=== PATIENT | female | born 1945 | race Caucasian/White ===

== ENCOUNTER 2022-11-08 20:21 | Observation (INO) | payer MEDICARE, OTHER ==
--- NOTE | 2022-11-08 20:43 | ERPHSYRPT ---
- History of Present Illness Time Seen by Provider: 11/08/22 20:43 Source: patient, EMS, old records Exam Limitations: no limitations Physician History: This is a 77-year-old obese white female who was brought into the emergency department by [facility] ambulance. Additional history was obtained from the paramedics as well as prior inpatient admission notes. Patient states that she has had vomiting and diarrhea for few days and is now weak. In the last 2 to 3 days she is been too weak at times to walk. She denies shortness of breath. She denies chest pain. She has some abdominal pain as well. She has not had a cough or fever. Timing/Duration: day(s) (2 to 3 days) Severity: mild (To moderate) Associated Symptoms: nausea, vomiting, abdominal pain, weakness, other (Diarrhea) Allergies/Adverse Reactions: latex Allergy (Intermediate, Verified 11/08/22 20:51) Hives fiberglass Allergy (Intermediate, Uncoded 11/08/22 20:51) Hives Travel Risk - International Travel Have you traveled outside of the country in past 3 weeks: No - Coronavirus Screening Symptoms: Vomiting/Diarrhea Close contact with a COVID-19 positive Pt in past 14-21 Days: No - Review of Systems Constitutional: Weakness Eyes: No Symptoms Ears, Nose, & Throat: No Symptoms Respiratory: No Symptoms Cardiac: No Symptoms Abdominal/Gastrointestinal: Abdominal Pain, Nausea, Vomiting, Diarrhea, No Constipation Genitourinary Symptoms: No Symptoms Musculoskeletal: No Symptoms Skin: No Symptoms Neurological: No Symptoms Psychological: No Symptoms Endocrine: No Symptoms Hematologic/Lymphatic: No Symptoms Immunological/Allergic: No Symptoms All Other Systems: Reviewed and Negative - Past Medical History Pertinent Past Medical History: Yes - Past Surgical History Past Surgical History: Yes - Nursing Vital Signs Nursing Vital Signs: Initial Vital Signs Temperature 98.3 F 11/08/22 20:22 Pulse Rate 60 11/08/22 20:22 Respiratory Rate 18 11/08/22 20:22 Blood Pressure 116/45 11/08/22 20:22 O2 Sat by Pulse Oximetry 98 11/08/22 20:22 Pain Scale Pain Intensity 0 - Physical Exam General Appearance: no apparent distress, alert, anxiety, obese Eye Exam: PERRL/EOMI, eyes nml inspection Ears, Nose, Throat Exam: normal ENT inspection, moist mucous membranes Neck Exam: normal inspection, non-tender, supple, full range of motion Respiratory Exam: normal breath sounds, lungs clear, airway intact, No chest tenderness, No respiratory distress Cardiovascular Exam: regular rate/rhythm, normal heart sounds, normal peripheral pulses Gastrointestinal/Abdomen Exam: soft, normal bowel sounds, tenderness (Mild diffuse), guarding (Mild diffuse with palpation), No rebound Pelvic Exam: not done Rectal Exam: not done Back Exam: normal inspection, normal range of motion, No CVA tenderness, No vertebral tenderness Extremity Exam: normal inspection, normal range of motion, pelvis stable Neurologic Exam: alert, oriented x 3, cooperative, credit officer II-XII nml as tested, normal mood/affect, nml cerebellar function, nml station & gait, sensation nml Skin Exam: normal color, warm, dry Lymphatic Exam: No adenopathy SpO2 Interpretation: normal O2 Delivery: Room Air - Course Nursing assessment & vital signs reviewed: Yes EKG Interpreted by Me: RATE (68), Sinus Rhythm, NORMAL AXIS, NORMAL INTERVALS, NORMAL QRS, NORMAL ST-T, Other (No acute ischemic changes on today's twelve-lead EKG.) Ordered Tests: Active Orders 24 hr Category Date Time Status EKG-ER Only STAT Care 11/08/22 20:43 Active IV Insertion STAT Care 11/08/22 20:43 Active ABDOMEN AND PELVIS W/0 CONTRAS [CT] Stat Exams 11/08/22 21:09 Taken AMYLASE Stat Lab 11/08/22 21:00 Completed BLOOD CULTURE Stat Lab 11/08/22 21:10 Received CBC W DIFF Stat Lab 11/08/22 21:00 Completed CMP Stat Lab 11/08/22 21:00 Completed CULTURE,URINE Stat Lab 11/08/22 21:47 Received LIPASE Stat Lab 11/08/22 21:00 Completed Lactic Acid Stat Lab 11/08/22 21:10 Completed TROPONIN Q4H Lab 11/08/22 21:00 Completed TROPONIN Q4H Lab 11/09/22 00:45 Ordered TROPONIN Q4H Lab 11/09/22 04:45 Ordered UA W/RFX UR CULTURE Stat Lab 11/08/22 21:47 Completed Medication Summary Generic Name Dose Route Start Last Admin Trade Name Freq PRN Reason Stop Dose Admin Sodium Chloride 1,000 mls @ 100 mls/hr 11/08/22 20:45 Sodium Chloride 0.9% 1000 Ml IV 12/08/22 20:44 .Q10H RUBEN Levofloxacin/Dextrose 500 mg in 100 mls @ 100 mls/hr 11/08/22 22:47 11/08/22 22:55 Levofloxacin 500mg/100ml D5w IV 11/08/22 23:46 100 mls/hr STAT STA 100 mls/hr Administration Discontinued Medications Generic Name Dose Route Start Last Admin Trade Name Sherry PRN Reason Stop Dose Admin Levofloxacin/Dextrose Confirm 11/08/22 22:53 Levofloxacin 500mg/100ml D5w Administered 11/08/22 22:54 Dose 500 mg in 100 mls @ ud IV .STK-MED ONE Metronidazole 500 mg 11/08/22 23:22 Metronidazole 500 Mg Tablet PO 11/08/22 23:23 STAT ONE Lab/Rad Data: Laboratory Result Diagrams 11/08/22 21:00 11/08/22 21:00 Laboratory Results 11/08/22 11/08/22 11/08/22 Range/Units 21:47 21:10 21:00 WBC (4.0-10.5) x10^3/uL RBC (4.1-5.4) x10^6/uL Hgb (12.0-16.0) g/dL Hct (35-47) % MCV (78-100) fL MCH (26-32) pg MCHC (32-36) g/dL RDW (11.5-14.0) % Plt Count (150-450) x10^3/uL MPV (7.5-11.0) fL Gran % (36.0-66.0) % Immature Gran % (Auto) (0.00-0.4) % Nucleat RBC Rel Count (0.00-0.1) % Eos # (Auto) (0-0.5) x10^3/uL Immature Gran # (Auto) (0.00-0.03) x10^3u/L Absolute Lymphs (auto) (1.0-4.6) x10^3/uL Absolute Monos (auto) (0.0-1.3) x10^3/uL Absolute Nucleated RBC (0.00-0.01) x10^3u/L Lymphocytes % (24.0-44.0) % Monocytes % (0.0-12.0) % Eosinophils % (0.00-5.0) % Basophils % (0.0-0.4) % Absolute Granulocytes (1.4-6.9) x10^3/uL Basophils # (0-0.4) x10^3/uL Sodium (137-145) mmol/L Potassium (3.5-5.1) mmol/L Chloride (98-107) mmol/L Carbon Dioxide (22-30) mmol/L Anion Gap (5-15) MEQ/L BUN (7-17) mg/dL Creatinine (0.52-1.04) mg/dL Estimated GFR ML/MIN Glucose (74-106) mg/dL Lactic Acid 1.2 (0.4-2.0) Calcium (8.4-10.2) mg/dL Total Bilirubin (0.2-1.3) mg/dL AST (14-36) U/L ALT (0-35) U/L Alkaline Phosphatase (38-126) U/L Troponin I (0.000-0.034) ng/mL Serum Total Protein (6.3-8.2) g/dL Albumin (3.5-5.0) g/dL Amylase (30-110) U/L Lipase (23-300) U/L Urine Color Dark Yellow A (Yellow) Urine Appearance Turbid A (Clear) Urine pH 7.0 (4.6-8.0) Ur Specific [place] 1.020 (1.005-1.030) Urine Protein 100 A (Negative) Urine Glucose (UA) Negative (Negative) mg/dL Urine Ketones Trace A (Negative) Urine Blood Small A (Negative) Urine Nitrite Negative (Negative) Urine Bilirubin Negative (Negative) Urine Urobilinogen 1.0 A (0.2) mg/dL Ur Leukocyte Esterase Large A (Negative) U Hyaline Cast (Auto) 0-2 (0-2) /LPF Urine Microscopic RBC 6-10 A (0-5) /HPF Urine Microscopic WBC >100 A (0-5) /HPF Ur Epithelial Cells Many A (None Seen) /HPF Urine Bacteria Many A (None Seen) /HPF Urine Culture Reflexed YES (NO) Influenza Type A Ag NEGATIVE (NEGATIVE) Influenza Type B Ag NEGATIVE (NEGATIVE) RSV (PCR) NEGATIVE (NEGATIVE) SARS-CoV-2 (PCR) NEGATIVE (NEGATIVE) 0411/08/22 11/08/22 Range/Units 21:00 21:00 21:00 WBC 8.0 (4.0-10.5) x10^3/uL RBC 4.00 L (4.1-5.4) x10^6/uL Hgb 11.5 L (12.0-16.0) g/dL Hct 35.9 (35-47) % MCV 89.8 (78-100) fL MCH 28.8 (26-32) pg MCHC 32.0 (32-36) g/dL RDW 15.4 H (11.5-14.0) % Plt Count 239 (150-450) x10^3/uL MPV 11.6 H (7.5-11.0) fL Gran % 55.0 (36.0-66.0) % Immature Gran % (Auto) 1.0 H (0.00-0.4) % Nucleat RBC Rel Count 0.0 (0.00-0.1) % Eos # (Auto) 0.60 H (0-0.5) x10^3/uL Immature Gran # (Auto) 0.08 H (0.00-0.03) x10^3u/L Absolute Lymphs (auto) 1.94 (1.0-4.6) x10^3/uL Absolute Monos (auto) 0.86 (0.0-1.3) x10^3/uL Absolute Nucleated RBC 0.00 (0.00-0.01) x10^3u/L Lymphocytes % 24.4 (24.0-44.0) % Monocytes % 10.8 (0.0-12.0) % Eosinophils % 7.5 H (0.00-5.0) % Basophils % 1.3 (0.0-0.4) % Absolute Granulocytes 4.37 (1.4-6.9) x10^3/uL Basophils # 0.10 (0-0.4) x10^3/uL Sodium 136 L (137-145) mmol/L Potassium 3.8 (3.5-5.1) mmol/L Chloride 103 (98-107) mmol/L Carbon Dioxide 24 (22-30) mmol/L Anion Gap 12.9 (5-15) MEQ/L BUN 39 H (7-17) mg/dL Creatinine 2.43 H (0.52-1.04) mg/dL Estimated GFR 20.5 ML/MIN Glucose 101 (74-106) mg/dL Lactic Acid (0.4-2.0) Calcium 8.2 L (8.4-10.2) mg/dL Total Bilirubin 0.40 (0.2-1.3) mg/dL AST 48 H (14-36) U/L ALT 34 (0-35) U/L Alkaline Phosphatase 117 (38-126) U/L Troponin I < 0.012 (0.000-0.034) ng/mL Serum Total Protein 6.6 (6.3-8.2) g/dL Albumin 3.5 (3.5-5.0) g/dL Amylase 35 (30-110) U/L Lipase 25 (23-300) U/L Urine Color (Yellow) Urine Appearance (Clear) Urine pH (4.6-8.0) Ur Specific [place] (1.005-1.030) Urine Protein (Negative) Urine Glucose (UA) (Negative) mg/dL Urine Ketones (Negative) Urine Blood (Negative) Urine Nitrite (Negative) Urine Bilirubin (Negative) Urine Urobilinogen (0.2) mg/dL Ur Leukocyte Esterase (Negative) U Hyaline Cast (Auto) (0-2) /LPF Urine Microscopic RBC (0-5) /HPF Urine Microscopic WBC (0-5) /HPF Ur Epithelial Cells (None Seen) /HPF Urine Bacteria (None Seen) /HPF Urine Culture Reflexed (NO) Influenza Type A Ag (NEGATIVE) Influenza Type B Ag (NEGATIVE) RSV (PCR) (NEGATIVE) SARS-CoV-2 (PCR) (NEGATIVE) - Progress Progress: improved Progress Note: 11/08/22 23:13 CAT scan of the abdomen pelvis without contrast shows mild fluid distended jejunal bowel loops with wall thickening favoring enteritis. There is scattered colonic diverticulosis and diarrhea. 11/08/22 23:26 Patient's medical issue is 1 of high complexity. The level of complexity and work-up performed is based on the past medical history, review of the medication list, review of the drug allergies, history of present illness, and physical findings on examination. The work-up performed was placement of intravenous line, infusion of normal saline solution, CT scan of the abdomen pelvis, viral swabs, urinalysis, CBC, CMP, twelve-lead EKG, troponin level, lactic acid level. The patient work-up results were reviewed by me and I discussed these with the patient. The patient does have evidence of dehydration and a urinary tract infection. I spoke with Dr. Herron who is the hospitalist on-call. We will place this patient in observation and provide her with both oral Flagyl and intr avenous Rocephin to treat both a jejunal enteritis and a urinary tract infection. We will also provide her with intravenous fluids at 100 mL an hour of normal saline and repeat labs in the morning. Discussed with .: Chuck Counseled pt/family regarding: lab results, diagnosis, rad results Medical Desision Making - Independent Historian Additional History obtained from: Head Stock Operator/EMT - Discussion of managment Reviewed:: Test results, Need for additional workup Agreed on:: Treatment plan, decision to admit Will see patient: in hospital - Social Determinants of Health Limited access to: transportation - Diagnostic Testing Diagnostic test were ordered, analyzed, and reviewed by me: Yes Radiological Interpretation: Reviewed by me, Teleradiologist Report - Risk of complications The pt has a high risk of morbidity or mortality based on: Decision regarding hospitilization or escalation of hosp level of care - Departure Departure Disposition: Observation Clinical Impression: Weakness, UTI (urinary tract infection), Dehydration, Enteritis Condition: Stable Critical Care Time: No Referrals: HEATHER BLAND [ACTIVE STAFF] - Follow up/PCP as directed
[2022-11-08] MEDS ORDERED: Sodium Chloride 0.9% 1000 ML 1,000 ML IV SCH (20:45)
[2022-11-08 21:27] LABS: Absolute Neutrophil Ct (ANC) 4.37 x10^3/uL (1.4-6.9); BASOPHIL % 1.3 % (0.0-0.4); Eosinophil % 7.5 % (0.00-5.0); Hematocrit 35.9 % (35-47); Hemoglobin 11.5 g/dL (12.0-16.0); IMMATURE GRAN # 0.08 x10^3u/L (0.00-0.03); Lymphocyte (Absolute #) 1.94 x10^3/uL (1.0-4.6); Lymphocytes % 24.4 % (24.0-44.0); Mean Cell Volume 89.8 fL (78-100); Mean Corpuscular Hemoglobin 28.8 pg (26-32); Mean Platelet Volume 11.6 fL (7.5-11.0); Monocyte (Absolute #) 0.86 x10^3/uL (0.0-1.3); Monocytes % 10.8 % (0.0-12.0); Platelet Count 239 x10^3/uL (150-450); Red Cell Distribution Width 15.4 % (11.5-14.0)
[2022-11-08 22:05] LABS: INFLUENZA A NEGATIVE (NEGATIVE); INFLUENZA B NEGATIVE (NEGATIVE); RESPIRATORY SYNCTIAL VIRUS NEGATIVE (NEGATIVE); SARS-CoV-2 Xpert Express NEGATIVE (NEGATIVE)
[2022-11-08 22:18] LABS: ALBUMIN 3.5 g/dL (3.5-5.0); ANION GAP 12.9 MEQ/L (5-15); BILIRUBIN,TOTAL 0.4 mg/dL (0.2-1.3); Calcium 8.2 mg/dL (8.4-10.2); Creatinine 1 2.43 mg/dL (0.52-1.04); EST GLOMERULAR FILTRATION RATE 20.5 ML/MIN; Potassium 3.8 mmol/L (3.5-5.1); Total Protein 6.6 g/dL (6.3-8.2)
[2022-11-08 22:39] LABS: Appearance Turbid (Clear); Bacteria Many /HPF (None Seen); Bilirubin Negative (Negative); Blood Small (Negative); Epithelial Cells Many /HPF (None Seen); Glucose, Urine Negative (Negative); Ketones Trace (Negative); Leukocyte Esterase Large (Negative); Nitrite Negative (Negative); Protein,Urine Dip 100 (Negative); WBC >100 /HPF (0-5)
[2022-11-08 22:43] LABS: Hyaline Casts 0-2 /LPF (0-2)
[2022-11-08 22:44] LABS: ADD URINE CULTURE? YES (NO)
[2022-11-08] MEDS ORDERED: Levofloxacin 500MG/100ML D5W 500 MG/100 ML BAG IV STA (22:47)
[2022-11-08] MEDS ORDERED: Levofloxacin 500MG/100ML D5W 500 MG/100 ML BAG IV ONE (22:53)
[2022-11-08] MEDS ORDERED: Flagyl 500 MG PO ONE (23:22)
[2022-11-09] MEDS ORDERED: Flagyl 500 MG ONE (00:19)
[2022-11-09] MEDS ORDERED: TYLENOL 325 MG PO PRN (01:18)
[2022-11-09] MEDS: Sodium Chloride 0.9% 1000 ML 1,000 ML IV SCH ×2 (02:39→15:13)
[2022-11-09 05:35] LABS: Basophil (Absolute #) 0.08 x10^3/uL (0-0.4); Eosinophil (Absolute #) 0.69 x10^3/uL (0-0.5); Hematocrit 32.2 % (35-47); Hemoglobin 10.4 g/dL (12.0-16.0); IMMATURE GRAN # 0.06 x10^3u/L (0.00-0.03); IMMATURE GRAN % 0.8 % (0.00-0.4); Lymphocyte (Absolute #) 2.25 x10^3/uL (1.0-4.6); Lymphocytes % 29.4 % (24.0-44.0); Mean Cell Volume 88.5 fL (78-100); Mean Corpuscular Hemoglobin 28.6 pg (26-32); Mean Corpuscular Hgb Concent. 32.3 g/dL (32-36); Mean Platelet Volume 10.9 fL (7.5-11.0); Monocyte (Absolute #) 0.98 x10^3/uL (0.0-1.3); Monocytes % 12.8 % (0.0-12.0); Platelet Count 203 x10^3/uL (150-450); Red Blood Count 3.64 x10^6/uL (4.1-5.4); Red Cell Distribution Width 15.6 % (11.5-14.0); White Blood Count 7.7 x10^3/uL (4.0-10.5)
[2022-11-09 06:34] LABS: ALBUMIN 3.1 g/dL (3.5-5.0); ANION GAP 15.1 MEQ/L (5-15); BILIRUBIN,TOTAL 0.3 mg/dL (0.2-1.3); Calcium 7.8 mg/dL (8.4-10.2); Creatinine 1 2.37 mg/dL (0.52-1.04); EST GLOMERULAR FILTRATION RATE 21.1 ML/MIN; Potassium 3.6 mmol/L (3.5-5.1)
--- NOTE | 2022-11-09 09:05 | XRAY ---
Indication: Abdomen pain, nausea, vomiting, and diarrhea. Multiple contiguous axial images obtained through the abdomen and pelvis without contrast. Comparison: None Lung bases demonstrates dependent atelectasis and 7 mm left costophrenic angle noncalcified nodule. Heart not enlarged. Noncontrasted stomach and bowel loops appear nonobstructed. Stomach is mildly fluid distended. Several jejunal bowel loops are also mildly fluid distended with mild circumferential wall thickening favoring enteritis. Diffuse colonic diarrhea with scattered diverticulosis. Cholecystectomy and hysterectomy. No free fluid/air. Remaining liver, pancreas, spleen, adrenal glands, kidneys, ureters, and bladder are unremarkable for noncontrast exam. Mild scattered aortoiliac calcifications without AAA. Osseous structures intact with osteopenia, mild degenerative changes throughout the spine, mild levoscoliosis centered at L3, and T11 Schmorl node. Impression: 1. Mild fluid distended stomach and proximal small bowel loops favoring gastroenteritis. Diffuse colonic diarrhea. 2. Indeterminant 7 mm noncalcified nodule left lung base. 3. Chronic findings including colonic diverticulosis, arteriosclerotic disease, and chronic bony findings.
[2022-11-09] MEDS: Flagyl 500 MG PO SCH ×3 (10:56→22:37)
[2022-11-09] MEDS: ROCEPHIN 1 Gm-D5w 50 ml Bag** 1 G/50 ML IVPB IV SCH (10:56)
[2022-11-09] MEDS ORDERED: Reglan 10 MG PO SCH (11:30)
[2022-11-09] MEDS ORDERED: VITAMIN D2 PO SCH (11:30)
[2022-11-09] MEDS ORDERED: Reglan 10 MG PO PRN (11:45)
[2022-11-09] MEDS ORDERED: MEDICATION INTERVENTION MC SCH ×3 (11:45)
[2022-11-09 11:48] LABS: 027 TOX PROD PRESUMPTIVE NEGATIVE (NEGATIVE); TOXIGENIC C. DIFF ORG NEGATIVE (NEGATIVE)
[2022-11-09] MEDS: Toprol-Xl 25MG Tablets PO SCH ×2 (13:30→22:37)
[2022-11-09] MEDS: Imdur 30 MG PO SCH (13:30)
[2022-11-09] MEDS: SYNTHROID 25 MCG PO SCH (13:30)
[2022-11-09] MEDS: Zestril 5 MG PO SCH (13:31)
[2022-11-09] MEDS: Lexapro PO SCH (13:31)
[2022-11-09] MEDS: Pepcid 20 MG PO SCH ×2 (13:31→22:37)
[2022-11-09] MEDS: ZYLOPRIM 100 MG PO SCH (13:31)
[2022-11-09] MEDS ORDERED: HUMALOG SQ PRN (14:45)
[2022-11-09] MEDS: Lantus Insulin SQ SCH ×2 (15:07→22:37)
[2022-11-09] MEDS: Zofran 4 MG/2 ML VIAL IV PRN (16:10)
[2022-11-09] MEDS: PATIENT OWN MEDICATION PO SCH ×3 (16:51→16:52)
[2022-11-09 17:24] LABS: TSH, 3RD Generation 4.61 mIU/L (0.47-4.68); Uric Acid 7.1 mg/dL (2.6-6.0)
[2022-11-09] MEDS: NORCO 5/325 MG PO PRN (22:37)
--- NOTE | 2022-11-10 00:03 | PCM.HP ---
History of Present Illness - Chief Complaint Chief Complaint: UTI, DEHYDRATION, WEAKNESS, ENTERITIS History of Present Illness: is a 77 year obese white female who was brought to the emergency department by [facility] ambulance. Patient is followed by PCP who is PEDIATRIC ALLERGIST at [facility] and GI Specialist. Per ER additional history was obtained from the paramedics and prior inpatient admission notes. Patient states that she has had nausea,vomiting and diarrhea and generalized abdominal pain for few days. In the last 2 days states she is been too weak at times to walk. Denies shortness of breath ,denies cough or fever or chest pain. ER positive findings- CT abd/pelvis -positive for gastroenteritis,labs consistent with volume depletion and UTI. Patient is admitted to [facility] for IV rehydration and antibiotics for UTI and further evaluation of diarrhea. - Review of Systems Constitutional: Lethargy Eyes: No Symptoms, Vision Changes Ears, Nose, & Throat: No Symptoms Respiratory: No Symptoms Cardiac: No Symptoms Abdominal/Gastrointestinal: Abdominal Pain (periumbilical), Diarrhea, Appetite Changes (loss of appetite) Genitourinary Symptoms: Dysuria Musculoskeletal: Arthralgias, Myalgias Skin: No Symptoms Neurological: No Symptoms Psychological: No Symptoms Endocrine: Other (morbidly obese) Hematologic/Lymphatic: No Symptoms Medications & Allergies Home Medications: Home Medication List Allopurinol 100 mg [Zyloprim 100 mg] 100 mg PO DAILY 11/09/22 [History Confirmed 11/09/22] Colchicine 0.6 mg PO DAILY 11/09/22 [History Confirmed 11/09/22] Dapagliflozin Propanediol [Farxiga] 10 mg PO DAILY 11/09/22 [History Confirmed 11/09/22] Dicyclomine HCl 20 mg [Bentyl 20 mg] 10 mg PO TID 11/09/22 [History Confirmed 11/09/22] Ergocalciferol (Vitamin D2) [Vitamin D2] 1.25 mg PO WEEKLY 11/09/22 [History Confirmed 11/09/22] Escitalopram Oxalate [Lexapro] 10 mg PO DAILY 11/09/22 [History Confirmed 11/09/22] Famotidine 20 mg [Pepcid 20 MG] 20 mg PO BID 11/09/22 [History Confirmed 11/09/22] Ferrous Sulfate 325 mg [Feosol 325 mg] 325 mg PO DAILY 11/09/22 [History Confirmed 11/09/22] Furosemide [Lasix] 20 mg PO DAILY 11/09/22 [History Confirmed 11/09/22] Insulin Glargine [Lantus Insulin] 46 unit SQ DAILY 11/09/22 [History Confir med 11/09/22] Insulin Glargine [Lantus Insulin] 60 unit SQ HS 11/09/22 [History Confirmed 11/09/22] Insulin Lispro [Humalog] 0 unit SQ AC 11/09/22 [History Confirmed 11/09/22] Isosorbide Mononitrate [Isosorbide Mononitrate ER] 30 mg PO DAILY 11/09/22 [History Confirmed 11/09/22] Levothyroxine Sodium 25 Mcg [Synthroid 25 Mcg] 25 mcg PO DAILY 11/09/22 [History Confirmed 11/09/22] Metoclopramide HCl 10 mg [Reglan 10 MG] 10 mg PO TID PRN 11/09/22 [History Confirmed 11/09/22] Metoprolol Succinate 25 mg Xl* [Toprol-Xl 25MG Tablets] 12.5 mg PO BID 11/09/22 [History Confirmed 11/09/22] Tolterodine Tartrate [Tolterodine Tartrate ER] 2 mg PO DAILY 11/09/22 [History Confirmed 11/09/22] lisinopriL [Zestril] 2.5 mg PO DAILY 11/09/22 [History Confirmed 11/09/22] Allergies/Adverse Reactions: Allergies Allergy/AdvReac Type Severity Reaction Status Date / Time latex Allergy Intermediate Hives Verified 11/09/22 02:03 fiberglass Allergy Intermediate Hives Uncoded 11/09/22 02:03 - Past Medical History Past Medical History: Yes Neurological History: No Pertinent History ENT History: Macular Degeneration Cardiac History: High Cholesterol, Hypertension Respiratory History: Asthma, COPD, Pneumonia, Sleep Apnea Endocrine Medical History: Diabetes Type II, Hypothyroidism Musculoskelatal History: Arthritis, Fractures GI Medical History: Diverticulitis, GERD, GI Bleed, Irritable Bowel, Other History: Renal Disease Pyscho-Social History: No Pertinent History Reproductive Disorders: Breast Cancer Comment: breast cancer 1987, GASTROPARESIS - Past Surgical History Past Surgical History: Yes Neuro Surgical History: No Pertinent History Cardiac History: Cardiac Catheterization, Cardiac Stent Respiratory Surgery: No Pertinent History GI Surgical History: Cholecystectomy Genitourinary Surgical Hx: No Pertinent History Musculskeletal Surgical Hx: No Pertinent History Female Surgical History: Hysterectomy, Section, Mastectomy Other Surgical History: Uvula remove, 3 CARDIAC STENTS - Social History Smoking Status: Never smoker Exposure to second hand smoke: No Alcohol: None Drug Use: none - Physical Exam Vital Signs: Vital Signs - 24 hr Temp Pulse Resp BP Pulse Ox 11/09/22 23:54 97.3 F 71 20 141/65 96 11/09/22 20:00 97.5 F 73 20 110/56 98 11/09/22 16:00 97.5 F 69 18 114/56 97 11/09/22 11:46 97.3 F 72 17 110/49 99 11/09/22 07:37 97.1 F 71 18 113/53 99 11/09/22 04:00 97.8 F 86 20 108/51 96 11/09/22 01:19 97.7 F 74 22 120/56 96 General Appearance: mild distress (bowel urgency-nurse called) Neurologic Exam: alert, oriented x 3, cooperative Eye Exam: eyes nml inspection Ears, Nose, Throat Exam: normal ENT inspection Neck Exam: normal inspection Respiratory Exam: normal breath sounds Cardiovascular Exam: regular rate/rhythm Gastrointestinal/Abdomen Exam: soft, tenderness (generalized mild no guarding, BS increased) Pelvic Exam: not done Rectal Exam: not done Extremity Exam: pedal edema Skin Exam: normal color, warm, dry Results - Labs Lab/Micro Results: Lab Results-Last 24 Hours 11/09/22 11/09/22 11/09/22 Range/Units 01:00 04:00 04:50 WBC 7.7 (4.0-10.5) x10^3/uL RBC 3.64 L (4.1-5.4) x10^6/uL Hgb 10.4 L (12.0-16.0) g/dL Hct 32.2 L (35-47) % MCV 88.5 (78-100) fL MCH 28.6 (26-32) pg MCHC 32.3 (32-36) g/dL RDW 15.6 H (11.5-14.0) % Plt Count 203 (150-450) x10^3/uL MPV 10.9 (7.5-11.0) fL Gran % 47.0 (36.0-66.0) % Immature Gran % (Auto) 0.8 H (0.00-0.4) % Nucleat RBC Rel Count 0.0 (0.00-0.1) % Eos # (Auto) 0.69 H (0-0.5) x10^3/uL Immature Gran # (Auto) 0.06 H (0.00-0.03) x10^3u/L Absolute Lymphs (auto) 2.25 (1.0-4.6) x10^3/uL Absolute Monos (auto) 0.98 (0.0-1.3) x10^3/uL Absolute Nucleated RBC 0.00 (0.00-0.01) x10^3u/L Lymphocytes % 29.4 (24.0-44.0) % Monocytes % 12.8 H (0.0-12.0) % Eosinophils % 9.0 H (0.00-5.0) % Basophils % 1.0 (0.0-0.4) % Absolute Granulocytes 3.60 (1.4-6.9) x10^3/uL Basophils # 0.08 (0-0.4) x10^3/uL Sodium (137-145) mmol/L Potassium (3.5-5.1) mmol/L Chloride (98-107) mmol/L Carbon Dioxide (22-30) mmol/L Anion Gap (5-15) MEQ/L BUN (7-17) mg/dL Creatinine (0.52-1.04) mg/dL Estimated GFR ML/MIN Glucose (74-106) mg/dL POC Glucometer (74 to 106) mg/dL Uric Acid 7.1 H (2.6-6.0) mg/dL Calcium (8.4-10.2) mg/dL Total Bilirubin (0.2-1.3) mg/dL AST (14-36) U/L ALT (0-35) U/L Alkaline Phosphatase (38-126) U/L Troponin I < 0.012 (0.000-0.034) ng/mL NT-Pro-B Natriuret Pep (<300) pg/mL Serum Total Protein (6.3-8.2) g/dL Albumin (3.5-5.0) g/dL 25-OH Vitamin D Total (30-100) ng/mL TSH 3rd Generation 4.610 (0.47-4.68) mIU/L C. difficile Screen (NEGATIVE) C.difficile 027-NAP1-B1 (NEGATIVE) 11/09/22 11/09/22 11/09/22 Range/Units 05:19 05:19 05:19 WBC (4.0-10.5) x10^3/uL RBC (4.1-5.4) x10^6/uL Hgb (12.0-16.0) g/dL Hct (35-47) % MCV (78-100) fL MCH (26-32) pg MCHC (32-36) g/dL RDW (11.5-14.0) % Plt Count (150-450) x10^3/uL MPV (7.5-11.0) fL Gran % (36.0-66.0) % Immature Gran % (Auto) (0.00-0.4) % Nucleat RBC Rel Count (0.00-0.1) % Eos # (Auto) (0-0.5) x10^3/uL Immature Gran # (Auto) (0.00-0.03) x10^3u/L Absolute Lymphs (auto) (1.0-4.6) x10^3/uL Absolute Monos (auto) (0.0-1.3) x10^3/uL Absolute Nucleated RBC (0.00-0.01) x10^3u/L Lymphocytes % (24.0-44.0) % Monocytes % (0.0-12.0) % Eosinophils % (0.00-5.0) % Basophils % (0.0-0.4) % Absolute Granulocytes (1.4-6.9) x10^3/uL Basophils # (0-0.4) x10^3/uL Sodium 138 (137-145) mmol/L Potassium 3.6 (3.5-5.1) mmol/L Chloride 106 (98-107) mmol/L Carbon Dioxide 21 L (22-30) mmol/L Anion Gap 15.1 H (5-15) MEQ/L BUN 38 H (7-17) mg/dL Creatinine 2.37 H (0.52-1.04) mg/dL Estimated GFR 21.1 ML/MIN Glucose 97 (74-106) mg/dL POC Glucometer (74 to 106) mg/dL Uric Acid (2.6-6.0) mg/dL Calcium 7.8 L (8.4-10.2) mg/dL Total Bilirubin 0.30 (0.2-1.3) mg/dL AST 47 H (14-36) U/L ALT 32 (0-35) U/L Alkaline Phosphatase 110 (38-126) U/L Troponin I < 0.012 (0.000-0.034) ng/mL NT-Pro-B Natriuret Pep 797 (<300) pg/mL Serum Total Protein 6.0 L (6.3-8.2) g/dL Albumin 3.1 L (3.5-5.0) g/dL 25-OH Vitamin D Total (30-100) ng/mL TSH 3rd Generation (0.47-4.68) mIU/L C. difficile Screen (NEGATIVE) C.difficile 027-NAP1-B1 (NEGATIVE) 11/09/22 11/09/22 11/09/22 Range/Units 07:16 10:40 11:03 WBC (4.0-10.5) x10^3/uL RBC (4.1-5.4) x10^6/uL Hgb (12.0-16.0) g/dL Hct (35-47) % MCV (78-100) fL MCH (26-32) pg MCHC (32-36) g/dL RDW (11.5-14.0) % Plt Count (150-450) x10^3/uL MPV (7.5-11.0) fL Gran % (36.0-66.0) % Immature Gran % (Auto) (0.00-0.4) % Nucleat RBC Rel Count (0.00-0.1) % Eos # (Auto) (0-0.5) x10^3/uL Immature Gran # (Auto) (0.00-0.03) x10^3u/L Absolute Lymphs (auto) (1.0-4.6) x10^3/uL Absolute Monos (auto) (0.0-1.3) x10^3/uL Absolute Nucleated RBC (0.00-0.01) x10^3u/L Lymphocytes % (24.0-44.0) % Monocytes % (0.0-12.0) % Eosinophils % (0.00-5.0) % Basophils % (0.0-0.4) % Absolute Granulocytes (1.4-6.9) x10^3/uL Basophils # (0-0.4) x10^3/uL Sodium (137-145) mmol/L Potassium (3.5-5.1) mmol/L Chloride (98-107) mmol/L Carbon Dioxide (22-30) mmol/L Anion Gap (5-15) MEQ/L BUN (7-17) mg/dL Creatinine (0.52-1.04) mg/dL Estimated GFR ML/MIN Glucose (74-106) mg/dL POC Glucometer 101 (74 to 106) mg/dL Uric Acid (2.6-6.0) mg/dL Calcium (8.4-10.2) mg/dL Total Bilirubin (0.2-1.3) mg/dL AST (14-36) U/L ALT (0-35) U/L Alkaline Phosphatase (38-126) U/L Troponin I (0.000-0.034) ng/mL NT-Pro-B Natriuret Pep (<300) pg/mL Serum Total Protein (6.3-8.2) g/dL Albumin (3.5-5.0) g/dL 25-OH Vitamin D Total 19.9 L (30-100) ng/mL TSH 3rd Generation (0.47-4.68) mIU/L C. difficile Screen NEGATIVE (NEGATIVE) C.difficile 027-NAP1-B1 PRESUMPTIVE NEGATIVE (NEGATIVE) 11/09/22 11/09/22 11/09/22 Range/Units 11:17 15:56 21:10 WBC (4.0-10.5) x10^3/uL RBC (4.1-5.4) x10^6/uL Hgb (12.0-16.0) g/dL Hct (35-47) % MCV (78-100) fL MCH (26-32) pg MCHC (32-36) g/dL RDW (11.5-14.0) % Plt Count (150-450) x10^3/uL MPV (7.5-11.0) fL Gran % (36.0-66.0) % Immature Gran % (Auto) (0.00-0.4) % Nucleat RBC Rel Count (0.00-0.1) % Eos # (Auto) (0-0.5) x10^3/uL Immature Gran # (Auto) (0.00-0.03) x10^3u/L Absolute Lymphs (auto) (1.0-4.6) x10^3/uL Absolute Monos (auto) (0.0-1.3) x10^3/uL Absolute Nucleated RBC (0.00-0.01) x10^3u/L Lymphocytes % (24.0-44.0) % Monocytes % (0.0-12.0) % Eosinophils % (0.00-5.0) % Basophils % (0.0-0.4) % Absolute Granulocytes (1.4-6.9) x10^3/uL Basophils # (0-0.4) x10^3/uL Sodium (137-145) mmol/L Potassium (3.5-5.1) mmol/L Chloride (98-107) mmol/L Carbon Dioxide (22-30) mmol/L Anion Gap (5-15) MEQ/L BUN (7-17) mg/dL Creatinine (0.52-1.04) mg/dL Estimated GFR ML/MIN Glucose (74-106) mg/dL POC Glucometer 131 H 126 H 96 (74 to 106) mg/dL Uric Acid (2.6-6.0) mg/dL Calcium (8.4-10.2) mg/dL Total Bilirubin (0.2-1.3) mg/dL AST (14-36) U/L ALT (0-35) U/L Alkaline Phosphatase (38-126) U/L Troponin I (0.000-0.034) ng/mL NT-Pro-B Natriuret Pep (<300) pg/mL Serum Total Protein (6.3-8.2) g/dL Albumin (3.5-5.0) g/dL 25-OH Vitamin D Total (30-100) ng/mL TSH 3rd Generation (0.47-4.68) mIU/L C. difficile Screen (NEGATIVE) C.difficile 027-NAP1-B1 (NEGATIVE) Accuchecks Date 11/09/22 Date 11/09/22 Date 11/09/22 Time 16:17 Time 11:46 Time 07:31 - Radiology Impressions Radiology Exams & Impressions: Radiology Procedures Category Date Time Status ABDOMEN AND PELVIS W/0 CONTRAS [CT] Stat Exams 11/08/22 21:09 Completed Assessment/Plan (1) Dehydration Current Visit: Yes Status: Acute Assessment & Plan: IV fluids,monitor electrolytes Code(s): E86.0 - DEHYDRATION (2) Enteritis Current Visit: Yes Status: Acute Assessment & Plan: is on Rocephin and Flagyl ,cdiff was negative, GI panel ordered/pending Code(s): K52.9 - NONINFECTIVE GASTROENTERITIS AND COLITIS, UNSPECIFIED (3) UTI (urinary tract infection) Current Visit: Yes Status: Acute Assessment & Plan: culture pending,Gram neg rods. ER started Rocephin. 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
[2022-11-10] MEDS: Sodium Chloride 0.9% 1000 ML 1,000 ML IV SCH ×2 (03:54→18:54)
[2022-11-10] MEDS: Zofran 4 MG/2 ML VIAL IV PRN (08:47)
[2022-11-10] MEDS: NORCO 5/325 MG PO PRN ×2 (08:47→20:30)
[2022-11-10 08:56] LABS: Hematocrit 31.3 % (35-47); Hemoglobin 10.2 g/dL (12.0-16.0); Mean Cell Volume 88.7 fL (78-100); Mean Corpuscular Hemoglobin 28.9 pg (26-32); Mean Corpuscular Hgb Concent. 32.6 g/dL (32-36); Mean Platelet Volume 10.8 fL (7.5-11.0); Platelet Count 214 x10^3/uL (150-450); Red Blood Count 3.53 x10^6/uL (4.1-5.4); Red Cell Distribution Width 15.6 % (11.5-14.0); White Blood Count 6.6 x10^3/uL (4.0-10.5)
[2022-11-10 09:09] LABS: ALBUMIN 3.3 g/dL (3.5-5.0); ANION GAP 14.8 MEQ/L (5-15); BILIRUBIN,TOTAL 0.4 mg/dL (0.2-1.3); Calcium 7.7 mg/dL (8.4-10.2); Creatinine 1 1.77 mg/dL (0.52-1.04); EST GLOMERULAR FILTRATION RATE 29.5 ML/MIN; Potassium 3.6 mmol/L (3.5-5.1); Total Protein 6.3 g/dL (6.3-8.2)
[2022-11-10] MEDS ORDERED: COLCHICINE 0.6 MG PO SCH (10:00)
[2022-11-10] MEDS ORDERED: NON-FORMULARY ITEM (Tolterodine Tartrate [Tolterodine Tartrate Er] 2 MG Cap.Er.24h) PO SCH (10:00)
[2022-11-10] MEDS ORDERED: NON-FORMULARY ITEM (Lisinopril [Zestril] 2.5 MG Tablet) PO SCH (10:00)
[2022-11-10] MEDS ORDERED: NON-FORMULARY ITEM (Dapagliflozin Propanediol [Farxiga] 10 MG Tablet) PO SCH (10:00)
--- NOTE | 2022-11-10 10:13 | XRAY ---
Indication: care home placement. Comparison: None Portable chest inflated and clear. Heart borderline enlarged. Bony thorax intact with osteopenia and mild degenerative changes. Impression: Nonacute chest with chronic features.
[2022-11-10] MEDS ORDERED: MEDICATION INTERVENTION MC SCH (10:30)
[2022-11-10] MEDS: Flagyl 500 MG PO SCH ×3 (10:53→22:30)
[2022-11-10] MEDS: SYNTHROID 25 MCG PO SCH (10:54)
[2022-11-10] MEDS: Imdur 30 MG PO SCH (10:54)
[2022-11-10] MEDS: Lexapro PO SCH (10:54)
[2022-11-10] MEDS: ZYLOPRIM 100 MG PO SCH (10:54)
[2022-11-10] MEDS: Zestril 5 MG PO SCH (10:54)
[2022-11-10] MEDS: Pepcid 20 MG PO SCH ×2 (10:54→22:30)
[2022-11-10] MEDS: PATIENT OWN MEDICATION PO SCH ×3 (10:55→10:56)
[2022-11-10] MEDS: Toprol-Xl 25MG Tablets PO SCH ×2 (10:56→22:30)
[2022-11-10] MEDS: ROCEPHIN 1 Gm-D5w 50 ml Bag** 1 G/50 ML IVPB IV SCH (10:58)
[2022-11-10] MEDS: Lantus Insulin SQ SCH ×2 (13:31→22:31)
[2022-11-11 05:28] LABS: Absolute Neutrophil Ct (ANC) 3.24 x10^3/uL (1.4-6.9); BASOPHIL % 0.9 % (0.0-0.4); Basophil (Absolute #) 0.05 x10^3/uL (0-0.4); Eosinophil % 7.9 % (0.00-5.0); Eosinophil (Absolute #) 0.44 x10^3/uL (0-0.5); Hematocrit 30.2 % (35-47); Hemoglobin 9.7 g/dL (12.0-16.0); IMMATURE GRAN # 0.04 x10^3u/L (0.00-0.03); IMMATURE GRAN % 0.7 % (0.00-0.4); Lymphocyte (Absolute #) 0.92 x10^3/uL (1.0-4.6); Lymphocytes % 16.6 % (24.0-44.0); Mean Cell Volume 88.8 fL (78-100); Mean Corpuscular Hemoglobin 28.5 pg (26-32); Mean Corpuscular Hgb Concent. 32.1 g/dL (32-36); Mean Platelet Volume 11.8 fL (7.5-11.0); Monocyte (Absolute #) 0.85 x10^3/uL (0.0-1.3); Monocytes % 15.3 % (0.0-12.0); Neutrophil % 58.6 % (36.0-66.0); Platelet Count 223 x10^3/uL (150-450); Red Cell Distribution Width 15.7 % (11.5-14.0); White Blood Count 5.5 x10^3/uL (4.0-10.5)
[2022-11-11 05:46] LABS: ANION GAP 13.2 MEQ/L (5-15); BILIRUBIN,TOTAL 0.3 mg/dL (0.2-1.3); Calcium 7.6 mg/dL (8.4-10.2); Creatinine 1 1.59 mg/dL (0.52-1.04); EST GLOMERULAR FILTRATION RATE 33.4 ML/MIN; Potassium 3.2 mmol/L (3.5-5.1); Total Protein 5.7 g/dL (6.3-8.2)
[2022-11-11] MEDS: Sodium Chloride 0.9% 1000 ML 1,000 ML IV SCH (08:45)
[2022-11-11] MEDS: ROCEPHIN 1 Gm-D5w 50 ml Bag** 1 G/50 ML IVPB IV SCH (09:49)
[2022-11-11] MEDS: Imdur 30 MG PO SCH (09:50)
[2022-11-11] MEDS: ZYLOPRIM 100 MG PO SCH (09:50)
[2022-11-11] MEDS: SYNTHROID 25 MCG PO SCH (09:50)
[2022-11-11] MEDS: Pepcid 20 MG PO SCH (09:50)
[2022-11-11] MEDS: Toprol-Xl 25MG Tablets PO SCH (09:50)
[2022-11-11] MEDS: Zestril 5 MG PO SCH (09:51)
[2022-11-11] MEDS: Lexapro PO SCH (09:52)
[2022-11-11] MEDS: PATIENT OWN MEDICATION PO SCH ×3 (09:52→09:54)
[2022-11-11] MEDS: Flagyl 500 MG PO SCH (09:52)
[2022-11-11] MEDS: Lantus Insulin SQ SCH (10:24)
[2022-11-11 11:17] LABS: Adenovirus F40/41 Not Detected (Not Detected); Astrovirus Not Detected (Not Detected); Campylobacter Not Detected (Not Detected); Cryptosporidium Not Detected (Not Detected); Cyclospora cayetanensis Not Detected (Not Detected); Entamoeba histolytica Not Detected (Not Detected); Enteroaggregative E coli Not Detected (Not Detected); Enterpathogenic E coli Not Detected (Not Detected); Entertoxigenic E coli Not Detected (Not Detected); Giardia lamblia Not Detected (Not Detected); Norovirus GI/GII Not Detected (Not Detected); Plesiomonas shigelloides Not Detected (Not Detected); Rotavirus A Not Detected (Not Detected); Salmonella Not Detected (Not Detected); Shig-toxin-producing E coli Not Detected (Not Detected); Shigella/Enterinvasive E coli Not Detected (Not Detected); Vibrio Not Detected (Not Detected); Vibrio cholerae Not Detected (Not Detected); Yersinia enterocolitica Not Detected (Not Detected)
[2022-11-11 11:56] VITALS: BP 144/63; PULSE 65; O2SAT 94
[2022-11-11 12:01] LABS: Sapovirus Not Detected (Not Detected)
[2022-11-11] MEDS: NORCO 5/325 MG PO PRN (12:34)
== END 2022-11-11 14:00 ==
LOC: ED 20:21 → MED SURG 11-09 01:16
PROVIDERS: ADMIT Family Medicine; ATTEND Family Medicine
DX: E86.0 Dehydration (principal); K52.9 Noninfective gastroenteritis and colitis, unspecified; N39.0 Urinary tract infection, site not specified; E11.9 Type 2 diabetes mellitus without complications; I10 Essential (primary) hypertension; E78.5 Hyperlipidemia, unspecified; R19.7 Diarrhea, unspecified; Z85.3 Personal history of malignant neoplasm of breast; Z79.899 Other long term (current) drug therapy; Z20.828 Contact with and (suspected) exposure to other viral communicable diseases
CPT/HCPCS: 0241U; 36000; 36415; 71045; 74176; 80053; 81001; 82150; 82306; 82947; 83036; 83605; 83690; 83880; 84443; 84484; 84550; 85025; 85027; 87040; 87077; 87086; 87186; 87493; 87507; 93005; 96365; 97110; 97161; 97530; 99284; G0378; J0696; J1956; J2405; A9270-GY

== ENCOUNTER 2024-04-09 06:10 | Observation (INO) | payer MEDICARE, OTHER ==
[2024-04-09 06:45] LABS: Absolute Neutrophil Ct (ANC) 10.24 x10^3/uL (1.56-6.13); BASOPHIL % 0.5 % (0.1-1.2); Basophil (Absolute #) 0.07 x10^3/uL (0.01-0.08); Eosinophil % 5.3 % (0.7-5.8); Hematocrit 36.7 % (34.1-44.9); Hemoglobin 11.7 g/dL (11.2-15.7); IMMATURE GRAN # 0.27 x10^3u/L (0.001-0.031); IMMATURE GRAN % 1.8 % (0.001-0.429); Lymphocyte (Absolute #) 2.61 x10^3/uL (1.18-3.74); Lymphocytes % 17.3 % (19.3-51.7); Mean Cell Volume 94.1 fL (79.4-94.8); Mean Corpuscular Hgb Concent. 31.9 g/dL (32.2-35.5); Mean Platelet Volume 9.8 fL (9.4-12.3); Monocyte (Absolute #) 1.11 x10^3/uL (0.24-0.86); Monocytes % 7.4 % (4.7-12.5); Neutrophil % 67.7 % (34.0-71.1); Platelet Count 253 x10^3/uL (182-369); Red Cell Distribution Width 15.4 % (11.7-14.4); White Blood Count 15.1 x10^3/uL (3.98-10.04)
--- NOTE | 2024-04-09 06:46 | ERPHSYRPT ---
- History of Present Illness Historian: patient Exam Limitations: no limitations Patient Subjective Stated Complaint: per ems, pt had been voimiting since yesterday. [facility] staff told them that the patients last emesis was darker than previously and pt c/o diffuse abd pressure Triage Nursing Assessment: pt alert and oriented, answers questions approp. pt very [place]. pt arrive per ambulance and transfers to stretcher with assist of 4. skin warm and dry. abd distended, bowel sounds hypo. pt reports tenderness in abd with palpation. Timing/Duration: day(s) (4) Activities at Onset: none Quality: cramping Abdominal Pain Onset Location: epigastric Pain Radiation: RUQ, LUQ, RLQ, LLQ Severity of Pain-Max: moderate Severity of Pain-Current: mild Modifying Factors: Improves With: nothing Associated Symptoms: chest pain, nausea, vomiting, weakness, No neck pain, No shortness of breath Hx Tetanus, Diphtheria Vaccination/Date Given: Yes Hx Influenza Vaccination/Date Given: No Hx Pneumococcal Vaccination/Date Given: Yes Immunizations Up to Date: Yes <JITENDRA BOYCE - Last Filed: 04/09/24 06:52> <SARAH KENNEDY - Last Filed: 04/09/24 09:10> - History of Present Illness Time Seen by Provider: 04/09/24 06:30 Physician History: 79yo f presents via EMS from [facility] for nausea/vomiting/abdominal pain that has been ongoing for the past 4d. Pt reports vomiting has been NBNB. Pt denies any known fevers. Pt reports hx of gastroparesis, DM2, diverticulosis. Pt reports her abdominal pain is worse in the epigastric region but reports pain diffusely w/ palpation. Pt reports some chest discomfort retrosternally w/o any radiation to the jaw, back or shoulder. Pt reports her last BM was yesterday, reports continued flatus today. Pt has hx of DVTs, takes eliquis and plavix, also has hx of GI bleed. (JITENDRA BOYCE) Allergies/Adverse Reactions: latex Allergy (Intermediate, Verified 04/09/24 06:43) Hives bee venom protein (honey bee) Allergy (Unknown, Verified 04/09/24 06:43) shellfish derived Allergy (Unknown, Verified 04/09/24 06:43) fiberglass Allergy (Intermediate, Uncoded 04/09/24 06:43) Hives Home Medications: Allopurinol 100 mg [Zyloprim 100 mg] 100 mg PO DAILY 11/09/22 [History] Dapagliflozin Propanediol [Farxiga] 10 mg PO DAILY 11/09/22 [History] Dicyclomine HCl 20 mg [Bentyl 20 mg] 10 mg PO TID 11/09/22 [History] Ergocalciferol (Vitamin D2) [Vitamin D2] 1.25 mg PO WEEKLY 11/09/22 [History] Ferrous Sulfate 325 mg [Feosol 325 mg] 325 mg PO DAILY 11/09/22 [History] Furosemide [Lasix] 40 mg PO DAILY 11/09/22 [History] Isosorbide Mononitrate [Isosorbide Mononitrate ER] 60 mg PO DAILY 11/09/22 [History] Levothyroxine Sodium 25 Mcg [Synthroid 25 Mcg] 75 mcg PO DAILY 11/09/22 [History] Metoprolol Succinate 25 mg Xl* [Toprol-Xl 25MG Tablets] 25 mg PO DAILY 11/09/22 [History] Apixaban [Eliquis] 5 mg PO BID 04/09/24 [History] Bisacodyl 10 mg [Dulcolax 10 MG SUPP] 10 mg RC Q6H PRN PRN 04/09/24 [History] Carboxymethylcellulos/Glycerin [Refresh Optive Eye Drops] 5 ml OP QID 04/09/24 [History] Clopidogrel Bisulfate [PLAVIX Tablet] 75 mg PO DAILY 04/09/24 [History] Cyanocobalamin (Vitamin B-12) [B-12] 1,000 mcg PO DAILY 04/09/24 [History] Dextrose [Glucose Gel] 38 gm PO UD 04/09/24 [History] Duloxetine HCl 30 mg [Cymbalta 30 MG Capsule] 30 mg PO DAILY 04/09/24 [History] Gabapentin [Neurontin ] 100 mg PO HS 04/09/24 [History] Glucagon 1 mg [GlucaGen 1 MG] 1 mg IM UD 04/09/24 [History] Hydrocodone/Acetaminophen [Hydrocodone-Acetamin 7.5-325] 1 each PO Q4HPRN PRN 04/09/24 [History] Insulin Aspart [NovoLOG Insulin] 10 unit SQ TIDAC 04/09/24 [History] Insulin Glargine,Hum.rec.anlog [Basaglar Kwikpen U-100] 90 unit SQ HS 04/09/24 [History] Loperamide HCl 2 mg [Imodium 2 mg] 2 mg PO Q8H PRN PRN 04/09/24 [History] Magnesium Hydroxide 30 ml [Milk of Magnesia 30 ml] 30 ml PO DAILY PRN PRN 04/09/24 [History] Nitroglycerin 0.4 mg Tablet [Nitrostat 0.4 MG Tablet] 0.4 mg SL UD 04/09/24 [History] PANTOPRAZOLE 40 mg Tablet [Protonix 40MG Tablet] 40 mg PO BID 04/09/24 [History] Polyethylene Glycol 3350 17 gm [Miralax Powder 17GM PACKET] 17 gm PO HS 04/09/24 [History] Potassium Chloride [Klor-Con M20] 20 meq PO BID 04/09/24 [History] Rosuvastatin Calcium 20 mg PO HS 04/09/24 [History] Semaglutide [Ozempic] 0.5 mg SQ WEEKLY 04/09/24 [History] Zinc Oxide [Diaper Rash Ointment] 56 gm TP DAILY 04/09/24 [History] diphenhydrAMINE HCL [Allergy Relief] 25 mg PO Q8H PRN PRN 04/09/24 [History] Travel Risk - International Travel Have you traveled outside of the country in past 3 weeks: No - Emerging Infectious Disease Are you exhibiting symptoms associated with any current EIDs: No <JITENDRA BOYCE - Last Filed: 04/09/24 06:52> - Review of Systems Constitutional: No Symptoms Respiratory: No Symptoms Cardiac: Chest Pain, No Edema, No Palpitations, No Syncope Abdominal/Gastrointestinal: Abdominal Pain, Nausea, Vomiting, No Hematemesis, No Hematochezia, No Melena Genitourinary Symptoms: Dysuria, No Frequency, No Hematuria <JITENDRA BOYCE - Last Filed: 04/09/24 06:52> - Past Medical History Pertinent Past Medical History: Yes Neurological History: No Pertinent History ENT History: Macular Degeneration Cardiac History: Coronary Artery Disease, Deep Vein Thrombosis, High Cholesterol, Hypertension Respiratory History: Asthma, COPD, Pneumonia, Sleep Apnea Endocrine Medical History: Diabetes Type II, Hypothyroidism Musculoskeletal History: Arthritis, Fractures GI Medical History: Colitis, Diverticulitis, GERD, GI Bleed, Irritable Bowel, Other History: Renal Disease Psycho-Social History: No Pertinent History Female Reproductive Disorders: Breast Cancer Other Medical History: breast cancer 1986, GASTROPARESIS - Past Surgical History Past Surgical History: Yes Neuro Surgical History: No Pertinent History Cardiac: Cardiac Catheterization, Cardiac Stent Respiratory: No Pertinent History Gastrointestinal: Cholecystectomy Genitourinary: No Pertinent History Musculoskeletal: No Pertinent History Female Surgical History: Hysterectomy, Section, Mastectomy Other Surgical History: Uvula remove, 3 CARDIAC STENTS - Social History Smoking Status: Never smoker Exposure to second hand smoke: No Drug Use: none Patient Lives Alone: No - Social Determinants of Health Will the patient participate in the screening: Declined to provide Comment: from [facility] <FABRICEJITENDRA PHAN - Last Filed: 04/09/24 06:52> - Physical Exam General Appearance: no apparent distress, alert Respiratory Exam: normal breath sounds, lungs clear, airway intact, No chest tenderness, No respiratory distress Cardiovascular Exam: regular rate/rhythm, normal heart sounds, normal peripheral pulses Gastrointestinal/Abdomen Exam: soft, normal bowel sounds, tenderness (diffuse m ild TTP ), distention, No mass, No guarding, No rebound Neurologic Exam: alert, oriented x 3, cooperative SpO2 Interpretation: normal SpO2: 95 O2 Delivery: Room Air <JITENDRA BOYCE EMILIE - Last Filed: 04/09/24 06:52> - Nursing Vital Signs Nursing Vital Signs: Initial Vital Signs Temperature 97.7 F 04/09/24 06:12 Pulse Rate 86 04/09/24 06:12 Respiratory Rate 18 04/09/24 06:12 Blood Pressure 117/80 04/09/24 06:12 O2 Sat by Pulse Oximetry 95 04/09/24 06:12 Pain Scale Pain Intensity 5 Ordered Tests: Active Orders 24 hr Category Date Time Status Call Admit Doctor for Orders ON ADMISSION Care 04/09/24 09:07 Active Code Status Order ROUTINE Care 04/09/24 09:07 Active EKG-ER Only STAT Care 04/09/24 06:39 Active POCT Glucose Check DAILY Care 04/09/24 09:[address] in Observation ROUTINE Care 04/09/24 09:07 Active Straigth Cath [Cath for Specimen-Straight] STAT Care 04/09/24 08:42 Active NPO Diet 04/09/24 09:07 Active ABDOMEN AND PELVIS W/0 CONTRAS [CT] Stat Exams 04/09/24 06:40 Completed BLOOD CULTURE Stat Lab 04/09/24 06:55 Received CBC W DIFF Stat Lab 04/09/24 06:30 Completed CMP Stat Lab 04/09/24 06:30 Completed CULTURE,URINE Stat Lab 04/09/24 08:24 Received LIPASE Stat Lab 04/09/24 06:30 Completed Lactic Acid Stat Lab 04/09/24 06:54 Completed TROPONIN Q4H Lab 04/09/24 06:30 Completed TROPONIN Q4H Lab 04/09/24 10:45 Ordered TROPONIN Q4H Lab 04/09/24 14:45 Ordered UA W/RFX UR CULTURE Stat Lab 04/09/24 08:24 Completed Pulse Oximetry CONTINUOUS RT 04/09/24 09:07 Active Transfer Order Routine Transfer 04/09/24 Ordered Medication Summary Discontinued Medications Generic Name Dose Route Start Last Admin Trade Name Freq PRN Reason Stop Dose Admin Sodium Chloride 1,000 mls @ 999 mls/hr 04/09/24 06:39 04/09/24 08:12 Sodium Chloride 0.9% 1000 Ml IV 04/09/24 07:39 Infused .Q1H1M STA Infusion Sodium Chloride Confirm 04/09/24 06:56 Sodium Chloride 0.9% 1000 Ml Administered 04/09/24 06:57 Dose 1,000 mls @ ud .ROUTE .STK-MED ONE Metoclopramide HCl 10 mg 04/09/24 06:39 04/09/24 07:03 Metoclopramide Hcl 10 Mg/2 Ml Vial IV 04/09/24 06:40 10 mg STAT ONE Administration Metoclopramide HCl Confirm 04/09/24 06:57 Metoclopramide Hcl 10 Mg/2 Ml Vial Administered 04/09/24 06:58 Dose 10 mg .ROUTE .STK-MED ONE Morphine Sulfate 2 mg 04/09/24 06:39 04/09/24 07:04 Morphine Sulfate 2 Mg/Ml Inj IV 04/09/24 06:40 2 mg STAT ONE Administration Morphine Sulfate Confirm 04/09/24 06:57 Morphine Sulfate 2 Mg/Ml Inj Administered 04/09/24 06:58 Dose 2 mg .ROUTE .K-MED ONE Lab/Rad Data: Laboratory Result Diagrams 04/09/24 06:30 04/09/24 06:30 Laboratory Results 04/09/24 04/09/24 04/09/24 Range/Units 08:24 07:40 06:54 WBC (3.98-10.04) x10^3/uL RBC (3.93-5.22) x10^6/uL Hgb (11.2-15.7) g/dL Hct (34.1-44.9) % MCV (79.4-94.8) fL MCH (25.6-32.2) pg MCHC (32.2-35.5) g/dL RDW (11.7-14.4) % Plt Count (182-369) x10^3/uL MPV (9.4-12.3) fL Gran % (34.0-71.1) % Immature Gran % (Auto) (0.001-0.429) % Nucleat RBC Rel Count (0.00-0.2) % Eos # (Auto) (0.04-0.36) x10^3/uL Immature Gran # (Auto) (0.001-0.031) x10^3u/L Absolute Lymphs (auto) (1.18-3.74) x10^3/uL Absolute Monos (auto) (0.24-0.86) x10^3/uL Absolute Nucleated RBC (0.00-0.012) x10^3u/L Lymphocytes % (19.3-51.7) % Monocytes % (4.7-12.5) % Eosinophils % (0.7-5.8) % Basophils % (0.1-1.2) % Absolute Granulocytes (1.56-6.13) x10^3/uL Basophils # (0.01-0.08) x10^3/uL Sodium (135-145) mmol/L Potassium (3.5-5.1) mmol/L Chloride (98-107) mmol/L Carbon Dioxide (22-30) mmol/L Anion Gap (5-15) MEQ/L BUN (7-17) mg/dL Creatinine (0.52-1.04) mg/dL Estimated GFR ML/MIN Glucose (74-106) mg/dL Lactic Acid 1.2 (0.4-2.0) Calcium (8.4-10.2) mg/dL Total Bilirubin (0.2-1.3) mg/dL AST (14-36) U/L ALT (0-35) U/L Alkaline Phosphatase (38-126) U/L Troponin I (0.000-0.033) ng/mL Serum Total Protein (6.3-8.2) g/dL Albumin (3.5-5.0) g/dL Lipase (23-300) U/L Urine Color Yellow (Yellow) Urine Appearance Turbid A (Clear) Urine pH 7.0 (4.6-8.0) Ur Specific [place] 1.020 (1.005-1.030) Urine Protein 300 A (Negative) Urine Glucose (UA) 500 A (Negative) mg/dL Urine Ketones Trace A (Negative) Urine Blood Large A (Negative) Urine Nitrite Negative (Negative) Urine Bilirubin Negative (Negative) Urine Urobilinogen 1.0 A (0.2) mg/dL Ur Leukocyte Esterase Large A (Negative) U Hyaline Cast (Auto) 11-20 (0-2) /LPF Urine Microscopic RBC 21-50 A (0-5) /HPF Urine Microscopic WBC >100 A (0-5) /HPF Ur Epithelial Cells Moderate A (None Seen) /HPF Urine Bacteria None Seen (None Seen) /HPF Urine Yeast (Budding) Moderate A (None Seen) /HPF Urine Culture Reflexed YES (NO) Influenza Type A Ag NEGATIVE (NEGATIVE) Influenza Type B Ag NEGATIVE (NEGATIVE) RSV (PCR) NEGATIVE (NEGATIVE) SARS-CoV-2 (PCR) NEGATIVE (NEGATIVE) 04/09/24 04/09/24 04/09/24 Range/Units 06:30 06:30 06:30 WBC 15.1 H (3.98-10.04) x10^3/uL RBC 3.90 L (3.93-5.22) x10^6/uL Hgb 11.7 (11.2-15.7) g/dL Hct 36.7 (34.1-44.9) % MCV 94.1 (79.4-94.8) fL MCH 30.0 (25.6-32.2) pg MCHC 31.9 L (32.2-35.5) g/dL RDW 15.4 H (11.7-14.4) % Plt Count 253 (182-369) x10^3/uL MPV 9.8 (9.4-12.3) fL Gran % 67.7 (34.0-71.1) % Immature Gran % (Auto) 1.8 H (0.001-0.429) % Nucleat RBC Rel Count 0.0 (0.00-0.2) % Eos # (Auto) 0.80 H (0.04-0.36) x10^3/uL Immature Gran # (Auto) 0.27 H (0.001-0.031) x10^3u/L Absolute Lymphs (auto) 2.61 (1.18-3.74) x10^3/uL Absolute Monos (auto) 1.11 H (0.24-0.86) x10^3/uL Absolute Nucleated RBC 0.00 (0.00-0.012) x10^3u/L Lymphocytes % 17.3 L (19.3-51.7) % Monocytes % 7.4 (4.7-12.5) % Eosinophils % 5.3 (0.7-5.8) % Basophils % 0.5 (0.1-1.2) % Absolute Granulocytes 10.24 H (1.56-6.13) x10^3/uL Basophils # 0.07 (0.01-0.08) x10^3/uL Sodium 137 (135-145) mmol/L Potassium 4.8 (3.5-5.1) mmol/L Chloride 100 (98-107) mmol/L Carbon Dioxide 29 (22-30) mmol/L Anion Gap 12.8 (5-15) MEQ/L BUN 42 H (7-17) mg/dL Creatinine 2.23 H (0.52-1.04) mg/dL Estimated GFR 21.8 ML/MIN Glucose 151 H (74-106) mg/dL Lactic Acid (0.4-2.0) Calcium 9.5 (8.4-10.2) mg/dL Total Bilirubin 0.50 (0.2-1.3) mg/dL AST 33 (14-36) U/L ALT 20 (0-35) U/L Alkaline Phosphatase 81 (38-126) U/L Troponin I < 0.012 (0.000-0.033) ng/mL Serum Total Protein 7.6 (6.3-8.2) g/dL Albumin 4.0 (3.5-5.0) g/dL Lipase 176 (23-300) U/L Urine Color (Yellow) Urine Appearance (Clear) Urine pH (4.6-8.0) Ur Specific [place] (1.005-1.030) Urine Protein (Negative) Urine Glucose (UA) (Negative) mg/dL Urine Ketones (Negative) Urine Blood (Negative) Urine Nitrite (Negative) Urine Bilirubin (Negative) Urine Urobilinogen (0.2) mg/dL Ur Leukocyte Esterase (Negative) U Hyaline Cast (Auto) (0-2) /LPF Urine Microscopic RBC (0-5) /HPF Urine Microscopic WBC (0-5) /HPF Ur Epithelial Cells (None Seen) /HPF Urine Bacteria (None Seen) /HPF Urine Yeast (Budding) (None Seen) /HPF Urine Culture Reflexed (NO) Influenza Type A Ag (NEGATIVE) Influenza Type B Ag (NEGATIVE) RSV (PCR) (NEGATIVE) SARS-CoV-2 (PCR) (NEGATIVE) <JITENDRA BOYCE - Last Filed: 04/09/24 06:52> - Progress Counseled pt/family regarding: lab results, diagnosis, need for follow-up, rad results <SARAH KENNEDY - Last Filed: 04/09/24 09:10> - Progress Progress Note: 04/09/24 06:52 I discussed pt case w/ Dr Kennedy who assumes care for patient at 07:00 (JITENDRA BOYCE) I took over care for Dr. Boyce at 7 AM. Patient found to have an HANNAH, CT scan shows abdominal distention with ileus versus gastroenteritis. Most likely the source of her symptoms today. I discussed over the phone with on-call hospitalist, Dr. Ramírez. We discussed the case in detail and he was comfortable admitting patient to hospital here. 04/09/24 09:08 (SARAH KENNEDY) - Departure Departure Disposition: Home Critical Care Time: No <JITENDRA BOYCE - Last Filed: 04/09/24 06:52> <SARAH KENNEDY - Last Filed: 04/09/24 09:10> - Departure Clinical Impression: Vomiting Qualifiers: Vomiting type: unspecified Nausea presence: with nausea Qualified Code(s): R11.2 - Nausea with vomiting, unspecified Condition: Stable Referrals: KAY SANTACRUZ [NON-STAFF PHY W/O PRIVILEGES] - Follow up/PCP as directed
[2024-04-09] MEDS ORDERED: Sodium Chloride 0.9% 1000 ML 1,000 ML ONE (06:56)
[2024-04-09] MEDS ORDERED: MORPHINE SULFATE 2 MG INJ ONE (06:57)
[2024-04-09] MEDS ORDERED: Reglan 10 MG/2 ML ONE (06:57)
[2024-04-09 07:03] LABS: ANION GAP 12.8 MEQ/L (5-15); BILIRUBIN,TOTAL 0.5 mg/dL (0.2-1.3); Calcium 9.5 mg/dL (8.4-10.2); Creatinine 1 2.23 mg/dL (0.52-1.04); EST GLOMERULAR FILTRATION RATE 21.8 ML/MIN; Potassium 4.8 mmol/L (3.5-5.1); Total Protein 7.6 g/dL (6.3-8.2)
[2024-04-09] MEDS: Reglan 10 MG/2 ML IV ONE (07:03)
[2024-04-09] MEDS: Sodium Chloride 0.9% 1000 ML 1,000 ML IV STA (07:03)
[2024-04-09] MEDS: MORPHINE SULFATE 2 MG INJ IV ONE (07:04)
[2024-04-09 08:42] LABS: INFLUENZA A NEGATIVE (NEGATIVE); INFLUENZA B NEGATIVE (NEGATIVE); RESPIRATORY SYNCTIAL VIRUS NEGATIVE (NEGATIVE); SARS-CoV-2 Xpert Express NEGATIVE (NEGATIVE)
--- NOTE | 2024-04-09 08:44 | XRAY ---
Indication: Abdominal pain, vomiting, and distention. Multiple contiguous axial images obtained through the abdomen and pelvis without contrast. Comparison: November 08, 2022. Lung bases again demonstrate dependent atelectasis and stable 7 mm probable benign left costophrenic angle noncalcified nodule. Heart borderline enlarged. Stomach is again markedly distended with food/fluid with fluid leveling. Several small bowel loops are also minimally fluid distended with fluid leveling. Findings may represent ileus versus gastroenteritis are normal appendix. Again scattered transverse and descending colonic diverticulosis. Again cholecystectomy and hysterectomy. No free fluid/air. Remaining liver, pancreas, spleen, adrenal glands, kidneys, ureters, and bladder are unremarkable for noncontrast exam. There remains mild scattered aortoiliac calcifications without AAA. Osseous structures intact again with osteopenia, mild degenerative changes throughout spine, mild levoscoliosis, and small T11 Schmorl node. Impression: 1. Again markedly distended stomach and lesser degree small bowel loops with fluid leveling. Rule out ileus versus gastroenteritis. 2. Chronic findings including probable benign 7 mm left costophrenic angle noncalcified nodule, colonic diverticulosis, arteriosclerotic disease, and chronic bony findings.
[2024-04-09 08:54] LABS: Appearance Turbid (Clear); Bacteria None Seen /HPF (None Seen); Bilirubin Negative (Negative); Blood Large (Negative); Budding Yeast Moderate /HPF (None Seen); Epithelial Cells Moderate /HPF (None Seen); Glucose, Urine 500 mg/dL (Negative); Ketones Trace (Negative); Leukocyte Esterase Large (Negative); Nitrite Negative (Negative); Protein,Urine Dip 300 (Negative); RBC 21-50 /HPF (0-5); WBC >100 /HPF (0-5)
[2024-04-09 08:55] LABS: ADD URINE CULTURE? YES (NO)
[2024-04-09] MEDS ORDERED: Zofran 4 MG/2 ML VIAL IV PRN (11:39)
--- NOTE | 2024-04-09 11:49 | PCM.HP ---
History of Present Illness - Chief Complaint Chief Complaint: gastritis Date: 04/09/24 History of Present Illness: is a 79 year old female wit PMHX of macular degeneration, [place], CAD, DVT (eliquis, and plavix), hyperlipidemia, HTN, asthma, COPD, Spleep apnea, type II DM< Hypothyroidism, arhritis, Colitis, diverticultitis, GERD, IBS, CKD, Breast cancer (1986), morbid obesity, and resident of [facility]. She presented today by EMS from [facility] for nausea/vomiting/abdominal pain that has been ongoing for the past 4 days. Pt denies any known fevers. Pt reports her abdominal pain is worse in the epigastric region but reports pain diffusely w/ palpation. She reports abd. distention. Pt reports some chest discomfort retrosternally w/o any radiation to the jaw, back or shoulder. Pt reports her last BM was yesterday and was hard, reports continued flatus today. CT abd/ pelvis shows markedly distended stomach and lesser degree small bowel loops with fluid leveling. Rule out ileus versus gastroenteritis. Chronic findings including probable benign 7 mm left costophrenic angle noncalcified nodule, colonic diverticulosis, arteriosclerotic disease, and chronic bony findings. UA shows UTI and IV antibiotics and IV fluids started. Labs show HANNAH on CKD. Will keep pt NPO for bowel rest and recheck KUB in AM. - Review of Systems Constitutional: No Fever, No Chills Eyes: No Symptoms Ears, Nose, & Throat: No Symptoms Respiratory: No Cough, No Short Of Breath Cardiac: Other, No Chest Pain, No Edema, No Syncope Abdominal/Gastrointestinal: Abdominal Pain, Nausea, Vomiting, Constipation, No Diarrhea Genitourinary Symptoms: No Dysuria Musculoskeletal: No Back Pain, No Neck Pain Skin: No Rash Neurological: No Dizziness, No Focal Weakness, No Sensory Changes Psychological: No Symptoms Endocrine: No Symptoms Hematologic/Lymphatic: No Symptoms Immunological/Allergic: No Symptoms Medications & Allergies Home Medications: Home Medication List Allopurinol 100 mg [Zyloprim 100 mg] 100 mg PO DAILY 11/09/22 [History Confirmed 04/09/24] Dapagliflozin Propanediol [Farxiga] 10 mg PO DAILY 11/09/22 [History Confirmed 04/09/24] Dicyclomine HCl 20 mg [Bentyl 20 mg] 10 mg PO TID 11/09/22 [History Confirmed 04/09/24] Ergocalciferol (Vitamin D2) [Vitamin D2] 1.25 mg PO WEEKLY 11/09/22 [History Confirmed 04/09/24] Ferrous Sulfate 325 mg [Feosol 325 mg] 325 mg PO DAILY 11/09/22 [History Confirmed 04/09/24] Furosemide [Lasix] 40 mg PO DAILY 11/09/22 [History Confirmed 04/09/24] Isosorbide Mononitrate [Isosorbide Mononitrate ER] 60 mg PO DAILY 11/09/22 [History Confirmed 04/09/24] Levothyroxine Sodium 25 Mcg [Synthroid 25 Mcg] 75 mcg PO DAILY 11/09/22 [History Confirmed 04/09/24] Metoprolol Succinate 25 mg Xl* [Toprol-Xl 25MG Tablets] 25 mg PO DAILY 11/09/22 [History Confirmed 04/09/24] Apixaban [Eliquis] 5 mg PO BID 04/09/24 [History Confirmed 04/09/24] Bisacodyl 10 mg [Dulcolax 10 MG SUPP] 10 mg RC Q6H PRN PRN 04/09/24 [History Confirmed 04/09/24] Carboxymethylcellulos/Glycerin [Refresh Optive Eye Drops] 5 ml OP QID 04/09/24 [History Confirmed 04/09/24] Clopidogrel Bisulfate [PLAVIX Tablet] 75 mg PO DAILY 04/09/24 [History Confirmed 04/09/24] Cyanocobalamin (Vitamin B-12) [B-12] 1,000 mcg PO DAILY 04/09/24 [History Confirmed 04/09/24] Dextrose [Glucose Gel] 38 gm PO UD 04/09/24 [History Confirmed 04/09/24] Duloxetine HCl 30 mg [Cymbalta 30 MG Capsule] 30 mg PO DAILY 04/09/24 [History Confirmed 04/09/24] Gabapentin [Neurontin ] 100 mg PO HS 04/09/24 [History Confirmed 04/09/24] Glucagon 1 mg [GlucaGen 1 MG] 1 mg IM UD 04/09/24 [History Confirmed 04/09/24] Hydrocodone/Acetaminophen [Hydrocodone-Acetamin 7.5-325] 1 each PO Q4HPRN PRN 04/09/24 [History Confirmed 04/09/24] Insulin Aspart [NovoLOG Insulin] 10 unit SQ TIDAC 04/09/24 [History Confirmed 04/09/24] Insulin Glargine,Hum.rec.anlog [Basaglar Kwikpen U-100] 90 unit SQ HS 04/09/24 [History Confirmed 04/09/24] Loperamide HCl 2 mg [Imodium 2 mg] 2 mg PO Q8H PRN PRN 04/09/24 [History Confirmed 04/09/24] Magnesium Hydroxide 30 ml [Milk of Magnesia 30 ml] 30 ml PO DAILY PRN PRN 04/09/24 [History Confirmed 04/09/24] Nitroglycerin 0.4 mg Tablet [Nitrostat 0.4 MG Tablet] 0.4 mg SL UD 04/09/24 [History Confirmed 04/09/24] PANTOPRAZOLE 40 mg Tablet [Protonix 40MG Tablet] 40 mg PO BID 04/09/24 [History Confirmed 04/09/24] Polyethylene Glycol 3350 17 gm [Miralax Powder 17GM PACKET] 17 gm PO HS 04/09/24 [History Confirmed 04/09/24] Potassium Chloride [Klor-Con M20] 20 meq PO BID 04/09/24 [History Confirmed 04/09/24] Rosuvastatin Calcium 20 mg PO HS 04/09/24 [History Confirmed 04/09/24] Semaglutide [Ozempic] 0.5 mg SQ WEEKLY 04/09/24 [History Confirmed 04/09/24] Zinc Oxide [Diaper Rash Ointment] 56 gm TP DAILY 04/09/24 [History Confirmed 04/09/24] diphenhydrAMINE HCL [Allergy Relief] 25 mg PO Q8H PRN PRN 04/09/24 [History Confirmed 04/09/24] Allergies/Adverse Reactions: Allergies Allergy/AdvReac Type Severity Reaction Status Date / Time latex Allergy Intermediate Hives Verified 04/09/24 06:43 bee venom protein (honey bee) Allergy Unknown Verified 04/09/24 06:43 shellfish derived Allergy Unknown Verified 04/09/24 06:43 fiberglass Allergy Intermediate Hives Uncoded 04/09/24 06:43 - Past Medical History Past Medical History: Yes Neurological History: No Pertinent History, Peripheral Neuropathy ENT History: Macular Degeneration Cardiac History: Coronary Artery Disease, Deep Vein Thrombosis, High Ch olesterol, Hypertension Respiratory History: Asthma, COPD, Pneumonia, Sleep Apnea Endocrine Medical History: Diabetes Type II, Hypothyroidism Musculoskelatal History: Arthritis, Fractures, Osteoarthritis GI Medical History: Colitis, Diverticulitis, GERD, GI Bleed, Irritable Bowel, Other History: Renal Disease Pyscho-Social History: No Pertinent History Reproductive Disorders: Breast Cancer Comment: breast cancer 1986, GASTROPARESIS, fibromyalgia - Past Surgical History Past Surgical History: Yes Neuro Surgical History: No Pertinent History Cardiac History: Cardiac Catheterization, Cardiac Stent Respiratory Surgery: No Pertinent History GI Surgical History: Cholecystectomy Genitourinary Surgical Hx: No Pertinent History Musculskeletal Surgical Hx: No Pertinent History Female Surgical History: Hysterectomy, Section, Mastectomy Other Surgical History: Uvula remove, 3 CARDIAC STENTS - Social History Smoking Status: Never smoker Exposure to second hand smoke: No Alcohol: None Drug Use: none - Social Determinants of Health Will the patient participate in the screening: Yes Do you worry about a steady place to live?: No Do you have any problems with any of the following?: No known problems In the past 12 months,have you had to go without utilities?: No Have you or anyone in your house had to go without enough: No Transportation Issues: No Has anyone in your support network made you feel unsafe?: No Does the patient want assistance with any of the above?: No Comment: from [facility] - Physical Exam Vital Signs: Vital Signs - 24 hr Temp Pulse Resp BP BP Pulse Ox 04/09/24 10:09 97.7 F 93 H 20 128/88 95 04/09/24 09:31 135/87 04/09/24 09:00 100 H 14 146/74 93 L 04/09/24 08:31 101 H 16 140/77 96 04/09/24 08:00 99 H 11 L 97 04/09/24 07:30 88 11 L 122/77 98 09/09/24 07:29 118/61 95 04/09/24 07:12 122/68 04/09/24 07:01 89 22 122/68 98 04/09/24 06:53 95 04/09/24 06:30 118/93 04/09/24 06:12 97.7 F 86 18 117/80 95 General Appearance: no apparent distress, alert, obese Neurologic Exam: alert, oriented x 3, cooperative, normal mood/affect, nml cerebellar function, nml station & gait, sensation nml, No motor deficits Eye Exam: PERRL/EOMI, eyes nml inspection Ears, Nose, Throat Exam: normal ENT inspection, TMs normal, pharynx normal, moist mucous membranes Neck Exam: normal inspection, non-tender, supple, full range of motion Respiratory Exam: normal breath sounds, lungs clear, No respiratory distress Cardiovascular Exam: regular rate/rhythm, normal heart sounds, normal peripheral pulses Gastrointestinal/Abdomen Exam: soft, normal bowel sounds, tenderness, distention, No mass Back Exam: normal inspection, normal range of motion, No CVA tenderness, No vertebral tenderness Extremity Exam: normal inspection, normal range of motion, pelvis stable Skin Exam: normal color, warm, dry, No rash Lymphatic Exam: No adenopathy Results - Labs Lab/Micro Results: Lab Results-Last 24 Hours 04/09/24 04/09/24 04/09/24 Range/Units 06:30 06:30 06:30 WBC 15.1 H (3.98-10.04) x10^3/uL RBC 3.90 L (3.93-5.22) x10^6/uL Hgb 11.7 (11.2-15.7) g/dL Hct 36.7 (34.1-44.9) % MCV 94.1 (79.4-94.8) fL MCH 30.0 (25.6-32.2) pg MCHC 31.9 L (32.2-35.5) g/dL RDW 15.4 H (11.7-14.4) % Plt Count 253 (182-369) x10^3/uL MPV 9.8 (9.4-12.3) fL Gran % 67.7 (34.0-71.1) % Immature Gran % (Auto) 1.8 H (0.001-0.429) % Nucleat RBC Rel Count 0.0 (0.00-0.2) % Eos # (Auto) 0.80 H (0.04-0.36) x10^3/uL Immature Gran # (Auto) 0.27 H (0.001-0.031) x10^3u/L Absolute Lymphs (auto) 2.61 (1.18-3.74) x10^3/uL Absolute Monos (auto) 1.11 H (0.24-0.86) x10^3/uL Absolute Nucleated RBC 0.00 (0.00-0.012) x10^3u/L Lymphocytes % 17.3 L (19.3-51.7) % Monocytes % 7.4 (4.7-12.5) % Eosinophils % 5.3 (0.7-5.8) % Basophils % 0.5 (0.1-1.2) % Absolute Granulocytes 10.24 H (1.56-6.13) x10^3/uL Basophils # 0.07 (0.01-0.08) x10^3/uL Sodium 137 (135-145) mmol/L Potassium 4.8 (3.5-5.1) mmol/L Chloride 100 (98-107) mmol/L Carbon Dioxide 29 (22-30) mmol/L Anion Gap 12.8 (5-15) MEQ/L BUN 42 H (7-17) mg/dL Creatinine 2.23 H (0.52-1.04) mg/dL Estimated GFR 21.8 ML/MIN Glucose 151 H (74-106) mg/dL Lactic Acid (0.4-2.0) Calcium 9.5 (8.4-10.2) mg/dL Total Bilirubin 0.50 (0.2-1.3) mg/dL AST 33 (14-36) U/L ALT 20 (0-35) U/L Alkaline Phosphatase 81 (38-126) U/L Troponin I < 0.012 (0.000-0.033) ng/mL Serum Total Protein 7.6 (6.3-8.2) g/dL Albumin 4.0 (3.5-5.0) g/dL Lipase 176 (23-300) U/L Urine Color (Yellow) Urine Appearance (Clear) Urine pH (4.6-8.0) Ur Specific [place] (1.005-1.030) Urine Protein (Negative) Urine Glucose (UA) (Negative) mg/dL Urine Ketones (Negative) Urine Blood (Negative) Urine Nitrite (Negative) Urine Bilirubin (Negative) Urine Urobilinogen (0.2) mg/dL Ur Leukocyte Esterase (Negative) U Hyaline Cast (Auto) (0-2) /LPF Urine Microscopic RBC (0-5) /HPF Urine Microscopic WBC (0-5) /HPF Ur Epithelial Cells (None Seen) /HPF Urine Bacteria (None Seen) /HPF Urine Yeast (Budding) (None Seen) /HPF Urine Culture Reflexed (NO) Influenza Type A Ag (NEGATIVE) Influenza Type B Ag (NEGATIVE) RSV (PCR) (NEGATIVE) SARS-CoV-2 (PCR) (NEGATIVE) 04/09/24 04/09/24 04/09/24 Range/Units 06:54 07:40 08:24 WBC (3.98-10.04) x10^3/uL RBC (3.93-5.22) x10^6/uL Hgb (11.2-15.7) g/dL Hct (34.1-44.9) % MCV (79.4-94.8) fL MCH (25.6-32.2) pg MCHC (32.2-35.5) g/dL RDW (11.7-14.4) % Plt Count (182-369) x10^3/uL MPV (9.4-12.3) fL Gran % (34.0-71.1) % Immature Gran % (Auto) (0.001-0.429) % Nucleat RBC Rel Count (0.00-0.2) % Eos # (Auto) (0.04-0.36) x10^3/uL Immature Gran # (Auto) (0.001-0.031) x10^3u/L Absolute Lymphs (auto) (1.18-3.74) x10^3/uL Absolute Monos (auto) (0.24-0.86) x10^3/uL Absolute Nucleated RBC (0.00-0.012) x10^3u/L Lymphocytes % (19.3-51.7) % Monocytes % (4.7-12.5) % Eosinophils % (0.7-5.8) % Basophils % (0.1-1.2) % Absolute Granulocytes (1.56-6.13) x10^3/uL Basophils # (0.01-0.08) x10^3/uL Sodium (135-145) mmol/L Potassium (3.5-5.1) mmol/L Chloride (98-107) mmol/L Carbon Dioxide (22-30) mmol/L Anion Gap (5-15) MEQ/L BUN (7-17) mg/dL Creatinine (0.52-1.04) mg/dL Estimated GFR ML/MIN Glucose (74-106) mg/dL Lactic Acid 1.2 (0.4-2.0) Calcium (8.4-10.2) mg/dL Total Bilirubin (0.2-1.3) mg/dL AST (14-36) U/L ALT (0-35) U/L Alkaline Phosphatase (38-126) U/L Troponin I (0.000-0.033) ng/mL Serum Total Protein (6.3-8.2) g/dL Albumin (3.5-5.0) g/dL Lipase (23-300) U/L Urine Color Yellow (Yellow) Urine Appearance Turbid A (Clear) Urine pH 7.0 (4.6-8.0) Ur Specific [place] 1.020 (1.005-1.030) Urine Protein 300 A (Negative) Urine Glucose (UA) 500 A (Negative) mg/dL Urine Ketones Trace A (Negative) Urine Blood Large A (Negative) Urine Nitrite Negative (Negative) Urine Bilirubin Negative (Negative) Urine Urobilinogen 1.0 A (0.2) mg/dL Ur Leukocyte Esterase Large A (Negative) U Hyaline Cast (Auto) 11-20 (0-2) /LPF Urine Microscopic RBC 21-50 A (0-5) /HPF Urine Microscopic WBC >100 A (0-5) /HPF Ur Epithelial Cells Moderate A (None Seen) /HPF Urine Bacteria None Seen (None Seen) /HPF Urine Yeast (Budding) Moderate A (None Seen) /HPF Urine Culture Reflexed YES (NO) Influenza Type A Ag NEGATIVE (NEGATIVE) Influenza Type B Ag NEGATIVE (NEGATIVE) RSV (PCR) NEGATIVE (NEGATIVE) SARS-CoV-2 (PCR) NEGATIVE (NEGATIVE) - Radiology Impressions Radiology Exams & Impressions: Radiology Procedures Category Date Time Status ABDOMEN AND PELVIS W/0 CONTRAS [CT] Stat Exams 04/09/24 06:40 Completed Assessment/Plan (1) Enteritis Current Visit: No Status: Acute Assessment & Plan: - CT abd/pelvis: Impression: 1. Again markedly distended stomach and lesser degree small bowel loops with fluid leveling. Rule out ileus versus gastroenteritis. 2. Chronic findings including probable benign 7 mm left costophrenic angle noncalcified nodule, colonic diverticulosis, arteriosclerotic disease, and chronic bony findings. - IVF - NPO - recheck KUB in AM Code(s): K52.9 - NONINFECTIVE GASTROENTERITIS AND COLITIS, UNSPECIFIED (2) Ileus Current Visit: Yes Status: Acute Assessment & Plan: - IVF - NPO - recheck KUB in AM - Consider surgery consult Code(s): K56.7 - ILEUS, UNSPECIFIED (3) UTI (urinary tract infection) Current Visit: No Status: Acute Assessment & Plan: - Rocephin IV - IVF - UC pending Code(s): N39.0 - URINARY TRACT INFECTION, SITE NOT SPECIFIED (4) Acute on chronic renal failure Current Visit: Yes Status: Acute Assessment & Plan: - Creat 2.23, Baseline 1.59 - NS @ 75ml/hr Code(s): N17.9 - ACUTE KIDNEY FAILURE, UNSPECIFIED; N18.9 - CHRONIC KIDNEY DISEASE, UNSPECIFIED (5) Morbidly obese Current Visit: Yes Status: Acute Assessment & Plan: - advised diet and exercise control Code(s): E66.01 - MORBID (SEVERE) OBESITY DUE TO EXCESS CALORIES (6) Arthritis Current Visit: Yes Status: Chronic Assessment & Plan: - Will restarted gabapentin tomorrow. Code(s): M19.90 - UNSPECIFIED OSTEOARTHRITIS, UNSPECIFIED SITE (7) History of DVT of lower extremity Current Visit: Yes Status: Chronic Assessment & Plan: - Continue Eliquis - restart home meds in AM Code(s): Z86.718 - PERSONAL HISTORY OF OTHER VENOUS THROMBOSIS AND EMBOLISM (8) Hypothyroidism Current Visit: Yes Status: Chronic Assessment & Plan: - continue synthroid in AM Code(s): E03.9 - HYPOTHYROIDISM, UNSPECIFIED (9) Vomiting Current Visit: Yes Status: Acute Qualifiers: Vomiting type: unspecified Nausea presence: with nausea Qualified Code(s): R11.2 - Nausea with vomiting, unspecified Assessment & Plan: - Zofran Q6 hrs PRN Code(s): R11.10 - VOMITING, UNSPECIFIED (10) DM2 (diabetes mellitus, type 2) Current Visit: No Status: Chronic Qualifiers: Diabetes mellitus mcfp insulin use: with terminal superintendent use Assessment & Plan: - Home meds include 10 units of novalog with meals, Glargine 90 units at HS - accuchecks Q4 hours - Humalog s/s VTE: SCD's PPI: Protonix Next of KIN: [facility] [phone] D/C plan: 1-2 days Code status: Full
[2024-04-09] MEDS: Sodium Chloride 0.9% 1000 ML 1,000 ML IV SCH (12:24)
[2024-04-09] MEDS: PROTONIX 40 MG IV IV SCH (12:24)
[2024-04-09] MEDS: HUMALOG SQ PRN (12:24)
[2024-04-09] MEDS: ROCEPHIN 1 GM / 100 ML NaCl 1 GM/100 ML IVPB IV ONE (16:17)
[2024-04-10] MEDS ORDERED: Dulcolax 10 MG SUPP RC PRN (07:59)
[2024-04-10] MEDS ORDERED: MILK OF MAGNESIA 30 ML PO PRN (07:59)
[2024-04-10] MEDS ORDERED: [UNRECOGNIZED DRUG - REMARK] PO PRN (07:59)
[2024-04-10] MEDS ORDERED: BENADRYL 25 MG CAPSULE PO PRN (08:14)
[2024-04-10] MEDS ORDERED: MEDICATION INTERVENTION MC SCH (09:15)
[2024-04-10] MEDS: Protonix 40MG Tablet PO SCH (09:30)
[2024-04-10] MEDS: Lasix 40 MG PO SCH (09:30)
[2024-04-10] MEDS: PLAVIX Tablet PO SCH (09:30)
[2024-04-10] MEDS: Vitamin B-12 500 MCG PO SCH (09:30)
[2024-04-10] MEDS: FEOSOL 325 MG PO SCH (09:30)
[2024-04-10] MEDS: Imdur 60MG PO SCH (09:30)
[2024-04-10] MEDS: Klor Con PO SCH (09:31)
[2024-04-10] MEDS: ZYLOPRIM 100 MG PO SCH (09:31)
[2024-04-10] MEDS: ELIQUIS 2.5 MG TABLET PO SCH (09:31)
[2024-04-10] MEDS: SYNTHROID 75 MCG PO SCH (09:31)
[2024-04-10] MEDS: Cymbalta 30 MG Capsule PO SCH (09:31)
[2024-04-10] MEDS: Toprol-Xl 25MG Tablets PO SCH (09:31)
[2024-04-10] MEDS: BENTYL 20 MG PO SCH (09:32)
[2024-04-10] MEDS: Artificial Tears 15 ML OP SCH (09:32)
[2024-04-10] MEDS: ROCEPHIN 1 GM / 100 ML NaCl 1 GM/100 ML IVPB IV SCH (09:33)
[2024-04-10 09:34] LABS: ALBUMIN 3.6 g/dL (3.5-5.0); ANION GAP 12.5 MEQ/L (5-15); BILIRUBIN,TOTAL 0.3 mg/dL (0.2-1.3); Calcium 8.9 mg/dL (8.4-10.2); Creatinine 1 1.98 mg/dL (0.52-1.04); EST GLOMERULAR FILTRATION RATE 25.1 ML/MIN; Potassium 4.3 mmol/L (3.5-5.1); Total Protein 6.9 g/dL (6.3-8.2)
[2024-04-10 09:35] LABS: Hematocrit 35.6 % (34.1-44.9); Hemoglobin 10.9 g/dL (11.2-15.7); Mean Cell Volume 98.6 fL (79.4-94.8); Mean Corpuscular Hemoglobin 30.2 pg (25.6-32.2); Mean Corpuscular Hgb Concent. 30.6 g/dL (32.2-35.5); Mean Platelet Volume 10.3 fL (9.4-12.3); Platelet Count 219 x10^3/uL (182-369); Red Blood Count 3.61 x10^6/uL (3.93-5.22); Red Cell Distribution Width 15.7 % (11.7-14.4); White Blood Count 14.9 x10^3/uL (3.98-10.04)
[2024-04-10] MEDS ORDERED: Imdur 30 MG PO SCH (10:00)
[2024-04-10] MEDS ORDERED: [UNRECOGNIZED DRUG - OTHER] OP SCH (10:00)
[2024-04-10] MEDS ORDERED: ZINC OXIDE TP SCH (10:00)
[2024-04-10] MEDS ORDERED: NON-FORMULARY ITEM (Dapagliflozin Propanediol [Farxiga] 10 MG Tablet) PO SCH (10:00)
[2024-04-10] MEDS ORDERED: SYNTHROID 25 MCG PO SCH (10:00)
[2024-04-10] MEDS ORDERED: GLYCERIN OP SCH (10:00)
[2024-04-10] MEDS ORDERED: NON-FORMULARY ITEM (Apixaban [Eliquis] 5 MG Tablet) PO SCH (10:00)
[2024-04-10] MEDS ORDERED: CYANOCOBALAMIN 1000 MCG PO SCH (10:00)
[2024-04-10] MEDS ORDERED: CARBOXYMETHYLCELLULOS OP SCH (10:00)
[2024-04-10] MEDS ORDERED: NON-FORMULARY ITEM (Potassium Chloride [Klor-Con M20] 20 MEQ Tab.Er.Prt) PO SCH (10:00)
[2024-04-10] MEDS ORDERED: LASIX 20 MG PO SCH (10:00)
--- NOTE | 2024-04-10 10:33 | XRAY ---
Indication: Ileus. Comparison: None KUB demonstrates nonspecific nonobstructed bowel gas pattern with mild air distended stomach including ingested medication/pills. Scattered vascular calcifications. Solid organs unremarkable. Osseous structures intact with osteopenia and mild degenerative changes.
--- NOTE | 2024-04-10 12:15 | PCM.DS ---
Discharge Summary Date of Admission: 04/09/24 09:56 Date of Discharge: 04/10/24 Admitting Physician: KELLI LENZ MD Primary Care Provider: UMER JACKSON DO Allergies Allergies latex Allergy (Intermediate, Verified 04/09/24 06:43) [facility] bee venom protein (honey bee) Allergy (Unknown, Verified 04/09/24 06:43) shellfish derived Allergy (Unknown, Verified 04/09/24 06:43) fiberglass Allergy (Intermediate, Uncoded 04/09/24 06:43) [facility] Summary - Hospital Course Hospital Course: 04/09/24 is a 79 year old female wit PMHX of macular degeneration, ELY SHOSHONE, CAD, DVT (eliquis, and plavix), hyperlipidemia, HTN, asthma, COPD, Spleep apnea, type II DM< Hypothyroidism, arhritis, Colitis, diverticultitis, GERD, IBS, CKD, Breast cancer (1986), morbid obesity, and resident of [facility]. She presented today by EMS from [facility] for nausea/vomiting/abdominal pain that has been ongoing for the past 4 days. Pt denies any known fevers. Pt reports her abdominal pain is worse in the epigastric region but reports pain diffusely w/ palpation. She reports abd. distention. Pt reports some chest discomfort retrosternally w/o any radiation to the jaw, back or shoulder. Pt reports her last BM was yesterday and was hard, reports continued flatus today. CT abd/ pelvis shows markedly distended stomach and lesser degree small bowel loops with fluid leveling. Rule out ileus versus gastroenteritis. Chronic findings including probable benign 7 mm left costophrenic angle noncalcified nodule, colonic diverticulosis, arteriosclerotic disease, and chronic bony findings. UA shows UTI and IV antibiotics and IV fluids started. Labs show HANNAH on CKD. Will keep pt NPO for bowel rest and recheck KUB in AM. 04/10/24 Pt resting in bed. KUB shows gas. She had 2 BM's last night. She continues to have abd. distention and Gas-x ordered. She was able to eat a clear liquid diet this am w/o concerns. If she is able to eat lunch today w/o concerns will d/c back to [facility]. She reports no N/V since admission. She has soft stools but no diarrhea. HANNAH improving and almost to baseline. UC negative and antibiotics stopped. She denies any further concerns at this time. - Vitals & Intake/Output Vital Signs: Vital Signs Temperature 97.8 F 04/10/24 07:03 Pulse Rate 79 04/10/24 07:03 Respiratory Rate 15 04/10/24 07:03 Blood Pressure 148/63 04/10/24 07:03 O2 Sat by Pulse Oximetry 93 L 04/10/24 07:03 Intake & Output: Intake & Output 04/08/24 04/09/24 04/10/24 04/11/24 11:59 11:59 11:59 11:59 Intake Total 0 Output Total 200 Balance -200 Weight 110.2 kg - Lab Result Diagrams: 04/10/24 09:10 04/10/24 09:10 Lab Results-Last 24 Hrs: Lab Results-Last 24 Hours 04/09/24 04/09/24 04/09/24 Range/Units 05:20 14:20 16:26 WBC (3.98-10.04) x10^3/uL RBC (3.93-5.22) x10^6/uL Hgb (11.2-15.7) g/dL Hct (34.1-44.9) % MCV (79.4-94.8) fL MCH (25.6-32.2) pg MCHC (32.2-35.5) g/dL RDW (11.7-14.4) % Plt Count (182-369) x10^3/uL MPV (9.4-12.3) fL Sodium (135-145) mmol/L Potassium (3.5-5.1) mmol/L Chloride (98-107) mmol/L Carbon Dioxide (22-30) mmol/L Anion Gap (5-15) MEQ/L BUN (7-17) mg/dL Creatinine (0.52-1.04) mg/dL Estimated GFR ML/MIN Glucose (74-106) mg/dL POC Glucometer 123 H (74 to 106) mg/dL Calcium (8.4-10.2) mg/dL Total Bilirubin (0.2-1.3) mg/dL AST (14-36) U/L ALT (0-35) U/L Alkaline Phosphatase (38-126) U/L Troponin I < 0.012 (0.000-0.033) ng/mL Serum Total Protein (6.3-8.2) g/dL Albumin (3.5-5.0) g/dL Prealbumin 23.96 (17.6-36.0) mg/dL 04/09/24 04/10/24 04/10/24 Range/Units 20:12 00:02 04:07 WBC (3.98-10.04) x10^3/uL RBC (3.93-5.22) x10^6/uL Hgb (11.2-15.7) g/dL Hct (34.1-44.9) % MCV (79.4-94.8) fL MCH (25.6-32.2) pg MCHC (32.2-35.5) g/dL RDW (11.7-14.4) % Plt Count (182-369) x10^3/uL MPV (9.4-12.3) fL Sodium (135-145) mmol/L Potassium (3.5-5.1) mmol/L Chloride (98-107) mmol/L Carbon Dioxide (22-30) mmol/L Anion Gap (5-15) MEQ/L BUN (7-17) mg/dL Creatinine (0.52-1.04) mg/dL Estimated GFR ML/MIN Glucose (74-106) mg/dL POC Glucometer 84 125 H 119 H (74 to 106) mg/dL Calcium (8.4-10.2) mg/dL Total Bilirubin (0.2-1.3) mg/dL AST (14-36) U/L ALT (0-35) U/L Alkaline Phosphatase (38-126) U/L Troponin I (0.000-0.033) ng/mL Serum Total Protein (6.3-8.2) g/dL Albumin (3.5-5.0) g/dL Prealbumin (17.6-36.0) mg/dL 04/10/24 04/10/24 04/10/24 Range/Units 07:44 09:10 09:10 WBC 14.9 H (3.98-10.04) x10^3/uL RBC 3.61 L (3.93-5.22) x10^6/uL Hgb 10.9 L (11.2-15.7) g/dL Hct 35.6 (34.1-44.9) % MCV 98.6 H (79.4-94.8) fL MCH 30.2 (25.6-32.2) pg MCHC 30.6 L (32.2-35.5) g/dL RDW 15.7 H (11.7-14.4) % Plt Count 219 (182-369) x10^3/uL MPV 10.3 (9.4-12.3) fL Sodium 141 (135-145) mmol/L Potassium 4.3 (3.5-5.1) mmol/L Chloride 107 (98-107) mmol/L Carbon Dioxide 26 (22-30) mmol/L Anion Gap 12.5 (5-15) MEQ/L BUN 42 H (7-17) mg/dL Creatinine 1.98 H (0.52-1.04) mg/dL Estimated GFR 25.1 ML/MIN Glucose 141 H (74-106) mg/dL POC Glucometer 102 (74 to 106) mg/dL Calcium 8.9 (8.4-10.2) mg/dL Total Bilirubin 0.30 (0.2-1.3) mg/dL AST 26 (14-36) U/L ALT 19 (0-35) U/L Alkaline Phosphatase 79 (38-126) U/L Troponin I (0.000-0.033) ng/mL Serum Total Protein 6.9 (6.3-8.2) g/dL Albumin 3.6 (3.5-5.0) g/dL Prealbumin (17.6-36.0) mg/dL 04/10/24 Range/Units 12:00 WBC (3.98-10.04) x10^3/uL RBC (3.93-5.22) x10^6/uL Hgb (11.2-15.7) g/dL Hct (34.1-44.9) % MCV (79.4-94.8) fL MCH (25.6-32.2) pg MCHC (32.2-35.5) g/dL RDW (11.7-14.4) % Plt Count (182-369) x10^3/uL MPV (9.4-12.3) fL Sodium (135-145) mmol/L Potassium (3.5-5.1) mmol/L Chloride (98-107) mmol/L Carbon Dioxide (22-30) mmol/L Anion Gap (5-15) MEQ/L BUN (7-17) mg/dL Creatinine (0.52-1.04) mg/dL Estimated GFR ML/MIN Glucose (74-106) mg/dL POC Glucometer 157 H (74 to 106) mg/dL Calcium (8.4-10.2) mg/dL Total Bilirubin (0.2-1.3) mg/dL AST (14-36) U/L ALT (0-35) U/L Alkaline Phosphatase (38-126) U/L Troponin I (0.000-0.033) ng/mL Serum Total Protein (6.3-8.2) g/dL Albumin (3.5-5.0) g/dL Prealbumin (17.6-36.0) mg/dL Micro Results-Entire Visit: Microbiology 04/09/24 08:24 Urine Culture - Preliminary Urine, Void NO GROWTH TO DATE Accuchecks Date 04/10/24 Date 04/09/24 Date 04/09/24 Date 04/09/24 Time 07:57 Time 16:43 Time 12:15 - Radiology Exams Ordered Rad Exams-Entire Visit: Radiology Procedures Category Date Time Status ABDOMEN AND PELVIS W/0 CONTRAS [CT] Stat Exams 04/09/24 06:40 Completed KUB Routine Exams 04/10/24 07:57 Completed - Procedures and Test Procedures and Tests throughout Hospitalization: Therapy Orders & Screens 04/09/24 10:39 PT Screen per Nursing Assess ONCE Comment: Protocol Order Physician Instructions: Greater than 3 points order PT Admission Screenin Reason For Exam: Triggered on Admission Diagnosis: gastritis Open Wound/Cellutlitis/Pressure Ulcers: No Acute Fx/ORIF/Change in wt bearing status: No Severe MUSCULOSKELETAL pain: No ADL Dysfunction: Yes Acute CVA w/Hemiparesis/Hemiplegia: No Decreased Functional Mobility/Strength: Yes Sprain/Strain: No Acute Post-op Mobility Dysfunction: No Total Points: 4 ST Screen per Nursing Assess ONCE Comment: Protocol Order Physician Instructions: Greater than [address] Admission Screening Reason For Exam: Triggered on Admission Diagnosis: gastritis CVA/Dyshpagia/Aphasia: No Cognitive Deficits: No Dehydration/Nutrition Deficit: No Reflux: No Oral-Motor Difficulties: No Pneumonia: No Correction Resident: Yes Total Points: 5 Discharge Exam General Appearance: no apparent distress, alert Neurologic Exam: alert, oriented x 3, cooperative, normal mood/affect, nml cerebellar function, sensation nml, No motor deficits Eye Exam: PERRL, EOMI, eyes nml inspection Ears, Nose, Throat Exam: normal ENT inspection, pharynx normal, moist mucous membranes Neck Exam: normal inspection, non-tender, supple, full range of motion Respiratory Exam: normal breath sounds, lungs clear, No respiratory distress Cardiovascular Exam: regular rate/rhythm, normal heart sounds Gastrointestinal/Abdomen Exam: soft, distention, No tenderness, No mass Pelvic Exam: deferred Rectal Exam: deferred Back Exam: normal inspection, normal range of motion, No CVA tenderness, No vertebral tenderness Extremity Exam: normal inspection, normal range of motion Skin Exam: normal color, warm, dry Final Diagnosis/Problem List - Final Discharge Diagnosis/Problem (1) Enteritis Current Visit: No Status: Acute Code(s): K52.9 - NONINFECTIVE GASTROENTERITIS AND COLITIS, UNSPECIFIED (2) Ileus Current Visit: Yes Status: Acute Code(s): K56.7 - ILEUS, UNSPECIFIED (3) UTI (urinary tract infection) Current Visit: No Status: Acute Code(s): N39.0 - URINARY TRACT INFECTION, SITE NOT SPECIFIED (4) Acute on chronic renal failure Current Visit: Yes Status: Acute Code(s): N17.9 - ACUTE KIDNEY FAILURE, UNSPECIFIED; N18.9 - CHRONIC KIDNEY DISEASE, UNSPECIFIED (5) Morbidly obese Current Visit: Yes Status: Acute Code(s): E66.01 - MORBID (SEVERE) OBESITY DUE TO EXCESS CALORIES (6) Arthritis Current Visit: Yes Status: Chronic Code(s): M19.90 - UNSPECIFIED OSTEOARTHRITIS, UNSPECIFIED SITE (7) History of DVT of lower extremity Current Visit: Yes Status: Chronic Code(s): Z86.718 - PERSONAL HISTORY OF OTHER VENOUS THROMBOSIS AND EMBOLISM (8) Hypothyroidism Current Visit: Yes Status: Chronic Code(s): E03.9 - HYPOTHYROIDISM, UNSPECIFIED (9) Vomiting Current Visit: Yes Status: Acute Code(s): R11.10 - VOMITING, UNSPECIFIED (10) DM2 (diabetes mellitus, type 2) Current Visit: No Status: Chronic Assessment & Plan: (1) Enteritis Current Visit: No Status: Acute Assessment & Plan: - CT abd/pelvis: Impression: 1. Again markedly distended stomach and lesser degree small bowel loops with fluid leveling. Rule out ileus versus gastroenteritis. 2. Chronic findings including probable benign 7 mm left costophrenic angle noncalcified nodule, colonic diverticulosis, arteriosclerotic disease, and chronic bony findings. - IVF - NPO - recheck KUB in AM 04/10 - KUB: KUB demonstrates nonspecific nonobstructed bowel gas pattern with mild air distended stomach including ingested medication/pills. Scattered vascular calcifications. Solid organs unremarkable. Osseous structures intact with osteopenia and mild degenerative changes. - Clear liquid diet started and pt did well with this- diet advanced - no N/V/ D since admission - Gas-x started - BC x2 pending- will follow OP Code(s): K52.9 - NONINFECTIVE GASTROENTERITIS AND COLITIS, UNSPECIFIED (2) Ileus Current Visit: Yes Status: Acute Assessment & Plan: - IVF - NPO - recheck KUB in AM - Consider surgery consult 04/10 - BM x2 last night - KUB negative for ileus- shows gas - advance diet as tolerated - meds restarted Code(s): K56.7 - ILEUS, UNSPECIFIED (3) UTI (urinary tract infection) Current Visit: No Status: Acute Assessment & Plan: - Rocephin IV - IVF - UC pending 04/10 - UC negative - IVF and antibiotics stopped Code(s): N39.0 - URINARY TRACT INFECTION, SITE NOT SPECIFIED (4) Acute on chronic renal failure Current Visit: Yes Status: Acute Assessment & Plan: - Creat 2.23, Baseline 1.59 - NS @ 75ml/hr 04/10 - creat 1.98- improved - IVF stopped Code(s): N17.9 - ACUTE KIDNEY FAILURE, UNSPECIFIED; N18.9 - CHRONIC KIDNEY DISEASE, UNSPECIFIED (5) Morbidly obese Current Visit: Yes Status: Acute Assessment & Plan: - advised diet and exercise control Code(s): E66.01 - MORBID (SEVERE) OBESITY DUE TO EXCESS CALORIES (6) Arthritis Current Visit: Yes Status: Chronic Assessment & Plan: - Gabapentin restarted Code(s): M19.90 - UNSPECIFIED OSTEOARTHRITIS, UNSPECIFIED SITE (7) History of DVT of lower extremity Current Visit: Yes Status: Chronic Assessment & Plan: - Continue Eliquis - restart home meds in AM Code(s): Z86.718 - PERSONAL HISTORY OF OTHER VENOUS THROMBOSIS AND EMBOLISM (8) Hypothyroidism Current Visit: Yes Status: Chronic Assessment & Plan: - continue synthroid in AM Code(s): E03.9 - HYPOTHYROIDISM, UNSPECIFIED (9) Vomiting Current Visit: Yes Status: Acute Qualifiers: Vomiting type: unspecified Nausea presence: with nausea Qualified Code(s): R11.2 - Nausea with vomiting, unspecified Assessment & Plan: - Zofran Q6 hrs PRN 04/10 - sxs resolved Code(s): R11.10 - VOMITING, UNSPECIFIED (10) DM2 (diabetes mellitus, type 2) Current Visit: No Status: Chronic Qualifiers: 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25 mg PO WEEKLY Allopurinol 100 mg [Zyloprim 100 mg] 100 mg PO DAILY Dicyclomine HCl 20 mg [Bentyl 20 mg] 10 mg PO TID Isosorbide Mononitrate [Isosorbide Mononitrate ER] 60 mg PO DAILY Dapagliflozin Propanediol [Farxiga] 10 mg PO DAILY Ferrous Sulfate 325 mg [Feosol 325 mg] 325 mg PO DAILY Carboxymethylcellulos/Glycerin [Refresh Optive Eye Drops] 5 ml OP QID Potassium Chloride [Klor-Con M20] 20 meq PO BID PANTOPRAZOLE 40 mg Tablet [Protonix 40MG Tablet] 40 mg PO BID Insulin Aspart [NovoLOG Insulin] 10 unit SQ TIDAC Nitroglycerin 0.4 mg Tablet [Nitrostat 0.4 MG Tablet] 0.4 mg SL UD Polyethylene Glycol 3350 17 gm [Miralax Powder 17GM PACKET] 17 gm PO HS Hydrocodone/Acetaminophen [Hydrocodone-Acetamin 7.5-325] 1 each PO Q4HPRN PRN PRN Reason: Pain Dextrose [Glucose Gel] 38 gm PO UD Glucagon 1 mg [GlucaGen 1 MG] 1 mg IM UD Gabapentin [Neurontin ] 100 mg PO HS Apixaban [Eliquis] 5 mg PO BID Duloxetine HCl 30 mg [Cymbalta 30 MG Capsule] 30 mg PO DAILY Bisacodyl 10 mg [Dulcolax 10 MG SUPP] 10 mg RC Q6H PRN PRN PRN Reason: Constipation Clopidogrel Bisulfate [PLAVIX Tablet] 75 mg PO DAILY diphenhydrAMINE HCL [Allergy Relief] 25 mg PO Q8H PRN PRN PRN Reason: Allergies Insulin Glargine,Hum.rec.anlog [Basaglar Kwikpen U-100] 90 unit SQ HS Loperamide HCl 2 mg [Imodium 2 mg] 2 mg PO Q8H PRN PRN PRN Reason: Diarrhea Rosuvastatin Calcium 20 mg PO HS Magnesium Hydroxide 30 ml [Milk of Magnesia 30 ml] 30 ml PO DAILY PRN PRN PRN Reason: Constipation Cyanocobalamin (Vitamin B-12) [B-12] 1,000 mcg PO DAILY Semaglutide [Ozempic] 0.5 mg SQ WEEKLY Zinc Oxide [Diaper Rash] 56 gm TP DAILY Follow up with: UMER JACKSON DO [Primary Care Provider] - LINH MCGILL MD [Family Provider] -
[2024-04-10] MEDS: Mylicon 80MG PO PRN (12:20)
[2024-04-10] MEDS: [UNRECOGNIZED DRUG - OTHER] TP SCH (16:11)
[2024-04-10 16:53] VITALS: BP 110/58; PULSE 78; RESP 17; TEMP 97.6; O2SAT 95
[2024-04-10] MEDS ORDERED: ZOCOR 20MG PO SCH (22:00)
[2024-04-10] MEDS ORDERED: Miralax Powder 17GM PACKET PO SCH (22:00)
[2024-04-10] MEDS ORDERED: NON-FORMULARY ITEM (Rosuvastatin Calcium [Rosuvastatin Calcium] 20 MG Tablet) PO SCH (22:00)
[2024-04-10] MEDS ORDERED: Neurontin PO SCH (22:00)
[2024-05-07] MEDS ORDERED: VITAMIN D2 PO SCH (08:00)
== END 2024-04-10 17:30 ==
LOC: ED 06:10 → MED SURG 09:56
PROVIDERS: ADMIT Internal Medicine; ATTEND Internal Medicine
DX: K52.9 Noninfective gastroenteritis and colitis, unspecified (principal); K56.7 Ileus, unspecified; N39.0 Urinary tract infection, site not specified; N17.9 Acute kidney failure, unspecified; E11.22 Type 2 diabetes mellitus with diabetic chronic kidney disease; I12.9 Hypertensive chronic kidney disease with stage 1 through stage 4 chronic kidney disease, or unspecified chronic kidney disease; N18.9 Chronic kidney disease, unspecified; R06.02 Shortness of breath; E66.01 Morbid (severe) obesity due to excess calories; M19.90 Unspecified osteoarthritis, unspecified site; Z86.718 Personal history of other venous thrombosis and embolism; E03.9 Hypothyroidism, unspecified; R11.10 Vomiting, unspecified; I25.10 Atherosclerotic heart disease of native coronary artery without angina pectoris; E78.5 Hyperlipidemia, unspecified; Z79.01 Long term (current) use of anticoagulants; Z79.899 Other long term (current) drug therapy; Z85.3 Personal history of malignant neoplasm of breast
CPT/HCPCS: 0241U; 36000; 36415; 74018; 74176; 80053; 81001; 82947; 83605; 83690; 84134; 84484; 85025; 85027; 87040; 87086; 93005; 96374; 96375; 99285; G0378; P9612; Q3014; J0696; J1817; J2270; A9270-GY

== ENCOUNTER 2024-04-17 05:33 | Observation (INO) | payer MEDICARE, OTHER ==
--- NOTE | 2024-04-17 05:41 | ERPHSYRPT ---
- History of Present Illness Historian: patient Exam Limitations: no limitations Timing/Duration: day(s) (2), worse Quality: cramping, pressure Abdominal Pain Onset Location: epigastric, generalized abdomen Pain Radiation: chest Severity of Pain-Max: moderate Severity of Pain-Current: moderate Associated Symptoms: chest pain, loss of appetite, nausea, vomiting, weakness Previous symptoms: same symptoms as today, recently seen, recently treated Hx Tetanus, Diphtheria Vaccination/Date Given: Yes Hx Influenza Vaccination/Date Given: No Hx Pneumococcal Vaccination/Date Given: Yes <HAYDEN ACE - Last Filed: 04/17/24 06:40> <DOMINIK LEGER - Last Filed: 04/17/24 10:20> - History of Present Illness Time Seen by Provider: 04/17/24 05:40 Physician History: This is a morbidly obese 79-year-old white female patient who is a resident of [facility] is brought into the emergency department by the paramedics secondary to abdominal pain and 4 episodes of vomiting that was dark in nature and color. I reviewed recent admission and discharge dated 04/10/2024 from [facility] in an inpatient setting. Patient had similar symp toms at that time. Patient states the pain is primarily in the epigastric region but does have some chest discomfort as well. Patient have a history of coronary disease and has 3 cardiac stents. Patient is on Plavix and Eliquis secondary to the stents and the history of DVTs. After her discharge from the hospital on 04/10/2024 she was feeling pretty good until 2 days ago and she started feeling distended nauseated and this morning after midnight, she had 4 episodes of the vomitus. I reviewed the most recent hospital admission notes and discharge summary as well as results of the patient's laboratory and radiographic studies. Patient has a known large ventral hernia. She states that she has had this 30 to 40 years and it has increased in size. Patient has multiple medical problems including diabetes, hyperlipidemia, gastroesophageal reflux disease, hypertension, hypothyroidism, chronic anemia, gastroparesis, history of GI bleed, irritable bowel syndrome and diverticulitis. Patient received intravenous Zofran and intravenous fentanyl by the paramedics prior to arrival. (HAYDEN ACE) Allergies/Adverse Reactions: latex Allergy (Intermediate, Verified 04/17/24 06:04) Hives bee venom protein (honey bee) Allergy (Unknown, Verified 04/17/24 06:04) shellfish derived Allergy (Unknown, Verified 04/17/24 05:59) algae in the ocean fiberglass Allergy (Intermediate, Uncoded 04/17/24 06:04) Hives Home Medications: Allopurinol 100 mg [Zyloprim 100 mg] 100 mg PO DAILY 11/09/22 [History] Dapagliflozin Propanediol [Farxiga] 10 mg PO DAILY 11/09/22 [History] Dicyclomine HCl 20 mg [Bentyl 20 mg] 10 mg PO TID 11/09/22 [History] Ergocalciferol (Vitamin D2) [Vitamin D2] 1.25 mg PO WEEKLY 11/09/22 [History] Ferrous Sulfate 325 mg [Feosol 325 mg] 325 mg PO DAILY 11/09/22 [History] Furosemide [Lasix] 40 mg PO DAILY 11/09/22 [History] Isosorbide Mononitrate [Isosorbide Mononitrate ER] 60 mg PO DAILY 11/09/22 [History] Levothyroxine Sodium 25 Mcg [Synthroid 25 Mcg] 75 mcg PO DAILY 11/09/22 [History] Metoprolol Succinate 25 mg Xl* [Toprol-Xl 25MG Tablets] 25 mg PO DAILY 10/30 08/23 [History] Apixaban [Eliquis] 5 mg PO BID 04/09/24 [History] Bisacodyl 10 mg [Dulcolax 10 MG SUPP] 10 mg RC Q6H PRN PRN 04/09/24 [History] Carboxymethylcellulos/Glycerin [Refresh Optive Eye Drops] 5 ml OP QIDPRN PRN 04/09/24 [History] Clopidogrel Bisulfate [PLAVIX Tablet] 75 mg PO DAILY 04/09/24 [History] Cyanocobalamin (Vitamin B-12) [B-12] 1,000 mcg PO DAILY 04/09/24 [History] Dextrose [Glucose Gel] 38 gm PO UD 04/09/24 [History] Duloxetine HCl 30 mg [Cymbalta 30 MG Capsule] 30 mg PO DAILY 04/09/24 [History] Gabapentin [Neurontin ] 100 mg PO TID 04/09/24 [History] Glucagon 1 mg [GlucaGen 1 MG] 1 mg IM UD 04/09/24 [History] Hydrocodone/Acetaminophen [Hydrocodone-Acetamin 7.5-325] 1 each PO Q4HPRN PRN 04/09/24 [History] Insulin Aspart [NovoLOG Insulin] 10 unit SQ TIDAC 04/09/24 [History] Insulin Glargine,Hum.rec.anlog [Basaglar Kwikpen U-100] 90 unit SQ HS 04/09/24 [History] Loperamide HCl 2 mg [Imodium 2 mg] 2 mg PO Q8H PRN PRN 04/09/24 [History] Magnesium Hydroxide 30 ml [Milk of Magnesia 30 ml] 30 ml PO DAILY PRN PRN 04/09/24 [History] Nitroglycerin 0.4 mg Tablet [Nitrostat 0.4 MG Tablet] 0.4 mg SL UD 04/09/24 [History] PANTOPRAZOLE 40 mg Tablet [Protonix 40MG Tablet] 40 mg PO BID 04/09/24 [History] Polyethylene Glycol 3350 17 gm [Miralax Powder 17GM PACKET] 17 gm PO HS 04/09/24 [History] Potassium Chloride [Klor-Con M20] 20 meq PO BID 04/09/24 [History] Rosuvastatin Calcium 20 mg PO 04/09/24 [History] Zinc Oxide [Diaper Rash] 56 gm TP BID 04/09/24 [History] diphenhydrAMINE HCL [Allergy Relief] 25 mg PO Q8H PRN PRN 04/09/24 [History] Acetaminophen 325 mg [Tylenol 325 mg] 650 mg PO Q4H PRN PRN 04/17/24 [History] Acetaminophen 325 mg [Tylenol 325 mg] 650 mg PO Q4HPRN PRN 04/17/24 [History] Acetaminophen [Tylenol Extra Strength] 1,000 mg PO BID 04/17/24 [History] Cefpodoxime Proxetil 200 mg [Vantin 200 mg] 1 tab PO BID 04/17/24 [History] Diclofenac Sodium [Voltaren Arthritis Pain] 1 appful Q8HPRN PRN 04/17/24 [History] Metoclopramide HCl [Reglan] 5 mg PO TID PRN PRN 04/17/24 [History] Ondansetron ODT 4 MG [Zofran Odt 4 mg] 1 tab PO Q8HPRN PRN 04/17/24 [History] Travel Risk - International Travel Have you traveled outside of the country in past 3 weeks: No - Emerging Infectious Disease Are you exhibiting symptoms associated with any current EIDs: No Symptoms: Abdominal Pain, Vomitting <HAYDEN ACE - Last Filed: 04/17/24 06:40> - Review of Systems Constitutional: Weakness Eyes: No Symptoms Ears, Nose, & Throat: No Symptoms Respiratory: No Symptoms Cardiac: Chest Pain Abdominal/Gastrointestinal: Abdominal Pain, Nausea, Vomiting, Appetite Changes Genitourinary Symptoms: No Symptoms Musculoskeletal: No Symptoms Skin: No Symptoms Neurological: No Symptoms Psychological: No Symptoms Endocrine: No Symptoms Hematologic/Lymphatic: No Symptoms Immunological/Allergic: No Symptoms All Other Systems: Reviewed and Negative <HAYDEN ACE - Last Filed: 04/17/24 06:40> - Past Medical History Pertinent Past Medical History: Yes Neurological History: No Pertinent History, Peripheral Neuropathy ENT History: Macular Degeneration Cardiac History: Coronary Artery Disease, Deep Vein Thrombosis, High Cholesterol, Hypertension Respiratory History: Asthma, COPD, Pneumonia, Sleep Apnea Endocrine Medical History: Diabetes Type II, Hypothyroidism Musculoskeletal History: Arthritis, Fractures, Osteoarthritis GI Medical History: Colitis, Diverticulitis, GERD, GI Bleed, Irritable Bowel, Other History: Renal Disease Psycho-Social History: No Pertinent History Female Reproductive Disorders: Breast Cancer Other Medical History: breast cancer 1987, GASTROPARESIS, fibromyalgia - Past Surgical History Past Surgical History: Yes Neuro Surgical History: No Pertinent History Cardiac: Cardiac Catheterization, Cardiac Stent Respiratory: No Pertinent History Gastrointestinal: Cholecystectomy Genitourinary: No Pertinent History Musculoskeletal: No Pertinent History Female Surgical History: Hysterectomy, Section, Mastectomy Other Surgical History: Uvula remove, 3 CARDIAC STENTS - Social History Smoking Status: Never smoker Exposure to second hand smoke: No Drug Use: none Patient Lives Alone: No - Social Determinants of Health Will the patient participate in the screening: Yes Do you worry about a steady place to live?: No In the past 12 months,have you had to go without utilities?: No Transportation Issues: No Has anyone in your support network made you feel unsafe?: No Have you or anyone in your house had to go without enough: No Comment: from [facility] <HAYDEN ACE - Last Filed: 04/17/24 06:40> - Physical Exam General Appearance: mild distress, alert, anxiety, obese Eye Exam: PERRL/EOMI, eyes nml inspection Ears, Nose, Throat Exam: normal ENT inspection, moist mucous membranes Neck Exam: normal inspection, non-tender, supple, full range of motion Respiratory Exam: normal breath sounds, lungs clear, airway intact, No chest tenderness, No respiratory distress Cardiovascular Exam: regular rate/rhythm, normal heart sounds, normal peripheral pulses Gastrointestinal/Abdomen Exam: soft, normal bowel sounds, tenderness, guarding, other (Large ventral hernia.) Pelvic Exam: not done Rectal Exam: not done Back Exam: normal inspection, normal range of motion, No CVA tenderness, No vertebral tenderness Extremity Exam: normal inspection, normal range of motion, pelvis stable Neurologic Exam: alert, oriented x 3, cooperative, 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, normal mood/affect, nml cerebellar function, nml station & gait, sensation nml Skin Exam: normal color, warm, dry Lymphatic Exam: No adenopathy SpO2 Interpretation: normal SpO2: 99 O2 Delivery: Room Air <HAYDEN ACE - Last Filed: 04/17/24 06:40> - Nursing Vital Signs Nursing Vital Signs: Initial Vital Signs Temperature 96.2 F 04/17/24 05:38 Pulse Rate 94 H 04/17/24 05:38 Respiratory Rate 22 04/17/24 05:38 Blood Pressure 121/76 04/17/24 05:38 O2 Sat by Pulse Oximetry 99 04/17/24 05:38 Pain Scale Pain Intensity 0 - Course Nursing assessment & vital signs reviewed: Yes <HAYDEN ACE - Last Filed: 04/17/24 06:40> Ordered Tests: Active Orders 24 hr Category Date Time Status EKG-ER Only STAT Care 04/17/24 06:35 Active IV Insertion STAT Care 04/17/24 06:35 Active ABDOMEN AND PELVIS W/0 CONTRAS [CT] Stat Exams 04/17/24 07:24 Completed AMYLASE Stat Lab 04/17/24 07:01 Completed CBC W DIFF Stat Lab 04/17/24 07:01 Completed CMP Stat Lab 04/17/24 07:01 Completed CULTURE,URINE Stat Lab 04/17/24 08:48 Received LIPASE Stat Lab 04/17/24 07:01 Completed Lactic Acid Stat Lab 04/17/24 06:35 Completed TROPONIN Q4H Lab 04/17/24 07:01 Completed TROPONIN Q4H Lab 04/17/24 10:45 Ordered TROPONIN Q4H Lab 04/17/24 14:45 Ordered UA W/RFX UR CULTURE Stat Lab 04/17/24 08:48 Completed Transfer Order Routine Transfer 04/17/24 Ordered Medication Summary Generic Name Dose Route Start Last Admin Trade Name Freq PRN Reason Stop Dose Admin Sodium Chloride 1,000 mls @ 100 mls/hr 04/17/24 06:45 04/17/24 06:51 Sodium Chloride 0.9% 1000 Ml IV 05/17/24 06:44 100 mls/hr .Q10H RUBEN Administration Ceftriaxone Sodium 1 gm in 100 mls @ 200 mls/hr 04/17/24 10:03 04/17/24 10:13 Rocephin 1 Gm / 100 Ml Nacl IV 04/17/24 10:32 100 mls/hr STAT ONE 100 mls/hr Administration Discontinued Medications Generic Name Dose Route Start Last Admin Trade Name Freq PRN Reason Stop Dose Admin Ceftriaxone Sodium Confirm 04/17/24 10:12 Rocephin 1 Gm / 100 Ml Nacl Administered 04/17/24 10:13 Dose 1 gm in 100 mls @ ud IV .STK-MED ONE Pantoprazole Sodium 40 mg 04/17/24 06:35 04/17/24 06:52 Pantoprazole 40 Mg Vial IV 04/17/24 06:36 40 mg STAT ONE Administration Pantoprazole Sodium Confirm 04/17/24 06:44 Pantoprazole 40 Mg Vial Administered 04/17/24 06:45 Dose 40 mg IV .STK-MED ONE Lab/Rad Data: Laboratory Result Diagrams 04/17/24 07:01 04/17/24 07:01 Laboratory Results 0904/17/24 04/17/24 Range/Units 08:48 07:01 07:01 WBC (3.98-10.04) x10^3/uL RBC (3.93-5.22) x10^6/uL Hgb (11.2-15.7) g/dL Hct (34.1-44.9) % MCV (79.4-94.8) fL MCH (25.6-32.2) pg MCHC (32.2-35.5) g/dL RDW (11.7-14.4) % Plt Count (182-369) x10^3/uL MPV (9.4-12.3) fL Gran % (34.0-71.1) % Immature Gran % (Auto) (0.001-0.429) % Nucleat RBC Rel Count (0.00-0.2) % Eos # (Auto) (0.04-0.36) x10^3/uL Immature Gran # (Auto) (0.001-0.031) x10^3u/L Absolute Lymphs (auto) (1.18-3.74) x10^3/uL Absolute Monos (auto) (0.24-0.86) x10^3/uL Absolute Nucleated RBC (0.00-0.012) x10^3u/L Lymphocytes % (19.3-51.7) % Monocytes % (4.7-12.5) % Eosinophils % (0.7-5.8) % Basophils % (0.1-1.2) % Absolute Granulocytes (1.56-6.13) x10^3/uL Basophils # (0.01-0.08) x10^3/uL Sodium 138 (135-145) mmol/L Potassium 5.1 (3.5-5.1) mmol/L Chloride 105 (98-107) mmol/L Carbon Dioxide 21 L (22-30) mmol/L Anion Gap 17.0 H (5-15) MEQ/L BUN 35 H (7-17) mg/dL Creatinine 2.43 H (0.52-1.04) mg/dL Estimated GFR 19.6 ML/MIN Glucose 193 H (74-106) mg/dL Lactic Acid (0.4-2.0) Calcium 9.1 (8.4-10.2) mg/dL Total Bilirubin 0.50 (0.2-1.3) mg/dL AST 21 (14-36) U/L ALT 14 (0-35) U/L Alkaline Phosphatase 83 (38-126) U/L Troponin I < 0.012 (0.000-0.033) ng/mL Serum Total Protein 7.2 (6.3-8.2) g/dL Albumin 3.9 (3.5-5.0) g/dL Amylase 93 (30-110) U/L Lipase 167 (23-300) U/L Urine Color Yellow (Yellow) Urine Appearance Turbid A (Clear) Urine pH 5.0 (4.6-8.0) Ur Specific [place] 1.020 (1.005-1.030) Urine Protein 300 A (Negative) Urine Glucose (UA) >=1000 A (Negative) mg/dL Urine Ketones Trace A (Negative) Urine Blood Large A (Negative) Urine Nitrite Negative (Negative) Urine Bilirubin Negative (Negative) Urine Urobilinogen 0.2 (0.2) mg/dL Ur Leukocyte Esterase Large A (Negative) U Hyaline Cast (Auto) 20-50 (0-2) /LPF Urine Microscopic RBC >100 A (0-5) /HPF Urine Microscopic WBC >100 A (0-5) /HPF Ur Epithelial Cells Few (None Seen) /HPF Urine Bacteria None Seen (None Seen) /HPF Urine Yeast (Budding) Moderate A (None Seen) /HPF Urine Culture Reflexed YES (NO) 04/17/24 04/17/24 Range/Units 07:01 06:35 WBC 15.9 H (3.98-10.04) x10^3/uL RBC 3.72 L (3.93-5.22) x10^6/uL Hgb 11.1 L (11.2-15.7) g/dL Hct 36.0 (34.1-44.9) % MCV 96.8 H (79.4-94.8) fL MCH 29.8 (25.6-32.2) pg MCHC 30.8 L (32.2-35.5) g/dL RDW 15.5 H (11.7-14.4) % Plt Count 251 (182-369) x10^3/uL MPV 9.5 (9.4-12.3) fL Gran % 77.5 H (34.0-71.1) % Immature Gran % (Auto) 1.5 H (0.001-0.429) % Nucleat RBC Rel Count 0.0 (0.00-0.2) % Eos # (Auto) 0.65 H (0.04-0.36) x10^3/uL Immature Gran # (Auto) 0.23 H (0.001-0.031) x10^3u/L Absolute Lymphs (auto) 1.91 (1.18-3.74) x10^3/uL Absolute Monos (auto) 0.71 (0.24-0.86) x10^3/uL Absolute Nucleated RBC 0.00 (0.00-0.012) x10^3u/L Lymphocytes % 12.0 L (19.3-51.7) % Monocytes % 4.5 L (4.7-12.5) % Eosinophils % 4.1 (0.7-5.8) % Basophils % 0.4 (0.1-1.2) % Absolute Granulocytes 12.29 H (1.56-6.13) x10^3/uL Basophils # 0.07 (0.01-0.08) x10^3/uL Sodium (135-145) mmol/L Potassium (3.5-5.1) mmol/L Chloride (98-107) mmol/L Carbon Dioxide (22-30) mmol/L Anion Gap (5-15) MEQ/L BUN (7-17) mg/dL Creatinine (0.52-1.04) mg/dL Estimated GFR ML/MIN Glucose (74-106) mg/dL Lactic Acid 1.0 (0.4-2.0) Calcium (8.4-10.2) mg/dL Total Bilirubin (0.2-1.3) mg/dL AST (14-36) U/L ALT (0-35) U/L Alkaline Phosphatase (38-126) U/L Troponin I (0.000-0.033) ng/mL Serum Total Protein (6.3-8.2) g/dL Albumin (3.5-5.0) g/dL Amylase (30-110) U/L Lipase (23-300) U/L Urine Color (Yellow) Urine Appearance (Clear) Urine pH (4.6-8.0) Ur Specific [place] (1.005-1.030) Urine Protein (Negative) Urine Glucose (UA) (Negative) mg/dL Urine Ketones (Negative) Urine Blood (Negative) Urine Nitrite (Negative) Urine Bilirubin (Negative) Urine Urobilinogen (0.2) mg/dL Ur Leukocyte Esterase (Negative) U Hyaline Cast (Auto) (0-2) /LPF Urine Microscopic RBC (0-5) /HPF Urine Microscopic WBC (0-5) /HPF Ur Epithelial Cells (None Seen) /HPF Urine Bacteria (None Seen) /HPF Urine Yeast (Budding) (None Seen) /HPF Urine Culture Reflexed (NO) <HAYDEN ACE - Last Filed: 04/17/24 06:40> - Progress Progress: improved Counseled pt/family regarding: lab results, diagnosis, rad results <DOMINIK LEGER - Last Filed: 04/17/24 10:20> - Progress Progress Note: 04/17/24 06:48 My medical decision making and the assignment of moderate to high complexity is based on review of the patient's past medical history, review the patient's most recent admission and discharge from the hospital, review of the patient's medication list, review the patient drug allergy list, history present illness and physical findings on examination. The workup in this patient includes placement of intravenous line, infusion normal saline solution, CBC, CMP, amylase, lipase, lactic acid level, troponin level, twelve-lead EKG, urinalysis, CT scan of the abdomen pelvis with contrast. Patient states she is not allergic to shellfish but the allergy that was attached to it. Radiology will be discussing the issue with this patient and will be determined after the discussion whether or not the patient requires pretreatment with intravenous Solu-Medrol intravenous Benadryl. Differential diagnosis includes but is not limited to worsening gastroparesis, bowel obstruction, incarcerated ventral hernia, colitis, diverticulitis, myocardial infarction, gastroenteritis, electrolyte abnormalities, dehydration 04/17/24 06:51 I am transferring care to Dr. Dominik Leger at shift change. I reviewed the patient history, presenting complaint and pending workup results. He will follow-up on those results and make final disposition. (HAYDEN ACE) 79-year-old female presents to our ED with nausea vomiting abdominal pain. Patient initially seen by Dr. Barakat. Patient endorsed to Dr. Leger at approximately 7 AM. CAT scan abdomen pelvis pending. CT resulted reveals ileus versus gastroenteritis. There is a borderline enlarged heart with a hiatal hernia and indices of GERD. Patient has a leukocytosis of 15,000. UTI observed. Antibiotics initiated. Patient is still nauseous and unable to tolerate p.o. Case discussed with hospitalist Dr. Mckeon who accepts admission at 10:15 AM. Plan of care discussed with patient. Patient agreed to admission to [facility] for further evaluation and treatment. Portions of this note were created with voice recognition technology. There may be grammatical, spelling, punctuation or sound alike errors 04/17/24 10:18 (DOMINIK LEGER) - Departure Departure Disposition: Observation Critical Care Time: No <HAYDEN ACE - Last Filed: 04/17/24 06:40> <DOMINIK LEGER - Last Filed: 04/17/24 10:20> - Departure Clinical Impression: Abdominal pain, Vomiting, UTI (urinary tract infection), Nausea, Enteritis, Ileus, Leukocytosis, Anemia, Acute renal injury, Dehydration Condition: Stable Referrals: LINH MCGILL MD [Primary Care Provider] - Follow up/PCP as directed Additional Instructions: Discharge/Care Plan GAIL NGO was seen on 04/17/24 in the Emergency Room. The patient was counseled regarding Diagnosis,Lab results, Imaging studies, need for follow up and when to return to the Emergency Room. Prescriptions given: Discharge Note I have spoken with the patient and/or caregivers. I have explained the patient's condition, diagnosis and treatment plan based on the information available to me at this time. I have answered the patient's and/or caregiver's questions and addressed any concerns. The patient and/or caregivers have as good understanding of the patient's diagnosis, condition and treatment plan as can be expected at this point. The vital signs have been stable. The patient's condition is stable and appropriate for discharge from the emergency department. The patient will pursue further outpatient evaluation with the primary care physician or other designated or consulting physician as outlined in the discharge instructions. The patient and/or caregivers are agreeable to this plan of care and follow-up instructions have been explained in detail. The patient and/or caregivers have received these instruction. The patient/and or caregivers are aware that any significant change in condition or worsening of symptoms should prompt an immediate return to this or the closest emergency department or call 911.
[2024-04-17] MEDS ORDERED: PROTONIX 40 MG IV IV ONE (06:44)
[2024-04-17] MEDS: Sodium Chloride 0.9% 1000 ML 1,000 ML IV SCH ×2 (06:51→17:22)
[2024-04-17] MEDS: PROTONIX 40 MG IV IV ONE (06:52)
[2024-04-17 07:02] LABS: Absolute Neutrophil Ct (ANC) 12.29 x10^3/uL (1.56-6.13); BASOPHIL % 0.4 % (0.1-1.2); Basophil (Absolute #) 0.07 x10^3/uL (0.01-0.08); Eosinophil % 4.1 % (0.7-5.8); Eosinophil (Absolute #) 0.65 x10^3/uL (0.04-0.36); Hemoglobin 11.1 g/dL (11.2-15.7); IMMATURE GRAN # 0.23 x10^3u/L (0.001-0.031); IMMATURE GRAN % 1.5 % (0.001-0.429); Lymphocyte (Absolute #) 1.91 x10^3/uL (1.18-3.74); Mean Cell Volume 96.8 fL (79.4-94.8); Mean Corpuscular Hemoglobin 29.8 pg (25.6-32.2); Mean Corpuscular Hgb Concent. 30.8 g/dL (32.2-35.5); Mean Platelet Volume 9.5 fL (9.4-12.3); Monocyte (Absolute #) 0.71 x10^3/uL (0.24-0.86); Monocytes % 4.5 % (4.7-12.5); Neutrophil % 77.5 % (34.0-71.1); Platelet Count 251 x10^3/uL (182-369); Red Blood Count 3.72 x10^6/uL (3.93-5.22); Red Cell Distribution Width 15.5 % (11.7-14.4); White Blood Count 15.9 x10^3/uL (3.98-10.04)
[2024-04-17 07:15] LABS: ALBUMIN 3.9 g/dL (3.5-5.0); BILIRUBIN,TOTAL 0.5 mg/dL (0.2-1.3); Calcium 9.1 mg/dL (8.4-10.2); Creatinine 1 2.43 mg/dL (0.52-1.04); EST GLOMERULAR FILTRATION RATE 19.6 ML/MIN; Potassium 5.1 mmol/L (3.5-5.1); Total Protein 7.2 g/dL (6.3-8.2)
--- NOTE | 2024-04-17 09:33 | XRAY ---
Indication: Abdomen pain and vomiting. Multiple contiguous axial images obtained through the abdomen and pelvis without contrast. Comparison: April 09, 2024 Lung bases again demonstrate dependent atelectasis and stable 7 mm probably benign left costophrenic angle noncalcified nodule. No infiltrate or effusion. Heart remains borderline enlarged. New finding small hiatal hernia now fluid distended presumed from gastroesophageal reflux. Stomach again markedly distended with food/fluid with fluid leveling unchanged. Left mid abdomen small bowel loops again mildly fluid distended up to 3 cm with fluid leveling. Normal appearing distal bowel gas. Above findings either ileus versus gastroenteritis. Normal appendix. There remains scattered transverse and descending colonic diverticulosis without diverticulitis. Again cholecystectomy and hysterectomy. No free fluid/air. Remaining liver, pancreas, spleen, adrenal glands, kidneys, ureters, and bladder are unremarkable for noncontrast exam. Remains mild scattered aortoiliac calcifications without AAA. Osseous structures intact again with osteopenia, mild degenerative changes throughout the spine, and small T11 Schmorl node. No ventral or inguinal hernias. Impression: 1. Again markedly distended stomach and small bowel loops with fluid leveling. Rule out ileus versus gastroenteritis. 2. New fluid-filled small hiatal hernia favoring gastroesophageal reflux. 3. Chronic findings including benign left costophrenic angle noncalcified lung micronodule, colonic diverticulosis, arteriosclerotic disease, and chronic bony findings.
[2024-04-17 09:36] LABS: Appearance Turbid (Clear); Bilirubin Negative (Negative); Blood Large (Negative); Glucose, Urine >=1000 mg/dL (Negative); Ketones Trace (Negative); Leukocyte Esterase Large (Negative); Nitrite Negative (Negative); Protein,Urine Dip 300 (Negative); Urobilinogen 0.2 mg/dL (0.2)
[2024-04-17 09:49] LABS: Bacteria None Seen /HPF (None Seen); Epithelial Cells Few /HPF (None Seen); RBC >100 /HPF (0-5); WBC >100 /HPF (0-5)
[2024-04-17 09:57] LABS: Budding Yeast Moderate /HPF (None Seen); Hyaline Casts 20-50 /LPF (0-2)
[2024-04-17] MEDS ORDERED: ROCEPHIN 1 GM / 100 ML NaCl 1 GM/100 ML IVPB IV ONE (10:12)
[2024-04-17] MEDS: ROCEPHIN 1 GM / 100 ML NaCl 1 GM/100 ML IVPB IV ONE (10:13)
--- NOTE | 2024-04-17 12:08 | PCM.HP ---
<AIYANA PFEIFFER - Last Filed: 04/17/24 13:24> History of Present Illness - Chief Complaint Chief Complaint: Nausea vomiting, ileus versus gastroenteritis, abdominal pain Date: 04/17/24 History of Present Illness: is a 79 year old female with a pmhx of peripheral neuropathy, CAD with (8 stents), fibromyalgia, DMII, COPD (RA at baseline), hypothyroid, anemia, chronic kidney disease (follows with Dr. Ortega nephrology), DVT (on eliquis), Right breast cancer (37 years ago), HTN, and HLD who presented to ED 04/17/24 with complaints of abdominal pain, pressure, nausea, and vomiting. Of note patient with recent admission 04/09-04/10/24 with similar symptoms. Patient states she was feeling better after her release until about two days ago when the nausea began again progressing to abdominal distention and vomiting at midnight. Patient does state she is passing gas and did have a large bowel movement after admission to the floor per RN report. Abdominal distention is noted on exam. NG placed by STRAIGHT EDGER. CXR pending placement. Upon arrival to ED vitals stable. CT abdomen and pelvis demonstrating a markedly distended stomach and small bowel bowel loops with fluid leveling. Concerning for ileus vs gastroenteritis. Labs remarkable for leukocytosis with WBC at 15.9, macrocytic anemia with hgb at 11.1. Acute on chronic HANNAH with creat at 2.43 (baseline around 1.9-2.2), and UA suspicious for UTI. Patient received IVF, protonix, and rocephin in ED. Plan to continue bowel rest, NG placement, IVF, and Rocephin for UTI empirically. Will consult surgery for evaluation. - Review of Systems Constitutional: Weakness Eyes: No Symptoms Ears, Nose, & Throat: No Symptoms Respiratory: No Symptoms Cardiac: No Symptoms Abdominal/Gastrointestinal: Abdominal Pain, Nausea, Vomiting Genitourinary Symptoms: No Symptoms Musculoskeletal: No Symptoms Skin: No Symptoms Neurological: No Symptoms Psychological: No Symptoms Endocrine: No Symptoms Hematologic/Lymphatic: Anemia Immunological/Allergic: No Symptoms Medications & Allergies Home Medications: Home Medication List Allopurinol 100 mg [Zyloprim 100 mg] 100 mg PO DAILY 11/09/22 [History Confirmed 04/17/24] Dapagliflozin Propanediol [Farxiga] 10 mg PO DAILY 11/09/22 [History Confirmed 04/17/24] Dicyclomine HCl 20 mg [Bentyl 20 mg] 10 mg PO TID 11/09/22 [History Confirmed 04/17/24] Ergocalciferol (Vitamin D2) [Vitamin D2] 1.25 mg PO WEEKLY 11/09/22 [History Confirmed 04/17/24] Ferrous Sulfate 325 mg [Feosol 325 mg] 325 mg PO DAILY 11/09/22 [History Confirmed 04/17/24] Furosemide [Lasix] 40 mg PO DAILY 11/09/22 [History Confirmed 04/17/24] Isosorbide Mononitrate [Isosorbide Mononitrate ER] 60 mg PO DAILY 11/09/22 [History Confirmed 04/17/24] Levothyroxine Sodium 25 Mcg [Synthroid 25 Mcg] 75 mcg PO DAILY 11/09/22 [History Confirmed 04/17/24] Metoprolol Succinate 25 mg Xl* [Toprol-Xl 25MG Tablets] 25 mg PO DAILY 11/09/22 [History Confirmed 04/17/24] Apixaban [Eliquis] 5 mg PO BID 04/09/24 [History Confirmed 04/17/24] Bisacodyl 10 mg [Dulcolax 10 MG SUPP] 10 mg RC Q6H PRN PRN 04/09/24 [History Confirmed 04/17/24] Carboxymethylcellulos/Glycerin [Refresh Optive Eye Drops] 5 ml OP QIDPRN PRN 04/09/24 [History Confirmed 04/17/24] Clopidogrel Bisulfate [PLAVIX Tablet] 75 mg PO DAILY 04/09/24 [History Confirmed 04/17/24] Cyanocobalamin (Vitamin B-12) [B-12] 1,000 mcg PO DAILY 04/09/24 [History Confirmed 04/17/24] Dextrose [Glucose Gel] 38 gm PO UD 04/09/24 [History Confirmed 04/17/24] Duloxetine HCl 30 mg [Cymbalta 30 MG Capsule] 30 mg PO DAILY 04/09/24 [History Confirmed 04/17/24] Gabapentin [Neurontin ] 100 mg PO TID 04/09/24 [History Confirmed 04/17/24] Glucagon 1 mg [GlucaGen 1 MG] 1 mg IM UD 04/09/24 [History Confirmed 04/17/24] Hydrocodone/Acetaminophen [Hydrocodone-Acetamin 7.5-325] 1 each PO Q4HPRN PRN 04/09/24 [History Confirmed 04/17/24] Insulin Aspart [NovoLOG Insulin] 10 unit SQ TIDAC 04/09/24 [History Confirmed 04/17/24] Insulin Glargine,Hum.rec.anlog [Basaglar Kwikpen U-100] 90 unit SQ HS 04/09/24 [History Confirmed 04/17/24] Loperamide HCl 2 mg [Imodium 2 mg] 2 mg PO Q8H PRN PRN 04/09/24 [History Confirmed 04/17/24] Magnesium Hydroxide 30 ml [Milk of Magnesia 30 ml] 30 ml PO DAILY PRN PRN 04/09/24 [History Confirmed 04/17/24] Nitroglycerin 0.4 mg Tablet [Nitrostat 0.4 MG Tablet] 0.4 mg SL UD 04/09/24 [History Confirmed 04/17/24] PANTOPRAZOLE 40 mg Tablet [Protonix 40MG Tablet] 40 mg PO BID 04/09/24 [History Confirmed 04/17/24] Polyethylene Glycol 3350 17 gm [Miralax Powder 17GM PACKET] 17 gm PO HS 04/09/24 [History Confirmed 04/17/24] Potassium Chloride [Klor-Con M20] 20 meq PO BID 04/09/24 [History Confirmed 04/17/24] Rosuvastatin Calcium 20 mg PO HS 04/09/24 [History Confirmed 04/17/24] Zinc Oxide [Diaper Rash] 56 gm TP BID 04/09/24 [History Confirmed 04/17/24] diphenhydrAMINE HCL [Allergy Relief] 25 mg PO Q8H PRN PRN 04/09/24 [History Confirmed 04/17/24] Simethicone 80 mg [Mylicon 80MG] 80 mg PO QID PRN PRN 30 Days #120 tablet 04/10/24 [Rx Confirmed 04/17/24] Acetaminophen 325 mg [Tylenol 325 mg] 650 mg PO Q4H PRN PRN 04/17/24 [History Confirmed 04/17/24] Acetaminophen 325 mg [Tylenol 325 mg] 650 mg PO Q4HPRN PRN 04/17/24 [History Confirmed 04/17/24] Acetaminophen [Tylenol Extra Strength] 1,000 mg PO BID 04/17/24 [History Confirmed 04/17/24] Cefpodoxime Proxetil 200 mg [Vantin 200 mg] 1 tab PO BID 04/17/24 [History Confirmed 04/17/24] Diclofenac Sodium [Voltaren Arthritis Pain] 1 appful Q8HPRN PRN 04/17/24 [History Confirmed 04/17/24] Metoclopramide HCl [Reglan] 5 mg PO TID PRN PRN 04/17/24 [History Confirmed 04/17/24] Ondansetron ODT 4 MG [Zofran Odt 4 mg] 1 tab PO Q8HPRN PRN 04/17/24 [History Confirmed 04/17/24] Allergies/Adverse Reactions: Allergies Allergy/AdvReac Type Severity Reaction Status Date / Time latex Allergy Intermediate Hives Verified 04/17/24 06:04 bee venom protein (honey bee) Allergy Unknown Verified 04/17/24 06:04 shellfish derived Allergy Unknown Verified 04/17/24 05:59 fiberglass Allergy Intermediate Hives Uncoded 04/17/24 06:04 - Past Medical History Past Medical History: Yes Neurological History: No Pertinent History, Peripheral Neuropathy ENT History: Macular Degeneration Cardiac History: Coronary Artery Disease, Deep Vein Thrombosis, High Cholesterol, Hypertension Respiratory History: Asthma, COPD, Pneumonia, Sleep Apnea Endocrine Medical History: Diabetes Type II, Hypothyroidism Musculoskelatal History: Arthritis, Fractures, Osteoarthritis GI Medical History: Colitis, Diverticulitis, GERD, GI Bleed, Irritable Bowel, Other History: Renal Disease Pyscho-Social History: No Pertinent History Reproductive Disorders: Breast Cancer Comment: breast cancer 1987, GASTROPARESIS, fibromyalgia - Past Surgical History Past Surgical History: Yes Neuro Surgical History: No Pertinent History Cardiac History: Cardiac Catheterization, Cardiac Stent Respiratory Surgery: No Pertinent History GI Surgical History: Cholecystectomy Genitourinary Surgical Hx: No Pertinent History Musculskeletal Surgical Hx: No Pertinent History Female Surgical History: Hysterectomy, Section, Mastectomy Other Surgical History: Uvula remove, 3 CARDIAC STENTS - Social History Smoking Status: Never smoker Exposure to second hand smoke: No Alcohol: None Drug Use: none - Social Determinants of Health Will the patient participate in the screening: Yes Do you worry about a steady place to live?: No Do you have any problems with any of the following?: No known problems In the past 12 months,have you had to go without utilities?: No Have you or anyone in your house had to go without enough: No Transportation Issues: No Has anyone in your support network made you feel unsafe?: No Does the patient want assistance with any of the above?: No Comment: from [facility] - Physical Exam Vital Signs: Vital Signs - 24 hr Temp Pulse Resp BP BP Pulse Ox 04/17/24 11:00 96 H 15 127/65 99 04/17/24 10:45 97 H 17 105/80 100 04/17/24 10:30 96 H 14 143/61 100 04/17/24 10:15 97 H 16 139/57 100 04/17/24 10:00 91 H 23 129/67 100 04/17/24 09:45 94 H 17 134/91 100 04/17/24 09:02 96 H 15 124/67 100 04/17/24 08:47 102 H 10 L 122/53 100 04/17/24 08:31 94 H 13 135/69 100 04/17/24 08:23 98 H 23 149/74 100 04/17/24 07:30 98 H 137/83 99 04/17/24 07:00 91 H 18 129/78 97 04/17/24 06:52 99 04/17/24 05:38 96.2 F 94 H 22 121/76 99 General Appearance: no apparent distress Neurologic Exam: alert, oriented x 3, cooperative Eye Exam: PERRL/EOMI Ears, Nose, Throat Exam: normal ENT inspection Neck Exam: normal inspection Respiratory Exam: normal breath sounds, lungs clear Cardiovascular Exam: regular rate/rhythm, normal heart sounds Gastrointestinal/Abdomen Exam: soft, normal bowel sounds, tenderness, distention Pelvic Exam: not done Rectal Exam: deferred Back Exam: normal inspection Extremity Exam: normal inspection Skin Exam: normal color Results - Labs Lab/Micro Results: Lab Results-Last 24 Hours 04/17/24 04/17/24 04/17/24 Range/Units 06:35 07:01 07:01 WBC 15.9 H (3.98-10.04) x10^3/uL RBC 3.72 L (3.93-5.22) x10^6/uL Hgb 11.1 L (11.2-15.7) g/dL Hct 36.0 (34.1-44.9) % MCV 96.8 H (79.4-94.8) fL MCH 29.8 (25.6-32.2) pg MCHC 30.8 L (32.2-35.5) g/dL RDW 15.5 H (11.7-14.4) % Plt Count 251 (182-369) x10^3/uL MPV 9.5 (9.4-12.3) fL Gran % 77.5 H (34.0-71.1) % Immature Gran % (Auto) 1.5 H (0.001-0.429) % Nucleat RBC Rel Count 0.0 (0.00-0.2) % Eos # (Auto) 0.65 H (0.04-0.36) x10^3/uL Immature Gran # (Auto) 0.23 H (0.001-0.031) x10^3u/L Absolute Lymphs (auto) 1.91 (1.18-3.74) x10^3/uL Absolute Monos (auto) 0.71 (0.24-0.86) x10^3/uL Absolute Nucleated RBC 0.00 (0.00-0.012) x10^3u/L Lymphocytes % 12.0 L (19.3-51.7) % Monocytes % 4.5 L (4.7-12.5) % Eosinophils % 4.1 (0.7-5.8) % Basophils % 0.4 (0.1-1.2) % Absolute Granulocytes 12.29 H (1.56-6.13) x10^3/uL Basophils # 0.07 (0.01-0.08) x10^3/uL Sodium 138 (135-145) mmol/L Potassium 5.1 (3.5-5.1) mmol/L Chloride 105 (98-107) mmol/L Carbon Dioxide 21 L (22-30) mmol/L Anion Gap 17.0 H (5-15) MEQ/L BUN 35 H (7-17) mg/dL Creatinine 2.43 H (0.52-1.04) mg/dL Estimated GFR 19.6 ML/MIN Glucose 193 H (74-106) mg/dL Lactic Acid 1.0 (0.4-2.0) Calcium 9.1 (8.4-10.2) mg/dL Total Bilirubin 0.50 (0.2-1.3) mg/dL AST 21 (14-36) U/L ALT 14 (0-35) U/L Alkaline Phosphatase 83 (38-126) U/L Troponin I (0.000-0.033) ng/mL Serum Total Protein 7.2 (6.3-8.2) g/dL Albumin 3.9 (3.5-5.0) g/dL Amylase 93 (30-110) U/L Lipase 167 (23-300) U/L Urine Color (Yellow) Urine Appearance (Clear) Urine pH (4.6-8.0) Ur Specific Glennie (1.005-1.030) Urine Protein (Negative) Urine Glucose (UA) (Negative) mg/dL Urine Ketones (Negative) Urine Blood (Negative) Urine Nitrite (Negative) Urine Bilirubin (Negative) Urine Urobilinogen (0.2) mg/dL Ur Leukocyte Esterase (Negative) U Hyaline Cast (Auto) (0-2) /LPF Urine Microscopic RBC (0-5) /HPF Urine Microscopic WBC (0-5) /HPF Ur Epithelial Cells (None Seen) /HPF Urine Bacteria (None Seen) /HPF Urine Yeast (Budding) (None Seen) /HPF Urine Culture Reflexed (NO) 04/17/24 04/17/24 Range/Units 07:01 08:48 WBC (3.98-10.04) x10^3/uL RBC (3.93-5.22) x10^6/uL Hgb (11.2-15.7) g/dL Hct (34.1-44.9) % MCV (79.4-94.8) fL MCH (25.6-32.2) pg MCHC (32.2-35.5) g/dL RDW (11.7-14.4) % Plt Count (182-369) x10^3/uL MPV (9.4-12.3) fL Gran % (34.0-71.1) % Immature Gran % (Auto) (0.001-0.429) % Nucleat RBC Rel Count (0.00-0.2) % Eos # (Auto) (0.04-0.36) x10^3/uL Immature Gran # (Auto) (0.001-0.031) x10^3u/L Absolute Lymphs (auto) (1.18-3.74) x10^3/uL Absolute Monos (auto) (0.24-0.86) x10^3/uL Absolute Nucleated RBC (0.00-0.012) x10^3u/L Lymphocytes % (19.3-51.7) % Monocytes % (4.7-12.5) % Eosinophils % (0.7-5.8) % Basophils % (0.1-1.2) % Absolute Granulocytes (1.56-6.13) x10^3/uL Basophils # (0.01-0.08) x10^3/uL Sodium (135-145) mmol/L Potassium (3.5-5.1) mmol/L Chloride (98-107) mmol/L Carbon Dioxide (22-30) mmol/L Anion Gap (5-15) MEQ/L BUN (7-17) mg/dL Creatinine (0.52-1.04) mg/dL Estimated GFR ML/MIN Glucose (74-106) mg/dL Lactic Acid (0.4-2.0) Calcium (8.4-10.2) mg/dL Total Bilirubin (0.2-1.3) mg/dL AST (14-36) U/L ALT (0-35) U/L Alkaline Phosphatase (38-126) U/L Troponin I < 0.012 (0.000-0.033) ng/mL Serum Total Protein (6.3-8.2) g/dL Albumin (3.5-5.0) g/dL Amylase (30-110) U/L Lipase (23-300) U/L Urine Color Yellow (Yellow) Urine Appearance Turbid A (Clear) Urine pH 5.0 (4.6-8.0) Ur Specific Glennie 1.020 (1.005-1.030) Urine Protein 300 A (Negative) Urine Glucose (UA) >=1000 A (Negative) mg/dL Urine Ketones Trace A (Negative) Urine Blood Large A (Negative) Urine Nitrite Negative (Negative) Urine Bilirubin Negative (Negative) Urine Urobilinogen 0.2 (0.2) mg/dL Ur Leukocyte Esterase Large A (Negative) U Hyaline Cast (Auto) 20-50 (0-2) /LPF Urine Microscopic RBC >100 A (0-5) /HPF Urine Microscopic WBC >100 A (0-5) /HPF Ur Epithelial Cells Few (None Seen) /HPF Urine Bacteria None Seen (None Seen) /HPF Urine Yeast (Budding) Moderate A (None Seen) /HPF Urine Culture Reflexed YES (NO) - Radiology Impressions Radiology Exams & Impressions: Radiology Procedures Category Date Time Status ABDOMEN AND PELVIS W/0 CONTRAS [CT] Stat Exams 04/17/24 07:24 Completed Assessment/Plan (1) Abdominal pain Current Visit: Yes Status: Acute Assessment & Plan: -CT showing markedly distended stomach and small bowel loops with fluid leveling. Rule out ileus versus gastroenteritis.New fluid-filled small hiatal hernia favoring gastroesophageal reflux. -NPO -IVF -NG for decompressioin due to recurrent vomiting -Monitor renal/lytes -Surgery consult Code(s): R10.9 - UNSPECIFIED ABDOMINAL PAIN (2) Leukocytosis Current Visit: Yes Status: Acute Assessment & Plan: -Most likely secondary to infectious/reactive processes -UTI - current treatment with rocephin, will continue Code(s): D72.829 - ELEVATED WHITE BLOOD CELL COUNT, UNSPECIFIED (3) UTI (urinary tract infection) Current Visit: Yes Status: Acute Assessment & Plan: -UA suspicious for UTI, rocephin started empirically, will continue - follow culture -recent culture reviewed from 04/09 shwoing no growth Code(s): N39.0 - URINARY TRACT INFECTION, SITE NOT SPECIFIED (4) Acute on chronic kidney failure Current Visit: Yes Status: Acute Assessment & Plan: -Most likely secondary to GI losses -Baseline around 1.7-1.9 - follows with Dr. Ortega as OP -IVF -Avoid ZULY/ARB/NSAIDS/diuretics -monitor renal/lytes daily Code(s): N17.9 - ACUTE KIDNEY FAILURE, UNSPECIFIED; N18.9 - CHRONIC KIDNEY DISEASE, UNSPECIFIED (5) CAD (coronary artery disease) Current Visit: Yes Status: Acute Assessment & Plan: -Continue home meds Code(s): I25.10 - ATHSCL HEART DISEASE OF [place] CORONARY ARTERY W/O ANG PCTRS (6) History of DVT (deep vein thrombosis) Current Visit: Yes Status: Acute Code(s): Z86.718 - PERSONAL HISTORY OF OTHER VENOUS THROMBOSIS AND EMBOLISM (7) HLD (hyperlipidemia) Current Visit: Yes Status: Acute Assessment & Plan: -continue statin Code(s): E78.5 - HYPERLIPIDEMIA, UNSPECIFIED (8) HTN (hypertension) Current Visit: Yes Status: Acute Assessment & Plan: -stable continue home meds Code(s): I10 - ESSENTIAL (PRIMARY) HYPERTENSION (9) COPD (chronic obstructive pulmonary disease) Current Visit: Yes Status: Acute Assessment & Plan: -Supplemental oxygen as needed for spo2 goal >92% - RA at baseline -RT eval -Does not appear to be in exacerbation -CXR with no acute findings -Continue home meds (10) Diabetes mellitus Current Visit: Yes Status: Acute Assessment & Plan: -Currently NPO -Hold SSI until able to tolerate diet - then ADA diet and resume home meds -continue glargine Code(s): E11.9 - TYPE 2 DIABETES MELLITUS WITHOUT COMPLICATIONS (11) Hypothyroid Current Visit: Yes Status: Acute Code(s): E03.9 - HYPOTHYROIDISM, UNSPECIFIED (12) History of breast cancer Current Visit: Yes Status: Acute Assessment & Plan: -noted, right breast, no treatment currently - 37 years ago Code(s): Z85.3 - PERSONAL HISTORY OF MALIGNANT NEOPLASM OF BREAST <CHEN SHER - Last Filed: 04/17/24 22:19> History of Present Illness - Chief Complaint History of Present Illness: is a 79 year old female. - Physical Exam Vital Signs: Vital Signs - 24 hr Temp Pulse Resp BP BP Pulse Ox 04/17/24 16:00 97.5 F 92 H 15 154/67 98 04/17/24 12:00 97.5 F 106 H 16 153/88 96 04/17/24 11:49 97.5 F 96 H 15 153/88 96 04/17/24 11:00 96 H 15 127/65 99 04/17/24 10:45 97 H 17 105/80 100 04/17/24 10:30 96 H 14 143/61 100 04/17/24 10:15 97 H 16 139/57 100 04/17/24 10:00 91 H 23 129/67 100 04/17/24 09:45 94 H 17 134/91 100 04/17/24 09:02 96 H 15 124/67 100 04/17/24 08:47 102 H 10 L 122/53 100 04/17/24 08:31 94 H 13 135/69 100 04/17/24 08:23 98 H 23 149/74 100 04/17/24 07:30 98 H 137/83 99 04/17/24 07:00 91 H 18 129/78 97 04/17/24 06:52 99 04/17/24 05:38 96.2 F 94 H 22 121/76 99 Results - Labs Lab/Micro Results: Lab Results-Last 24 Hours 04/17/24 04/17/24 04/17/24 Range/Units 06:35 07:01 07:01 WBC 15.9 H (3.98-10.04) x10^3/uL RBC 3.72 L (3.93-5.22) x10^6/uL Hgb 11.1 L (11.2-15.7) g/dL Hct 36.0 (34.1-44.9) % MCV 96.8 H (79.4-94.8) fL MCH 29.8 (25.6-32.2) pg MCHC 30.8 L (32.2-35.5) g/dL RDW 15.5 H (11.7-14.4) % Plt Count 251 (182-369) x10^3/uL MPV 9.5 (9.4-12.3) fL Gran % 77.5 H (34.0-71.1) % Immature Gran % (Auto) 1.5 H (0.001-0.429) % Nucleat RBC Rel Count 0.0 (0.00-0.2) % Eos # (Auto) 0.65 H (0.04-0.36) x10^3/uL Immature Gran # (Auto) 0.23 H (0.001-0.031) x10^3u/L Absolute Lymphs (auto) 1.91 (1.18-3.74) x10^3/uL Absolute Monos (auto) 0.71 (0.24-0.86) x10^3/uL Absolute Nucleated RBC 0.00 (0.00-0.012) x10^3u/L Lymphocytes % 12.0 L (19.3-51.7) % Monocytes % 4.5 L (4.7-12.5) % Eosinophils % 4.1 (0.7-5.8) % Basophils % 0.4 (0.1-1.2) % Absolute Granulocytes 12.29 H (1.56-6.13) x10^3/uL Basophils # 0.07 (0.01-0.08) x10^3/uL Sodium 138 (135-145) mmol/L Potassium 5.1 (3.5-5.1) mmol/L Chloride 105 (98-107) mmol/L Carbon Dioxide 21 L (22-30) mmol/L Anion Gap 17.0 H (5-15) MEQ/L BUN 35 H (7-17) mg/dL Creatinine 2.43 H (0.52-1.04) mg/dL Estimated GFR 19.6 ML/MIN Glucose 193 H (74-106) mg/dL POC Glucometer (74 to 106) mg/dL Hemoglobin A1c (4.5-6.0) % Lactic Acid 1.0 (0.4-2.0) Calcium 9.1 (8.4-10.2) mg/dL Total Bilirubin 0.50 (0.2-1.3) mg/dL AST 21 (14-36) U/L ALT 14 (0-35) U/L Alkaline Phosphatase 83 (38-126) U/L Troponin I (0.000-0.033) ng/mL Serum Total Protein 7.2 (6.3-8.2) g/dL Albumin 3.9 (3.5-5.0) g/dL Amylase 93 (30-110) U/L Lipase 167 (23-300) U/L Urine Color (Yellow) Urine Appearance (Clear) Urine pH (4.6-8.0) Ur Specific Glennie (1.005-1.030) Urine Protein (Negative) Urine Glucose (UA) (Negative) mg/dL Urine Ketones (Negative) Urine Blood (Negative) Urine Nitrite (Negative) Urine Bilirubin (Negative) Urine Urobilinogen (0.2) mg/dL Ur Leukocyte Esterase (Negative) U Hyaline Cast (Auto) (0-2) /LPF Urine Microscopic RBC (0-5) /HPF Urine Microscopic WBC (0-5) /HPF Ur Epithelial Cells (None Seen) /HPF Urine Bacteria (None Seen) /HPF Urine Yeast (Budding) (None Seen) /HPF Urine Culture Reflexed (NO) 04/17/24 04/17/24 04/17/24 Range/Units 07:01 07:01 08:48 WBC (3.98-10.04) x10^3/uL RBC (3.93-5.22) x10^6/uL Hgb (11.2-15.7) g/dL Hct (34.1-44.9) % MCV (79.4-94.8) fL MCH (25.6-32.2) pg MCHC (32.2-35.5) g/dL RDW (11.7-14.4) % Plt Count (182-369) x10^3/uL MPV (9.4-12.3) fL Gran % (34.0-71.1) % Immature Gran % (Auto) (0.001-0.429) % Nucleat RBC Rel Count (0.00-0.2) % Eos # (Auto) (0.04-0.36) x10^3/uL Immature Gran # (Auto) (0.001-0.031) x10^3u/L Absolute Lymphs (auto) (1.18-3.74) x10^3/uL Absolute Monos (auto) (0.24-0.86) x10^3/uL Absolute Nucleated RBC (0.00-0.012) x10^3u/L Lymphocytes % (19.3-51.7) % Monocytes % (4.7-12.5) % Eosinophils % (0.7-5.8) % Basophils % (0.1-1.2) % Absolute Granulocytes (1.56-6.13) x10^3/uL Basophils # (0.01-0.08) x10^3/uL Sodium (135-145) mmol/L Potassium (3.5-5.1) mmol/L Chloride (98-107) mmol/L Carbon Dioxide (22-30) mmol/L Anion Gap (5-15) MEQ/L BUN (7-17) mg/dL Creatinine (0.52-1.04) mg/dL Estimated GFR ML/MIN Glucose (74-106) mg/dL POC Glucometer (74 to 106) mg/dL Hemoglobin A1c 7.36 H (4.5-6.0) % Lactic Acid (0.4-2.0) Calcium (8.4-10.2) mg/dL Total Bilirubin (0.2-1.3) mg/dL AST (14-36) U/L ALT (0-35) U/L Alkaline Phosphatase (38-126) U/L Troponin I < 0.012 (0.000-0.033) ng/mL Serum Total Protein (6.3-8.2) g/dL Albumin (3.5-5.0) g/dL Amylase (30-110) U/L Lipase (23-300) U/L Urine Color Yellow (Yellow) Urine Appearance Turbid A (Clear) Urine pH 5.0 (4.6-8.0) Ur Specific [place]ie 1.020 (1.005-1.030) Urine Protein 300 A (Negative) Urine Glucose (UA) >=1000 A (Negative) mg/dL Urine Ketones Trace A (Negative) Urine Blood Large A (Negative) Urine Nitrite Negative (Negative) Urine Bilirubin Negative (Negative) Urine Urobilinogen 0.2 (0.2) mg/dL Ur Leukocyte Esterase Large A (Negative) U Hyaline Cast (Auto) 20-50 (0-2) /LPF Urine Microscopic RBC >100 A (0-5) /HPF Urine Microscopic WBC >100 A (0-5) /HPF Ur Epithelial Cells Few (None Seen) /HPF Urine Bacteria None Seen (None Seen) /HPF Urine Yeast (Budding) Moderate A (None Seen) /HPF Urine Culture Reflexed YES (NO) 04/17/24 04/17/24 04/17/24 Range/Units 11:18 14:15 15:00 WBC (3.98-10.04) x10^3/uL RBC (3.93-5.22) x10^6/uL Hgb (11.2-15.7) g/dL Hct (34.1-44.9) % MCV (79.4-94.8) fL MCH (25.6-32.2) pg MCHC (32.2-35.5) g/dL RDW (11.7-14.4) % Plt Count (182-369) x10^3/uL MPV (9.4-12.3) fL Gran % (34.0-71.1) % Immature Gran % (Auto) (0.001-0.429) % Nucleat RBC Rel Count (0.00-0.2) % Eos # (Auto) (0.04-0.36) x10^3/uL Immature Gran # (Auto) (0.001-0.031) x10^3u/L Absolute Lymphs (auto) (1.18-3.74) x10^3/uL Absolute Monos (auto) (0.24-0.86) x10^3/uL Absolute Nucleated RBC (0.00-0.012) x10^3u/L Lymphocytes % (19.3-51.7) % Monocytes % (4.7-12.5) % Eosinophils % (0.7-5.8) % Basophils % (0.1-1.2) % Absolute Granulocytes (1.56-6.13) x10^3/uL Basophils # (0.01-0.08) x10^3/uL Sodium (135-145) mmol/L Potassium (3.5-5.1) mmol/L Chloride (98-107) mmol/L Carbon Dioxide (22-30) mmol/L Anion Gap (5-15) MEQ/L BUN (7-17) mg/dL Creatinine (0.52-1.04) mg/dL Estimated GFR ML/MIN Glucose (74-106) mg/dL POC Glucometer 183 H (74 to 106) mg/dL Hemoglobin A1c (4.5-6.0) % Lactic Acid (0.4-2.0) Calcium (8.4-10.2) mg/dL Total Bilirubin (0.2-1.3) mg/dL AST (14-36) U/L ALT (0-35) U/L Alkaline Phosphatase (38-126) U/L Troponin I < 0.012 < 0.012 (0.000-0.033) ng/mL Serum Total Protein (6.3-8.2) g/dL Albumin (3.5-5.0) g/dL Amylase (30-110) U/L Lipase (23-300) U/L Urine Color (Yellow) Urine Appearance (Clear) Urine pH (4.6-8.0) Ur Specific Glennie (1.005-1.030) Urine Protein (Negative) Urine Glucose (UA) (Negative) mg/dL Urine Ketones (Negative) Urine Blood (Negative) Urine Nitrite (Negative) Urine Bilirubin (Negative) Urine Urobilinogen (0.2) mg/dL Ur Leukocyte Esterase (Negative) U Hyaline Cast (Auto) (0-2) /LPF Urine Microscopic RBC (0-5) /HPF Urine Microscopic WBC (0-5) /HPF Ur Epithelial Cells (None Seen) /HPF Urine Bacteria (None Seen) /HPF Urine Yeast (Budding) (None Seen) /HPF Urine Culture Reflexed (NO) 04/17/24 Range/Units 16:47 WBC (3.98-10.04) x10^3/uL RBC (3.93-5.22) x10^6/uL Hgb (11.2-15.7) g/dL Hct (34.1-44.9) % MCV (79.4-94.8) fL MCH (25.6-32.2) pg MCHC (32.2-35.5) g/dL RDW (11.7-14.4) % Plt Count (182-369) x10^3/uL MPV (9.4-12.3) fL Gran % (34.0-71.1) % Immature Gran % (Auto) (0.001-0.429) % Nucleat RBC Rel Count (0.00-0.2) % Eos # (Auto) (0.04-0.36) x10^3/uL Immature Gran # (Auto) (0.001-0.031) x10^3u/L Absolute Lymphs (auto) (1.18-3.74) x10^3/uL Absolute Monos (auto) (0.24-0.86) x10^3/uL Absolute Nucleated RBC (0.00-0.012) x10^3u/L Lymphocytes % (19.3-51.7) % Monocytes % (4.7-12.5) % Eosinophils % (0.7-5.8) % Basophils % (0.1-1.2) % Absolute Granulocytes (1.56-6.13) x10^3/uL Basophils # (0.01-0.08) x10^3/uL Sodium (135-145) mmol/L Potassium (3.5-5.1) mmol/L Chloride (98-107) mmol/L Carbon Dioxide (22-30) mmol/L Anion Gap (5-15) MEQ/L BUN (7-17) mg/dL Creatinine (0.52-1.04) mg/dL Estimated GFR ML/MIN Glucose (74-106) mg/dL POC Glucometer 184 H (74 to 106) mg/dL Hemoglobin A1c (4.5-6.0) % Lactic Acid (0.4-2.0) Calcium (8.4-10.2) mg/dL Total Bilirubin (0.2-1.3) mg/dL AST (14-36) U/L ALT (0-35) U/L Alkaline Phosphatase (38-126) U/L Troponin I (0.000-0.033) ng/mL Serum Total Protein (6.3-8.2) g/dL Albumin (3.5-5.0) g/dL Amylase (30-110) U/L Lipase (23-300) U/L Urine Color (Yellow) Urine Appearance (Clear) Urine pH (4.6-8.0) Ur Specific [place] (1.005-1.030) Urine Protein (Negative) Urine Glucose (UA) (Negative) mg/dL Urine Ketones (Negative) Urine Blood (Negative) Urine Nitrite (Negative) Urine Bilirubin (Negative) Urine Urobilinogen (0.2) mg/dL Ur Leukocyte Esterase (Negative) U Hyaline Cast (Auto) (0-2) /LPF Urine Microscopic RBC (0-5) /HPF Urine Microscopic WBC (0-5) /HPF Ur Epithelial Cells (None Seen) /HPF Urine Bacteria (None Seen) /HPF Urine Yeast (Budding) (None Seen) /HPF Urine Culture Reflexed (NO) Accuchecks Date 04/17/24 Date 04/17/24 Time 17:05 Time 14:18 - Radiology Impressions Radiology Exams & Impressions: Radiology Procedures Category Date Time Status ABDOMEN AND PELVIS W/0 CONTRAS [CT] Stat Exams 04/17/24 07:24 Completed CHEST 1 VIEW (PORTABLE) Stat Exams 04/17/24 12:29 Completed CHEST 1 VIEW (PORTABLE) Stat Exams 04/17/24 13:31 Completed THALIA Encounter - THALIA Encounter Attestation THALIA Encounter Attestation: "IhavepersonallyseenandexaminedMATTOX,GAIL Hargrove andgayatrivediscussed pertinent aspects of their care with Aiyana Orozco agree with the history, physical exam (any modifications based on my personal exam will be noted below), assessment, and plan as outlined in original note. Please see immediately below for my summary of findings and additional assessment and plan along with any meaningful corrections/explanations to the Subjective/Objective portions of the THALIA note will be noted." My portion of the encounter took place via telemedicine. -Patient is bed bound at baseline due to arthritis, also reports longstanding history of gastroparesis. Reports being started on Ozempic 3-4 weeks ago for weight loss, which has clearly made her gastroparesis/ileus worse. Patient feeling improved after NG tube placement. Will continue NG tube until no further output, introduce oral intake gradually.
--- NOTE | 2024-04-17 13:24 | XRAY ---
Indication: NG tube placement. Comparison: November 10, 2022 Portable chest demonstrates new NG tube traversing chest with tip coiled at GE junction. Recommend further advancement into stomach. Lungs less inflated and remains clear. Heart remains borderline enlarged. Bony thorax intact again with osteopenia and degenerative changes. No acute findings.
[2024-04-17] MEDS ORDERED: TYLENOL 325 MG PO PRN (13:27)
[2024-04-17] MEDS ORDERED: Nitrostat 0.4 MG Tablet SL PRN (13:30)
[2024-04-17] MEDS ORDERED: Artificial Tears 15 ML OP PRN (13:52)
--- NOTE | 2024-04-17 14:04 | XRAY ---
Indication: NG tube advancement. Comparison: Taken earlier in the day. Portable chest demonstrates NG tube advancement with distal tube and tube tip now looped in stomach. Remaining heart and lungs unremarkable.
[2024-04-17] MEDS: Toprol-Xl 25MG Tablets PO SCH (15:18)
[2024-04-17] MEDS: Cymbalta 30 MG Capsule PO SCH (15:18)
[2024-04-17] MEDS: Imdur 60MG PO SCH (15:18)
[2024-04-17] MEDS: SYNTHROID 75 MCG PO SCH (15:18)
[2024-04-17] MEDS: Neurontin PO SCH (15:18)
[2024-04-17] MEDS: Vitamin B-12 500 MCG PO SCH (15:18)
[2024-04-17] MEDS: ZYLOPRIM 100 MG PO SCH (15:19)
[2024-04-17] MEDS: PLAVIX Tablet PO SCH (15:19)
[2024-04-17] MEDS ORDERED: [UNRECOGNIZED DRUG - OTHER] TP SCH (22:00)
[2024-04-17] MEDS: Protonix 40MG Tablet PO SCH (23:18)
[2024-04-17] MEDS: ELIQUIS 2.5 MG TABLET PO SCH (23:18)
[2024-04-17] MEDS: Klor Con PO SCH (23:18)
[2024-04-17] MEDS: ZOCOR 20MG PO SCH (23:18)
[2024-04-17] MEDS: ZINC OXIDE OINTMENT 30 GM TP SCH (23:20)
[2024-04-17] MEDS ORDERED: MELATONIN PO ONE (23:54)
[2024-04-18] MEDS ORDERED: MELATONIN PO PRN (00:07)
[2024-04-18] MEDS: MELATONIN PO PRN (00:12)
[2024-04-18 05:13] LABS: Absolute Neutrophil Ct (ANC) 8.26 x10^3/uL (1.56-6.13); BASOPHIL % 0.4 % (0.1-1.2); Basophil (Absolute #) 0.05 x10^3/uL (0.01-0.08); Eosinophil % 6.3 % (0.7-5.8); Eosinophil (Absolute #) 0.79 x10^3/uL (0.04-0.36); Hematocrit 28.8 % (34.1-44.9); Hemoglobin 8.7 g/dL (11.2-15.7); IMMATURE GRAN # 0.11 x10^3u/L (0.001-0.031); IMMATURE GRAN % 0.9 % (0.001-0.429); Lymphocyte (Absolute #) 2.31 x10^3/uL (1.18-3.74); Lymphocytes % 18.6 % (19.3-51.7); Mean Corpuscular Hemoglobin 29.6 pg (25.6-32.2); Mean Corpuscular Hgb Concent. 30.2 g/dL (32.2-35.5); Mean Platelet Volume 9.8 fL (9.4-12.3); Monocyte (Absolute #) 0.93 x10^3/uL (0.24-0.86); Monocytes % 7.5 % (4.7-12.5); Neutrophil % 66.3 % (34.0-71.1); Platelet Count 239 x10^3/uL (182-369); Red Blood Count 2.94 x10^6/uL (3.93-5.22); Red Cell Distribution Width 15.7 % (11.7-14.4); White Blood Count 12.5 x10^3/uL (3.98-10.04)
--- NOTE | 2024-04-18 05:22 | PCM.NOTE ---
Date and Time: 04/18/24 0520 Subjective Assessment: is a 79 year old female with a pmhx of peripheral neuropathy, CAD with (8 stents), fibromyalgia, DMII, COPD (RA at baseline), hypothyroid, anemia, chronic kidney disease (follows with Dr. Ortega nephrology), DVT (on eliquis), Right breast cancer (37 years ago), HTN, and HLD who presented to ED 04/17/24 with complaints of abdominal pain, pressure, nausea, and vomiting. Of note patient with recent admission 04/09-04/10/24 with similar symptoms. Patient states she was feeling better after her release until about two days ago when the nausea began again progressing to abdominal distention and vomiting at midnight. Patient does state she is passing gas and did have a large bowel movement after admission to the floor per RN report. Abdominal distention is noted on exam. NG placed by MANUFACTURING WORKER. CXR confirmed placement. Upon arrival to ED vitals stable. CT abdomen and pelvis demonstrating a markedly distended stomach and small bowel bowel loops with fluid leveling. Concerning for ileus vs gastroenteritis. Labs remarkable for leukocytosis with WBC at 15.9, macrocytic anemia with hgb at 11.1. Acute on chronic HAN[place]H with creat at 2.43 (baseline around 1.9-2.2), and UA suspicious for UTI. Patient received IVF, protonix, and rocephin in ED. Plan to continue bowel rest, NG placement, IVF, and Rocephin for UTI empirically. Patient did have large BM and is passing gas. Her son reports that patient has been suffering gastroparesis since starting ozempic. Surgery consulted with recs to treat conservatively - add reglan. 04/18/24: Met with patient bedside. Endorses improvement of abdominal pain/pressure. BM x 2 yesterday. +flatulence. NG placed appropriately with little output, will discontinue. Will advance diet to CLD today. Exam with noted improvement to abdominal distention. Abdomen soft wtih BS x 4 quads. - Review of Systems Constitutional: No Symptoms Eyes: No Symptoms Ears, Nose, & Throat: No Symptoms Respiratory: No Symptoms Cardiac: No Symptoms Abdominal/Gastrointestinal: No Symptoms Genitourinary Symptoms: No Symptoms Musculoskeletal: No Symptoms Skin: No Symptoms Neurological: No Symptoms Psychological: No Symptoms Endocrine: No Symptoms Hematologic/Lymphatic: No Symptoms Immunological/Allergic: No Symptoms Objective Exam General Appearance: no apparent distress Neurologic Exam: alert, oriented x 3, cooperative Skin Exam: normal color Eye Exam: PERRL Ears, Nose, Throat Exam: normal ENT inspection Neck Exam: normal inspection Respiratory Exam: normal breath sounds, lungs clear Cardiovascular Exam: regular rate/rhythm, normal heart sounds Gastrointestinal/Abdomen Exam: soft, normal bowel sounds Extremity Exam: normal inspection Back Exam: normal inspection Pelvic Exam: deferred Rectal Exam: deferred Objective Data Vital Signs: Vital Signs - 24 hr Temp Pulse Resp BP BP Pulse Ox 04/18/24 00:00 97.8 F 85 18 129/58 99 04/17/24 20:00 98.1 F 83 18 145/64 100 04/17/24 16:00 97.5 F 92 H 15 154/67 98 04/17/24 12:00 97.5 F 106 H 16 153/88 96 04/17/24 11:49 97.5 F 96 H 15 153/88 96 04/17/24 11:00 96 H 15 127/65 99 04/17/24 10:45 97 H 17 105/80 100 04/17/24 10:30 96 H 14 143/61 100 04/17/24 10:15 97 H 16 139/57 100 04/17/24 10:00 91 H 23 129/67 100 04/17/24 09:45 94 H 17 134/91 100 04/17/24 09:02 96 H 15 124/67 100 04/17/24 08:47 102 H 10 L 122/53 100 04/17/24 08:31 94 H 13 135/69 100 04/17/24 08:23 98 H 23 149/74 100 04/17/24 07:30 98 H 137/83 99 04/17/24 07:00 91 H 18 129/78 97 04/17/24 06:52 99 04/17/24 05:38 96.2 F 94 H 22 121/76 99 Pain Assessment - Last Documented Pain Intensity 5 Intake and Output: Intake & Output 04/15/24 04/16/24 04/17/24 04/18/24 11:59 11:59 11:59 11:59 Output Total 100 Balance -100 Weight 108 kg Lab Results: Lab Results-Last 24 Hours 04/17/24 04/17/24 04/17/24 Range/Units 06:35 07:01 07:01 WBC 15.9 H (3.98-10.04) x10^3/uL RBC 3.72 L (3.93-5.22) x10^6/uL Hgb 11.1 L (11.2-15.7) g/dL Hct 36.0 (34.1-44.9) % MCV 96.8 H (79.4-94.8) fL MCH 29.8 (25.6-32.2) pg MCHC 30.8 L (32.2-35.5) g/dL RDW 15.5 H (11.7-14.4) % Plt Count 251 (182-369) x10^3/uL MPV 9.5 (9.4-12.3) fL Gran % 77.5 H (34.0-71.1) % Immature Gran % (Auto) 1.5 H (0.001-0.429) % Nucleat RBC Rel Count 0.0 (0.00-0.2) % Eos # (Auto) 0.65 H (0.04-0.36) x10^3/uL Immature Gran # (Auto) 0.23 H (0.001-0.031) x10^3u/L Absolute Lymphs (auto) 1.91 (1.18-3.74) x10^3/uL Absolute Monos (auto) 0.71 (0.24-0.86) x10^3/uL Absolute Nucleated RBC 0.00 (0.00-0.012) x10^3u/L Lymphocytes % 12.0 L (19.3-51.7) % Monocytes % 4.5 L (4.7-12.5) % Eosinophils % 4.1 (0.7-5.8) % Basophils % 0.4 (0.1-1.2) % Absolute Granulocytes 12.29 H (1.56-6.13) x10^3/uL Basophils # 0.07 (0.01-0.08) x10^3/uL Sodium 138 (135-145) mmol/L Potassium 5.1 (3.5-5.1) mmol/L Chloride 105 (98-107) mmol/L Carbon Dioxide 21 L (22-30) mmol/L Anion Gap 17.0 H (5-15) MEQ/L BUN 35 H (7-17) mg/dL Creatinine 2.43 H (0.52-1.04) mg/dL Estimated GFR 19.6 ML/MIN Glucose 193 H (74-106) mg/dL POC Glucometer (74 to 106) mg/dL Hemoglobin A1c (4.5-6.0) % Lactic Acid 1.0 (0.4-2.0) Calcium 9.1 (8.4-10.2) mg/dL Total Bilirubin 0.50 (0.2-1.3) mg/dL AST 21 (14-36) U/L ALT 14 (0-35) U/L Alkaline Phosphatase 83 (38-126) U/L Troponin I (0.000-0.033) ng/mL Serum Total Protein 7.2 (6.3-8.2) g/dL Albumin 3.9 (3.5-5.0) g/dL Amylase 93 (30-110) U/L Lipase 167 (23-300) U/L Urine Color (Yellow) Urine Appearance (Clear) Urine pH (4.6-8.0) Ur Specific [place] (1.005-1.030) Urine Protein (Negative) Urine Glucose (UA) (Negative) mg/dL Urine Ketones (Negative) Urine Blood (Negative) Urine Nitrite (Negative) Urine Bilirubin (Negative) Urine Urobilinogen (0.2) mg/dL Ur Leukocyte Esterase (Negative) U Hyaline Cast (Auto) (0-2) /LPF Urine Microscopic RBC (0-5) /HPF Urine Microscopic WBC (0-5) /HPF Ur Epithelial Cells (None Seen) /HPF Urine Bacteria (None Seen) /HPF Urine Yeast (Budding) (None Seen) /HPF Urine Culture Reflexed (NO) 04/17/24 04/17/24 04/17/24 Range/Units 07:01 07:01 08:48 WBC (3.98-10.04) x10^3/uL RBC (3.93-5.22) x10^6/uL Hgb (11.2-15.7) g/dL Hct (34.1-44.9) % MCV (79.4-94.8) fL MCH (25.6-32.2) pg MCHC (32.2-35.5) g/dL RDW (11.7-14.4) % Plt Count (182-369) x10^3/uL MPV (9.4-12.3) fL Gran % (34.0-71.1) % Immature Gran % (Auto) (0.001-0.429) % Nucleat RBC Rel Count (0.00-0.2) % Eos # (Auto) (0.04-0.36) x10^3/uL Immature Gran # (Auto) (0.001-0.031) x10^3u/L Absolute Lymphs (auto) (1.18-3.74) x10^3/uL Absolute Monos (auto) (0.24-0.86) x10^3/uL Absolute Nucleated RBC (0.00-0.012) x10^3u/L Lymphocytes % (19.3-51.7) % Monocytes % (4.7-12.5) % Eosinophils % (0.7-5.8) % Basophils % (0.1-1.2) % Absolute Granulocytes (1.56-6.13) x10^3/uL Basophils # (0.01-0.08) x10^3/uL Sodium (135-145) mmol/L Potassium (3.5-5.1) mmol/L Chloride (98-107) mmol/L Carbon Dioxide (22-30) mmol/L Anion Gap (5-15) MEQ/L BUN (7-17) mg/dL Creatinine (0.52-1.04) mg/dL Estimated GFR ML/MIN Glucose (74-106) mg/dL POC Glucometer (74 to 106) mg/dL Hemoglobin A1c 7.36 H (4.5-6.0) % Lactic Acid (0.4-2.0) Calcium (8.4-10.2) mg/dL Total Bilirubin (0.2-1.3) mg/dL AST (14-36) U/L ALT (0-35) U/L Alkaline Phosphatase (38-126) U/L Troponin I < 0.012 (0.000-0.033) ng/mL Serum Total Protein (6.3-8.2) g/dL Albumin (3.5-5.0) g/dL Amylase (30-110) U/L Lipase (23-300) U/L Urine Color Yellow (Yellow) Urine Appearance Turbid A (Clear) Urine pH 5.0 (4.6-8.0) Ur Specific [place] 1.020 (1.005-1.030) Urine Protein 300 A (Negative) Urine Glucose (UA) >=1000 A (Negative) mg/dL Urine Ketones Trace A (Negative) Urine Blood Large A (Negative) Urine Nitrite Negative (Negative) Urine Bilirubin Negative (Negative) Urine Urobilinogen 0.2 (0.2) mg/dL Ur Leukocyte Esterase Large A (Negative) U Hyaline Cast (Auto) 20-50 (0-2) /LPF Urine Microscopic RBC >100 A (0-5) /HPF Urine Microscopic WBC >100 A (0-5) /HPF Ur Epithelial Cells Few (None Seen) /HPF Urine Bacteria None Seen (None Seen) /HPF Urine Yeast (Budding) Moderate A (None Seen) /HPF Urine Culture Reflexed YES (NO) 04/17/24 04/17/24 04/17/24 Range/Units 11:18 14:15 15:00 WBC (3.98-10.04) x10^3/uL RBC (3.93-5.22) x10^6/uL Hgb (11.2-15.7) g/dL Hct (34.1-44.9) % MCV (79.4-94.8) fL MCH (25.6-32.2) pg MCHC (32.2-35.5) g/dL RDW (11.7-14.4) % Plt Count (182-369) x10^3/uL MPV (9.4-12.3) fL Gran % (34.0-71.1) % Immature Gran % (Auto) (0.001-0.429) % Nucleat RBC Rel Count (0.00-0.2) % Eos # (Auto) (0.04-0.36) x10^3/uL Immature Gran # (Auto) (0.001-0.031) x10^3u/L Absolute Lymphs (auto) (1.18-3.74) x10^3/uL Absolute Monos (auto) (0.24-0.86) x10^3/uL Absolute Nucleated RBC (0.00-0.012) x10^3u/L Lymphocytes % (19.3-51.7) % Monocytes % (4.7-12.5) % Eosinophils % (0.7-5.8) % Basophils % (0.1-1.2) % Absolute Granulocytes (1.56-6.13) x10^3/uL Basophils # (0.01-0.08) x10^3/uL Sodium (135-145) mmol/L Potassium (3.5-5.1) mmol/L Chloride (98-107) mmol/L Carbon Dioxide (22-30) mmol/L Anion Gap (5-15) MEQ/L BUN (7-17) mg/dL Creatinine (0.52-1.04) mg/dL Estimated GFR ML/MIN Glucose (74-106) mg/dL POC Glucometer 183 H (74 to 106) mg/dL Hemoglobin A1c (4.5-6.0) % Lactic Acid (0.4-2.0) Calcium (8.4-10.2) mg/dL Total Bilirubin (0.2-1.3) mg/dL AST (14-36) U/L ALT (0-35) U/L Alkaline Phosphatase (38-126) U/L Troponin I < 0.012 < 0.012 (0.000-0.033) ng/mL Serum Total Protein (6.3-8.2) g/dL Albumin (3.5-5.0) g/dL Amylase (30-110) U/L Lipase (23-300) U/L Urine Color (Yellow) Urine Appearance (Clear) Urine pH (4.6-8.0) Ur Specific [place] (1.005-1.030) Urine Protein (Negative) Urine Glucose (UA) (Negative) mg/dL Urine Ketones (Negative) Urine Blood (Negative) Urine Nitrite (Negative) Urine Bilirubin (Negative) Urine Urobilinogen (0.2) mg/dL Ur Leukocyte Esterase (Negative) U Hyaline Cast (Auto) (0-2) /LPF Urine Microscopic RBC (0-5) /HPF Urine Microscopic WBC (0-5) /HPF Ur Epithelial Cells (None Seen) /HPF Urine Bacteria (None Seen) /HPF Urine Yeast (Budding) (None Seen) /HPF Urine Culture Reflexed (NO) 04/17/24 04/17/24 04/18/24 Range/Units 16:47 22:19 00:52 WBC (3.98-10.04) x10^3/uL RBC (3.93-5.22) x10^6/uL Hgb (11.2-15.7) g/dL Hct (34.1-44.9) % MCV (79.4-94.8) fL MCH (25.6-32.2) pg MCHC (32.2-35.5) g/dL RDW (11.7-14.4) % Plt Count (182-369) x10^3/uL MPV (9.4-12.3) fL Gran % (34.0-71.1) % Immature Gran % (Auto) (0.001-0.429) % Nucleat RBC Rel Count (0.00-0.2) % Eos # (Auto) (0.04-0.36) x10^3/uL Immature Gran # (Auto) (0.001-0.031) x10^3u/L Absolute Lymphs (auto) (1.18-3.74) x10^3/uL Absolute Monos (auto) (0.24-0.86) x10^3/uL Absolute Nucleated RBC (0.00-0.012) x10^3u/L Lymphocytes % (19.3-51.7) % Monocytes % (4.7-12.5) % Eosinophils % (0.7-5.8) % Basophils % (0.1-1.2) % Absolute Granulocytes (1.56-6.13) x10^3/uL Basophils # (0.01-0.08) x10^3/uL Sodium (135-145) mmol/L Potassium (3.5-5.1) mmol/L Chloride (98-107) mmol/L Carbon Dioxide (22-30) mmol/L Anion Gap (5-15) MEQ/L BUN (7-17) mg/dL Creatinine (0.52-1.04) mg/dL Estimated GFR ML/MIN Glucose (74-106) mg/dL POC Glucometer 184 H 152 H 147 H (74 to 106) mg/dL Hemoglobin A1c (4.5-6.0) % Lactic Acid (0.4-2.0) Calcium (8.4-10.2) mg/dL Total Bilirubin (0.2-1.3) mg/dL AST (14-36) U/L ALT (0-35) U/L Alkaline Phosphatase (38-126) U/L Troponin I (0.000-0.033) ng/mL Serum Total Protein (6.3-8.2) g/dL Albumin (3.5-5.0) g/dL Amylase (30-110) U/L Lipase (23-300) U/L Urine Color (Yellow) Urine Appearance (Clear) Urine pH (4.6-8.0) Ur Specific [place] (1.005-1.030) Urine Protein (Negative) Urine Glucose (UA) (Negative) mg/dL Urine Ketones (Negative) Urine Blood (Negative) Urine Nitrite (Negative) Urine Bilirubin (Negative) Urine Urobilinogen (0.2) mg/dL Ur Leukocyte Esterase (Negative) U Hyaline Cast (Auto) (0-2) /LPF Urine Microscopic RBC (0-5) /HPF Urine Microscopic WBC (0-5) /HPF Ur Epithelial Cells (None Seen) /HPF Urine Bacteria (None Seen) /HPF Urine Yeast (Budding) (None Seen) /HPF Urine Culture Reflexed (NO) 04/18/24 Range/Units 05:03 WBC (3.98-10.04) x10^3/uL RBC (3.93-5.22) x10^6/uL Hgb (11.2-15.7) g/dL Hct (34.1-44.9) % MCV (79.4-94.8) fL MCH (25.6-32.2) pg MCHC (32.2-35.5) g/dL RDW (11.7-14.4) % Plt Count (182-369) x10^3/uL MPV (9.4-12.3) fL Gran % (34.0-71.1) % Immature Gran % (Auto) (0.001-0.429) % Nucleat RBC Rel Count (0.00-0.2) % Eos # (Auto) (0.04-0.36) x10^3/uL Immature Gran # (Auto) (0.001-0.031) x10^3u/L Absolute Lymphs (auto) (1.18-3.74) x10^3/uL Absolute Monos (auto) (0.24-0.86) x10^3/uL Absolute Nucleated RBC (0.00-0.012) x10^3u/L Lymphocytes % (19.3-51.7) % Monocytes % (4.7-12.5) % Eosinophils % (0.7-5.8) % Basophils % (0.1-1.2) % Absolute Granulocytes (1.56-6.13) x10^3/uL Basophils # (0.01-0.08) x10^3/uL Sodium (135-145) mmol/L Potassium (3.5-5.1) mmol/L Chloride (98-107) mmol/L Carbon Dioxide (22-30) mmol/L Anion Gap (5-15) MEQ/L BUN (7-17) mg/dL Creatinine (0.52-1.04) mg/dL Estimated GFR ML/MIN Glucose (74-106) mg/dL POC Glucometer 156 H (74 to 106) mg/dL Hemoglobin A1c (4.5-6.0) % Lactic Acid (0.4-2.0) Calcium (8.4-10.2) mg/dL Total Bilirubin (0.2-1.3) mg/dL AST (14-36) U/L ALT (0-35) U/L Alkaline Phosphatase (38-126) U/L Troponin I (0.000-0.033) ng/mL Serum Total Protein (6.3-8.2) g/dL Albumin (3.5-5.0) g/dL Amylase (30-110) U/L Lipase (23-300) U/L Urine Color (Yellow) Urine Appearance (Clear) Urine pH (4.6-8.0) Ur Specific [place] (1.005-1.030) Urine Protein (Negative) Urine Glucose (UA) (Negative) mg/dL Urine Ketones (Negative) Urine Blood (Negative) Urine Nitrite (Negative) Urine Bilirubin (Negative) Urine Urobilinogen (0.2) mg/dL Ur Leukocyte Esterase (Negative) U Hyaline Cast (Auto) (0-2) /LPF Urine Microscopic RBC (0-5) /HPF Urine Microscopic WBC (0-5) /HPF Ur Epithelial Cells (None Seen) /HPF Urine Bacteria (None Seen) /HPF Urine Yeast (Budding) (None Seen) /HPF Urine Culture Reflexed (NO) Radiology Exams: Radiology Procedures Category Date Time Status ABDOMEN AND PELVIS W/0 CONTRAS [CT] Stat Exams 04/17/24 07:24 Completed CHEST 1 VIEW (PORTABLE) Stat Exams 04/17/24 12:29 Completed CHEST 1 VIEW (PORTABLE) Stat Exams 04/17/24 13:31 Completed Assessment/Plan (1) Abdominal pain Current Visit: Yes Status: Acute Assessment & Plan: -CT showing markedly distended stomach and small bowel loops with fluid leveling. Rule out ileus versus gastroenteritis.New fluid-filled small hiatal hernia favoring gastroesophageal reflux. -NPO -IVF -NG for decompressioin due to recurrent vomiting -Monitor renal/lytes -Surgery consult 04/18: -Son reported pt taking ozempic with past complications of gastroparesis - suspect this is what is going on now -Agree with surgery - treat conservatively for gastroparesis -NG with very little output -DC -Start CLD today- do not advance past CLD today- will re-eval tomorrow - continue reglan Code(s): R10.9 - UNSPECIFIED ABDOMINAL PAIN (2) Leukocytosis Current Visit: Yes Status: Acute Assessment & Plan: -Most likely secondary to infectious/reactive processes -UTI - current treatment with rocephin, will continue - currently with NGTD - will follow Code(s): D72.829 - ELEVATED WHITE BLOOD CELL COUNT, UNSPECIFIED (3) UTI (urinary tract infection) Current Visit: Yes Status: Acute Assessment & Plan: -UA suspicious for UTI, rocephin started empirically, will continue - follow culture -recent culture reviewed from 04/09 showing no growth Code(s): N39.0 - URINARY TRACT INFECTION, SITE NOT SPECIFIED (4) Acute on chronic kidney failure Current Visit: Yes Status: Acute Assessment & Plan: -Most likely secondary to GI losses -Baseline around 1.7-1.9 - follows with Dr. Ortega as OP -IVF -Avoid ZULY/ARB/NSAIDS/diuretics -monitor renal/lytes daily Code(s): N17.9 - ACUTE KIDNEY FAILURE, UNSPECIFIED; N18.9 - CHRONIC KIDNEY DISEASE, UNSPECIFIED (5) CAD (coronary artery disease) Current Visit: Yes Status: Acute Assessment & Plan: -Continue home meds Code(s): I25.10 - ATHSCL HEART DISEASE OF [place] CORONARY ARTERY W/O ANG PCTRS (6) History of DVT (deep vein thrombosis) Current Visit: Yes Status: Acute Code(s): Z86.718 - PERSONAL HISTORY OF OTHER VENOUS THROMBOSIS AND EMBOLISM (7) HLD (hyperlipidemia) Current Visit: Yes Status: Acute Assessment & Plan: -continue statin Code(s): E78.5 - HYPERLIPIDEMIA, UNSPECIFIED (8) HTN (hypertension) Current Visit: Yes Status: Acute Assessment & Plan: -stable continue home meds Code(s): I10 - ESSENTIAL (PRIMARY) HYPERTENSION (9) COPD (chronic obstructive pulmonary disease) Current Visit: Yes Status: Acute Assessment & Plan: -Supplemental oxygen as needed for spo2 goal >92% - RA at baseline -RT eval -Does not appear to be in exacerbation -CXR with no acute findings -Continue home meds (10) Diabetes mellitus Current Visit: Yes Status: Acute Assessment & Plan: -Currently NPO -Hold SSI until able to tolerate diet - then ADA diet and resume home meds -continue glargine Code(s): E11.9 - TYPE 2 DIABETES MELLITUS WITHOUT COMPLICATIONS (11) Hypothyroid Current Visit: Yes Status: Acute Code(s): E03.9 - HYPOTHYROIDISM, UNSPECIFIED -continue home meds (12) History of breast cancer Current Visit: Yes Status: Acute Assessment & Plan: -noted, right breast, no treatment currently - 37 years ago Code(s): Z85.3 - PERSONAL HISTORY OF MALIGNANT NEOPLASM OF BREAST Code(s): R10.9 - UNSPECIFIED ABDOMINAL PAIN (2) Leukocytosis Current Visit: Yes Status: Acute Code(s): D72.829 - ELEVATED WHITE BLOOD CELL COUNT, UNSPECIFIED (3) UTI (urinary tract infection) Current Visit: Yes Status: Acute Code(s): N39.0 - URINARY TRACT INFECTION, SITE NOT SPECIFIED (4) Acute on chronic kidney failure Current Visit: Yes Status: Acute Code(s): N17.9 - ACUTE KIDNEY FAILURE, UNSPECIFIED; N18.9 - CHRONIC KIDNEY DISEASE, UNSPECIFIED (5) CAD (coronary artery disease) Current Visit: Yes Status: Acute Code(s): I25.10 - ATHSCL HEART DISEASE OF [place] CORONARY ARTERY W/O ANG PCTRS (6) History of DVT (deep vein thrombosis) Current Visit: Yes Status: Acute Code(s): Z86.718 - PERSONAL HISTORY OF OTHER VENOUS THROMBOSIS AND EMBOLISM (7) HLD (hyperlipidemia) Current Visit: Yes Status: Acute Code(s): E78.5 - HYPERLIPIDEMIA, UNSPECIFIED (8) HTN (hypertension) Current Visit: Yes Status: Acute Code(s): I10 - ESSENTIAL (PRIMARY) HYPERTENSION (9) COPD (chronic obstructive pulmonary disease) Current Visit: Yes Status: Acute (10) Diabetes mellitus Current Visit: Yes Status: Acute Code(s): E11.9 - TYPE 2 DIABETES MELLITUS WITHOUT COMPLICATIONS (11) Hypothyroid Current Visit: Yes Status: Acute Code(s): E03.9 - HYPOTHYROIDISM, UNSPECIFIED (12) History of breast cancer Current Visit: Yes Status: Acute Code(s): Z85.3 - PERSONAL HISTORY OF MALIGNANT NEOPLASM OF BREAST
[2024-04-18 05:53] LABS: ALBUMIN 3.1 g/dL (3.5-5.0); ANION GAP 15.1 MEQ/L (5-15); BILIRUBIN,TOTAL 0.3 mg/dL (0.2-1.3); Calcium 8.3 mg/dL (8.4-10.2); Creatinine 1 2.12 mg/dL (0.52-1.04); EST GLOMERULAR FILTRATION RATE 23.1 ML/MIN; Potassium 4.6 mmol/L (3.5-5.1); Total Protein 6.1 g/dL (6.3-8.2)
--- NOTE | 2024-04-18 06:46 | PCM.HP ---
History of Present Illness - Chief Complaint Chief Complaint: Nausea vomiting, ileus versus gastroenteritis, abdominal pain History of Present Illness: is a 79 year old female with nausea/vomiting and diarrhea for multiple days. She had been diagnosed with gastroparesis before and it seems she is having similar issues currently vs gastroenteritis now that she is having some diarrhea. She had two bowel movements yesterday. She has had C/S and open cholecystectomy. She is passing gas. NG was placed and has less than 200cc output. Surgery consulted to rule out a bowel obstruction Patient does not have obstruction, suspect gastroenteritis +/- gastroparesis given her history of DM on insulin. Would treat her supportively for gastroparesis for now. Trial reglan IV. Give IV fluids if bladder scan < 250cc she is likely dehydrated. Check KUB for NG position and stomach distension, if NG is in good spot and stomach doesn't appear distended it can be removed since it has low output. No surgery planned, page us as needed. - Review of Systems All Other Systems: Reviewed and Negative Medications & Allergies Home Medications: Home Medication List Allopurinol 100 mg [Zyloprim 100 mg] 100 mg PO DAILY 11/09/22 [History Confirmed 04/17/24] Dapagliflozin Propanediol [Farxiga] 10 mg PO DAILY 11/09/22 [History Confirmed 04/17/24] Dicyclomine HCl 20 mg [Bentyl 20 mg] 10 mg PO TID 11/09/22 [History Confirmed 04/17/24] Ergocalciferol (Vitamin D2) [Vitamin D2] 1.25 mg PO WEEKLY 11/09/22 [History Confirmed 04/17/24] Ferrous Sulfate 325 mg [Feosol 325 mg] 325 mg PO DAILY 11/09/22 [History Confirmed 04/17/24] Furosemide [Lasix] 40 mg PO DAILY 11/09/22 [History Confirmed 04/17/24] Isosorbide Mononitrate [Isosorbide Mononitrate ER] 60 mg PO DAILY 11/09/22 [History Confirmed 04/17/24] Levothyroxine Sodium 25 Mcg [Synthroid 25 Mcg] 75 mcg PO DAILY 11/09/22 [History Confirmed 04/17/24] Metoprolol Succinate 25 mg Xl* [Toprol-Xl 25MG Tablets] 25 mg PO DAILY [History Confirmed 04/17/24] Apixaban [Eliquis] 5 mg PO BID 04/09/24 [History Confirmed 04/17/24] Bisacodyl 10 mg [Dulcolax 10 MG SUPP] 10 mg RC Q6H PRN PRN 04/09/24 [History Confirmed 04/17/24] Carboxymethylcellulos/Glycerin [Refresh Optive Eye Drops] 5 ml OP QIDPRN PRN 04/09/24 [History Confirmed 04/17/24] Clopidogrel Bisulfate [PLAVIX Tablet] 75 mg PO DAILY 04/09/24 [History Confirmed 04/17/24] Cyanocobalamin (Vitamin B-12) [B-12] 1,000 mcg PO DAILY 04/09/24 [History Confirmed 04/17/24] Dextrose [Glucose Gel] 38 gm PO UD 04/09/24 [History Confirmed 04/17/24] Duloxetine HCl 30 mg [Cymbalta 30 MG Capsule] 30 mg PO DAILY 04/09/24 [History Confirmed 04/17/24] Gabapentin [Neurontin ] 100 mg PO TID 04/09/24 [History Confirmed 04/17/24] Glucagon 1 mg [GlucaGen 1 MG] 1 mg IM UD 04/09/24 [History Confirmed 04/17/24] Hydrocodone/Acetaminophen [Hydrocodone-Acetamin 7.5-325] 1 each PO Q4HPRN PRN 04/09/24 [History Confirmed 04/17/24] Insulin Aspart [NovoLOG Insulin] 10 unit SQ TIDAC 04/09/24 [History Confirmed 04/17/24] Insulin Glargine,Hum.rec.anlog [Basaglar Kwikpen U-100] 90 unit SQ HS 04/09/24 [History Confirmed 04/17/24] Loperamide HCl 2 mg [Imodium 2 mg] 2 mg PO Q8H PRN PRN 04/09/24 [History Confirmed 04/17/24] Magnesium Hydroxide 30 ml [Milk of Magnesia 30 ml] 30 ml PO DAILY PRN PRN 04/09/24 [History Confirmed 04/17/24] Nitroglycerin 0.4 mg Tablet [Nitrostat 0.4 MG Tablet] 0.4 mg SL UD 04/09/24 [History Confirmed 04/17/24] PANTOPRAZOLE 40 mg Tablet [Protonix 40MG Tablet] 40 mg PO BID 04/09/24 [History Confirmed 04/17/24] Polyethylene Glycol 3350 17 gm [Miralax Powder 17GM PACKET] 17 gm PO HS 04/09/24 [History Confirmed 04/17/24] Potassium Chloride [Klor-Con M20] 20 meq PO BID 04/09/24 [History Confirmed 04/17/24] Rosuvastatin Calcium 20 mg PO HS 04/09/24 [History Confirmed 04/17/24] Zinc Oxide [Diaper Rash] 56 gm TP BID 04/09/24 [History Confirmed 04/17/24] diphenhydrAMINE HCL [Allergy Relief] 25 mg PO Q8H PRN PRN 04/09/24 [History Confirmed 04/17/24] Simethicone 80 mg [Mylicon 80MG] 80 mg PO QID PRN PRN 30 Days #120 tablet 04/10/24 [Rx Confirmed 04/17/24] Acetaminophen 325 mg [Tylenol 325 mg] 650 mg PO Q4H PRN PRN 04/17/24 [History Confirmed 04/17/24] Acetaminophen 325 mg [Tylenol 325 mg] 650 mg PO Q4HPRN PRN 04/17/24 [History Confirmed 04/17/24] Acetaminophen [Tylenol Extra Strength] 1,000 mg PO BID 04/17/24 [History Confirmed 04/17/24] Cefpodoxime Proxetil 200 mg [Vantin 200 mg] 1 tab PO BID 04/17/24 [History Confirmed 04/17/24] Diclofenac Sodium [Voltaren Arthritis Pain] 1 appful Q8HPRN PRN 04/17/24 [History Confirmed 04/17/24] Metoclopramide HCl [Reglan] 5 mg PO TID PRN PRN 04/17/24 [History Confirmed 04/17/24] Ondansetron ODT 4 MG [Zofran Odt 4 mg] 1 tab PO Q8HPRN PRN 04/17/24 [History Confirmed 04/17/24] Allergies/Adverse Reactions: Allergies Allergy/AdvReac Type Severity Reaction Status Date / Time latex Allergy Intermediate Hives Verified 04/17/24 06:04 bee venom protein (honey bee) Allergy Unknown Verified 04/17/24 06:04 shellfish derived Allergy Unknown Verified 04/17/24 05:59 fiberglass Allergy Intermediate Hives Uncoded 04/17/24 06:04 - Past Medical History Past Medical History: Yes Neurological History: No Pertinent History, Peripheral Neuropathy ENT History: Macular Degeneration Cardiac History: Coronary Artery Disease, Deep Vein Thrombosis, High Cholesterol, Hypertension Respiratory History: Asthma, COPD, Pneumonia, Sleep Apnea Endocrine Medical History: Diabetes Type II, Hypothyroidism Musculoskelatal History: Arthritis, Fractures, Osteoarthritis GI Medical History: Colitis, Diverticulitis, GERD, GI Bleed, Irritable Bowel, Other History: Renal Disease Pyscho-Social History: No Pertinent History Reproductive Disorders: Breast Cancer Comment: breast cancer 1986, GASTROPARESIS, fibromyalgia - Past Surgical History Past Surgical History: Yes Neuro Surgical History: No Pertinent History Cardiac History: Cardiac Catheterization, Cardiac Stent Respiratory Surgery: No Pertinent History GI Surgical History: Cholecystectomy Genitourinary Surgical Hx: No Pertinent History Musculskeletal Surgical Hx: No Pertinent History Female Surgical History: Hysterectomy, Section, Mastectomy Other Surgical History: Uvula remove, 3 CARDIAC STENTS - Social History Smoking Status: Never smoker Exposure to second hand smoke: No Alcohol: None Drug Use: none - Social Determinants of Health Will the patient participate in the screening: Yes Do you worry about a steady place to live?: No Do you have any problems with any of the following?: No known problems In the past 12 months,have you had to go without utilities?: No Have you or anyone in your house had to go without enough: No Transportation Issues: No Has anyone in your support network made you feel unsafe?: No Does the patient want assistance with any of the above?: No Comment: from [facility] - Physical Exam Vital Signs: Vital Signs - 24 hr Temp Pulse Resp BP BP Pulse Ox 04/18/24 04:00 97.4 F 86 17 135/61 98 04/18/24 00:00 97.8 F 85 18 129/58 99 04/17/24 20:00 98.1 F 83 18 145/64 100 04/17/24 16:00 97.5 F 92 H 15 154/67 98 04/17/24 12:00 97.5 F 106 H 16 153/88 96 04/17/24 11:49 97.5 F 96 H 15 153/88 96 04/17/24 11:00 96 H 15 127/65 99 04/17/24 10:45 97 H 17 105/80 100 04/17/24 10:30 96 H 14 143/61 100 04/17/24 10:15 97 H 16 139/57 100 04/17/24 10:00 91 H 23 129/67 100 04/17/24 09:45 94 H 17 134/91 100 04/17/24 09:02 96 H 15 124/67 100 04/17/24 08:47 102 H 10 L 122/53 100 04/17/24 08:31 94 H 13 135/69 100 04/17/24 08:23 98 H 23 149/74 100 04/17/24 07:30 98 H 137/83 99 04/17/24 07:00 91 H 18 129/78 97 04/17/24 06:52 99 General Appearance: no apparent distress Respiratory Exam: normal breath sounds Cardiovascular Exam: regular rate/rhythm Gastrointestinal/Abdomen Exam: soft, tenderness (nontender), distention (nondistended) Results - Labs Lab/Micro Results: Lab Results-Last 24 Hours 04/17/24 04/17/24 04/17/24 Range/Units 06:35 07:01 07:01 WBC 15.9 H (3.98-10.04) x10^3/uL RBC 3.72 L (3.93-5.22) x10^6/uL Hgb 11.1 L (11.2-15.7) g/dL Hct 36.0 (34.1-44.9) % MCV 96.8 H (79.4-94.8) fL MCH 29.8 (25.6-32.2) pg MCHC 30.8 L (32.2-35.5) g/dL RDW 15.5 H (11.7-14.4) % Plt Count 251 (182-369) x10^3/uL MPV 9.5 (9.4-12.3) fL Gran % 77.5 H (34.0-71.1) % Immature Gran % (Auto) 1.5 H (0.001-0.429) % Nucleat RBC Rel Count 0.0 (0.00-0.2) % Eos # (Auto) 0.65 H (0.04-0.36) x10^3/uL Immature Gran # (Auto) 0.23 H (0.001-0.031) x10^3u/L Absolute Lymphs (auto) 1.91 (1.18-3.74) x10^3/uL Absolute Monos (auto) 0.71 (0.24-0.86) x10^3/uL Absolute Nucleated RBC 0.00 (0.00-0.012) x10^3u/L Lymphocytes % 12.0 L (19.3-51.7) % Monocytes % 4.5 L (4.7-12.5) % Eosinophils % 4.1 (0.7-5.8) % Basophils % 0.4 (0.1-1.2) % Absolute Granulocytes 12.29 H (1.56-6.13) x10^3/uL Basophils # 0.07 (0.01-0.08) x10^3/uL Sodium 138 (135-145) mmol/L Potassium 5.1 (3.5-5.1) mmol/L Chloride 105 (98-107) mmol/L Carbon Dioxide 21 L (22-30) mmol/L Anion Gap 17.0 H (5-15) MEQ/L BUN 35 H (7-17) mg/dL Creatinine 2.43 H (0.52-1.04) mg/dL Estimated GFR 19.6 ML/MIN Glucose 193 H (74-106) mg/dL POC Glucometer (74 to 106) mg/dL Hemoglobin A1c (4.5-6.0) % Lactic Acid 1.0 (0.4-2.0) Calcium 9.1 (8.4-10.2) mg/dL Total Bilirubin 0.50 (0.2-1.3) mg/dL AST 21 (14-36) U/L ALT 14 (0-35) U/L Alkaline Phosphatase 83 (38-126) U/L Troponin I (0.000-0.033) ng/mL Serum Total Protein 7.2 (6.3-8.2) g/dL Albumin 3.9 (3.5-5.0) g/dL Amylase 93 (30-110) U/L Lipase 167 (23-300) U/L Urine Color (Yellow) Urine Appearance (Clear) Urine pH (4.6-8.0) Ur Specific [place] (1.005-1.030) Urine Protein (Negative) Urine Glucose (UA) (Negative) mg/dL Urine Ketones (Negative) Urine Blood (Negative) Urine Nitrite (Negative) Urine Bilirubin (Negative) Urine Urobilinogen (0.2) mg/dL Ur Leukocyte Esterase (Negative) U Hyaline Cast (Auto) (0-2) /LPF Urine Microscopic RBC (0-5) /HPF Urine Microscopic WBC (0-5) /HPF Ur Epithelial Cells (None Seen) /HPF Urine Bacteria (None Seen) /HPF Urine Yeast (Budding) (None Seen) /HPF Urine Culture Reflexed (NO) 04/17/24 04/17/24 04/17/24 Range/Units 07:01 07:01 08:48 WBC (3.98-10.04) x10^3/uL RBC (3.93-5.22) x10^6/uL Hgb (11.2-15.7) g/dL Hct (34.1-44.9) % MCV (79.4-94.8) fL MCH (25.6-32.2) pg MCHC (32.2-35.5) g/dL RDW (11.7-14.4) % Plt Count (182-369) x10^3/uL MPV (9.4-12.3) fL Gran % (34.0-71.1) % Immature Gran % (Auto) (0.001-0.429) % Nucleat RBC Rel Count (0.00-0.2) % Eos # (Auto) (0.04-0.36) x10^3/uL Immature Gran # (Auto) (0.001-0.031) x10^3u/L Absolute Lymphs (auto) (1.18-3.74) x10^3/uL Absolute Monos (auto) (0.24-0.86) x10^3/uL Absolute Nucleated RBC (0.00-0.012) x10^3u/L Lymphocytes % (19.3-51.7) % Monocytes % (4.7-12.5) % Eosinophils % (0.7-5.8) % Basophils % (0.1-1.2) % Absolute Granulocytes (1.56-6.13) x10^3/uL Basophils # (0.01-0.08) x10^3/uL Sodium (135-145) mmol/L Potassium (3.5-5.1) mmol/L Chloride (98-107) mmol/L Carbon Dioxide (22-30) mmol/L Anion Gap (5-15) MEQ/L BUN (7-17) mg/dL Creatinine (0.52-1.04) mg/dL Estimated GFR ML/MIN Glucose (74-106) mg/dL POC Glucometer (74 to 106) mg/dL Hemoglobin A1c 7.36 H (4.5-6.0) % Lactic Acid (0.4-2.0) Calcium (8.4-10.2) mg/dL Total Bilirubin (0.2-1.3) mg/dL AST (14-36) U/L ALT (0-35) U/L Alkaline Phosphatase (38-126) U/L Troponin I < 0.012 (0.000-0.033) ng/mL Serum Total Protein (6.3-8.2) g/dL Albumin (3.5-5.0) g/dL Amylase (30-110) U/L Lipase (23-300) U/L Urine Color Yellow (Yellow) Urine Appearance Turbid A (Clear) Urine pH 5.0 (4.6-8.0) Ur Specific [place] 1.020 (1.005-1.030) Urine Protein 300 A (Negative) Urine Glucose (UA) >=1000 A (Negative) mg/dL Urine Ketones Trace A (Negative) Urine Blood Large A (Negative) Urine Nitrite Negative (Negative) Urine Bilirubin Negative (Negative) Urine Urobilinogen 0.2 (0.2) mg/dL Ur Leukocyte Esterase Large A (Negative) U Hyaline Cast (Auto) 20-50 (0-2) /LPF Urine Microscopic RBC >100 A (0-5) /HPF Urine Microscopic WBC >100 A (0-5) /HPF Ur Epithelial Cells Few (None Seen) /HPF Urine Bacteria None Seen (None Seen) /HPF Urine Yeast (Budding) Moderate A (None Seen) /HPF Urine Culture Reflexed YES (NO) 04/17/24 04/17/24 04/17/24 Range/Units 11:18 14:15 15:00 WBC (3.98-10.04) x10^3/uL RBC (3.93-5.22) x10^6/uL Hgb (11.2-15.7) g/dL Hct (34.1-44.9) % MCV (79.4-94.8) fL MCH (25.6-32.2) pg MCHC (32.2-35.5) g/dL RDW (11.7-14.4) % Plt Count (182-369) x10^3/uL MPV (9.4-12.3) fL Gran % (34.0-71.1) % Immature Gran % (Auto) (0.001-0.429) % Nucleat RBC Rel Count (0.00-0.2) % Eos # (Auto) (0.04-0.36) x10^3/uL Immature Gran # (Auto) (0.001-0.031) x10^3u/L Absolute Lymphs (auto) (1.18-3.74) x10^3/uL Absolute Monos (auto) (0.24-0.86) x10^3/uL Absolute Nucleated RBC (0.00-0.012) x10^3u/L Lymphocytes % (19.3-51.7) % Monocytes % (4.7-12.5) % Eosinophils % (0.7-5.8) % Basophils % (0.1-1.2) % Absolute Granulocytes (1.56-6.13) x10^3/uL Basophils # (0.01-0.08) x10^3/uL Sodium (135-145) mmol/L Potassium (3.5-5.1) mmol/L Chloride (98-107) mmol/L Carbon Dioxide (22-30) mmol/L Anion Gap (5-15) MEQ/L BUN (7-17) mg/dL Creatinine (0.52-1.04) mg/dL Estimated GFR ML/MIN Glucose (74-106) mg/dL POC Glucometer 183 H (74 to 106) mg/dL Hemoglobin A1c (4.5-6.0) % Lactic Acid (0.4-2.0) Calcium (8.4-10.2) mg/dL Total Bilirubin (0.2-1.3) mg/dL AST (14-36) U/L ALT (0-35) U/L Alkaline Phosphatase (38-126) U/L Troponin I < 0.012 < 0.012 (0.000-0.033) ng/mL Serum Total Protein (6.3-8.2) g/dL Albumin (3.5-5.0) g/dL Amylase (30-110) U/L Lipase (23-300) U/L Urine Color (Yellow) Urine Appearance (Clear) Urine pH (4.6-8.0) Ur Specific [place] (1.005-1.030) Urine Protein (Negative) Urine Glucose (UA) (Negative) mg/dL Urine Ketones (Negative) Urine Blood (Negative) Urine Nitrite (Negative) Urine Bilirubin (Negative) Urine Urobilinogen (0.2) mg/dL Ur Leukocyte Esterase (Negative) U Hyaline Cast (Auto) (0-2) /LPF Urine Microscopic RBC (0-5) /HPF Urine Microscopic WBC (0-5) /HPF Ur Epithelial Cells (None Seen) /HPF Urine Bacteria (None Seen) /HPF Urine Yeast (Budding) (None Seen) /HPF Urine Culture Reflexed (NO) 04/17/24 04/17/24 04/18/24 Range/Units 16:47 22:19 00:52 WBC (3.98-10.04) x10^3/uL RBC (3.93-5.22) x10^6/uL Hgb (11.2-15.7) g/dL Hct (34.1-44.9) % MCV (79.4-94.8) fL MCH (25.6-32.2) pg MCHC (32.2-35.5) g/dL RDW (11.7-14.4) % Plt Count (182-369) x10^3/uL MPV (9.4-12.3) fL Gran % (34.0-71.1) % Immature Gran % (Auto) (0.001-0.429) % Nucleat RBC Rel Count (0.00-0.2) % Eos # (Auto) (0.04-0.36) x10^3/uL Immature Gran # (Auto) (0.001-0.031) x10^3u/L Absolute Lymphs (auto) (1.18-3.74) x10^3/uL Absolute Monos (auto) (0.24-0.86) x10^3/uL Absolute Nucleated RBC (0.00-0.012) x10^3u/L Lymphocytes % (19.3-51.7) % Monocytes % (4.7-12.5) % Eosinophils % (0.7-5.8) % Basophils % (0.1-1.2) % Absolute Granulocytes (1.56-6.13) x10^3/uL Basophils # (0.01-0.08) x10^3/uL Sodium (135-145) mmol/L Potassium (3.5-5.1) mmol/L Chloride (98-107) mmol/L Carbon Dioxide (22-30) mmol/L Anion Gap (5-15) MEQ/L BUN (7-17) mg/dL Creatinine (0.52-1.04) mg/dL Estimated GFR ML/MIN Glucose (74-106) mg/dL POC Glucometer 184 H 152 H 147 H (74 to 106) mg/dL Hemoglobin A1c (4.5-6.0) % Lactic Acid (0.4-2.0) Calcium (8.4-10.2) mg/dL Total Bilirubin (0.2-1.3) mg/dL AST (14-36) U/L ALT (0-35) U/L Alkaline Phosphatase (38-126) U/L Troponin I (0.000-0.033) ng/mL Serum Total Protein (6.3-8.2) g/dL Albumin (3.5-5.0) g/dL Amylase (30-110) U/L Lipase (23-300) U/L Urine Color (Yellow) Urine Appearance (Clear) Urine pH (4.6-8.0) Ur Specific [place] (1.005-1.030) Urine Protein (Negative) Urine Glucose (UA) (Negative) mg/dL Urine Ketones (Negative) Urine Blood (Negative) Urine Nitrite (Negative) Urine Bilirubin (Negative) Urine Urobilinogen (0.2) mg/dL Ur Leukocyte Esterase (Negative) U Hyaline Cast (Auto) (0-2) /LPF Urine Microscopic RBC (0-5) /HPF Urine Microscopic WBC (0-5) /HPF Ur Epithelial Cells (None Seen) /HPF Urine Bacteria (None Seen) /HPF Urine Yeast (Budding) (None Seen) /HPF Urine Culture Reflexed (NO) 04/18/24 04/18/24 04/18/24 Range/Units 05:00 05:00 05:03 WBC 12.5 H (3.98-10.04) x10^3/uL RBC 2.94 L (3.93-5.22) x10^6/uL Hgb 8.7 L D (11.2-15.7) g/dL Hct 28.8 L (34.1-44.9) % MCV 98.0 H (79.4-94.8) fL MCH 29.6 (25.6-32.2) pg MCHC 30.2 L (32.2-35.5) g/dL RDW 15.7 H (11.7-14.4) % Plt Count 239 (182-369) x10^3/uL MPV 9.8 (9.4-12.3) fL Gran % 66.3 (34.0-71.1) % Immature Gran % (Auto) 0.9 H (0.001-0.429) % Nucleat RBC Rel Count 0.0 (0.00-0.2) % Eos # (Auto) 0.79 H (0.04-0.36) x10^3/uL Immature Gran # (Auto) 0.11 H (0.001-0.031) x10^3u/L Absolute Lymphs (auto) 2.31 (1.18-3.74) x10^3/uL Absolute Monos (auto) 0.93 H (0.24-0.86) x10^3/uL Absolute Nucleated RBC 0.00 (0.00-0.012) x10^3u/L Lymphocytes % 18.6 L (19.3-51.7) % Monocytes % 7.5 (4.7-12.5) % Eosinophils % 6.3 H (0.7-5.8) % Basophils % 0.4 (0.1-1.2) % Absolute Granulocytes 8.26 H (1.56-6.13) x10^3/uL Basophils # 0.05 (0.01-0.08) x10^3/uL Sodium 138 (135-145) mmol/L Potassium 4.6 (3.5-5.1) mmol/L Chloride 107 (98-107) mmol/L Carbon Dioxide 21 L (22-30) mmol/L Anion Gap 15.1 H (5-15) MEQ/L BUN 37 H (7-17) mg/dL Creatinine 2.12 H (0.52-1.04) mg/dL Estimated GFR 23.1 ML/MIN Glucose 166 H (74-106) mg/dL POC Glucometer 156 H (74 to 106) mg/dL Hemoglobin A1c (4.5-6.0) % Lactic Acid (0.4-2.0) Calcium 8.3 L (8.4-10.2) mg/dL Total Bilirubin 0.30 (0.2-1.3) mg/dL AST 21 (14-36) U/L ALT 12 (0-35) U/L Alkaline Phosphatase 77 (38-126) U/L Troponin I (0.000-0.033) ng/mL Serum Total Protein 6.1 L (6.3-8.2) g/dL Albumin 3.1 L (3.5-5.0) g/dL Amylase (30-110) U/L Lipase (23-300) U/L Urine Color (Yellow) Urine Appearance (Clear) Urine pH (4.6-8.0) Ur Specific [place] (1.005-1.030) Urine Protein (Negative) Urine Glucose (UA) (Negative) mg/dL Urine Ketones (Negative) Urine Blood (Negative) Urine Nitrite (Negative) Urine Bilirubin (Negative) Urine Urobilinogen (0.2) mg/dL Ur Leukocyte Esterase (Negative) U Hyaline Cast (Auto) (0-2) /LPF Urine Microscopic RBC (0-5) /HPF Urine Microscopic WBC (0-5) /HPF Ur Epithelial Cells (None Seen) /HPF Urine Bacteria (None Seen) /HPF Urine Yeast (Budding) (None Seen) /HPF Urine Culture Reflexed (NO) Accuchecks Date 04/18/24 Date 04/18/24 Date 04/17/24 Date 04/17/24 Date 04/17/24 Time 05:03 Time 00:52 Time 22:19 Time 17:05 Time 14:18 - Radiology Impressions Radiology Exams & Impressions: Radiology Procedures Category Date Time Status ABDOMEN AND PELVIS W/0 CONTRAS [CT] Stat Exams 04/17/24 07:24 Completed CHEST 1 VIEW (PORTABLE) Stat Exams 04/17/24 12:29 Completed CHEST 1 VIEW (PORTABLE) Stat Exams 04/17/24 13:31 Completed Assessment/Plan (1) Gastroenteritis Current Visit: Yes Status: Acute Code(s): K52.9 - NONINFECTIVE GASTROENTERITIS AND COLITIS, UNSPECIFIED
--- NOTE | 2024-04-18 08:55 | XRAY ---
CLINICAL HISTORY: NG placment COMPARISON: None. TECHNIQUE: X-ray of abdomen, AP supine views. FINDINGS: The NGT is seen curled below the left hemidiaphragm with its tip seen in the gastric fundus. Gas shadow of dilated bowel loop seen in the left hypochondrial region likely dilated stomach. No radiopaque calculus was seen within the renal areas. The rest of the small bowel and colon gas patterns are all normal and there is no free air around the falciform ligament. IMPRESSION: 1. The NGT is seen curled below the left hemidiaphragm with its tip seen in the gastric fundus. 2. Gas shadow of dilated bowel loop seen in the left hypochondrial region likely dilated stomach. Electronically Signed by: Eduardo Juarez MD. (04/18/2024 08:50:44 EDT)
[2024-04-18] MEDS: Reglan 10 MG/2 ML IV SCH (10:25)
[2024-04-18] MEDS: ROCEPHIN 1 GM / 100 ML NaCl 1 GM/100 ML IVPB IV SCH (10:30)
[2024-04-18] MEDS: Imdur 60MG PO SCH (11:16)
[2024-04-18] MEDS ORDERED: HUMALOG SQ PRN (13:45)
--- NOTE | 2024-04-18 21:01 | XRAY ---
CLINICAL HISTORY: check NG tube placement COMPARISON: None. TECHNIQUE: X-rays of the chest was performed in AP portable projection. FINDINGS: Pulmonary Parenchyma: Lungs are clear bilaterally. No evidence of consolidation, collapse, or focal opacities. No pulmonary nodules identified. No evidence of pleural effusion or pleural thickening. Heart and Mediastinum: Cardiomegaly. No mediastinal widening or masses. No hilar or mediastinal lymphadenopathy. Aortic arch calcification. Bony Thorax: Bony thorax appears intact without fractures or deformities. Mild signs of dorsal spondylosis. Soft Tissues: Soft tissues overlying the chest wall are unremarkable. The NGT is seen curled below the left hemidiaphragm with its tip seen in the gastric fundus. IMPRESSION: 1. The NGT is seen curled below the left hemidiaphragm with its tip seen in the gastric fundus. 2.Mild signs of dorsal spondylosis. 3. Cardiomegaly. 4. Aortic arch calcification. Electronically Signed by: Eduardo Juarez MD. (04/18/2024 20:56:30 EDT)
[2024-04-19 04:43] LABS: Absolute Neutrophil Ct (ANC) 7.42 x10^3/uL (1.56-6.13); BASOPHIL % 0.4 % (0.1-1.2); Basophil (Absolute #) 0.04 x10^3/uL (0.01-0.08); Eosinophil % 8.3 % (0.7-5.8); Eosinophil (Absolute #) 0.91 x10^3/uL (0.04-0.36); Hematocrit 26.1 % (34.1-44.9); IMMATURE GRAN # 0.09 x10^3u/L (0.001-0.031); IMMATURE GRAN % 0.8 % (0.001-0.429); Lymphocyte (Absolute #) 1.76 x10^3/uL (1.18-3.74); Lymphocytes % 16.1 % (19.3-51.7); Mean Cell Volume 97.8 fL (79.4-94.8); Mean Corpuscular Hgb Concent. 30.7 g/dL (32.2-35.5); Mean Platelet Volume 9.6 fL (9.4-12.3); Monocyte (Absolute #) 0.69 x10^3/uL (0.24-0.86); Monocytes % 6.3 % (4.7-12.5); Neutrophil % 68.1 % (34.0-71.1); Platelet Count 210 x10^3/uL (182-369); Red Blood Count 2.67 x10^6/uL (3.93-5.22); Red Cell Distribution Width 15.6 % (11.7-14.4); White Blood Count 10.9 x10^3/uL (3.98-10.04)
--- NOTE | 2024-04-19 05:06 | PCM.NOTE ---
Date and Time: 04/19/24 3573 Subjective Assessment: is a 79 year old female with a pmhx of peripheral neuropathy, CAD with (8 stents), fibromyalgia, DMII, COPD (RA at baseline), hypothyroid, anemia, chronic kidney disease (follows with Dr. Ortega nephrology), DVT (on eliquis), Right breast cancer (37 years ago), HTN, and HLD who presented to ED 04/17/24 with complaints of abdominal pain, pressure, nausea, and vomiting. Of note patient with recent admission 04/09-04/10/24 with similar symptoms. Patient states she was feeling better after her release until about two days ago when the nausea began again progressing to abdominal distention and vomiting at midnight. Patient does state she is passing gas and did have a large bowel movement after admission to the floor per RN report. Abdominal distention is noted on exam. NG placed by EMAIL DES[employer]ER. CXR confirmed placement. Upon arrival to ED vitals stable. CT abdomen and pelvis demonstrating a markedly distended stomach and small bowel bowel loops with fluid leveling. Concerning for ileus vs gastroenteritis. Labs remarkable for leukocytosis with WBC at 15.9, macrocytic anemia with hgb at 11.1. Acute on chronic HANNAH with creat at 2.43 (baseline around 1.9-2.2), and UA suspicious for UTI. Patient received IVF, protonix, and rocephin in ED. Plan to continue bowel rest, NG placement, IVF, and Rocephin for UTI empirically. Patient did have large BM and is passing gas. Her son reports that patient has been suffering gastroparesis since starting ozempic. Surgery consulted with recs to treat conservatively - add reglan. 04/18/24: Met with patient bedside. Endorses improvement of abdominal pain/pressure. BM x 2 yesterday. +flatulence. NG placed appropriately with little output, will discontinue. Will advance diet to CLD today. Exam with noted improvement to abdominal distention. Abdomen soft wtih BS x 4 quads. Objective Data Vital Signs: Vital Signs - 24 hr Temp Pulse Resp BP Pulse Ox 04/18/24 23:50 97.3 F 75 18 111/51 96 04/18/24 20:00 97.3 F 79 17 107/53 98 04/18/24 16:00 97.4 F 84 16 127/57 96 09/18/24 12:00 97.1 F 77 18 112/59 100 04/18/24 07:57 96.7 F 87 18 128/59 99 Pain Assessment - Last Documented Pain Intensity 0 Intake and Output: Intake & Output 04/16/24 04/17/24 04/18/24 04/19/24 11:59 11:59 11:59 11:59 Intake Total 1742 240 Output Total 100 100 Balance 1642 140 Weight 108 kg 108.4 kg Lab Results: Lab Results-Last 24 Hours 04/18/24 04/18/24 04/18/24 Range/Units 05:00 05:00 07:47 WBC 12.5 H (3.98-10.04) x10^3/uL RBC 2.94 L (3.93-5.22) x10^6/uL Hgb 8.7 L D (11.2-15.7) g/dL Hct 28.8 L (34.1-44.9) % MCV 98.0 H (79.4-94.8) fL MCH 29.6 (25.6-32.2) pg MCHC 30.2 L (32.2-35.5) g/dL RDW 15.7 H (11.7-14.4) % Plt Count 239 (182-369) x10^3/uL MPV 9.8 (9.4-12.3) fL Gran % 66.3 (34.0-71.1) % Immature Gran % (Auto) 0.9 H (0.001-0.429) % Nucleat RBC Rel Count 0.0 (0.00-0.2) % Eos # (Auto) 0.79 H (0.04-0.36) x10^3/uL Immature Gran # (Auto) 0.11 H (0.001-0.031) x10^3u/L Absolute Lymphs (auto) 2.31 (1.18-3.74) x10^3/uL Absolute Monos (auto) 0.93 H (0.24-0.86) x10^3/uL Absolute Nucleated RBC 0.00 (0.00-0.012) x10^3u/L Lymphocytes % 18.6 L (19.3-51.7) % Monocytes % 7.5 (4.7-12.5) % Eosinophils % 6.3 H (0.7-5.8) % Basophils % 0.4 (0.1-1.2) % Absolute Granulocytes 8.26 H (1.56-6.13) x10^3/uL Basophils # 0.05 (0.01-0.08) x10^3/uL Sodium 138 (135-145) mmol/L Potassium 4.6 (3.5-5.1) mmol/L Chloride 107 (98-107) mmol/L Carbon Dioxide 21 L (22-30) mmol/L Anion Gap 15.1 H (5-15) MEQ/L BUN 37 H (7-17) mg/dL Creatinine 2.12 H (0.52-1.04) mg/dL Estimated GFR 23.1 ML/MIN Glucose 166 H (74-106) mg/dL POC Glucometer 161 H (74 to 106) mg/dL Calcium 8.3 L (8.4-10.2) mg/dL Total Bilirubin 0.30 (0.2-1.3) mg/dL AST 21 (14-36) U/L ALT 12 (0-35) U/L Alkaline Phosphatase 77 (38-126) U/L Serum Total Protein 6.1 L (6.3-8.2) g/dL Albumin 3.1 L (3.5-5.0) g/dL 04/18/24 04/18/24 04/18/24 Range/Units 14:14 16:31 22:09 WBC (3.98-10.04) x10^3/uL RBC (3.93-5.22) x10^6/uL Hgb (11.2-15.7) g/dL Hct (34.1-44.9) % MCV (79.4-94.8) fL MCH (25.6-32.2) pg MCHC (32.2-35.5) g/dL RDW (11.7-14.4) % Plt Count (182-369) x10^3/uL MPV (9.4-12.3) fL Gran % (34.0-71.1) % Immature Gran % (Auto) (0.001-0.429) % Nucleat RBC Rel Count (0.00-0.2) % Eos # (Auto) (0.04-0.36) x10^3/uL Immature Gran # (Auto) (0.001-0.031) x10^3u/L Absolute Lymphs (auto) (1.18-3.74) x10^3/uL Absolute Monos (auto) (0.24-0.86) x10^3/uL Absolute Nucleated RBC (0.00-0.012) x10^3u/L Lymphocytes % (19.3-51.7) % Monocytes % (4.7-12.5) % Eosinophils % (0.7-5.8) % Basophils % (0.1-1.2) % Absolute Granulocytes (1.56-6.13) x10^3/uL Basophils # (0.01-0.08) x10^3/uL Sodium (135-145) mmol/L Potassium (3.5-5.1) mmol/L Chloride (98-107) mmol/L Carbon Dioxide (22-30) mmol/L Anion Gap (5-15) MEQ/L BUN (7-17) mg/dL Creatinine (0.52-1.04) mg/dL Estimated GFR ML/MIN Glucose (74-106) mg/dL POC Glucometer 177 H 161 H 131 H (74 to 106) mg/dL Calcium (8.4-10.2) mg/dL Total Bilirubin (0.2-1.3) mg/dL AST (14-36) U/L ALT (0-35) U/L Alkaline Phosphatase (38-126) U/L Serum Total Protein (6.3-8.2) g/dL Albumin (3.5-5.0) g/dL 04/19/24 Range/Units 04:35 WBC 10.9 H (3.98-10.04) x10^3/uL RBC 2.67 L (3.93-5.22) x10^6/uL Hgb 8.0 L (11.2-15.7) g/dL Hct 26.1 L (34.1-44.9) % MCV 97.8 H (79.4-94.8) fL MCH 30.0 (25.6-32.2) pg MCHC 30.7 L (32.2-35.5) g/dL RDW 15.6 H (11.7-14.4) % Plt Count 210 (182-369) x10^3/uL MPV 9.6 (9.4-12.3) fL Gran % 68.1 (34.0-71.1) % Immature Gran % (Auto) 0.8 H (0.001-0.429) % Nucleat RBC Rel Count 0.0 (0.00-0.2) % Eos # (Auto) 0.91 H (0.04-0.36) x10^3/uL Immature Gran # (Auto) 0.09 H (0.001-0.031) x10^3u/L Absolute Lymphs (auto) 1.76 (1.18-3.74) x10^3/uL Absolute Monos (auto) 0.69 (0.24-0.86) x10^3/uL Absolute Nucleated RBC 0.00 (0.00-0.012) x10^3u/L Lymphocytes % 16.1 L (19.3-51.7) % Monocytes % 6.3 (4.7-12.5) % Eosinophils % 8.3 H (0.7-5.8) % Basophils % 0.4 (0.1-1.2) % Absolute Granulocytes 7.42 H (1.56-6.13) x10^3/uL Basophils # 0.04 (0.01-0.08) x10^3/uL Sodium (135-145) mmol/L Potassium (3.5-5.1) mmol/L Chloride (98-107) mmol/L Carbon Dioxide (22-30) mmol/L Anion Gap (5-15) MEQ/L BUN (7-17) mg/dL Creatinine (0.52-1.04) mg/dL Estimated GFR ML/MIN Glucose (74-106) mg/dL POC Glucometer (74 to 106) mg/dL Calcium (8.4-10.2) mg/dL Total Bilirubin (0.2-1.3) mg/dL AST (14-36) U/L ALT (0-35) U/L Alkaline Phosphatase (38-126) U/L Serum Total Protein (6.3-8.2) g/dL Albumin (3.5-5.0) g/dL Radiology Exams: Radiology Procedures Category Date Time Status ABDOMEN AND PELVIS W/0 CONTRAS [CT] Stat Exams 04/17/24 07:24 Completed CHEST 1 VIEW (PORTABLE) Stat Exams 04/17/24 12:29 Completed CHEST 1 VIEW (PORTABLE) Stat Exams 04/17/24 13:31 Completed CHEST 1 VIEW (PORTABLE) Urgent Exams 04/18/24 06:42 Completed KUB Stat Exams 04/18/24 08:01 Completed Multi-Disciplinary Progress Notes: Multi-Disciplinary Progress Notes 04/18/24 07:13 Pharmacy Note by Rajan Burger Please be aware of possible drug interaction with Cymbalta and Reglan. May increase side effects of Reglan. Initialized on 04/18/24 07:13 - END OF NOTE Assessment/Plan (1) Abdominal pain Current Visit: Yes Status: Acute Assessment & Plan: -CT showing markedly distended stomach and small bowel loops with fluid leveling. Rule out ileus versus gastroenteritis.New fluid-filled small hiatal hernia favoring gastroesophageal reflux. -NPO -IVF -NG for decompressioin due to recurrent vomiting -Monitor renal/lytes -Surgery consult 04/18: -Son reported pt taking ozempic with past complications of gastroparesis - suspect this is what is going on now -Agree with surgery - treat conservatively for gastroparesis -NG with very little output -DC -Start CLD today- do not advance past CLD today- will re-eval tomorrow - continue reglan Code(s): R10.9 - UNSPECIFIED ABDOMINAL PAIN (2) Leukocytosis Current Visit: Yes Status: Acute Assessment & Plan: -Most likely secondary to infectious/reactive processes -UTI - current treatment with rocephin, will continue - currently with NGTD - will follow Code(s): D72.829 - ELEVATED WHITE BLOOD CELL COUNT, UNSPECIFIED (3) UTI (urinary tract infection) Current Visit: Yes Status: Acute Assessment & Plan: -UA suspicious for UTI, rocephin started empirically, will continue - follow culture -recent culture reviewed from 04/09 showing no growth Code(s): N39.0 - URINARY TRACT INFECTION, SITE NOT SPECIFIED (4) Acute on chronic kidney failure Current Visit: Yes Status: Acute Assessment & Plan: -Most likely secondary to GI losses -Baseline around 1.7-1.9 - follows with Dr. Ortega as OP -IVF -Avoid ZULY/ARB/NSAIDS/diuretics -monitor renal/lytes daily Code(s): N17.9 - ACUTE KIDNEY FAILURE, UNSPECIFIED; N18.9 - CHRONIC KIDNEY DISEASE, UNSPECIFIED (5) CAD (coronary artery disease) Current Visit: Yes Status: Acute Assessment & Plan: -Continue home meds Code(s): I25.10 - ATHSCL HEART DISEASE OF [place] CORONARY ARTERY W/O ANG PCTRS (6) History of DVT (deep vein thrombosis) Current Visit: Yes Status: Acute Code(s): Z86.718 - PERSONAL HISTORY OF OTHER VENOUS THROMBOSIS AND EMBOLISM (7) HLD (hyperlipidemia) Current Visit: Yes Status: Acute Assessment & Plan: -continue statin Code(s): E78.5 - HYPERLIPIDEMIA, UNSPECIFIED (8) HTN (hypertension) Current Visit: Yes Status: Acute Assessment & Plan: -stable continue home meds Code(s): I10 - ESSENTIAL (PRIMARY) HYPERTENSION (9) COPD (chronic obstructive pulmonary disease) Current Visit: Yes Status: Acute Assessment & Plan: -Supplemental oxygen as needed for spo2 goal >92% - RA at baseline -RT eval -Does not appear to be in exacerbation -CXR with no acute findings -Continue home meds (10) Diabetes mellitus Current Visit: Yes Status: Acute Assessment & Plan: -Currently NPO -Hold SSI until able to tolerate diet - then ADA diet and resume home meds -continue glargine Code(s): E11.9 - TYPE 2 DIABETES MELLITUS WITHOUT COMPLICATIONS (11) Hypothyroid Current Visit: Yes Status: Acute Code(s): E03.9 - HYPOTHYROIDISM, UNSPECIFIED -continue home meds (12) History of breast cancer Current Visit: Yes Status: Acute Assessment & Plan: -noted, right breast, no treatment currently - 37 years ago Code(s): Z85.3 - PERSONAL HISTORY OF MALIGNANT NEOPLASM OF BREAST Code(s): R10.9 - UNSPECIFIED ABDOMINAL PAIN (2) Leukocytosis Current Visit: Yes Status: Acute Code(s): D72.829 - ELEVATED WHITE BLOOD [place] L COUNT, UNSPECIFIED (3) UTI (urinary tract infection) Current Visit: Yes Status: Acute Code(s): N39.0 - URINARY TRACT INFECTION, SITE NOT SPECIFIED (4) Acute on chronic kidney failure Current Visit: Yes Status: Acute Code(s): N17.9 - ACUTE KIDNEY FAILURE, UNSPECIFIED; N18.9 - CHRONIC KIDNEY DISEASE, UNSPECIFIED (5) CAD (coronary artery disease) Current Visit: Yes Status: Acute Code(s): I25.10 - ATHSCL HEART DISEASE OF [place] CORONARY ARTERY W/O ANG PCTRS (6) History of DVT (deep vein thrombosis) Current Visit: Yes Status: Acute Code(s): Z86.718 - PERSONAL HISTORY OF OTHER VENOUS THROMBOSIS AND EMBOLISM (7) HLD (hyperlipidemia) Current Visit: Yes Status: Acute Code(s): E78.5 - HYPERLIPIDEMIA, UNSPECIFIED (8) HTN (hypertension) Current Visit: Yes Status: Acute Code(s): I10 - ESSENTIAL (PRIMARY) HYPERTENSION (9) COPD (chronic obstructive pulmonary disease) Current Visit: Yes Status: Acute (10) Diabetes mellitus Current Visit: Yes Status: Acute Code(s): E11.9 - TYPE 2 DIABETES MELLITUS WITHOUT COMPLICATIONS (11) Hypothyroid Current Visit: Yes Status: Acute Code(s): E03.9 - HYPOTHYROIDISM, UNSPECIFIED (12) History of breast cancer Current Visit: Yes Status: Acute Code(s): Z85.3 - PERSONAL HISTORY OF MALIGNANT NEOPLASM OF BREAST
[2024-04-19 05:11] LABS: ANION GAP 13.5 MEQ/L (5-15); BILIRUBIN,TOTAL 0.3 mg/dL (0.2-1.3); Calcium 8.7 mg/dL (8.4-10.2); Creatinine 1 1.79 mg/dL (0.52-1.04); EST GLOMERULAR FILTRATION RATE 28.3 ML/MIN; Potassium 5.4 mmol/L (3.5-5.1); Total Protein 5.8 g/dL (6.3-8.2)
[2024-04-19 06:44] VITALS: TEMP 97.1
--- NOTE | 2024-04-19 11:14 | PCM.DS ---
Discharge Summary Date of Admission: 04/17/24 11:54 Date of Discharge: 04/19/24 Admitting Physician: CHEN SHER MD Consults: Consults on Case 04/17/24 12:08 Consult Surgery ROUTINE Primary Care Provider: LINH MCGILL <AIYANA PFEIFFER - Last Filed: 04/19/24 11:02> Date of Admission: 04/17/24 11:54 Admitting Physician: CHEN SHER MD Consults: Consults on Case 04/17/24 12:08 Consult Surgery ROUTINE Primary Care Provider: LINH MCGILL <CHEN SHER - Last Filed: 04/19/24 20:21> Allergies <AIYANA PFEIFFER - Last Filed: 04/19/24 11:02> <CHEN SHER - Last Filed: 04/19/24 20:21> Allergies latex Allergy (Intermediate, Verified 04/17/24 06:04) Hives bee venom protein (honey bee) Allergy (Unknown, Verified 04/17/24 06:04) shellfish derived Allergy (Unknown, Verified 04/17/24 05:59) algae in the ocean fiberglass Allergy (Intermediate, Uncoded 04/17/24 06:04) [facility] Summary - Hospital Course Hospital Course: is a 79 year old female with a pmhx of peripheral neuropathy, CAD with (8 stents), fibromyalgia, DMII, COPD (RA at baseline), hypothyroid, anemia, chronic kidney disease (follows with Dr. Ortega nephrology), DVT (on eliquis), Right breast cancer (37 years ago), HTN, and HLD who presented to ED 04/17/24 with complaints of abdominal pain, pressure, nausea, and vomiting. Of note patient with recent admission 04/09-04/10/24 with similar symptoms. Patient states she was feeling better after her release until about two days ago when the nause a began again progressing to abdominal distention and vomiting at midnight. Patient stated that she was passing gas and did have a large bowel movement after admission to the floor per RN report. Abdominal distention noted on exam. NG placed by SHAFTING WORKER. Upon arrival to ED vitals stable. CT abdomen and pelvis demonstrating a markedly distended stomach and small bowel bowel loops with fluid leveling. Concerning for ileus vs gastroenteritis. Labs remarkable for leukocytosis with WBC at 15.9, macrocytic anemia with hgb at 11.1. Acute on chronic HANNAH with creat at 2.43 (baseline around 1.9-2.2), and UA suspicious for UTI. Patient received IVF, protonix, and rocephin in ED. IP treatement with bow el rest, NG placement, IVF, and Rocephin for UTI empirically. Ucult negative no need for abx. Surgery consulted with recs to treat conservatively - add reglan. Patient has had multiple bowel movements and is tolerating diet. Abdomen soft with bs x 4 quads. Will dismiss her to SNF today on reglan 5mg TID w/meals. Labs now at baseline. Discharge Note New Diagnosis: Gastroparesis New Medications: Reglan Follow Up: PCP Latest Assessment & Plan (1) Abdominal pain Current Visit: Yes Status: Acute Assessment & Plan: -CT showing markedly distended stomach and small bowel loops with fluid leveling. Rule out ileus versus gastroenteritis.New fluid-filled small hiatal hernia favoring gastroesophageal reflux. -NPO -IVF -NG for decompressioin due to recurrent vomiting -Monitor renal/lytes -Surgery consult 04/18: -Son reported pt taking ozempic with past complications of gastroparesis - suspect this is what is going on now -Agree with surgery - treat conservatively for gastroparesis -NG with very little output -DC -Start CLD today- do not advance past CLD today- will re-eval tomorrow - continue reglan 04/19: -tolerating diet - multiple bowel movements can d/c home on reglan -advise to dc ozempic Code(s): R10.9 - UNSPECIFIED ABDOMINAL PAIN (2) Leukocytosis Current Visit: Yes Status: Acute Assessment & Plan: -Most likely secondary to infectious/reactive processes -UTI - current treatment with rocephin, will continue - currently with NGTD - will follow 04/19: -negative Ucult dc abx Code(s): D72.829 - ELEVATED WHITE BLOOD CELL COUNT, UNSPECIFIED (3) UTI (urinary tract infection) Current Visit: Yes Status: Acute Assessment & Plan: -UA suspicious for UTI, rocephin started empirically, will continue - follow culture -recent culture reviewed from 04/09 showing no growth 04/19: -negative Ucult dc abx Code(s): N39.0 - URINARY TRACT INFECTION, SITE NOT SPECIFIED (4) Acute on chronic kidney failure Current Visit: Yes Status: Acute Assessment & Plan: -Most likely secondary to GI losses -Baseline around 1.7-1.9 - follows with Dr. Ortega as OP -IVF -Avoid ZULY/ARB/NSAIDS/diuretics -monitor renal/lytes daily 04/19: -at baseline continue follow up with Dr. Ortega as scheduled Code(s): N17.9 - ACUTE KIDNEY FAILURE, UNSPECIFIED; N18.9 - CHRONIC KIDNEY DISEASE, UNSPECIFIED (5) CAD (coronary artery disease) Current Visit: Yes Status: Acute Assessment & Plan: -Continue home meds Code(s): I25.10 - ATHSCL HEART DISEASE OF [place] CORONARY ARTERY W/O ANG PCTRS (6) History of DVT (deep vein thrombosis) Current Visit: Yes Status: Acute Code(s): Z86.718 - PERSONAL HISTORY OF OTHER VENOUS THROMBOSIS AND EMBOLISM (7) HLD (hyperlipidemia) Current Visit: Yes Status: Acute Assessment & Plan: -continue statin Code(s): E78.5 - HYPERLIPIDEMIA, UNSPECIFIED (8) HTN (hypertension) Current Visit: Yes Status: Acute Assessment & Plan: -stable continue home meds Code(s): I10 - ESSENTIAL (PRIMARY) HYPERTENSION (9) COPD (chronic obstructive pulmonary disease) Current Visit: Yes Status: Acute Assessment & Plan: -Supplemental oxygen as needed for spo2 goal >92% - RA at baseline -RT eval -Does not appear to be in exacerbation -CXR with no acute findings -Continue home meds (10) Diabetes mellitus Current Visit: Yes Status: Acute Assessment & Plan: -Currently NPO -Hold SSI until able to tolerate diet - then ADA diet and resume home meds -continue glargine Code(s): E11.9 - TYPE 2 DIABETES MELLITUS WITHOUT COMPLICATIONS (11) Hypothyroid Current Visit: Yes Status: Acute Code(s): E03.9 - HYPOTHYROIDISM, UNSPECIFIED -continue home meds (12) History of breast cancer Current Visit: Yes Status: Acute Assessment & Plan: -noted, right breast, no treatment currently - 37 years ago Code(s): Z85.3 - PERSONAL HISTORY OF MALIGNANT NEOPLASM OF BREAST I spent 35 minutes [id number] with the patient on the day of discharge performing discharge exam, discussing hospital stay and discharge instructions with patient and caregivers, preparation of discharge records, prescriptions & referral forms and addressing any questions/concerns the patient had as document ed above. - Vitals & Intake/Output Vital Signs: Vital Signs Temperature 97.1 F 04/19/24 06:43 Pulse Rate 73 04/19/24 06:43 Respiratory Rate 16 04/19/24 06:43 Blood Pressure 137/64 04/19/24 06:43 O2 Sat by Pulse Oximetry 95 04/19/24 06:43 Intake & Output: Intake & Output 04/16/24 04/17/24 04/18/24 04/19/24 11:59 11:59 11:59 11:59 Intake Total 1742 360 Output Total 100 100 Balance 1642 260 Weight 108 kg 108.4 kg 108.1 kg - Lab Result Diagrams: 04/19/24 04:35 04/19/24 04:35 Lab Results-Last 24 Hrs: Lab Results-Last 24 Hours 04/18/24 04/18/24 04/18/24 Range/Units 14:14 16:31 22:09 WBC (3.98-10.04) x10^3/uL RBC (3.93-5.22) x10^6/uL Hgb (11.2-15.7) g/dL Hct (34.1-44.9) % MCV (79.4-94.8) fL MCH (25.6-32.2) pg MCHC (32.2-35.5) g/dL RDW (11.7-14.4) % Plt Count (182-369) x10^3/uL MPV (9.4-12.3) fL Gran % (34.0-71.1) % Immature Gran % (Auto) (0.001-0.429) % Nucleat RBC Rel Count (0.00-0.2) % Eos # (Auto) (0.04-0.36) x10^3/uL Immature Gran # (Auto) (0.001-0.031) x10^3u/L Absolute Lymphs (auto) (1.18-3.74) x10^3/uL Absolute Monos (auto) (0.24-0.86) x10^3/uL Absolute Nucleated RBC (0.00-0.012) x10^3u/L Lymphocytes % (19.3-51.7) % Monocytes % (4.7-12.5) % Eosinophils % (0.7-5.8) % Basophils % (0.1-1.2) % Absolute Granulocytes (1.56-6.13) x10^3/uL Basophils # (0.01-0.08) x10^3/uL Sodium (135-145) mmol/L Potassium (3.5-5.1) mmol/L Chloride (98-107) mmol/L Carbon Dioxide (22-30) mmol/L Anion Gap (5-15) MEQ/L BUN (7-17) mg/dL Creatinine (0.52-1.04) mg/dL Estimated GFR ML/MIN Glucose (74-106) mg/dL POC Glucometer 177 H 161 H 131 H (74 to 106) mg/dL Calcium (8.4-10.2) mg/dL Total Bilirubin (0.2-1.3) mg/dL AST (14-36) U/L ALT (0-35) U/L Alkaline Phosphatase (38-126) U/L Serum Total Protein (6.3-8.2) g/dL Albumin (3.5-5.0) g/dL 04/19/24 04/19/24 04/19/24 Range/Units 04:35 04:35 07:22 WBC 10.9 H (3.98-10.04) x10^3/uL RBC 2.67 L (3.93-5.22) x10^6/uL Hgb 8.0 L (11.2-15.7) g/dL Hct 26.1 L (34.1-44.9) % MCV 97.8 H (79.4-94.8) fL MCH 30.0 (25.6-32.2) pg MCHC 30.7 L (32.2-35.5) g/dL RDW 15.6 H (11.7-14.4) % Plt Count 210 (182-369) x10^3/uL MPV 9.6 (9.4-12.3) fL Gran % 68.1 (34.0-71.1) % Immature Gran % (Auto) 0.8 H (0.001-0.429) % Nucleat RBC Rel Count 0.0 (0.00-0.2) % Eos # (Auto) 0.91 H (0.04-0.36) x10^3/uL Immature Gran # (Auto) 0.09 H (0.001-0.031) x10^3u/L Absolute Lymphs (auto) 1.76 (1.18-3.74) x10^3/uL Absolute Monos (auto) 0.69 (0.24-0.86) x10^3/uL Absolute Nucleated RBC 0.00 (0.00-0.012) x10^3u/L Lymphocytes % 16.1 L (19.3-51.7) % Monocytes % 6.3 (4.7-12.5) % Eosinophils % 8.3 H (0.7-5.8) % Basophils % 0.4 (0.1-1.2) % Absolute Granulocytes 7.42 H (1.56-6.13) x10^3/uL Basophils # 0.04 (0.01-0.08) x10^3/uL Sodium 136 (135-145) mmol/L Potassium 5.4 H (3.5-5.1) mmol/L Chloride 108 H (98-107) mmol/L Carbon Dioxide 20 L (22-30) mmol/L Anion Gap 13.5 (5-15) MEQ/L BUN 35 H (7-17) mg/dL Creatinine 1.79 H (0.52-1.04) mg/dL Estimated GFR 28.3 ML/MIN Glucose 143 H (74-106) mg/dL POC Glucometer 135 H (74 to 106) mg/dL Calcium 8.7 (8.4-10.2) mg/dL Total Bilirubin 0.30 (0.2-1.3) mg/dL AST 17 (14-36) U/L ALT 11 (0-35) U/L Alkaline Phosphatase 59 (38-126) U/L Serum Total Protein 5.8 L (6.3-8.2) g/dL Albumin 3.0 L (3.5-5.0) g/dL Micro Results-Entire Visit: Microbiology 04/17/24 08:48 Urine Culture - Final Catherized <10K NORMAL SKIN MARIELLA PROBABLE SKIN CONTAMINANT Accuchecks Date 04/19/24 Date 04/18/24 Date 04/18/24 Date 04/18/24 Time 22:11 - Radiology Exams Ordered Rad Exams-Entire Visit: Radiology Procedures Category Date Time Status CHEST 1 VIEW (PORTABLE) Stat Exams 04/17/24 12:29 Completed CHEST 1 VIEW (PORTABLE) Stat Exams 04/17/24 13:31 Completed CHEST 1 VIEW (PORTABLE) Urgent Exams 04/18/24 06:42 Completed KUB Stat Exams 04/18/24 08:01 Completed <AIYANA PFEIFFER - Last Filed: 04/19/24 11:02> - Vitals & Intake/Output Vital Signs: Vital Signs Temperature 97.1 F 04/19/24 11:50 Pulse Rate 70 04/19/24 11:50 Respiratory Rate 19 04/19/24 11:50 Blood Pressure 126/54 04/19/24 11:50 O2 Sat by Pulse Oximetry 96 04/19/24 11:50 Intake & Output: Intake & Output 04/17/24 04/18/24 04/19/24 04/20/24 11:59 11:59 11:59 11:59 Intake Total 1742 360 120 Output Total 100 100 Balance 1642 260 120 Weight 108 kg 108.4 kg 108.1 kg - Lab Result Diagrams: 04/19/24 04:35 04/19/24 14:05 Lab Results-Last 24 Hrs: Lab Results-Last 24 Hours 04/18/24 04/19/24 04/19/24 Range/Units 22:09 04:35 04:35 WBC 10.9 H (3.98-10.04) x10^3/uL RBC 2.67 L (3.93-5.22) x10^6/uL Hgb 8.0 L (11.2-15.7) g/dL Hct 26.1 L (34.1-44.9) % MCV 97.8 H (79.4-94.8) fL MCH 30.0 (25.6-32.2) pg MCHC 30.7 L (32.2-35.5) g/dL RDW 15.6 H (11.7-14.4) % Plt Count 210 (182-369) x10^3/uL MPV 9.6 (9.4-12.3) fL Gran % 68.1 (34.0-71.1) % Immature Gran % (Auto) 0.8 H (0.001-0.429) % Nucleat RBC Rel Count 0.0 (0.00-0.2) % Eos # (Auto) 0.91 H (0.04-0.36) x10^3/uL Immature Gran # (Auto) 0.09 H (0.001-0.031) x10^3u/L Absolute Lymphs (auto) 1.76 (1.18-3.74) x10^3/uL Absolute Monos (auto) 0.69 (0.24-0.86) x10^3/uL Absolute Nucleated RBC 0.00 (0.00-0.012) x10^3u/L Lymphocytes % 16.1 L (19.3-51.7) % Monocytes % 6.3 (4.7-12.5) % Eosinophils % 8.3 H (0.7-5.8) % Basophils % 0.4 (0.1-1.2) % Absolute Granulocytes 7.42 H (1.56-6.13) x10^3/uL Basophils # 0.04 (0.01-0.08) x10^3/uL Sodium 136 (135-145) mmol/L Potassium 5.4 H (3.5-5.1) mmol/L Chloride 108 H (98-107) mmol/L Carbon Dioxide 20 L (22-30) mmol/L Anion Gap 13.5 (5-15) MEQ/L BUN 35 H (7-17) mg/dL Creatinine 1.79 H (0.52-1.04) mg/dL Estimated GFR 28.3 ML/MIN Glucose 143 H (74-106) mg/dL POC Glucometer 131 H (74 to 106) mg/dL Calcium 8.7 (8.4-10.2) mg/dL Total Bilirubin 0.30 (0.2-1.3) mg/dL AST 17 (14-36) U/L ALT 11 (0-35) U/L Alkaline Phosphatase 59 (38-126) U/L Serum Total Protein 5.8 L (6.3-8.2) g/dL Albumin 3.0 L (3.5-5.0) g/dL 04/19/24 04/19/24 04/19/24 Range/Units 07:22 11:46 14:05 WBC (3.98-10.04) x10^3/uL RBC (3.93-5.22) x10^6/uL Hgb (11.2-15.7) g/dL Hct (34.1-44.9) % MCV (79.4-94.8) fL MCH (25.6-32.2) pg MCHC (32.2-35.5) g/dL RDW (11.7-14.4) % Plt Count (182-369) x10^3/uL MPV (9.4-12.3) fL Gran % (34.0-71.1) % Immature Gran % (Auto) (0.001-0.429) % Nucleat RBC Rel Count (0.00-0.2) % Eos # (Auto) (0.04-0.36) x10^3/uL Immature Gran # (Auto) (0.001-0.031) x10^3u/L Absolute Lymphs (auto) (1.18-3.74) x10^3/uL Absolute Monos (auto) (0.24-0.86) x10^3/uL Absolute Nucleated RBC (0.00-0.012) x10^3u/L Lymphocytes % (19.3-51.7) % Monocytes % (4.7-12.5) % Eosinophils % (0.7-5.8) % Basophils % (0.1-1.2) % Absolute Granulocytes (1.56-6.13) x10^3/uL Basophils # (0.01-0.08) x10^3/uL Sodium (135-145) mmol/L Potassium 5.1 (3.5-5.1) mmol/L Chloride (98-107) mmol/L Carbon Dioxide (22-30) mmol/L Anion Gap (5-15) MEQ/L BUN (7-17) mg/dL Creatinine (0.52-1.04) mg/dL Estimated GFR ML/MIN Glucose (74-106) mg/dL POC Glucometer 135 H 166 H (74 to 106) mg/dL Calcium (8.4-10.2) mg/dL Total Bilirubin (0.2-1.3) mg/dL AST (14-36) U/L ALT (0-35) U/L Alkaline Phosphatase (38-126) U/L Serum Total Protein (6.3-8.2) g/dL Albumin (3.5-5.0) g/dL Micro Results-Entire Visit: Microbiology 04/17/24 08:48 Urine Culture - Final Catherized <10K NORMAL SKIN MARIELLA PROBABLE SKIN CONTAMINANT Accuchecks Date 04/19/24 Date 04/19/24 Date 04/18/24 Time 22:11 - Radiology Exams Ordered Rad Exams-Entire Visit: Radiology Procedures Category Date Time Status CHEST 1 VIEW (PORTABLE) Urgent Exams 04/18/24 06:42 Completed KUB Stat Exams 04/18/24 08:01 Completed <CHEN SHER - Last Filed: 04/19/24 20:21> Discharge Exam General Appearance: no apparent distress Neurologic Exam: alert, oriented x 3, cooperative Eye Exam: PERRL Ears, Nose, Throat Exam: normal ENT inspection Neck Exam: normal inspection Respiratory Exam: normal breath sounds, lungs clear Cardiovascular Exam: regular rate/rhythm, normal heart sounds Gastrointestinal/Abdomen Exam: soft, normal bowel sounds Pelvic Exam: deferred Rectal Exam: deferred Back Exam: normal inspection Extremity Exam: normal inspection Skin Exam: normal color <AIYANA PFEIFFER - Last Filed: 04/19/24 11:02> Final Diagnosis/Problem List - Final Discharge Diagnosis/Problem (1) Gastroparesis due to DM Status: Acute Code(s): E11.43 - TYPE 2 DIABETES W DIABETIC AUTONOMIC (POLY)NEUROPATHY; K31.84 - GASTROPARESIS (2) Abdominal pain Status: Acute Code(s): R10.9 - UNSPECIFIED ABDOMINAL PAIN (3) Leukocytosis Status: Acute Code(s): D72.829 - ELEVATED WHITE BLOOD CELL COUNT, UNSPECIFIED (4) UTI (urinary tract infection) Status: Acute Code(s): N39.0 - URINARY TRACT INFECTION, SITE NOT SPECIFIED (5) Acute on chronic kidney failure Status: Acute Code(s): N17.9 - ACUTE KIDNEY FAILURE, UNSPECIFIED; N18.9 - CHRONIC KIDNEY DISEASE, UNSPECIFIED (6) CAD (coronary artery disease) Status: Acute Code(s): I25.10 - ATHSCL HEART DISEASE OF [place] CORONARY ARTERY W/O ANG PCTRS (7) History of DVT (deep vein thrombosis) Status: Acute Code(s): Z86.718 - PERSONAL HISTORY OF OTHER VENOUS THROMBOSIS AND EMBOLISM (8) HLD (hyperlipidemia) Status: Acute Code(s): E78.5 - HYPERLIPIDEMIA, UNSPECIFIED (9) HTN (hypertension) Status: Acute Code(s): I10 - ESSENTIAL (PRIMARY) HYPERTENSION (10) COPD (chronic obstructive pulmonary disease) Status: Acute (11) Diabetes mellitus Status: Acute Code(s): E11.9 - TYPE 2 DIABETES MELLITUS WITHOUT COMPLICATIONS (12) Hypothyroid Status: Acute Code(s): E03.9 - HYPOTHYROIDISM, UNSPECIFIED (13) History of breast cancer Status: Acute Code(s): Z85.3 - PERSONAL HISTORY OF MALIGNANT NEOPLASM OF BREAST <AIYANA PFEIFFER - Last Filed: 04/19/24 11:02> <AIYANA PFEIFFER - Last Filed: 04/19/24 11:02> <CHEN SHER - Last Filed: 04/19/24 20:21> - [facility] Prescriptions: Continue Furosemide [Lasix] 40 mg PO DAILY Metoprolol Succinate 25 mg Xl* [Toprol-Xl 25MG Tablets] 25 mg PO DAILY Levothyroxine Sodium 25 Mcg [Synthroid 25 Mcg] 75 mcg PO DAILY Ergocalciferol (Vitamin D2) [Vitamin D2] 1.25 mg PO WEEKLY Allopurinol 100 mg [Zyloprim 100 mg] 100 mg PO DAILY Dicyclomine HCl 20 mg [Bentyl 20 mg] 10 mg PO TID Isosorbide Mononitrate [Isosorbide Mononitrate ER] 60 mg PO DAILY Dapagliflozin Propanediol [Farxiga] 10 mg PO DAILY Ferrous Sulfate 325 mg [Feosol 325 mg] 325 mg PO DAILY Carboxymethylcellulos/Glycerin [Refresh Optive Eye Drops] 5 ml OP QIDPRN PRN PRN Reason: dry eyes Potassium Chloride [Klor-Con M20] 20 meq PO BID PANTOPRAZOLE 40 mg Tablet [Protonix 40MG Tablet] 40 mg PO BID Insulin Aspart [NovoLOG Insulin] 10 unit SQ TIDAC Nitroglycerin 0.4 mg Tablet [Nitrostat 0.4 MG Tablet] 0.4 mg SL UD Polyethylene Glycol 3350 17 gm [Miralax Powder 17GM PACKET] 17 gm PO HS Hydrocodone/Acetaminophen [Hydrocodone-Acetamin 7.5-325] 1 each PO Q4HPRN PRN PRN Reason: Pain Dextrose [Glucose Gel] 38 gm PO UD Glucagon 1 mg [GlucaGen 1 MG] 1 mg IM UD Gabapentin [Neurontin ] 100 mg PO TID Apixaban [Eliquis] 5 mg PO BID Duloxetine HCl 30 mg [Cymbalta 30 MG Capsule] 30 mg PO DAILY Bisacodyl 10 mg [Dulcolax 10 MG SUPP] 10 mg RC Q6H PRN PRN PRN Reason: Constipation Clopidogrel Bisulfate [PLAVIX Tablet] 75 mg PO DAILY diphenhydrAMINE HCL [Allergy Relief] 25 mg PO Q8H PRN PRN PRN Reason: Allergies Insulin Glargine,Hum.rec.anlog [Basaglar Kwikpen U-100] 90 unit SQ HS Loperamide HCl 2 mg [Imodium 2 mg] 2 mg PO Q8H PRN PRN PRN Reason: Diarrhea Rosuvastatin Calcium 20 mg PO HS Magnesium Hydroxide 30 ml [Milk of Magnesia 30 ml] 30 ml PO DAILY PRN PRN PRN Reason: Constipation Cyanocobalamin (Vitamin B-12) [B-12] 1,000 mcg PO DAILY Zinc Oxide [Diaper Rash] 56 gm TP BID Simethicone 80 mg [Mylicon 80MG] 80 mg PO QID PRN PRN 30 Days #120 tablet PRN Reason: Gas Ondansetron ODT 4 MG [Zofran Odt 4 mg] 1 tab PO Q8HPRN PRN PRN Reason: Nausea/Vomiting Diclofenac Sodium [Voltaren Arthritis Pain] 1 appful Q8HPRN PRN PRN Reason: hand pain Acetaminophen [Tylenol Extra Strength] 1,000 mg PO BID Acetaminophen 325 mg [Tylenol 325 mg] 650 mg PO Q4HPRN PRN PRN Reason: Pain Acetaminophen 325 mg [Tylenol 325 mg] 650 mg PO Q4H PRN PRN PRN Reason: temp Changed Metoclopramide HCl [Reglan] 5 mg PO TIDWM 30 Days #90 tab Discontinued Cefpodoxime Proxetil 200 mg [Vantin 200 mg] 1 tab PO BID Additional Instructions: RESUME PREVIOUS NH ORDERS SEE ATTACHED MED LIST HOLD POTASSIUM CHLORIDE SUPPLEMENT ON TUESDAY, 04/20 AND SAT 04/21 - RECHECK K+ LEVEL 04/22/24 AT HALFWAY Follow up with: LINH MCGILL MD [Primary Care Provider] - THALIA Encounter - THALIA Encounter Attestation THALIA Encounter Attestation: "IhavepersonallyseenandexaminedMATTOX,GAIL Hargrove andhavediscussed pertinent aspects of their care with Aiyana Orozco agree with the history, physical exam (any modifications based on my personal exam will be noted below), assessment, and plan as outlined in original note. Please see immediately below for my summary of findings and additional assessment and plan along with any meaningful corrections/explanations to the Subjective/Objective portions of the THALIA note will be noted." My portion of the encounter took place via telemedicine. -Patient with longstanding history of gastroparesis, bedbound status due to arthritis, with recent initiation of Ozempic. All these factors combined likely contributed to her ileus. Symptoms improved after NG tube decompression, NPO status. Tolerating full liquids, having BMs. Okay to DC home today. Do not recommend she resume ozempic. Reglan added with meals <CHEN SHER - Last Filed: 04/19/24 20:21>
[2024-04-19 11:50] VITALS: BP 126/54; PULSE 70; RESP 19; O2SAT 96
[2024-05-07] MEDS ORDERED: VITAMIN D2 PO SCH (10:00)
== END 2024-04-19 14:22 ==
LOC: ED 05:33 → UNDOADMOB 11:23 → MED SURG 11:23
PROVIDERS: ADMIT Internal Medicine; ATTEND Internal Medicine
DX: E11.43 Type 2 diabetes mellitus with diabetic autonomic (poly)neuropathy (principal); K31.84 Gastroparesis; R10.9 Unspecified abdominal pain; D72.829 Elevated white blood cell count, unspecified; N39.0 Urinary tract infection, site not specified; N17.9 Acute kidney failure, unspecified; E11.22 Type 2 diabetes mellitus with diabetic chronic kidney disease; I12.9 Hypertensive chronic kidney disease with stage 1 through stage 4 chronic kidney disease, or unspecified chronic kidney disease; N18.9 Chronic kidney disease, unspecified; I25.10 Atherosclerotic heart disease of native coronary artery without angina pectoris; E78.5 Hyperlipidemia, unspecified; J44.9 Chronic obstructive pulmonary disease, unspecified; E03.9 Hypothyroidism, unspecified; Z85.3 Personal history of malignant neoplasm of breast; Z86.718 Personal history of other venous thrombosis and embolism; Z79.899 Other long term (current) drug therapy; Z79.01 Long term (current) use of anticoagulants
CPT/HCPCS: 36000; 36415; 71045; 74018; 74176; 80053; 81001; 82150; 82947; 83036; 83605; 83690; 84132; 84484; 85025; 87086; 93005; 93041; 93268; 96365; 96374; 99285; G0378; Q3014; J0696; A9270-GY

== ENCOUNTER 2024-04-20 21:51 | Emergency (ER) | payer MEDICARE, OTHER ==
--- NOTE | 2024-04-20 21:57 | ERPHSYRPT ---
- History of Present Illness Time Seen by Provider: 04/20/24 21:57 Historian: patient, EMS, old records Exam Limitations: no limitations Physician History: This is a morbidly obese 79-year-old white female patient who presents to the emergency department from [facility] with a complaint of chest pain. Patient was just discharged from our facility on 04/19/2024 because of abdominal pain and chest pain issues. Patient does not have significant abdominal pain at this time. She has tolerated liquids and crackers yesterday and today. She denies any vomiting symptoms. Patient was having some chest pain today that went into her shoulders bilaterally worse on the right and into the right side of her neck. Patient does have a history of angina as well as coronary artery disease with [address] Patient is also on both Plavix and Eliquis. She has had history of DVTs in the past. She has a history of peripheral neuropathy. She was taking Ozempic for period of time and stopped that relatively recently. Patient also started on Reglan for gastroparesis that she has had chronically. Patient has a history of hyperlipidemia, gastro esophageal reflux disease, hypertension, hypothyroidism and chronic anemia. She also has a known large ventral abdominal wall hernia. She has had a history of irritable bowel syndrome and diverticulitis. She has no cough. She has had no diarrhea. I reviewed the inpatient stays and the discharge summaries from [facility] on dates 04/09/2024 to 04/10/2024 and again from 04/17/2024 to 04/19/2024. I also reviewed the twelve-lead EKG that was performed on 04/17/2024 with a normal sinus rhythm heart rate of 95 bpm and a QTc of 490 without any evidence of any acute ischemic changes. Patient has had multiple troponin levels since 04/09/2000 24 through 04 19 3024 and they have all been wi thin normal limits. Patient has chronic renal disease and her baseline kidney function/creatinine runs 1.9-2.2. Her hemoglobin and hematocrit on 04/19/2024 was 8/26. She has had 3 chest x-rays since 04/17/2024. There have been no acute findings except for on a single chest x-ray there was evidence of cardiomegaly. Timing/Duration: today Activities at Onset: none Quality: sharpness Chest Pain Radiation: neck (Right side neck), arm (Shoulder) Severity of Pain-Max: mild Severity of Pain-Current: mild Modifying Factors: Improves With: nothing Associated Symptoms: denies symptoms Prior Chest Pain/Cardiac Workup: cardiac cath, recently seen/treated, recent hospitalization Nitro Today/Relief: no nitro taken today Aspirin Treatment Today: no aspirin today (Patient on both Plavix and Eliquis) Allergies/Adverse Reactions: latex Allergy (Intermediate, Verified 04/20/24 22:02) Hives bee venom protein (honey bee) Allergy (Unknown, Verified 04/20/24 22:02) shellfish derived Allergy (Unknown, Verified 04/20/24 22:02) algae in the ocean fiberglass Allergy (Intermediate, Uncoded 04/20/24 22:02) Hives Home Medications: Allopurinol 100 mg [Zyloprim 100 mg] 100 mg PO DAILY 11/09/22 [History] Dapagliflozin Propanediol [Farxiga] 10 mg PO DAILY 11/09/22 [History] Dicyclomine HCl 20 mg [Bentyl 20 mg] 10 mg PO TID 11/09/22 [History] Ergocalciferol (Vitamin D2) [Vitamin D2] 1.25 mg PO WEEKLY 11/09/22 [History] Ferrous Sulfate 325 mg [Feosol 325 mg] 325 mg PO DAILY 11/09/22 [History] Furosemide [Lasix] 40 mg PO DAILY 11/09/22 [History] Isosorbide Mononitrate [Isosorbide Mononitrate ER] 60 mg PO DAILY 11/09/22 [History] Levothyroxine Sodium 25 Mcg [Synthroid 25 Mcg] 75 mcg PO DAILY 11/09/22 [History] Metoprolol Succinate 25 mg Xl* [Toprol-Xl 25MG Tablets] 25 mg PO DAILY 11/09/22 [History] Apixaban [Eliquis] 5 mg PO BID 04/09/24 [History] Bisacodyl 10 mg [Dulcolax 10 MG SUPP] 10 mg RC Q6H PRN PRN 04/09/24 [History] Carboxymethylcellulos/Glycerin [Refresh Optive Eye Drops] 5 ml OP QIDPRN PRN 04/09/24 [History] Clopidogrel Bisulfate [PLAVIX Tablet] 75 mg PO DAILY 04/09/24 [History] Cyanocobalamin (Vitamin B-12) [B-12] 1,000 mcg PO DAILY 04/09/24 [History] Dextrose [Glucose Gel] 38 gm PO UD 04/09/24 [History] Duloxetine HCl 30 mg [Cymbalta 30 MG Capsule] 30 mg PO DAILY 04/09/24 [History] Gabapentin [Neurontin ] 100 mg PO TID 04/09/24 [History] Glucagon 1 mg [GlucaGen 1 MG] 1 mg IM UD 04/09/24 [History] Hydrocodone/Acetaminophen [Hydrocodone-Acetamin 7.5-325] 1 each PO Q4HPRN PRN 04/09/24 [History] Insulin Aspart [NovoLOG Insulin] 10 unit SQ TIDAC 04/09/24 [History] Insulin Glargine,Hum.rec.anlog [Basaglar Kwikpen U-100] 90 unit SQ HS 04/09/24 [History] Loperamide HCl 2 mg [Imodium 2 mg] 2 mg PO Q8H PRN PRN 04/09/24 [History] Magnesium Hydroxide 30 ml [Milk of Magnesia 30 ml] 30 ml PO DAILY PRN PRN 04/09/24 [History] Nitroglycerin 0.4 mg Tablet [Nitrostat 0.4 MG Tablet] 0.4 mg SL UD 04/09/24 [History] PANTOPRAZOLE 40 mg Tablet [Protonix 40MG Tablet] 40 mg PO BID 04/09/24 [History] Polyethylene Glycol 3350 17 gm [Miralax Powder 17GM PACKET] 17 gm PO HS 04/09/24 [History] Potassium Chloride [Klor-Con M20] 20 meq PO BID 04/09/24 [History] Rosuvastatin Calcium 20 mg PO HS 04/09/24 [History] Zinc Oxide [Diaper Rash] 56 gm TP BID 04/09/24 [History] diphenhydrAMINE HCL [Allergy Relief] 25 mg PO Q8H PRN PRN 04/09/24 [History] Acetaminophen 325 mg [Tylenol 325 mg] 650 mg PO Q4H PRN PRN 04/17/24 [History] Acetaminophen 325 mg [Tylenol 325 mg] 650 mg PO Q4HPRN PRN 04/17/24 [History] Acetaminophen [Tylenol Extra Strength] 1,000 mg PO BID 04/17/24 [History] Diclofenac Sodium [Voltaren Arthritis Pain] 1 appful Q8HPRN PRN 04/17/24 [History] Ondansetron ODT 4 MG [Zofran Odt 4 mg] 1 tab PO Q8HPRN PRN 04/17/24 [History] Hx Tetanus, Diphtheria Vaccination/Date Given: Yes Hx Influenza Vaccination/Date Given: No Hx Pneumococcal Vaccination/Date Given: Yes Travel Risk - International Travel Have you traveled outside of the country in past 3 weeks: No - Emerging Infectious Disease Are you exhibiting symptoms associated with any current EIDs: No Symptoms: Abdominal Pain, Vomitting - Review of Systems Constitutional: No Symptoms Eyes: No Symptoms Ears, Nose, & Throat: No Symptoms Respiratory: No Symptoms Cardiac: Chest Pain Abdominal/Gastrointestinal: No Symptoms Genitourinary Symptoms: No Symptoms Musculoskeletal: No Symptoms Skin: No Symptoms Neurological: No Symptoms Psychological: No Symptoms Endocrine: No Symptoms Hematologic/Lymphatic: No Symptoms Immunological/Allergic: No Symptoms All Other Systems: Reviewed and Negative - Past Medical History Pertinent Past Medical History: Yes Neurological History: No Pertinent History, Peripheral Neuropathy ENT History: Macular Degeneration Cardiac History: Coronary Artery Disease, Deep Vein Thrombosis, High Cholesterol, Hypertension Respiratory History: Asthma, COPD, Pneumonia, Sleep Apnea Endocrine Medical History: Diabetes Type II, Hypothyroidism Musculoskeletal History: Arthritis, Fractures, Osteoarthritis GI Medical History: Colitis, Diverticulitis, GERD, GI Bleed, Irritable Bowel, Other History: Renal Disease Psycho-Social History: No Pertinent History Female Reproductive Disorders: Breast Cancer Other Medical History: breast cancer 1987, GASTROPARESIS, fibromyalgia - Past Surgical History Past Surgical History: Yes Neuro Surgical History: No Pertinent History Cardiac: Cardiac Catheterization, Cardiac Stent Respiratory: No Pertinent History Gastrointestinal: Cholecystectomy Genitourinary: No Pertinent History Musculoskeletal: No Pertinent History Female Surgical History: Hysterectomy, Section, Mastectomy Other Surgical History: Uvula remove, 3 CARDIAC STENTS - Social History Smoking Status: Never smoker Exposure to second hand smoke: No Drug Use: none Patient Lives Alone: No - Social Determinants of Health Will the patient participate in the screening: Yes Do you worry about a steady place to live?: No In the past 12 months,have you had to go without utilities?: No Transportation Issues: No Has anyone in your support network made you feel unsafe?: No Have you or anyone in your house had to go without enough: No Comment: from [facility] - Nursing Vital Signs Nursing Vital Signs: Initial Vital Signs Pulse Rate 95 H 04/20/24 21:51 Respiratory Rate 18 04/20/24 21:51 Blood Pressure 142/65 04/20/24 21:51 O2 Sat by Pulse Oximetry 96 04/20/24 21:51 Pain Scale Pain Intensity 5 - Physical Exam General Appearance: no apparent distress, alert, anxiety Eye Exam: PERRL/EOMI, eyes nml inspection Ears, Nose, Throat Exam: normal ENT inspection, moist mucous membranes Neck Exam: normal inspection, non-tender, supple, full range of motion Respiratory Exam: normal breath sounds, lungs clear, airway intact, No chest tenderness (No chest pain present in the anterior chest but sharp pain upper chest into the right shoulder and right neck), No respiratory distress Cardiovascular Exam: regular rate/rhythm, normal heart sounds, normal peripheral pulses Gastrointestinal/Abdomen Exam: soft, normal bowel sounds, No tenderness Pelvic Exam: not done Rectal Exam: not done Back Exam: normal inspection, normal range of motion, No CVA tenderness, No vertebral tenderness Extremity Exam: normal inspection, normal range of motion, pelvis stable Neurologic Exam: alert, oriented x 3, cooperative, paper folder II-XII nml as tested, sensation nml Skin Exam: normal color, warm, dry Lymphatic Exam: No adenopathy SpO2 Interpretation: normal O2 Delivery: Room Air - Course Nursing assessment & vital signs reviewed: Yes EKG Interpreted by Me: RATE (94), Sinus Rhythm, NORMAL AXIS, NORMAL INTERVALS, NORMAL QRS, NORMAL ST-T, Other (No acute ischemic changes on today's twelve-lead EKG. QTc is 440. Evidence of old infarcts present) Ordered Tests: Active Orders 24 hr Category Date Time Status Birthing Nurse STAT Care 04/20/24 22:05 Active EKG-ER Only STAT Care 04/20/24 22:05 Active Pulse Oximetry (ED) STAT Care 04/20/24 22:05 Active CHEST WITHOUT CONTRAST [CT] Stat Exams 04/20/24 22:09 Completed CBC W DIFF Stat Lab 04/20/24 22:20 Completed CMP Stat Lab 04/20/24 22:20 Completed MAG [MAGNESIUM] Stat Lab 04/20/24 22:20 Completed NT PRO BNPII Stat Lab 04/20/24 22:20 Completed TROPONIN Q4H Lab 04/20/24 22:20 Completed TROPONIN Q4H Lab 04/21/24 02:15 Ordered TROPONIN Q4H Lab 04/21/24 06:15 Ordered Medication Summary Generic Name Dose Route Start Last Admin Trade Name Freq PRN Reason Stop Dose Admin Ceftriaxone Sodium 1 gm in 100 mls @ 200 mls/hr 04/21/24 00:49 Rocephin 1 Gm / 100 Ml Nacl IV 04/21/24 01:18 STAT ONE Discontinued Medications Generic Name Dose Route Start Last Admin Trade Name Freq PRN Reason Stop Dose Admin Furosemide 40 mg 04/20/24 23:53 Furosemide 40 Mg Tablet PO 04/20/24 23:54 STAT ONE Magnesium Oxide 400 mg 04/20/24 23:52 Magnesium Oxide 400 Mg Tablet PO 04/20/24 23:53 STAT ONE Lab/Rad Data: Laboratory Result Diagrams 04/20/24 22:20 04/20/24 22:20 Laboratory Results 04/20/24 04/20/24 04/20/24 Range/Units 22:20 22:20 22:20 WBC 17.5 H (3.98-10.04) x10^3/uL RBC 3.25 L (3.93-5.22) x10^6/uL Hgb 9.7 L D (11.2-15.7) g/dL Hct 30.6 L (34.1-44.9) % MCV 94.2 (79.4-94.8) fL MCH 29.8 (25.6-32.2) pg MCHC 31.7 L (32.2-35.5) g/dL RDW 15.0 H (11.7-14.4) % Plt Count 243 (182-369) x10^3/uL MPV 9.6 (9.4-12.3) fL Gran % 76.6 H (34.0-71.1) % Immature Gran % (Auto) 0.9 H (0.001-0.429) % Nucleat RBC Rel Count 0.0 (0.00-0.2) % Eos # (Auto) 0.69 H (0.04-0.36) x10^3/uL Immature Gran # (Auto) 0.16 H (0.001-0.031) x10^3u/L Absolute Lymphs (auto) 2.08 (1.18-3.74) x10^3/uL Absolute Monos (auto) 1.11 H (0.24-0.86) x10^3/uL Absolute Nucleated RBC 0.00 (0.00-0.012) x10^3u/L Lymphocytes % 11.9 L (19.3-51.7) % Monocytes % 6.4 (4.7-12.5) % Eosinophils % 3.9 (0.7-5.8) % Basophils % 0.3 (0.1-1.2) % Absolute Granulocytes 13.38 H (1.56-6.13) x10^3/uL Basophils # 0.05 (0.01-0.08) x10^3/uL Sodium 132 L (135-145) mmol/L Potassium 5.2 H (3.5-5.1) mmol/L Chloride 101 (98-107) mmol/L Carbon Dioxide 22 (22-30) mmol/L Anion Gap 14.0 (5-15) MEQ/L BUN 26 H (7-17) mg/dL Creatinine 1.65 H (0.52-1.04) mg/dL Estimated GFR 31.2 ML/MIN Glucose 139 H (74-106) mg/dL Calcium 9.2 (8.4-10.2) mg/dL Magnesium 1.4 L (1.6-2.3) mg/dL Total Bilirubin 0.50 (0.2-1.3) mg/dL AST 21 (14-36) U/L ALT 14 (0-35) U/L Alkaline Phosphatase 73 (38-126) U/L Troponin I < 0.012 (0.000-0.033) ng/mL NT-Pro-B Natriuret Pep 5930 (<300) pg/mL Serum Total Protein 6.8 (6.3-8.2) g/dL Albumin 3.5 (3.5-5.0) g/dL - Progress Progress: improved, re-examined Air Movement: good Progress Note: 04/20/24 22:55 My medical decision making and the assignment of moderate complexity to this patient's medical issue today is based on review of the patient's past medical h istory, review of the patient's medication list, reviewed patient drug allergy list, history present illness and physical findings on examination. The workup in this patient includes CBC, CMP, magnesium level, troponin level, twelve-lead EKG, CT scan of the chest without contrast. This patient has had an extensive workup twice since 04/09/2024. She is here for the third time since 04/09/2024 in our emergency department. Today, we will recheck electrolyte levels, troponin levels and twelve-lead EKG as well as performing CT scan of the chest without contrast. I do not feel it is necessary to draw a D-dimer since the patient is fully anticoagulation on 2 different medications (Plavix and Eliquis). Patient also was not complaining of significant abdominal pain. She has had no nausea vomiting symptoms. She also has been tolerating liquids and crackers per her report. I will stop the gail ent's Reglan she just started since she is having some tardive dyskinesia signs with lipsmacking. Differential diagnosis includes but is not limited to electrolyte abnormalities, intrathoracic acute abnormality, myocardial infarction, arrhythmia. 04/21/24 00:57 I interpreted the patient's laboratory data results. The patient does have a leukocytosis. The remainder of her labs Interpreted are stable when compared to her prior labs. I did review the patient's medication list and I did not see antibiotics listed. I am giving her 1 g Rocephin intravenously to cover her urinary tract infection. I will also send a prescription for cefdinir to the pharmacy. Her urinalysis performed on 04/17/2024 and she had a significant urinary tract infection at that time. 04/21/24 00:[address] scan of the chest without contrast was interpreted by the radiologist and I reviewed the impression. The impression states no consolidation. Mild wedge compression deformities of T7 and T11. Cardiomegaly with trace of pericardial effusion mild bilateral pleural effusion. Blood Culture(s) Obtained: No Antibiotics given: Yes Counseled pt/family regarding: lab results, diagnosis, need for follow-up, rad results Medical Desision Making - Independent Historian Additional History obtained from: Family - Diagnostic Testing Diagnostic test were ordered, analyzed, and reviewed by me: Yes Radiological Interpretation: Reviewed by me, Teleradiologist Report - Risk of complications The pt has a mod risk of morbidity or mortality based on: Need for prescription drug management - Departure Departure Disposition: Home Clinical Impression: CHF (congestive heart failure), Leukocytosis Condition: Stable Critical Care Time: No Referrals: LINH MCGILL MD [Primary Care Provider] - Follow up/PCP as directed Instructions: Heart Failure Additional Instructions: Take the antibiotics as prescribed to treat urinary tract infection. Increase Lasix at home to 40 mg orally twice a day for 3 days only then back to 40 mg daily. Call the patient primary care provider on 04/23/2024 to make arranges for follow-up appointment for further evaluation management. Prescriptions: Cefdinir 300 mg PO BID #14 cap
[2024-04-20 22:23] LABS: Absolute Neutrophil Ct (ANC) 13.38 x10^3/uL (1.56-6.13); BASOPHIL % 0.3 % (0.1-1.2); Basophil (Absolute #) 0.05 x10^3/uL (0.01-0.08); Eosinophil % 3.9 % (0.7-5.8); Eosinophil (Absolute #) 0.69 x10^3/uL (0.04-0.36); Hematocrit 30.6 % (34.1-44.9); Hemoglobin 9.7 g/dL (11.2-15.7); IMMATURE GRAN # 0.16 x10^3u/L (0.001-0.031); IMMATURE GRAN % 0.9 % (0.001-0.429); Lymphocyte (Absolute #) 2.08 x10^3/uL (1.18-3.74); Lymphocytes % 11.9 % (19.3-51.7); Mean Cell Volume 94.2 fL (79.4-94.8); Mean Corpuscular Hemoglobin 29.8 pg (25.6-32.2); Mean Corpuscular Hgb Concent. 31.7 g/dL (32.2-35.5); Mean Platelet Volume 9.6 fL (9.4-12.3); Monocyte (Absolute #) 1.11 x10^3/uL (0.24-0.86); Monocytes % 6.4 % (4.7-12.5); Neutrophil % 76.6 % (34.0-71.1); Platelet Count 243 x10^3/uL (182-369); Red Blood Count 3.25 x10^6/uL (3.93-5.22); White Blood Count 17.5 x10^3/uL (3.98-10.04)
[2024-04-20 22:35] VITALS: TEMP 98.9
[2024-04-20 22:42] LABS: ALBUMIN 3.5 g/dL (3.5-5.0); BILIRUBIN,TOTAL 0.5 mg/dL (0.2-1.3); Calcium 9.2 mg/dL (8.4-10.2); Creatinine 1 1.65 mg/dL (0.52-1.04); EST GLOMERULAR FILTRATION RATE 31.2 ML/MIN; MAGNESIUM 1.4 mg/dL (1.6-2.3); Potassium 5.2 mmol/L (3.5-5.1); Total Protein 6.8 g/dL (6.3-8.2)
--- NOTE | 2024-04-21 00:08 | XRAY ---
CLINICAL HISTORY: Chest pain COMPARISON: Chest x-ray done on 04/18/2024 was reviewed. TECHNIQUE: Contiguous axial CT images of the chest were acquired without administration of intravenous contrast. Coronal and sagittal reconstructions were also obtained. One of the following dose reduction techniques were utilized for this exam: Automated exposure control, adjustment of the mA and/or kV according to patient size, use of iterative reconstruction. FINDINGS: Lungs: No evidence of consolidation. A 0.5 mm subpleural nodule in the left posterior lung base (S3 Img 43) No evidence of interstitial lung disease or emphysema. Small bilateral pleural effusion, with passive atelectasis in the left. Mediastinum: The mediastinum is normal in size and contour. No mediastinal mass or abnormal lymphadenopathy. Small right lower paratracheal lymph node. Cardiomegaly. Trace of pericardial effusion. Atherosclerotic aorta and coronary arteries. Hilar Structures: The hilar structures appear normal without enlargement or abnormality. Trachea and Main Bronchi: The trachea and main bronchi are patent without evidence of obstruction or abnormality. Chest Wall: The chest wall is unremarkable with no evidence of soft tissue or bony abnormalities. Upper Abdomen: Distended stomach. Visualized portions of the liver, spleen, adrenal glands, and kidneys are unremarkable. Bones: Degenerative osseous changes of the spine. Mild wedge compression deformities of T7 and T11 vertebral bodies. IMPRESSION: 1. No evidence of consolidation. A 0.5 mm subpleural nodule in the left posterior lung base (S3 Img 43). No routine follow up required for low risk patient as per Fleischner guidelines. 2. Cardiomegaly with trace of pericardial effusion. 3. Mild bilateral pleural effusion. Electronically Signed by: Eduardo Juarez MD. (04/21/2024 00:03:55 EDT)
[2024-04-21] MEDS: MAG-OX 400 PO ONE (01:30)
[2024-04-21] MEDS ORDERED: ROCEPHIN 1 GM / 100 ML NaCl 1 GM/100 ML IVPB IV ONE (01:30)
[2024-04-21] MEDS ORDERED: MAG-OX 400 ONE (01:30)
[2024-04-21] MEDS: ROCEPHIN 1 GM / 100 ML NaCl 1 GM/100 ML IVPB IV ONE (01:31)
[2024-04-21] MEDS ORDERED: Lasix 40 MG ONE (02:04)
[2024-04-21] MEDS ORDERED: NORCO 5/325 MG ONE (02:13)
[2024-04-21] MEDS: Lasix 40 MG PO ONE (02:13)
[2024-04-21] MEDS: NORCO 5/325 MG PO ONE (02:13)
[2024-04-21 06:31] VITALS: BP 142/54; PULSE 96; RESP 16; O2SAT 99
== END 2024-04-21 09:51 ==
LOC: ED 21:51
DX: R07.9 Chest pain, unspecified (principal); I25.10 Atherosclerotic heart disease of native coronary artery without angina pectoris; I11.0 Hypertensive heart disease with heart failure; I50.9 Heart failure, unspecified; D72.829 Elevated white blood cell count, unspecified; E11.9 Type 2 diabetes mellitus without complications; Z79.01 Long term (current) use of anticoagulants; Z79.899 Other long term (current) drug therapy; Z86.718 Personal history of other venous thrombosis and embolism
CPT/HCPCS: 36000; 36415; 71250; 80053; 83735; 83880; 84484; 85025; 93005; 93041; 94760; 96365; 99284; J0696; A9270-GY

== ENCOUNTER 2024-07-16 09:49 | Observation (INO) | payer MEDICARE, OTHER ==
[2024-07-16] MEDS ORDERED: solu-MEDROL ONE (10:16)
[2024-07-16] MEDS ORDERED: Sterile H2O 10 ml IJ ONE (10:16)
[2024-07-16] MEDS: solu-MEDROL 125 MG, Sterile H2O 10 ml 2 ML IV ONE (10:17)
[2024-07-16] MEDS ORDERED: DUONEB 0.5-3 MG/3 ml Neb IH ONE (10:17)
[2024-07-16] MEDS: DUONEB 0.5-3 MG/3 ml Neb IH ONE (10:19)
[2024-07-16 10:35] LABS: BASOPHIL % 0.4 % (0.1-1.2); Basophil (Absolute #) 0.03 x10^3/uL (0.01-0.08); Eosinophil % 2.6 % (0.7-5.8); Eosinophil (Absolute #) 0.21 x10^3/uL (0.04-0.36); Hematocrit 30.3 % (34.1-44.9); Hemoglobin 9.3 g/dL (11.2-15.7); IMMATURE GRAN # 0.12 x10^3u/L (0.001-0.031); IMMATURE GRAN % 1.5 % (0.001-0.429); Lymphocyte (Absolute #) 3.38 x10^3/uL (1.18-3.74); Lymphocytes % 41.7 % (19.3-51.7); Mean Cell Volume 98.4 fL (79.4-94.8); Mean Corpuscular Hemoglobin 30.2 pg (25.6-32.2); Mean Corpuscular Hgb Concent. 30.7 g/dL (32.2-35.5); Mean Platelet Volume 10.1 fL (9.4-12.3); Monocyte (Absolute #) 0.96 x10^3/uL (0.24-0.86); Monocytes % 11.9 % (4.7-12.5); Neutrophil % 41.9 % (34.0-71.1); Platelet Count 194 x10^3/uL (182-369); Red Blood Count 3.08 x10^6/uL (3.93-5.22); Red Cell Distribution Width 15.9 % (11.7-14.4); White Blood Count 8.1 x10^3/uL (3.98-10.04)
--- NOTE | 2024-07-16 10:59 | XRAY ---
Indication: Pneumonia. Fever. Flulike symptoms. Comparison: April 18, 2024 Portable apical lordotic chest remains inflated and clear. Heart remains enlarged. Bony thorax intact again with osteopenia and degenerative changes. No new/acute findings.
[2024-07-16 11:15] LABS: INFLUENZA A NEGATIVE (NEGATIVE); INFLUENZA B NEGATIVE (NEGATIVE); RESPIRATORY SYNCTIAL VIRUS NEGATIVE (NEGATIVE)
[2024-07-16 11:18] LABS: SARS-CoV-2 Xpert Express POSITIVE (NEGATIVE)
[2024-07-16 11:20] LABS: ALBUMIN 3.2 g/dL (3.5-5.0); BILIRUBIN,TOTAL 0.2 mg/dL (0.2-1.3); Calcium 8.3 mg/dL (8.4-10.2); Creatinine 1 2.19 mg/dL (0.52-1.04); EST GLOMERULAR FILTRATION RATE 22.2 ML/MIN; Potassium 4.7 mmol/L (3.5-5.1); Total Protein 6.2 g/dL (6.3-8.2)
--- NOTE | 2024-07-16 11:53 | ERPHSYRPT ---
- History of Present Illness Time Seen by Provider: 07/16/24 09:54 Source: patient, EMS, longterm records Exam Limitations: no limitations Patient Subjective Stated Complaint: C/O SOB this am with new 02 utilization Triage Nursing Assessment: Patient arrived by ambulance. 02 sats 87% on room air then increased to 94% with 02 @ 2L per N/C. She is alert to self and place at this time. Confused to time and situation. Skin is hot to touch. Face is flushed. Some labored breathing present. Moist, non-productive cough. Lips dry. Physician History: Patient is here with new oxygen requirement, fever up to 102 at a longterm. Patient is a resident of an extended care facility. They state that she is not usually on oxygen. However was on 87% on room air this morning. Placed on 2 L did come up to 94% she is alert to self and place and time. However she is confused of the situation and what hospital she is at. Temperature is 100.3 here. She has had increased cough, cold, congestion. Patient recently finished cefdinir as an antibiotic for UTI. Will repeat a UA here to check on this. As I walk in the room she has a nonproductive cough. Lips do appear cracked. Allergies/Adverse Reactions: latex Allergy (Intermediate, Verified 07/16/24 10:04) Hives bee venom protein (honey bee) Allergy (Unknown, Verified 07/16/24 10:04) shellfish derived Allergy (Unknown, Verified 07/16/24 10:04) algae in the ocean fiberglass Allergy (Intermediate, Uncoded 07/16/24 10:04) Hives Home Medications: Allopurinol 100 mg [Zyloprim 100 mg] 100 mg PO DAILY 11/09/22 [History] Dapagliflozin Propanediol [Farxiga] 10 mg PO DAILY 11/09/22 [History] Dicyclomine HCl 20 mg [Bentyl 20 mg] 10 mg PO TID 11/09/22 [History] Ergocalciferol (Vitamin D2) [Vitamin D2] 1.25 mg PO WEEKLY 11/09/22 [History] Ferrous Sulfate 325 mg [Feosol 325 mg] 325 mg PO DAILY 11/09/22 [History] Furosemide [Lasix] 40 mg PO DAILY 11/09/22 [History] Isosorbide Mononitrate [Isosorbide Mononitrate ER] 60 mg PO DAILY 11/09/22 [History] Levothyroxine Sodium 25 Mcg [Synthroid 25 Mcg] 75 mcg PO DAILY 11/09/22 [History] Metoprolol Succinate 25 mg Xl* [Toprol-Xl 25MG Tablets] 25 mg PO DAILY 11/09/22 [History] Apixaban [Eliquis] 5 mg PO BID 04/09/24 [History] Bisacodyl 10 mg [Dulcolax 10 MG SUPP] 10 mg RC Q6H PRN PRN 04/09/24 [History] Carboxymethylcellulos/Glycerin [Refresh Optive Eye Drops] 5 ml OP QIDPRN PRN 04/09/24 [History] Clopidogrel Bisulfate [PLAVIX Tablet] 75 mg PO DAILY 04/09/24 [History] Cyanocobalamin (Vitamin B-12) [B-12] 1,000 mcg PO DAILY 04/09/24 [History] Dextrose [Glucose Gel] 38 gm PO UD 04/09/24 [History] Duloxetine HCl 30 mg [Cymbalta 30 MG Capsule] 30 mg PO DAILY 04/09/24 [History] Gabapentin [Neurontin ] 100 mg PO TID 04/09/24 [History] Glucagon 1 mg [GlucaGen 1 MG] 1 mg IM UD 04/09/24 [History] Hydrocodone/Acetaminophen [Hydrocodone-Acetamin 7.5-325] 1 each PO Q4HPRN PRN 04/09/24 [History] Insulin Aspart [NovoLOG Insulin] 10 unit SQ TIDAC 04/09/24 [History] Insulin Glargine,Hum.rec.anlog [Basaglar Kwikpen U-100] 90 unit SQ HS 04/09/24 [History] Loperamide HCl 2 mg [Imodium 2 mg] 2 mg PO Q8H PRN PRN 04/09/24 [History] Magnesium Hydroxide 30 ml [Milk of Magnesia 30 ml] 30 ml PO DAILY PRN PRN 04/09/24 [History] Nitroglycerin 0.4 mg Tablet [Nitrostat 0.4 MG Tablet] 0.4 mg SL UD 04/09/24 [History] PANTOPRAZOLE 40 mg Tablet [Protonix 40MG Tablet] 40 mg PO BID 04/09/24 [History] Polyethylene Glycol 3350 17 gm [Miralax Powder 17GM PACKET] 17 gm PO HS 04/09/24 [History] Potassium Chloride [Klor-Con M20] 20 meq PO BID 04/09/24 [History] Rosuvastatin Calcium 20 mg PO HS 04/09/24 [History] Zinc Oxide [Diaper Rash] 56 gm TP BID 04/09/24 [History] diphenhydrAMINE HCL [Allergy Relief] 25 mg PO Q8H PRN PRN 04/09/24 [History] Acetaminophen 325 mg [Tylenol 325 mg] 650 mg PO Q4H PRN PRN 04/17/24 [History] Acetaminophen 325 mg [Tylenol 325 mg] 650 mg PO Q4HPRN PRN 04/17/24 [History] Acetaminophen [Tylenol Extra Strength] 1,000 mg PO BID 04/17/24 [History] Diclofenac Sodium [Voltaren Arthritis Pain] 1 appful Q8HPRN PRN 04/17/24 [History] Ondansetron ODT 4 MG [Zofran Odt 4 mg] 1 tab PO Q8HPRN PRN 04/17/24 [History] Hx Tetanus, Diphtheria Vaccination/Date Given: Yes Hx Influenza Vaccination/Date Given: No Hx Pneumococcal Vaccination/Date Given: Yes Immunizations Up to Date: Yes Travel Risk - International Travel Have you traveled outside of the country in past 3 weeks: No - Emerging Infectious Disease Are you exhibiting symptoms associated with any current EIDs: Yes Symptoms: Abdominal Pain, Cough: New Onset, Fever, Shortness of Breath - Past Medical History Pertinent Past Medical History: Yes Neurological History: No Pertinent History, Peripheral Neuropathy ENT History: Macular Degeneration Cardiac History: Coronary Artery Disease, Deep Vein Thrombosis, High Cholesterol, Hypertension Respiratory History: Asthma, COPD, Pneumonia, Sleep Apnea Endocrine Medical History: Diabetes Type II, Hypothyroidism Musculoskeletal History: Arthritis, Fractures, Osteoarthritis GI Medical History: Colitis, Diverticulitis, GERD, GI Bleed, Irritable Bowel, Other History: Renal Disease Psycho-Social History: No Pertinent History Female Reproductive Disorders: Breast Cancer Other Medical History: breast cancer 1987, GASTROPARESIS, fibromyalgia - Past Surgical History Past Surgical History: Yes Neuro Surgical History: No Pertinent History Cardiac: Cardiac Catheterization, Cardiac Stent Respiratory: No Pertinent History Gastrointestinal: Cholecystectomy Genitourinary: No Pertinent History Musculoskeletal: No Pertinent History Female Surgical History: Hysterectomy, Section, Mastectomy Other Surgical History: Uvula remove, 3 CARDIAC STENTS - Social History Smoking Status: Never smoker Exposure to second hand smoke: No Drug Use: none Patient Lives Alone: No - Social Determinants of Health Will the patient participate in the screening: Yes Do you worry about a steady place to live?: No Do you have any problems with any of the following?: No known problems In the past 12 months,have you had to go without utilities?: No Transportation Issues: No Has anyone in your support network made you feel unsafe?: No Have you or anyone in your house had to go without enough: No Comment: from [facility] [place] - Nursing Vital Signs Nursing Vital Signs: Initial Vital Signs Temperature 100.3 F 07/16/24 09:51 Pulse Rate 76 07/16/24 09:51 Respiratory Rate 22 07/16/24 09:51 Blood Pressure 134/42 07/16/24 09:51 O2 Sat by Pulse Oximetry 87 L 07/16/24 09:51 Pain Scale Pain Intensity 6 - Physical Exam SpO2 Interpretation: normal SpO2: 94 Comments: 07/16/24 12:07 Review of Systems Constitutional: Negative for fever. HENT: Cold, congestion Respiratory: Shortness of breath, cough, cold, congestion Cardiovascular: Negative for chest pain. Gastrointestinal: Negative for abdominal pain. Genitourinary: Negative for dysuria. Musculoskeletal: Negative for back pain. Skin: Negative for rash. Neurological: Negative for headaches. Psychiatric/Behavioral: Negative for behavioral problems. All other systems reviewed and are negative. Physical Exam Vitals signs and nursing note reviewed. Constitutional: Appearance: Patient is well-developed. HENT: Head: Normocephalic and atraumatic. Eyes: Conjunctiva/sclera: Conjunctivae normal. Neck: Musculoskeletal: Normal range of motion. Trachea: No tracheal deviation. Cardiovascular: Rate and Rhythm: Normal rate. Pulmonary: Effort: New hypoxia, on 2 L of oxygen, wheezing throughout, crackles at bases Abdominal: Palpations: Abdomen is soft. Musculoskeletal: General: No deformity. Skin: General: Skin is warm and dry. Neurological/ Psychiatric: Mental Status: Mental status, behavior, interaction with environment is appropriate for patient's age and condition - Course Nursing assessment & vital signs reviewed: Yes EKG Interpreted by Me: NORMAL AXIS (Sinus rhythm, rate of 79, NV interval 182, QRS 89, QTc is 447, no STEMI or other ST changes) Ordered Tests: Active Orders 24 hr Category Date Time Status Call Admit Doctor for Orders ON ADMISSION Care 07/16/24 11:53 Active Manager [employer] Communications STAT Care 07/16/24 10:05 Active Code Status Order ROUTINE Care 07/16/24 11:53 Active EKG-ER Only STAT Care 07/16/24 10:04 Active IV Insertion STAT Care 07/16/24 10:[address] in Observation ROUTINE Care 07/16/24 11:53 Active Telemetry q6h Care 07/16/24 11:54 Active CHEST 1 VIEW (PORTABLE) Stat Exams 07/16/24 10:05 Completed CBC W DIFF Stat Lab 07/16/24 10:30 Completed CMP Stat Lab 07/16/24 10:30 Completed CULTURE,URINE Stat Lab 07/16/24 10:05 Ordered NT PRO BNPII Stat Lab 07/16/24 10:30 Completed TROPONIN Q4H Lab 07/16/24 10:30 Completed TROPONIN Q4H Lab 07/16/24 14:15 Ordered TROPONIN Q4H Lab 07/16/24 18:15 Ordered UA W/RFX UR CULTURE Stat Lab 07/16/24 10:05 Ordered Pulse Oximetry CONTINUOUS RT 07/16/24 11:54 Active Respiratory Therapy Consult ONCE RT 07/16/24 11:53 Active Transfer Order Routine Transfer 07/16/24 Ordered Medication Summary Discontinued Medications Generic Name Dose Route Start Last Admin Trade Name Freq PRN Reason Stop Dose Admin Albuterol/Ipratropium 3 ml 07/16/24 10:04 07/16/24 10:19 Ipratropium/Albuterol Sulfate 3 Ml Ampul.Neb IH 07/16/24 10:05 3 ml STAT ONE Administration Albuterol/Ipratropium Confirm 07/16/24 10:17 Ipratropium/Albuterol Sulfate 3 Ml Ampul.Neb Administered 07/16/24 10:18 Dose 3 ml IH .STK-MED ONE Methylprednisolone Sodium 0 mg 07/16/24 10:04 07/16/24 10:17 Succinate 125 mg/ Sterile IV 07/16/24 10:05 125 mg Water 2 ml STAT ONE Administration Methylprednisolone Sodium Succinate Confirm 07/16/24 10:16 Methylprednis Sod Succ 125 Mg/2 Ml Vial Administered 07/16/24 10:17 Dose 125 mg .ROUTE .STK-MED ONE Sterile Water Confirm 07/16/24 10:16 Water For Injection,Sterile 10 Ml Vial Administered 07/16/24 10:17 Dose 10 ml IJ .STK-MED ONE Lab/Rad Data: Laboratory Result Diagrams 07/16/24 10:30 07/16/24 10:30 Laboratory Results 07/16/24 07/16/24 07/16/24 Range/Units 10:30 10:30 10:30 WBC (3.98-10.04) x10^3/uL RBC (3.93-5.22) x10^6/uL Hgb (11.2-15.7) g/dL Hct (34.1-44.9) % MCV (79.4-94.8) fL MCH (25.6-32.2) pg MCHC (32.2-35.5) g/dL RDW (11.7-14.4) % Plt Count (182-369) x10^3/uL MPV (9.4-12.3) fL Gran % (34.0-71.1) % Immature Gran % (Auto) (0.001-0.429) % Nucleat RBC Rel Count (0.00-0.2) % Eos # (Auto) (0.04-0.36) x10^3/uL Immature Gran # (Auto) (0.001-0.031) x10^3u/L Absolute Lymphs (auto) (1.18-3.74) x10^3/uL Absolute Monos (auto) (0.24-0.86) x10^3/uL Absolute Nucleated RBC (0.00-0.012) x10^3u/L Lymphocytes % (19.3-51.7) % Monocytes % (4.7-12.5) % Eosinophils % (0.7-5.8) % Basophils % (0.1-1.2) % Absolute Granulocytes (1.56-6.13) x10^3/uL Basophils # (0.01-0.08) x10^3/uL Sodium 138 (135-145) mmol/L Potassium 4.7 (3.5-5.1) mmol/L Chloride 106 (98-107) mmol/L Carbon Dioxide 22 (22-30) mmol/L Anion Gap 14.0 (5-15) MEQ/L BUN 39 H (7-17) mg/dL Creatinine 2.19 H (0.52-1.04) mg/dL Estimated GFR 22.2 ML/MIN Glucose 181 H (74-106) mg/dL Calcium 8.3 L (8.4-10.2) mg/dL Total Bilirubin 0.20 (0.2-1.3) mg/dL AST 25 (14-36) U/L ALT 16 (0-35) U/L Alkaline Phosphatase 67 (38-126) U/L Troponin I 0.033 (0.000-0.033) ng/mL NT-Pro-B Natriuret Pep 2470 (<300) pg/mL Serum Total Protein 6.2 L (6.3-8.2) g/dL Albumin 3.2 L (3.5-5.0) g/dL Influenza Type A Ag NEGATIVE (NEGATIVE) Influenza Type B Ag NEGATIVE (NEGATIVE) RSV (PCR) NEGATIVE (NEGATIVE) SARS-CoV-2 (PCR) POSITIVE A (NEGATIVE) 07/16/24 Range/Units 10:30 WBC 8.1 (3.98-10.04) x10^3/uL RBC 3.08 L (3.93-5.22) x10^6/uL Hgb 9.3 L (11.2-15.7) g/dL Hct 30.3 L (34.1-44.9) % MCV 98.4 H (79.4-94.8) fL MCH 30.2 (25.6-32.2) pg MCHC 30.7 L (32.2-35.5) g/dL RDW 15.9 H (11.7-14.4) % Plt Count 194 (182-369) x10^3/uL MPV 10.1 (9.4-12.3) fL Gran % 41.9 (34.0-71.1) % Immature Gran % (Auto) 1.5 H (0.001-0.429) % Nucleat RBC Rel Count 0.0 (0.00-0.2) % Eos # (Auto) 0.21 (0.04-0.36) x10^3/uL Immature Gran # (Auto) 0.12 H (0.001-0.031) x10^3u/L Absolute Lymphs (auto) 3.38 (1.18-3.74) x10^3/uL Absolute Monos (auto) 0.96 H (0.24-0.86) x10^3/uL Absolute Nucleated RBC 0.00 (0.00-0.012) x10^3u/L Lymphocytes % 41.7 (19.3-51.7) % Monocytes % 11.9 (4.7-12.5) % Eosinophils % 2.6 (0.7-5.8) % Basophils % 0.4 (0.1-1.2) % Absolute Granulocytes 3.40 (1.56-6.13) x10^3/uL Basophils # 0.03 (0.01-0.08) x10^3/uL Sodium (135-145) mmol/L Potassium (3.5-5.1) mmol/L Chloride (98-107) mmol/L Carbon Dioxide (22-30) mmol/L Anion Gap (5-15) MEQ/L BUN (7-17) mg/dL Creatinine (0.52-1.04) mg/dL Estimated GFR ML/MIN Glucose (74-106) mg/dL Calcium (8.4-10.2) mg/dL Total Bilirubin (0.2-1.3) mg/dL AST (14-36) U/L ALT (0-35) U/L Alkaline Phosphatase (38-126) U/L Troponin I (0.000-0.033) ng/mL NT-Pro-B Natriuret Pep (<300) pg/mL Serum Total Protein (6.3-8.2) g/dL Albumin (3.5-5.0) g/dL Influenza Type A Ag (NEGATIVE) Influenza Type B Ag (NEGATIVE) RSV (PCR) (NEGATIVE) SARS-CoV-2 (PCR) (NEGATIVE) - Progress Progress: improved Progress Note: 07/16/24 12:09 Differential diagnosis includes pneumonia, other infection, UTI, STEMI, NSTEMI, other heart issue. Plan for basic labs, EKG, troponin, influenza, COVID, RSV swab. Breathing treatment, steroids, continued close monitoring, symptomatic relief with O2. Reevaluation: Patient found to be positive for COVID. Most likely the source of her hypoxia and overall symptoms. Patient has some other nonspecific electrolyte abnormalities. Patient does have a slight bump in her creatinine, has been this elevated in the past. Most likely due to decreased oral intake secondary to this infection. Patient also has a slight bump in her BNP. However chest x-ray shows no pneumonia, obvious volume overload. I did speak over the phone with on-call physician, Dr. Ramírez. We did discuss the case in detail. He did accept patient to his service. Plan for admission. Discussed with : Lilibeth Will see patient in: hospital (observation) Counseled pt/family regarding: lab results, diagnosis, need for follow-up, rad results - Departure Departure Disposition: Observation Clinical Impression: COVID-19, Hypoxia, Wheezing Condition: Stable Critical Care Time: No Referrals: LINH MCGILL MD [Primary Care Provider] - Follow up/PCP as directed
[2024-07-16] MEDS ORDERED: HUMALOG SQ PRN (12:50)
--- NOTE | 2024-07-16 13:09 | PCM.HP ---
History of Present Illness - Chief Complaint Chief Complaint: Covid 19 Date: 07/16/24 History of Present Illness: is a 79 year old female with PMHX of macular degeneration, iron def. anemia, CAD, DVT, hyperlipidemia, HTN, asthma, COPD, Sleep apnea, type II DM, hypothyroidism, OA, diverticulitis, GERD, IBS, renal disease, bresat cancer, gastroparesis, fibromyalgia, cardiac stents and chronic obesity. Patient is here with new oxygen requirement, fever up to 102 at a detention. Patient is a resident of an extended care facility. They state that she is not usually on oxygen. However was on 87% on room air this morning. Placed on 2 L did come up to 94% she is alert to self and place and time. However she is confused of the situation and what hospital she is at. Temperature is 100.3 here. She has had increased cough, cold, congestion. Patient recently finished cefdinir as an antibiotic for UTI. Will repeat a UA here to check on this. + nonproductive cough. Lips do appear cracked. In ER she was given duoneb and IV steriod. CXR negative. She is + for COVID. She has acute on chronic renal failure. Will start IVF, remdesivir, and steriods. - Review of Systems Constitutional: Fever, Fatigue, Lethargy, No Chills Eyes: No Symptoms Ears, Nose, & Throat: No Symptoms Respiratory: Cough, Short Of Breath Cardiac: No Chest Pain, No Edema, No Syncope Abdominal/Gastrointestinal: No Abdominal Pain, No Nausea, No Vomiting, No Diarrhea Genitourinary Symptoms: No Dysuria Musculoskeletal: No Back Pain, No Neck Pain Skin: No Rash Neurological: No Dizziness, No Focal Weakness, No Sensory Changes Psychological: No Symptoms Endocrine: No Symptoms Hematologic/Lymphatic: No Symptoms Immunological/Allergic: No Symptoms Medications & Allergies Home Medications: Home Medication List Allopurinol 100 mg [Zyloprim 100 mg] 100 mg PO DAILY 11/09/22 [History Confirmed 04/17/24] Dapagliflozin Propanediol [Farxiga] 10 mg PO DAILY 11/09/22 [History Confirmed 04/17/24] Dicyclomine HCl 20 mg [Bentyl 20 mg] 10 mg PO TID 11/09/22 [History Confirmed 04/17/24] Ergocalciferol (Vitamin D2) [Vitamin D2] 1.25 mg PO WEEKLY 11/09/22 [History Confirmed 04/17/24] Ferrous Sulfate 325 mg [Feosol 325 mg] 325 mg PO DAILY 11/09/22 [History C onfirmed 04/17/24] Furosemide [Lasix] 40 mg PO DAILY 11/09/22 [History Confirmed 04/17/24] Isosorbide Mononitrate [Isosorbide Mononitrate ER] 60 mg PO DAILY 11/09/22 [History Confirmed 04/17/24] Levothyroxine Sodium 25 Mcg [Synthroid 25 Mcg] 75 mcg PO DAILY 11/09/22 [History Confirmed 04/17/24] Metoprolol Succinate 25 mg Xl* [Toprol-Xl 25MG Tablets] 25 mg PO DAILY 11/09/22 [History Confirmed 04/17/24] Apixaban [Eliquis] 5 mg PO BID 04/09/24 [History Confirmed 04/17/24] Bisacodyl 10 mg [Dulcolax 10 MG SUPP] 10 mg RC Q6H PRN PRN 04/09/24 [History Confirmed 04/17/24] Carboxymethylcellulos/Glycerin [Refresh Optive Eye Drops] 5 ml OP QIDPRN PRN 04/09/24 [History Confirmed 04/17/24] Clopidogrel Bisulfate [PLAVIX Tablet] 75 mg PO DAILY 04/09/24 [History Confirmed 04/17/24] Cyanocobalamin (Vitamin B-12) [B-12] 1,000 mcg PO DAILY 04/09/24 [History Confirmed 04/17/24] Dextrose [Glucose Gel] 38 gm PO UD 04/09/24 [History Confirmed 04/17/24] Duloxetine HCl 30 mg [Cymbalta 30 MG Capsule] 30 mg PO DAILY 04/09/24 [History Confirmed 04/17/24] Gabapentin [Neurontin ] 100 mg PO TID 04/09/24 [History Confirmed 04/17/24] Glucagon 1 mg [GlucaGen 1 MG] 1 mg IM UD 04/09/24 [History Confirmed 04/17/24] Hydrocodone/Acetaminophen [Hydrocodone-Acetamin 7.5-325] 1 each PO Q4HPRN PRN 04/09/24 [History Confirmed 04/17/24] Insulin Aspart [NovoLOG Insulin] 10 unit SQ TIDAC 04/09/24 [History Confirmed 04/17/24] Insulin Glargine,Hum.rec.anlog [Basaglar Kwikpen U-100] 90 unit SQ HS 04/09/24 [History Confirmed 04/17/24] Loperamide HCl 2 mg [Imodium 2 mg] 2 mg PO Q8H PRN PRN 04/09/24 [History Confirmed 04/17/24] Magnesium Hydroxide 30 ml [Milk of Magnesia 30 ml] 30 ml PO DAILY PRN PRN 04/09/24 [History Confirmed 04/17/24] Nitroglycerin 0.4 mg Tablet [Nitrostat 0.4 MG Tablet] 0.4 mg SL UD 04/09/24 [History Confirmed 04/17/24] PANTOPRAZOLE 40 mg Tablet [Protonix 40MG Tablet] 40 mg PO BID 04/09/24 [History Confirmed 04/17/24] Polyethylene Glycol 3350 17 gm [Miralax Powder 17GM PACKET] 17 gm PO HS 04/09/24 [History Confirmed 04/17/24] Potassium Chloride [Klor-Con M20] 20 meq PO BID 04/09/24 [History Confirmed 04/17/24] Rosuvastatin Calcium 20 mg PO HS 04/09/24 [History Confirmed 04/17/24] Zinc Oxide [Diaper Rash] 56 gm TP BID 04/09/24 [History Confirmed 04/17/24] diphenhydrAMINE HCL [Allergy Relief] 25 mg PO Q8H PRN PRN 04/09/24 [History Confirmed 04/17/24] Simethicone 80 mg [Mylicon 80MG] 80 mg PO QID PRN PRN 30 Days #120 tablet 04/10/24 [Rx Confirmed 04/17/24] Acetaminophen 325 mg [Tylenol 325 mg] 650 mg PO Q4H PRN PRN 04/17/24 [History Confirmed 04/17/24] Acetaminophen 325 mg [Tylenol 325 mg] 650 mg PO Q4HPRN PRN 04/17/24 [History Confirmed 04/17/24] Acetaminophen [Tylenol Extra Strength] 1,000 mg PO BID 04/17/24 [History Confirmed 04/17/24] Diclofenac Sodium [Voltaren Arthritis Pain] 1 appful Q8HPRN PRN 04/17/24 [History Confirmed 04/17/24] Ondansetron ODT 4 MG [Zofran Odt 4 mg] 1 tab PO Q8HPRN PRN 04/17/24 [History Confirmed 04/17/24] Metoclopramide HCl [Reglan] 5 mg PO TIDWM 30 Days #90 tab 04/19/24 [Rx Confirmed 04/17/24] Cefdinir 300 mg PO BID #14 cap 04/21/24 [Rx] Allergies/Adverse Reactions: Allergies Allergy/AdvReac Type Severity Reaction Status Date / Time latex Allergy Intermediate Hives Verified 07/16/24 10:04 bee venom protein (honey bee) Allergy Unknown Verified 07/16/24 10:04 shellfish derived Allergy Unknown Verified 07/16/24 10:04 fiberglass Allergy Intermediate Hives Uncoded 07/16/24 10:04 - Past Medical History Past Medical History: Yes Neurological History: No Pertinent History, Peripheral Neuropathy ENT History: Macular Degeneration Cardiac History: Coronary Artery Disease, Deep Vein Thrombosis, High Cholesterol, Hypertension Respiratory History: Asthma, COPD, Pneumonia, Sleep Apnea Endocrine Medical History: Diabetes Type II, Hypothyroidism Musculoskelatal History: Arthritis, Fractures, Osteoarthritis GI Medical History: Colitis, Diverticulitis, GERD, GI Bleed, Irritable Bowel, Other History: Renal Disease Pyscho-Social History: No Pertinent History Reproductive Disorders: Breast Cancer Comment: breast cancer 1987, GASTROPARESIS, fibromyalgia - Past Surgical History Past Surgical History: Yes Neuro Surgical History: No Pertinent History Cardiac History: Cardiac Catheterization, Cardiac Stent Respiratory Surgery: No Pertinent History GI Surgical History: Cholecystectomy Genitourinary Surgical Hx: No Pertinent History Musculskeletal Surgical Hx: No Pertinent History Female Surgical History: Hysterectomy, Section, Mastectomy Other Surgical History: Uvula remove, 3 CARDIAC STENTS - Social History Smoking Status: Never smoker Exposure to second hand smoke: No Alcohol: None Drug Use: none - Social Determinants of Health Will the patient participate in the screening: Yes Do you worry about a steady place to live?: No Do you have any problems with any of the following?: No known problems In the past 12 months,have you had to go without utilities?: No Have you or anyone in your house had to go without enough: No Transportation Issues: No Has anyone in your support network made you feel unsafe?: No Does the patient want assistance with any of the above?: No Comment: from [facility] - Physical Exam Vital Signs: Vital Signs - 24 hr Temp Pulse Resp BP BP Pulse Ox 07/16/24 12:11 94 L 07/16/24 12:00 154/62 07/16/24 11:30 81 137/69 94 L 07/16/24 11:00 67 142/55 07/16/24 10:30 77 17 130/55 94 L 07/16/24 10:24 78 18 95 07/16/24 10:00 76 17 121/53 99 07/16/24 09:57 74 18 134/42 97 07/16/24 09:56 95 07/16/24 09:54 87 L 07/16/24 09:51 100.3 F 76 18 134/42 95 General Appearance: no apparent distress, alert, obese Neurologic Exam: alert, oriented x 3, cooperative, normal mood/affect, nml cerebellar function, nml station & gait, sensation nml, confusion, No motor deficits Eye Exam: PERRL/EOMI, eyes nml inspection Ears, Nose, Throat Exam: normal ENT inspection, TMs normal, pharynx normal, moist mucous membranes Neck Exam: normal inspection, non-tender, supple, full range of motion Respiratory Exam: normal breath sounds, lungs clear, No respiratory distress Cardiovascular Exam: regular rate/rhythm, normal heart sounds, normal peripheral pulses Gastrointestinal/Abdomen Exam: soft, normal bowel sounds, No tenderness, No mass Back Exam: normal inspection, normal range of motion, No CVA tenderness, No vertebral tenderness Extremity Exam: normal inspection, normal range of motion, pelvis stable Skin Exam: normal color, warm, dry, No rash Lymphatic Exam: No adenopathy Results - Labs Lab/Micro Results: Lab Results-Last 24 Hours 12/16/24 12/16/24 12/16/24 Range/Units 10:30 10:30 10:30 WBC 8.1 (3.98-10.04) x10^3/uL RBC 3.08 L (3.93-5.22) x10^6/uL Hgb 9.3 L (11.2-15.7) g/dL Hct 30.3 L (34.1-44.9) % MCV 98.4 H (79.4-94.8) fL MCH 30.2 (25.6-32.2) pg MCHC 30.7 L (32.2-35.5) g/dL RDW 15.9 H (11.7-14.4) % Plt Count 194 (182-369) x10^3/uL MPV 10.1 (9.4-12.3) fL Gran % 41.9 (34.0-71.1) % Immature Gran % (Auto) 1.5 H (0.001-0.429) % Nucleat RBC Rel Count 0.0 (0.00-0.2) % Eos # (Auto) 0.21 (0.04-0.36) x10^3/uL Immature Gran # (Auto) 0.12 H (0.001-0.031) x10^3u/L Absolute Lymphs (auto) 3.38 (1.18-3.74) x10^3/uL Absolute Monos (auto) 0.96 H (0.24-0.86) x10^3/uL Absolute Nucleated RBC 0.00 (0.00-0.012) x10^3u/L Lymphocytes % 41.7 (19.3-51.7) % Monocytes % 11.9 (4.7-12.5) % Eosinophils % 2.6 (0.7-5.8) % Basophils % 0.4 (0.1-1.2) % Absolute Granulocytes 3.40 (1.56-6.13) x10^3/uL Basophils # 0.03 (0.01-0.08) x10^3/uL Sodium 138 (135-145) mmol/L Potassium 4.7 (3.5-5.1) mmol/L Chloride 106 (98-107) mmol/L Carbon Dioxide 22 (22-30) mmol/L Anion Gap 14.0 (5-15) MEQ/L BUN 39 H (7-17) mg/dL Creatinine 2.19 H (0.52-1.04) mg/dL Estimated GFR 22.2 ML/MIN Glucose 181 H (74-106) mg/dL Calcium 8.3 L (8.4-10.2) mg/dL Total Bilirubin 0.20 (0.2-1.3) mg/dL AST 25 (14-36) U/L ALT 16 (0-35) U/L Alkaline Phosphatase 67 (38-126) U/L Troponin I 0.033 (0.000-0.033) ng/mL NT-Pro-B Natriuret Pep 2470 (<300) pg/mL Serum Total Protein 6.2 L (6.3-8.2) g/dL Albumin 3.2 L (3.5-5.0) g/dL Influenza Type A Ag (NEGATIVE) Influenza Type B Ag (NEGATIVE) RSV (PCR) (NEGATIVE) SARS-CoV-2 (PCR) (NEGATIVE) 07/16/24 Range/Units 10:30 WBC (3.98-10.04) x10^3/uL RBC (3.93-5.22) x10^6/uL Hgb (11.2-15.7) g/dL Hct (34.1-44.9) % MCV (79.4-94.8) fL MCH (25.6-32.2) pg MCHC (32.2-35.5) g/dL RDW (11.7-14.4) % Plt Count (182-369) x10^3/uL MPV (9.4-12.3) fL Gran % (34.0-71.1) % Immature Gran % (Auto) (0.001-0.429) % Nucleat RBC Rel Count (0.00-0.2) % Eos # (Auto) (0.04-0.36) x10^3/uL Immature Gran # (Auto) (0.001-0.031) x10^3u/L Absolute Lymphs (auto) (1.18-3.74) x10^3/uL Absolute Monos (auto) (0.24-0.86) x10^3/uL Absolute Nucleated RBC (0.00-0.012) x10^3u/L Lymphocytes % (19.3-51.7) % Monocytes % (4.7-12.5) % Eosinophils % (0.7-5.8) % Basophils % (0.1-1.2) % Absolute Granulocytes (1.56-6.13) x10^3/uL Basophils # (0.01-0.08) x10^3/uL Sodium (135-145) mmol/L Potassium (3.5-5.1) mmol/L Chloride (98-107) mmol/L Carbon Dioxide (22-30) mmol/L Anion Gap (5-15) MEQ/L BUN (7-17) mg/dL Creatinine (0.52-1.04) mg/dL Estimated GFR ML/MIN Glucose (74-106) mg/dL Calcium (8.4-10.2) mg/dL Total Bilirubin (0.2-1.3) mg/dL AST (14-36) U/L ALT (0-35) U/L Alkaline Phosphatase (38-126) U/L Troponin I (0.000-0.033) ng/mL NT-Pro-B Natriuret Pep (<300) pg/mL Serum Total Protein (6.3-8.2) g/dL Albumin (3.5-5.0) g/dL Influenza Type A Ag NEGATIVE (NEGATIVE) Influenza Type B Ag NEGATIVE (NEGATIVE) RSV (PCR) NEGATIVE (NEGATIVE) SARS-CoV-2 (PCR) POSITIVE A (NEGATIVE) - Radiology Impressions Radiology Exams & Impressions: Radiology Procedures Category Date Time Status CHEST 1 VIEW (PORTABLE) Stat Exams 07/16/24 10:05 Completed - Other Procedures and Tests Respiratory Therapy 07/16/24 11:53 Respiratory Therapy Consult ONCE Assessment/Plan (1) COVID-19 Current Visit: Yes Status: Acute Assessment & Plan: - supplemental O2 keep o2 > 92% - Steriods, remdesivir, duonebs - + Covid test in ER - RT eval and treat - CBC reviewed Code(s): U07.1 - COVID-19 (2) Hypoxia Current Visit: Yes Status: Acute Assessment & Plan: - Stat ABG- primary resp acidosis- chronic with secondary metabolic acidosis - On 2LNC 94%, baseline room air. - Tele Code(s): R09.02 - HYPOXEMIA (3) Acute on chronic kidney failure Current Visit: No Status: Acute Assessment & Plan: - Creat 2.19- baseline 1.65 - NS @ 50 ml/ hr - Hold meds that affect renal function - CMP reviewed Code(s): N17.9 - ACUTE KIDNEY FAILURE, UNSPECIFIED; N18.9 - CHRONIC KIDNEY DISEASE, UNSPECIFIED (4) Diabetes mellitus Current Visit: No Status: Chronic Assessment & Plan: - A1C 7..6-04/17/24- controlled - accuchecks ac/hs - mod dose s/s - Continue lantus at HS Code(s): E11.9 - TYPE 2 DIABETES MELLITUS WITHOUT COMPLICATIONS (5) HLD (hyperlipidemia) Current Visit: No Status: Chronic Assessment & Plan: - Continue statin Code(s): E78.5 - HYPERLIPIDEMIA, UNSPECIFIED (6) HTN (hypertension) Current Visit: No Status: Chronic Assessment & Plan: - BP stable- continue home meds Code(s): I10 - ESSENTIAL (PRIMARY) HYPERTENSION (7) History of DVT (deep vein thrombosis) Current Visit: No Status: Chronic Assessment & Plan: - continue eliquis Code(s): Z86.718 - PERSONAL HISTORY OF OTHER VENOUS THROMBOSIS AND EMBOLISM (8) Hypothyroid Current Visit: No Status: Chronic Assessment & Plan: - Continue synthroid Code(s): E03.9 - HYPOTHYROIDISM, UNSPECIFIED (9) Sleep apnea Current Visit: Yes Status: Acute Assessment & Plan: - Cpap ordered Code(s): G47.30 - SLEEP APNEA, UNSPECIFIED (10) Iron deficiency anemia Current Visit: Yes Status: Chronic Assessment & Plan: - continue ferrous sulfate - Hgb 9.3 Code(s): D50.9 - IRON DEFICIENCY ANEMIA, UNSPECIFIED (11) Morbidly obese Current Visit: No Status: Chronic Assessment & Plan: - Advised ADA diet and exercise control VTE: Eliquis PPI: Protonix Next of KIN:Brian Chapman [phone] D/C plan: 1-2 days Code status: SCO/DNR Code(s): E66.01 - MORBID (SEVERE) OBESITY DUE TO EXCESS CALORIES
[2024-07-16 13:24] LABS: A-aADO2 50; ABG HEMOGLOBIN 10.3; ABG POTASSIUM 5.4 (3.5-5.1); ABG SITE RIGHT RADIAL; ALLEN TEST OK? YES; ARTERIAL BLD GAS O2 SATURATION 96.4 % (95-100); ARTERIAL BLOOD GAS BASE EXCESS -1.5 (-2.0-2.0); ARTERIAL BLOOD GAS FIO2 28 %; ARTERIAL BLOOD GAS PCO2 53 mmHg (35-45); ARTERIAL BLOOD GAS PO2 83 mmHg (75-100); ARTERIAL BLOOD GAS pH 7.29 (7.35-7.45); CARBOXYHEMOGLOBIN 0.8 % THgb (0.0-6.9); HCO3- 25.5 (22-28); HGB O2 SAT 95.6 g/dF (94-100); paO2 pAO1 0.62
[2024-07-16 14:15] LABS: Hematocrit 34.9 % (34.1-44.9); Hemoglobin 10.2 g/dL (11.2-15.7); Mean Cell Volume 102.3 fL (79.4-94.8); Mean Corpuscular Hemoglobin 29.9 pg (25.6-32.2); Mean Corpuscular Hgb Concent. 29.2 g/dL (32.2-35.5); Mean Platelet Volume 10.3 fL (9.4-12.3); Platelet Count 189 x10^3/uL (182-369); Red Blood Count 3.41 x10^6/uL (3.93-5.22); Red Cell Distribution Width 15.7 % (11.7-14.4); White Blood Count 6.7 x10^3/uL (3.98-10.04)
[2024-07-16] MEDS: Sodium Chloride 0.9% 1000 ML 1,000 ML IV SCH (14:19)
[2024-07-16] MEDS: REMDESIVIR 200 MG in Sodium Chloride 0.9% 250 ML 250 ML IV ONE (14:19)
[2024-07-16] MEDS: DUONEB 0.5-3 MG/3 ml Neb IH SCH (14:23)
[2024-07-16 14:57] LABS: ANION GAP 14.6 MEQ/L (5-15); Calcium 8.4 mg/dL (8.4-10.2); Creatinine 1 2.2 mg/dL (0.52-1.04); EST GLOMERULAR FILTRATION RATE 22.1 ML/MIN; PREALBUMIN 20.38 mg/dL (17.6-36.0); Potassium 5.2 mmol/L (3.5-5.1)
[2024-07-16] MEDS: HUMALOG SQ PRN (22:43)
[2024-07-16] MEDS: solu-MEDROL 20 MG, Sterile H2O 10 ml 1 ML IV SCH (22:43)
[2024-07-17 06:02] LABS: Hematocrit 31.9 % (34.1-44.9); Hemoglobin 9.8 g/dL (11.2-15.7); Mean Cell Volume 96.4 fL (79.4-94.8); Mean Corpuscular Hemoglobin 29.6 pg (25.6-32.2); Mean Corpuscular Hgb Concent. 30.7 g/dL (32.2-35.5); Platelet Count 187 x10^3/uL (182-369); Red Blood Count 3.31 x10^6/uL (3.93-5.22); Red Cell Distribution Width 14.8 % (11.7-14.4); White Blood Count 7.7 x10^3/uL (3.98-10.04)
[2024-07-17 07:17] LABS: ALBUMIN 3.6 g/dL (3.5-5.0); ANION GAP 15.8 MEQ/L (5-15); BILIRUBIN,TOTAL 0.1 mg/dL (0.2-1.3); Calcium 8.5 mg/dL (8.4-10.2); Creatinine 1 2.12 mg/dL (0.52-1.04); EST GLOMERULAR FILTRATION RATE 23.1 ML/MIN; Potassium 5.2 mmol/L (3.5-5.1); Total Protein 6.7 g/dL (6.3-8.2)
[2024-07-17] MEDS ORDERED: DICLOFENAC SODIUM TP PRN (08:37)
[2024-07-17] MEDS ORDERED: [UNRECOGNIZED DRUG - OTHER] PO PRN (08:37)
[2024-07-17] MEDS ORDERED: DEXTROMETHORPHAN PO PRN (08:37)
[2024-07-17] MEDS ORDERED: COMBIVENT RESPIMAT COMMON CANISTER IH PRN (08:37)
[2024-07-17] MEDS ORDERED: GlucaGen 1 MG IM PRN (08:37)
[2024-07-17] MEDS ORDERED: IMODIUM 2 MG PO PRN (08:37)
[2024-07-17] MEDS ORDERED: Mylicon 80MG PO PRN (08:37)
[2024-07-17] MEDS ORDERED: CHLORPHENIRAMINE PO PRN (08:37)
[2024-07-17] MEDS ORDERED: MILK OF MAGNESIA 30 ML PO PRN (08:37)
[2024-07-17] MEDS ORDERED: Dulcolax 10 MG SUPP RC PRN (08:37)
[2024-07-17] MEDS ORDERED: MEDICATION INTERVENTION MC SCH ×3 (09:30)
[2024-07-17] MEDS ORDERED: DULOXETINE HCL 20 MG PO SCH (10:00)
[2024-07-17] MEDS ORDERED: SYNTHROID 25 MCG PO SCH (10:00)
[2024-07-17] MEDS ORDERED: NON-FORMULARY ITEM (Apixaban [Eliquis] 5 MG Tablet) PO SCH (10:00)
[2024-07-17] MEDS ORDERED: NON-FORMULARY ITEM (Methenamine Hippurate [Methenamine Hippurate] 1 GM Tablet) PO SCH (10:00)
[2024-07-17] MEDS ORDERED: CYANOCOBALAMIN 1000 MCG PO SCH (10:00)
[2024-07-17] MEDS: VELTASSA PO STA (10:27)
[2024-07-17] MEDS: HUMALOG SQ PRN (10:28)
[2024-07-17] MEDS ORDERED: Artificial Tears 15 ML OP PRN (13:30)
--- NOTE | 2024-07-17 13:36 | PCM.NOTE ---
Date and Time: 07/17/24 1323 Subjective Assessment: 07/16/24 is a 79 year old female with PMHX of macular degeneration, iron def. anemia, CAD, DVT, hyperlipidemia, HTN, asthma, COPD, Sleep apnea, type II DM, hypothyroidism, OA, diverticulitis, GERD, IBS, renal disease, breast cancer, gastroparesis, fibromyalgia, cardiac stents and chronic obesity. Patient is here with new oxygen requirement, fever up to 102 at a correction. Patient is a resident of an extended care facility. They state that she is not usually on oxygen. However was on 87% on room air this morning. Placed on 2 L did come up to 94% she is alert to self and place and time. However she is confused of the situation and what hospital she is at. Temperature is 100.3 here. She has had increased cough, cold, congestion. Patient recently finished cefdinir as an antibiotic for UTI. Will repeat a UA here to check on this. + nonproductive cough. Lips do appear cracked. In ER she was given duoneb and IV steriod. CXR negative. She is + for COVID. She has acute on chronic renal failure. Will start IVF, remdesivir, and steroids. 07/17/24 Pt resting in bed. She slept with cpap on all night. She is more awake and alert today. She is wanting to eat. Trops slightly elevated and likely demand ischemia from SOB 2:2 COVID. Cardiology consulted for further eval. K+ 5.2 and Veltassa ordered to lower. Continue IVF, anion gap 15.8. HANNAH improving. She denies CP, abd. pain N/V/D. She is c/o left eye irritation from CPAP- eye gtts added. She is having pain in the back of her head from the CPAP strap and tylenol provided. Continue IVF, remdesivir, and steroids. - Review of Systems Constitutional: No Fever, No Chills Eyes: No Symptoms, Eye Pain (left ) Ears, Nose, & Throat: No Symptoms Respiratory: Short Of Breath, No Cough Cardiac: No Chest Pain, No Edema, No Syncope Abdominal/Gastrointestinal: No Abdominal Pain, No Nausea, No Vomiting, No Diarrhea Genitourinary Symptoms: No Dysuria Musculoskeletal: No Back Pain, No Neck Pain Skin: No Rash Neurological: Headache, No Dizziness, No Focal Weakness, No Sensory Changes Psychological: No Symptoms Endocrine: No Symptoms Hematologic/Lymphatic: No Symptoms Immunological/Allergic: No Symptoms Objective Exam General Appearance: no apparent distress, alert, obese Neurologic Exam: alert, oriented x 3, cooperative, normal mood/affect, nml cerebellar function, sensation nml, motor weakness, No motor deficits Skin Exam: normal color, warm, dry Eye Exam: PERRL, EOMI, eyes nml inspection Ears, Nose, Throat Exam: normal ENT inspection, pharynx normal, moist mucous membranes Neck Exam: normal inspection, non-tender, supple, full range of motion Respiratory Exam: normal breath sounds, lungs clear, No respiratory distress Cardiovascular Exam: regular rate/rhythm, normal heart sounds Gastrointestinal/Abdomen Exam: soft, No tenderness, No mass Extremity Exam: normal inspection, normal range of motion Back Exam: normal inspection, normal range of motion, No CVA tenderness, No vertebral tenderness Pelvic Exam: deferred Rectal Exam: deferred Objective Data Vital Signs: Vital Signs - 24 hr Temp Pulse Resp BP Pulse Ox 07/17/24 11:51 97.6 F 90 18 139/86 96 07/17/24 07:58 97.2 F 64 17 133/57 95 07/17/24 07:48 68 22 99 07/17/24 06:00 20 07/17/24 04:00 96.3 F 58 L 20 146/99 98 07/17/24 02:00 20 07/17/24 01:25 61 20 98 07/17/24 00:00 96.4 F 60 20 121/55 96 07/16/24 22:00 20 07/16/24 20:00 96.2 F 63 20 148/76 99 07/16/24 18:45 61 20 93 L 07/16/24 18:00 20 07/16/24 16:00 97.6 F 62 20 129/58 94 L 07/16/24 14:00 18 07/16/24 13:31 78 18 94 L Pain Assessment - Last Documented Pain Intensity 6 Intake and Output: Intake & Output 07/15/24 07/16/24 07/17/24 07/18/24 11:59 11:59 11:59 11:59 Intake Total 1331 Balance 1331 Weight 116 kg 111.9 kg Lab Results: Lab Results-Last 24 Hours 1207/16/24 07/16/24 Range/Units 13:17 14:06 14:06 WBC 6.7 (3.98-10.04) x10^3/uL RBC 3.41 L (3.93-5.22) x10^6/uL Hgb 10.2 L (11.2-15.7) g/dL Hct 34.9 (34.1-44.9) % MCV 102.3 H (79.4-94.8) fL MCH 29.9 (25.6-32.2) pg MCHC 29.2 L (32.2-35.5) g/dL RDW 15.7 H (11.7-14.4) % Plt Count 189 (182-369) x10^3/uL MPV 10.3 (9.4-12.3) fL Puncture Site RIGHT RADIAL pCO2 53 H (35-45) mmHg pO2 83 (75-100) mmHg Base Excess -1.5 (-2.0-2.0) O2 Saturation 95.6 (94-100) g/dF ABG pH 7.29 L (7.35-7.45) ABG HCO3 25.5 (22-28) ABG O2 Sat (Measured) 96.4 (95-100) % Daniel Test YES A-a Gradient 50 a/A Ratio 0.62 Hemoglobin 10.3 Carboxyhemoglobin 0.8 (0.0-6.9) % THgb Methemoglobin 0.0 L (1.4-1.5) % Potassium 5.4 H (3.5-5.1) Temperature 37.0 C POC O2 Flow Rate 28 % Sodium (135-145) mmol/L Chloride (98-107) mmol/L Carbon Dioxide (22-30) mmol/L Anion Gap (5-15) MEQ/L BUN (7-17) mg/dL Creatinine (0.52-1.04) mg/dL Estimated GFR ML/MIN Glucose (74-106) mg/dL POC Glucometer (74 to 106) mg/dL Calcium (8.4-10.2) mg/dL Total Bilirubin (0.2-1.3) mg/dL AST (14-36) U/L ALT (0-35) U/L Alkaline Phosphatase (38-126) U/L Troponin I 0.044 H* (0.000-0.033) ng/mL Serum Total Protein (6.3-8.2) g/dL Albumin (3.5-5.0) g/dL Prealbumin (17.6-36.0) mg/dL 07/16/24 07/16/24 07/16/24 Range/Units 14:06 18:05 22:17 WBC (3.98-10.04) x10^3/uL RBC (3.93-5.22) x10^6/uL Hgb (11.2-15.7) g/dL Hct (34.1-44.9) % MCV (79.4-94.8) fL MCH (25.6-32.2) pg MCHC (32.2-35.5) g/dL RDW (11.7-14.4) % Plt Count (182-369) x10^3/uL MPV (9.4-12.3) fL Puncture Site pCO2 (35-45) mmHg pO2 (75-100) mmHg Base Excess (-2.0-2.0) O2 Saturation (94-100) g/dF ABG pH (7.35-7.45) ABG HCO3 (22-28) ABG O2 Sat (Measured) (95-100) % Daniel Test A-a Gradient a/A Ratio Hemoglobin Carboxyhemoglobin (0.0-6.9) % THgb Methemoglobin (1.4-1.5) % Potassium 5.2 H (3.5-5.1) Temperature C POC O2 Flow Rate % Sodium 136 (135-145) mmol/L Chloride 105 (98-107) mmol/L Carbon Dioxide 22 (22-30) mmol/L Anion Gap 14.6 (5-15) MEQ/L BUN 41 H (7-17) mg/dL Creatinine 2.20 H (0.52-1.04) mg/dL Estimated GFR 22.1 ML/MIN Glucose 286 H (74-106) mg/dL POC Glucometer 407 H (74 to 106) mg/dL Calcium 8.4 (8.4-10.2) mg/dL Total Bilirubin (0.2-1.3) mg/dL AST (14-36) U/L ALT (0-35) U/L Alkaline Phosphatase (38-126) U/L Troponin I 0.046 H* (0.000-0.033) ng/mL Serum Total Protein (6.3-8.2) g/dL Albumin (3.5-5.0) g/dL Prealbumin 20.38 (17.6-36.0) mg/dL 07/16/24 07/17/24 07/17/24 Range/Units 22:22 00:23 04:51 WBC (3.98-10.04) x10^3/uL RBC (3.93-5.22) x10^6/uL Hgb (11.2-15.7) g/dL Hct (34.1-44.9) % MCV (79.4-94.8) fL MCH (25.6-32.2) pg MCHC (32.2-35.5) g/dL RDW (11.7-14.4) % Plt Count (182-369) x10^3/uL MPV (9.4-12.3) fL Puncture Site pCO2 (35-45) mmHg pO2 (75-100) mmHg Base Excess (-2.0-2.0) O2 Saturation (94-100) g/dF ABG pH (7.35-7.45) ABG HCO3 (22-28) ABG O2 Sat (Measured) (95-100) % Daniel Test A-a Gradient a/A Ratio Hemoglobin Carboxyhemoglobin (0.0-6.9) % THgb Methemoglobin (1.4-1.5) % Potassium (3.5-5.1) Temperature C POC O2 Flow Rate % Sodium (135-145) mmol/L Chloride (98-107) mmol/L Carbon Dioxide (22-30) mmol/L Anion Gap (5-15) MEQ/L BUN (7-17) mg/dL Creatinine (0.52-1.04) mg/dL Estimated GFR ML/MIN Glucose (74-106) mg/dL POC Glucometer 416 H 429 H 362 H (74 to 106) mg/dL Calcium (8.4-10.2) mg/dL Total Bilirubin (0.2-1.3) mg/dL AST (14-36) U/L ALT (0-35) U/L Alkaline Phosphatase (38-126) U/L Troponin I (0.000-0.033) ng/mL Serum Total Protein (6.3-8.2) g/dL Albumin (3.5-5.0) g/dL Prealbumin (17.6-36.0) mg/dL 07/17/24 07/17/24 07/17/24 Range/Units 05:49 05:49 07:49 WBC 7.7 (3.98-10.04) x10^3/uL RBC 3.31 L (3.93-5.22) x10^6/uL Hgb 9.8 L (11.2-15.7) g/dL Hct 31.9 L (34.1-44.9) % MCV 96.4 H (79.4-94.8) fL MCH 29.6 (25.6-32.2) pg MCHC 30.7 L (32.2-35.5) g/dL RDW 14.8 H (11.7-14.4) % Plt Count 187 (182-369) x10^3/uL MPV 10.0 (9.4-12.3) fL Puncture Site pCO2 (35-45) mmHg pO2 (75-100) mmHg Base Excess (-2.0-2.0) O2 Saturation (94-100) g/dF ABG pH (7.35-7.45) ABG HCO3 (22-28) ABG O2 Sat (Measured) (95-100) % Daniel Test A-a Gradient a/A Ratio Hemoglobin Carboxyhemoglobin (0.0-6.9) % THgb Methemoglobin (1.4-1.5) % Potassium 5.2 H (3.5-5.1) Temperature C POC O2 Flow Rate % Sodium 137 (135-145) mmol/L Chloride 106 (98-107) mmol/L Carbon Dioxide 21 L (22-30) mmol/L Anion Gap 15.8 H (5-15) MEQ/L BUN 50 H (7-17) mg/dL Creatinine 2.12 H (0.52-1.04) mg/dL Estimated GFR 23.1 ML/MIN Glucose 371 H (74-106) mg/dL POC Glucometer 348 H (74 to 106) mg/dL Calcium 8.5 (8.4-10.2) mg/dL Total Bilirubin 0.10 L (0.2-1.3) mg/dL AST 26 (14-36) U/L ALT 20 (0-35) U/L Alkaline Phosphatase 62 (38-126) U/L Troponin I (0.000-0.033) ng/mL Serum Total Protein 6.7 (6.3-8.2) g/dL Albumin 3.6 (3.5-5.0) g/dL Prealbumin (17.6-36.0) mg/dL 07/17/24 Range/Units 11:42 WBC (3.98-10.04) x10^3/uL RBC (3.93-5.22) x10^6/uL Hgb (11.2-15.7) g/dL Hct (34.1-44.9) % MCV (79.4-94.8) fL MCH (25.6-32.2) pg MCHC (32.2-35.5) g/dL RDW (11.7-14.4) % Plt Count (182-369) x10^3/uL MPV (9.4-12.3) fL Puncture Site pCO2 (35-45) mmHg pO2 (75-100) mmHg Base Excess (-2.0-2.0) O2 Saturation (94-100) g/dF ABG pH (7.35-7.45) ABG HCO3 (22-28) ABG O2 Sat (Measured) (95-100) % Daniel Test A-a Gradient a/A Ratio Hemoglobin Carboxyhemoglobin (0.0-6.9) % THgb Methemoglobin (1.4-1.5) % Potassium (3.5-5.1) Temperature C POC O2 Flow Rate % Sodium (135-145) mmol/L Chloride (98-107) mmol/L Carbon Dioxide (22-30) mmol/L Anion Gap (5-15) MEQ/L BUN (7-17) mg/dL Creatinine (0.52-1.04) mg/dL Estimated GFR ML/MIN Glucose (74-106) mg/dL POC Glucometer 340 H (74 to 106) mg/dL Calcium (8.4-10.2) mg/dL Total Bilirubin (0.2-1.3) mg/dL AST (14-36) U/L ALT (0-35) U/L Alkaline Phosphatase (38-126) U/L Troponin I (0.000-0.033) ng/mL Serum Total Protein (6.3-8.2) g/dL Albumin (3.5-5.0) g/dL Prealbumin (17.6-36.0) mg/dL Radiology Exams: Radiology Procedures Category Date Time Status CHEST 1 VIEW (PORTABLE) Stat Exams 07/16/24 10:05 Completed Multi-Disciplinary Progress Notes: Multi-Disciplinary Progress Notes 07/17/24 13:00 Case Management Note by Olga Watson FROM [facility] CALLED BACK AND WILL BE ACCEPTING PATIENT BACK AT TIME OF DC Initialized on 07/17/24 13:00 - END OF NOTE 07/17/24 11:56 Case Management Note by Olga Watson S/W WITH PATIENT SON COLTEN TO CONFIRM THAT PATIENT IS TO RETURN TO [facility] AT TIME OF DC Initialized on 07/17/24 11:56 - END OF NOTE Assessment/Plan (1) COVID-19 Current Visit: Yes Status: Acute Code(s): U07.1 - COVID-19 (2) Hypoxia Current Visit: Yes Status: Acute Code(s): R09.02 - HYPOXEMIA (3) Acute on chronic kidney failure Current Visit: No Status: Acute Code(s): N17.9 - ACUTE KIDNEY FAILURE, UNSPECIFIED; N18.9 - CHRONIC KIDNEY DISEASE, UNSPECIFIED (4) Diabetes mellitus Current Visit: No Status: Chronic Code(s): E11.9 - TYPE 2 DIABETES MELLITUS WITHOUT COMPLICATIONS (5) HLD (hyperlipidemia) Current Visit: No Status: Chronic Code(s): E78.5 - HYPERLIPIDEMIA, UNSPECIFIED (6) HTN (hypertension) Current Visit: No Status: Chronic Code(s): I10 - ESSENTIAL (PRIMARY) HYPERTENSION (7) History of DVT (deep vein thrombosis) Current Visit: No Status: Chronic Code(s): Z86.718 - PERSONAL HISTORY OF OTHER VENOUS THROMBOSIS AND EMBOLISM (8) Hypothyroid Current Visit: No Status: Chronic Code(s): E03.9 - HYPOTHYROIDISM, UNSPECIFIED (9) Sleep apnea Current Visit: Yes Status: Acute Code(s): G47.30 - SLEEP APNEA, UNSPECIFIED (10) Iron deficiency anemia Current Visit: Yes Status: Chronic Code(s): D50.9 - IRON DEFICIENCY ANEMIA, UNSPECIFIED (11) Morbidly obese Current Visit: No Status: Chronic Assessment & Plan: (1) COVID-19 Current Visit: Yes Status: Acute Assessment & Plan: - supplemental O2 keep o2 > 92% - Steroids, remdesivir, duonebs - + Covid test in ER - RT eval and treat - CBC reviewed 07/17 - Cpap wore all night and this AM - pt more awake and alert today - now on 2lNC 96% - CBC reviewed Code(s): U07.1 - COVID-19 (2) Hypoxia Current Visit: Yes Status: Acute Assessment & Plan: - Stat ABG- primary resp acidosis- chronic with secondary metabolic acidosis - On 2LNC 94%, baseline room air. - Tele 07/17 - Cpap wore all night and this AM - pt more awake and alert today - now on 2lNC 96% Code(s): R09.02 - HYPOXEMIA (3) Acute on chronic kidney failure Current Visit: No Status: Acute Assessment & Plan: - Creat 2.19- baseline 1.65 - NS @ 50 ml/ hr - Hold meds that affect renal function - CMP reviewed 07/17 - CMP reviewed - Creat 2.12- improving - Cont. IVF Code(s): N17.9 - ACUTE KIDNEY FAILURE, UNSPECIFIED; N18.9 - CHRONIC KIDNEY DISEASE, UNSPECIFIED (4) Diabetes mellitus Current Visit: No Status: Chronic Assessment & Plan: - A1C 7..6-04/17/24- controlled - accuchecks ac/hs - mod dose s/s - Continue lantus at HS Code(s): E11.9 - TYPE 2 DIABETES MELLITUS WITHOUT COMPLICATIONS (5) HLD (hyperlipidemia) Current Visit: No Status: Chronic Assessment & Plan: - Continue statin Code(s): E78.5 - HYPERLIPIDEMIA, UNSPECIFIED (6) HTN (hypertension) Current Visit: No Status: Chronic Assessment & Plan: - BP stable- continue home meds Code(s): I10 - ESSENTIAL (PRIMARY) HYPERTENSION (7) History of DVT (deep vein thrombosis) Current Visit: No Status: Chronic Assessment & Plan: - continue eliquis Code(s): Z86.718 - PERSONAL HISTORY OF OTHER VENOUS THROMBOSIS AND EMBOLISM (8) Hypothyroid Current Visit: No Status: Chronic Assessment & Plan: - Continue synthroid Code(s): E03.9 - HYPOTHYROIDISM, UNSPECIFIED (9) Sleep apnea Current Visit: Yes Status: Acute Assessment & Plan: - Cpap ordered Code(s): G47.30 - SLEEP APNEA, UNSPECIFIED (10) Iron deficiency anemia Current Visit: Yes Status: Chronic Assessment & Plan: - continue ferrous sulfate - Hgb 10.2 07/17 - Hgb 9.8- stable Code(s): D50.9 - IRON DEFICIENCY ANEMIA, UNSPECIFIED (11) Morbidly obese Current Visit: No Status: Chronic Assessment & Plan: - Advised ADA diet and exercise control Code(s): E66.01 - MORBID (SEVERE) OBESITY DUE TO EXCESS CALORIES (12) Hyperkalemia Current Visit: Yes Status: Acute Assessment & Plan: - K+ 5.2- Veltessa ordered- trend Code(s): E87.5 - HYPERKALEMIA (13) Elevated troponin level Current Visit: Yes Status: Acute Assessment & Plan: - Trops 0.033, 0.044, 0.046 - cardiology consult - likely 2:2 COVID and SOB - tele - EKG Code(s): R79.89 - OTHER SPECIFIED ABNORMAL FINDINGS OF BLOOD CHEMISTRY (14) Dehydration Current Visit: Yes Status: Acute Assessment & Plan: - Cont IVF - anion gap 15.8 VTE: Eliquis PPI: Protonix Next of KIN:Brian Adela [phone] D/C plan: 1-2 days Code status: SCO/DNR Code(s): E86.0 - DEHYDRATION
[2024-07-17] MEDS: Imdur 30 MG PO SCH (13:56)
[2024-07-17] MEDS: ELIQUIS 2.5 MG TABLET PO SCH (13:57)
[2024-07-17] MEDS: Vitamin B-12 500 MCG PO SCH (13:57)
[2024-07-17] MEDS: Neurontin PO SCH (13:57)
[2024-07-17] MEDS: FEOSOL 325 MG PO SCH (13:57)
[2024-07-17] MEDS: Toprol-Xl 25MG Tablets PO SCH (13:58)
[2024-07-17] MEDS: SYNTHROID 75 MCG PO SCH (13:58)
[2024-07-17] MEDS: BENTYL 20 MG PO SCH (13:58)
[2024-07-17] MEDS: Protonix 40MG Tablet PO SCH (13:58)
[2024-07-17] MEDS: PLAVIX Tablet PO SCH (13:58)
[2024-07-17] MEDS: REMDESIVIR 100 MG in Sodium Chloride 100ML MINI-BAG PLUS 100 ML IV SCH (14:13)
[2024-07-17] MEDS: HUMALOG SQ ONE (18:04)
[2024-07-17] MEDS ORDERED: NON-FORMULARY ITEM (Insulin Glargine,Hum.Rec.Anlog [Basaglar Kwikpen U-100] 100 UNIT/ML In SQ SCH (22:00)
[2024-07-17] MEDS ORDERED: NON-FORMULARY ITEM (Rosuvastatin Calcium [Rosuvastatin Calcium] 20 MG Tablet) PO SCH (22:00)
[2024-07-17] MEDS: Lantus Insulin SQ SCH (23:11)
[2024-07-17] MEDS: ZOCOR 20MG PO SCH (23:11)
[2024-07-17] MEDS: Miralax Powder 17GM PACKET PO SCH (23:12)
[2024-07-18 05:51] LABS: Hematocrit 30.7 % (34.1-44.9); Hemoglobin 9.5 g/dL (11.2-15.7); Mean Cell Volume 96.5 fL (79.4-94.8); Mean Corpuscular Hemoglobin 29.9 pg (25.6-32.2); Mean Corpuscular Hgb Concent. 30.9 g/dL (32.2-35.5); Mean Platelet Volume 9.6 fL (9.4-12.3); Platelet Count 198 x10^3/uL (182-369); Red Blood Count 3.18 x10^6/uL (3.93-5.22); White Blood Count 8.9 x10^3/uL (3.98-10.04)
[2024-07-18 06:10] LABS: ALBUMIN 3.4 g/dL (3.5-5.0); ALKALINE PHOSPHATASE 71 U/L (38-126); ANION GAP 12.3 MEQ/L (5-15); BILIRUBIN,TOTAL < 0.10 mg/dL (0.2-1.3); BLOOD UREA NITROGEN 51 mg/dL (7-17); CHLORIDE 104 mmol/L (98-107); Calcium 8.5 mg/dL (8.4-10.2); Carbon Dioxide 25 mmol/L (22-30); Creatinine 1 1.89 mg/dL (0.52-1.04); EST GLOMERULAR FILTRATION RATE 26.5 ML/MIN; Glucose 436 mg/dL (74-106); Potassium 4.7 mmol/L (3.5-5.1); SGOT/AST 28 U/L (14-36); SGPT/ALT 19 U/L (0-35); SODIUM 137 mmol/L (135-145); Total Protein 6.3 g/dL (6.3-8.2)
[2024-07-18] MEDS: HUMALOG SQ SCH (08:40)
[2024-07-18] MEDS: HUMALOG SQ PRN (08:41)
[2024-07-18] MEDS: Lantus Insulin SQ SCH (08:41)
[2024-07-18] MEDS: HUMALOG SQ ONE ×2 (09:04→14:08)
--- NOTE | 2024-07-18 13:06 | PCM.CONS ---
History of Present Illness - Date of Consult Date of Encounter: 07/18/24 Consulting Integration Consultant: RYAN RAZA MD Requesting Provider: Attending Provider: KELLI LENZ MD Primary Care Provider: PCP: LINH MCGILL - Consult Narrative HPI: Patient is a 79F who denies fevers, chills, nausea, vomiting, diarrhea, syncope, presyncope, dysphagia,odynophagia, orthopnea, paroxysmal nocturnal dyspnea, shortness of breath, chest pain, refluxsymptoms, belly pain, dysuria, hematuria, melena, hematochezia, seizures, paralysis, or other neurological changes. All other systems have been reviewed and are negative. cc:: The requesting physician will be sent a copy of the consult. - Past Medical History Past Medical History: Yes Neurological History: No Pertinent History, Peripheral Neuropathy ENT History: Macular Degeneration Cardiac History: Coronary Artery Disease, Deep Vein Thrombosis, High Cholesterol, Hypertension Respiratory History: Asthma, COPD, Pneumonia, Sleep Apnea Endocrine Medical History: Diabetes Type II, Hypothyroidism Musculoskelatal History: Arthritis, Fractures, Osteoarthritis GI Medical History: Colitis, Diverticulitis, GERD, GI Bleed, Irritable Bowel, Other History: Renal Disease Pyscho-Social History: No Pertinent History Reproductive Disorders: Breast Cancer Comment: breast cancer 1987, GASTROPARESIS, fibromyalgia - Past Surgical History Past Surgical History: Yes Neuro Surgical History: No Pertinent History Cardiac History: Cardiac Catheterization, Cardiac Stent Respiratory Surgery: No Pertinent History GI Surgical History: Cholecystectomy Genitourinary Surgical Hx: No Pertinent History Musculskeletal Surgical Hx: No Pertinent History Female Surgical History: Hysterectomy, Section, Mastectomy Other Surgical History: Uvula remove, 3 CARDIAC STENTS - Social History Smoking Status: Never smoker Exposure to second hand smoke: No Alcohol: None Drug Use: none - Social Determinants of Health Will the patient participate in the screening: Yes Do you worry about a steady place to live?: No Do you have any problems with any of the following?: No known problems In the past 12 months,have you had to go without utilities?: No Have you or anyone in your house had to go without enough: No Transportation Issues: No Has anyone in your support network made you feel unsafe?: No Does the patient want assistance with any of the above?: No Comment: from [facility] Medications & Allergies Home Medications: Home Medication List Allopurinol 100 mg [Zyloprim 100 mg] 100 mg PO DAILY 11/09/22 [History Confirmed 07/16/24] Dicyclomine HCl 20 mg [Bentyl 20 mg] 10 mg PO TID 11/09/22 [History Confirmed 07/16/24] Ergocalciferol (Vitamin D2) [Vitamin D2] 1.25 mg PO DAILY 11/09/22 [History Confirmed 07/16/24] Ferrous Sulfate 325 mg [Feosol 325 mg] 325 mg PO DAILY 11/09/22 [History Confirmed 07/16/24] Furosemide [Lasix] 40 mg PO DAILY 11/09/22 [History Confirmed 07/16/24] Isosorbide Mononitrate [Isosorbide Mononitrate ER] 60 mg PO DAILY 11/09/22 [History Confirmed 07/16/24] Levothyroxine Sodium 25 Mcg [Synthroid 25 Mcg] 75 mcg PO DAILY 11/09/22 [History Confirmed 07/16/24] Metoprolol Succinate 25 mg Xl* [Toprol-Xl 25MG Tablets] 25 mg PO DAILY 11/09/22 [History Confirmed 07/16/24] Apixaban [Eliquis] 5 mg PO BID 04/09/24 [History Confirmed 07/16/24] Bisacodyl 10 mg [Dulcolax 10 MG SUPP] 10 mg RC Q6H PRN PRN 04/09/24 [History Confirmed 07/16/24] Clopidogrel Bisulfate [PLAVIX Tablet] 75 mg PO DAILY 04/09/24 [History Confirmed 07/16/24] Cyanocobalamin (Vitamin B-12) [B-12] 1,000 mcg PO DAILY 04/09/24 [History Confirmed 07/16/24] Gabapentin [Neurontin ] 100 mg PO TID 04/09/24 [History Confirmed 07/16/24] Glucagon 1 mg [GlucaGen 1 MG] 1 mg IM UD PRN 04/09/24 [History Confirmed 07/16/24] Hydrocodone/Acetaminophen [Hydrocodone-Acetamin 7.5-325] 1 each PO Q4HPRN PRN 04/09/24 [History Confirmed 07/16/24] Insulin Glargine,Hum.rec.anlog [Adrianaaglmaynor Dumont U-100] 100 unit SQ HS 04/09/24 [History Confirmed 07/16/24] Loperamide HCl 2 mg [Imodium 2 mg] 2 mg PO Q8H PRN PRN 04/09/24 [History Confirmed 07/16/24] Magnesium Hydroxide 30 ml [Milk of Magnesia 30 ml] 30 ml PO DAILY PRN PRN 04/09/24 [History Confirmed 07/16/24] Nitroglycerin 0.4 mg Tablet [Nitrostat 0.4 MG Tablet] 0.4 mg SL UD 04/09/24 [History Confirmed 07/16/24] PANTOPRAZOLE 40 mg Tablet [Protonix 40MG Tablet] 40 mg PO BID 04/09/24 [History Confirmed 07/16/24] Polyethylene Glycol 3350 17 gm [Miralax Powder 17GM PACKET] 17 gm PO HS 04/09/24 [History Confirmed 07/16/24] Rosuvastatin Calcium 20 mg PO HS 04/09/24 [History Confirmed 07/16/24] diphenhydrAMINE HCL [Allergy Relief] 25 mg PO Q8H PRN PRN 04/09/24 [History Confirmed 07/16/24] Acetaminophen 325 mg [Tylenol 325 mg] 650 mg PO Q4H PRN PRN 04/17/24 [History Confirmed 07/16/24] Acetaminophen 325 mg [Tylenol 325 mg] 650 mg PO Q4HPRN PRN 04/17/24 [History Confirmed 07/16/24] Acetaminophen [Tylenol Extra Strength] 1,000 mg PO BID 04/17/24 [History Co nfirmed 07/16/24] Diclofenac Sodium [Voltaren Arthritis Pain] 1 dose TOP Q8HPRN PRN 04/17/24 [History Confirmed 07/16/24] Ondansetron ODT 4 MG [Zofran Odt 4 mg] 4 mg PO Q8HPRN PRN 04/17/24 [Hist ory Confirmed 07/17/24] Cefdinir 300 mg PO BID #14 cap 04/21/24 [Rx Confirmed 07/16/24] Chlorpheniramine/Dextromethorp [Coricidin Hbp Cough-Cold Tab] 20 mg PO Q6H PRN 07/16/24 [History Confirmed 07/16/24] Duloxetine HCl [Cymbalta] 20 mg PO DAILY 07/16/24 [History Confirmed 07/16/24] Insulin Aspart (Niacinamide) [Fiasp 100 Unit/ml Flextouch] 0 units SQ UD 07/16/24 [History Confirmed 07/16/24] Insulin Aspart (Niacinamide) [Fiasp 100 Unit/ml Flextouch] 15 units SQ BID 07/16/24 [History Confirmed 07/16/24] Insulin Aspart (Niacinamide) [Fiasp 100 Unit/ml Flextouch] 20 units SQ UD 07/16/24 [History Confirmed 07/16/24] Ipratropium/Albuterol Sulfate [Combivent Respimat Common Canister] 1 puff IH Q4H PRN 07/16/24 [History Confirmed 07/16/24] Ipratropium/Albuterol Sulfate [Iprat-Albut 0.5-3(2.5) mg/3 ml] 1 vial IH Q6H PRN 07/16/24 [History Confirmed 07/16/24] Methenamine Hippurate 1 gm PO BID 07/16/24 [History Confirmed 07/17/24] Non-Formulary Drug [Non-Formulary Bulk Item] 1 each PO UD PRN 07/16/24 [History Confirmed 07/16/24] Non-Formulary Drug [Non-Formulary Item] 1 drop DROPS QID PRN 07/16/24 [History Confirmed 07/16/24] Non-Formulary Drug [Non-Formulary Item] 1 each TOP UD 07/16/24 [History Confirmed 07/16/24] Simethicone 80 mg [Mylicon 80MG] 80 mg PO Q6H PRN 07/16/24 [History Confirmed 07/16/24] Allergies/Adverse Reactions: Allergies Allergy/AdvReac Type Severity Reaction Status Date / Time latex Allergy Intermediate Hives Verified 07/16/24 10:04 bee venom protein (honey bee) Allergy Unknown Verified 07/16/24 10:04 shellfish derived Allergy Unknown Verified 07/16/24 10:04 fiberglass Allergy Intermediate Hives Uncoded 07/16/24 10:04 Exam - Vitals Vital Signs: Vital Signs - 24 hr Temp Pulse Resp BP Pulse Ox 07/18/24 11:19 98.4 F 63 16 146/67 97 07/18/24 08:00 97.9 F 90 16 132/65 96 07/18/24 06:31 75 18 99 07/18/24 06:00 18 07/18/24 04:00 97.3 F 85 18 150/67 96 07/18/24 02:00 16 07/18/24 01:16 75 16 95 07/18/24 00:00 20 07/17/24 23:48 97.6 F 85 20 144/83 97 07/17/24 22:00 20 07/17/24 20:00 98.3 F 86 20 114/62 96 07/17/24 17:23 76 16 99 07/17/24 16:00 98.2 F 77 16 129/65 99 SpO2: 97 Results Vital Signs: Vital Signs - 24 hr Temp Pulse Resp BP Pulse Ox 07/18/24 11:19 98.4 F 63 16 146/67 97 07/18/24 08:00 97.9 F 90 16 132/65 96 07/18/24 06:31 75 18 99 07/18/24 06:00 18 07/18/24 04:00 97.3 F 85 18 150/67 96 07/18/24 02:00 16 07/18/24 01:16 75 16 95 07/18/24 00:00 20 07/17/24 23:48 97.6 F 85 20 144/83 97 07/17/24 22:00 20 07/17/24 20:00 98.3 F 86 20 114/62 96 07/17/24 17:23 76 16 99 07/17/24 16:00 98.2 F 77 16 129/65 99 Pain Assessment - Last Documented Pain Intensity 0 Intake and Output: Intake & Output 07/16/24 07/17/24 07/18/24 07/19/24 11:59 11:59 11:59 11:59 Intake Total 1331 3770 Output Total 1500 Balance 1331 2270 Weight 116 kg 111.9 kg LAB: I have reviewed the Labs in [facility]. Radiology Exams: CXR (AP) 07/16/2024: Portable apical lordotic chest remains inflated and clear. Heart remains enlarged. Bony thorax intact again with osteopenia and degenerative changes. No new/acute findings. Chest CT without contrast 04/18/2024: 1. No evidence of consolidation. A 0.5 mm subpleural nodule in the left posterior lung base (S3 Img 43). No routine follow up required for low risk patient as per Fleischner guidelines. 2. Cardiomegaly with trace of pericardial effusion. 3. Mild bilateral pleural effusion. 4.Atherosclerotic aorta and coronary arteries. Tracing 1 Attestation: I have reviewed this EKG and interpreted as documented below. EKG Narrative: ECGs: 07/16/2024: NSR at 79 bpm. LAD. PRWP. Nonspecific T wave abnormality in high lateral leads. 04/20/2020: NSR at 94 bpm. LAD. PRWP. Nonspecific [address] and T wave abnormality in high lateral leads. Multi-Disciplinary Progress Notes: Multi-Disciplinary Progress Notes 07/17/24 13:00 Case Management Note by Olga Watson FROM [facility] CALLED BACK AND WILL BE ACCEPTING PATIENT BACK AT TIME OF DC Initialized on 07/17/24 13:00 - END OF NOTE Assessment & Plan (1) Elevated troponin level Current Visit: Yes Status: Acute Assessment & Plan: Minimal elevation represents demand ischemia caused by her COVID-19 pulmonary infection and associated hypoxemia. No symptoms of angina or ischemic changes on her ECG. Further cardiac evaluation is not necessary. Continue usual medical regimen. Code(s): R79.89 - OTHER SPECIFIED ABNORMAL FINDINGS OF BLOOD CHEMISTRY (2) COVID-19 Current Visit: Yes Status: Acute Code(s): U07.1 - COVID-19 (3) Hypoxia Current Visit: Yes Status: Acute Code(s): R09.02 - HYPOXEMIA (4) Atherosclerosis of coronary artery without angina pectoris Current Visit: Yes Status: Acute Code(s): I25.10 - ATHSCL HEART DISEASE OF [place] CORONARY ARTERY W/O ANG PCTRS - Encounter Encounter: "The entirety of this encounter was performed via Telemedicine using audio and visual "
--- NOTE | 2024-07-18 13:15 | PCM.NOTE ---
Date and Time: 07/18/24 1309 Subjective Assessment: 07/16/24 is a 79 year old female with PMHX of macular degeneration, iron def. anemia, CAD, DVT, hyperlipidemia, HTN, asthma, COPD, Sleep apnea, type II DM, hypothyroidism, OA, diverticulitis, GERD, IBS, renal disease, breast cancer, gastroparesis, fibromyalgia, cardiac stents and chronic obesity. Patient is here with new oxygen requirement, fever up to 102 at a [facility]. Patient is a resident of an extended care facility. They state that she is not usually on oxygen. However was on 87% on room air this morning. Placed on 2 L did come up to 94% she is alert to self and place and time. However she is confused of the situation and what hospital she is at. Temperature is 100.3 here. She has had increased cough, cold, congestion. Patient recently finished cefdinir as an antibiotic for UTI. Will repeat a UA here to check on this. + nonproductive cough. Lips do appear cracked. In ER she was given duoneb and IV steriod. CXR negative. She is + for COVID. She has acute on chronic renal failure. Will start IVF, remdesivir, and steroids. 07/17/24 Pt resting in bed. She slept with cpap on all night. She is more awake and alert today. She is wanting to eat. Trops slightly elevated and likely demand ischemia from SOB 2:2 COVID. Cardiology consulted for further eval. K+ 5.2 and Veltassa ordered to lower. Continue IVF, anion gap 15.8. HANNAH improving. She denies CP, abd. pain N/V/D. She is c/o left eye irritation from CPAP- eye gtts added. She is having pain in the back of her head from the CPAP strap and tylenol provided. Continue IVF, remdesivir, and steroids. 07/18/24 Pt resting in bed. Accuchecks were changed to Q4 hours last night and glucose remained elevated overnight but not treated. S/S insulin with meals added and lantus BID started instead of just at HS. Continue humalog s/s. Discussed with nursing home social worker Bisi the need for nursing to call with elevated glucose readings. Pt could have d/c'd today if glucose was controlled. Will need to keep another night at this point. Potassium WNL today. Continue IVF, remdesivir, and steroids for COVID. Pt is RA 97% today and does not wear home O2. She is feeling much better and denies any further concerns at this time. - Review of Systems Constitutional: No Fever, No Chills Eyes: No Symptoms Ears, Nose, & Throat: No Symptoms Respiratory: Cough, Short Of Breath Cardiac: No Chest Pain, No Edema, No Syncope Abdominal/Gastrointestinal: No Abdominal Pain, No Nausea, No Vomiting, No Diarrhea Genitourinary Symptoms: No Dysuria Musculoskeletal: No Back Pain, No Neck Pain Skin: No Rash Neurological: No Dizziness, No Focal Weakness, No Sensory Changes Psychological: No Symptoms Endocrine: No Symptoms Hematologic/Lymphatic: No Symptoms Immunological/Allergic: No Symptoms Objective Exam General Appearance: no apparent distress, alert, obese Neurologic Exam: alert, oriented x 3, cooperative, normal mood/affect, nml cerebellar function, sensation nml, No motor deficits Skin Exam: normal color, warm, dry Eye Exam: PERRL, EOMI, eyes nml inspection Ears, Nose, Throat Exam: normal ENT inspection, pharynx normal, moist mucous membranes Neck Exam: normal inspection, non-tender, supple, full range of motion Respiratory Exam: normal breath sounds, lungs clear, No respiratory distress Cardiovascular Exam: regular rate/rhythm, normal heart sounds Gastrointestinal/Abdomen Exam: soft, No tenderness, No mass Extremity Exam: normal inspection, normal range of motion Back Exam: normal inspection, normal range of motion, No CVA tenderness, No vertebral tenderness Pelvic Exam: deferred Rectal Exam: deferred Objective Data Vital Signs: Vital Signs - 24 hr Temp Pulse Resp BP Pulse Ox 07/18/24 13:06 97 07/18/24 13:04 68 16 97 07/18/24 11:19 98.4 F 63 16 146/67 97 07/18/24 08:00 97.9 F 90 16 132/65 96 07/18/24 06:31 75 18 99 07/18/24 06:00 18 07/18/24 04:00 97.3 F 85 18 150/67 96 07/18/24 02:00 16 07/18/24 01:16 75 16 95 07/18/24 00:00 20 07/17/24 23:48 97.6 F 85 20 144/83 97 07/17/24 22:00 20 07/17/24 20:00 98.3 F 86 20 114/62 96 07/17/24 17:23 76 16 99 07/17/24 16:00 98.2 F 77 16 129/65 99 Pain Assessment - Last Documented Pain Intensity 0 Intake and Output: Intake & Output 07/16/24 07/17/24 07/18/24 07/19/24 11:59 11:59 11:59 11:59 Intake Total 1331 3770 Output Total 1500 Balance 1331 2270 Weight 116 kg 111.9 kg Lab Results: Lab Results-Last 24 Hours 07/17/24 07/17/24 07/18/24 Range/Units 16:47 22:08 05:03 WBC (3.98-10.04) x10^3/uL RBC (3.93-5.22) x10^6/uL Hgb (11.2-15.7) g/dL Hct (34.1-44.9) % MCV (79.4-94.8) fL MCH (25.6-32.2) pg MCHC (32.2-35.5) g/dL RDW (11.7-14.4) % Plt Count (182-369) x10^3/uL MPV (9.4-12.3) fL Sodium (135-145) mmol/L Potassium (3.5-5.1) mmol/L Chloride (98-107) mmol/L Carbon Dioxide (22-30) mmol/L Anion Gap (5-15) MEQ/L BUN (7-17) mg/dL Creatinine (0.52-1.04) mg/dL Estimated GFR ML/MIN Glucose (74-106) mg/dL POC Glucometer 414 H 448 H 403 H (74 to 106) mg/dL Calcium (8.4-10.2) mg/dL Total Bilirubin (0.2-1.3) mg/dL AST (14-36) U/L ALT (0-35) U/L Alkaline Phosphatase (38-126) U/L Serum Total Protein (6.3-8.2) g/dL Albumin (3.5-5.0) g/dL 07/18/24 07/18/24 07/18/24 Range/Units 05:46 05:46 08:08 WBC 8.9 (3.98-10.04) x10^3/uL RBC 3.18 L (3.93-5.22) x10^6/uL Hgb 9.5 L (11.2-15.7) g/dL Hct 30.7 L (34.1-44.9) % MCV 96.5 H (79.4-94.8) fL MCH 29.9 (25.6-32.2) pg MCHC 30.9 L (32.2-35.5) g/dL RDW 15.0 H (11.7-14.4) % Plt Count 198 (182-369) x10^3/uL MPV 9.6 (9.4-12.3) fL Sodium 137 (135-145) mmol/L Potassium 4.7 (3.5-5.1) mmol/L Chloride 104 (98-107) mmol/L Carbon Dioxide 25 (22-30) mmol/L Anion Gap 12.3 (5-15) MEQ/L BUN 51 H (7-17) mg/dL Creatinine 1.89 H (0.52-1.04) mg/dL Estimated GFR 26.5 ML/MIN Glucose 436 H (74-106) mg/dL POC Glucometer 374 H (74 to 106) mg/dL Calcium 8.5 (8.4-10.2) mg/dL Total Bilirubin < 0.10 L (0.2-1.3) mg/dL AST 28 (14-36) U/L ALT 19 (0-35) U/L Alkaline Phosphatase 71 (38-126) U/L Serum Total Protein 6.3 (6.3-8.2) g/dL Albumin 3.4 L (3.5-5.0) g/dL 07/18/ Range/Units 12:20 WBC (3.98-10.04) x10^3/uL RBC (3.93-5.22) x10^6/uL Hgb (11.2-15.7) g/dL Hct (34.1-44.9) % MCV (79.4-94.8) fL MCH (25.6-32.2) pg MCHC (32.2-35.5) g/dL RDW (11.7-14.4) % Plt Count (182-369) x10^3/uL MPV (9.4-12.3) fL Sodium (135-145) mmol/L Potassium (3.5-5.1) mmol/L Chloride (98-107) mmol/L Carbon Dioxide (22-30) mmol/L Anion Gap (5-15) MEQ/L BUN (7-17) mg/dL Creatinine (0.52-1.04) mg/dL Estimated GFR ML/MIN Glucose (74-106) mg/dL POC Glucometer 381 H (74 to 106) mg/dL Calcium (8.4-10.2) mg/dL Total Bilirubin (0.2-1.3) mg/dL AST (14-36) U/L ALT (0-35) U/L Alkaline Phosphatase (38-126) U/L Serum Total Protein (6.3-8.2) g/dL Albumin (3.5-5.0) g/dL Assessment/Plan (1) COVID-19 Current Visit: Yes Status: Acute Code(s): U07.1 - COVID-19 (2) Hypoxia Current Visit: Yes Status: Acute Code(s): R09.02 - HYPOXEMIA (3) Acute on chronic kidney failure Current Visit: No Status: Acute Code(s): N17.9 - ACUTE KIDNEY FAILURE, UNSPECIFIED; N18.9 - CHRONIC KIDNEY DISEASE, UNSPECIFIED (4) Diabetes mellitus Current Visit: No Status: Chronic Code(s): E11.9 - TYPE 2 DIABETES MELLITUS WITHOUT COMPLICATIONS (5) HLD (hyperlipidemia) Current Visit: No Status: Chronic Code(s): E78.5 - HYPERLIPIDEMIA, UNSPECIFIED (6) HTN (hypertension) Current Visit: No Status: Chronic Code(s): I10 - ESSENTIAL (PRIMARY) HYPERTENSION (7) History of DVT (deep vein thrombosis) Current Visit: No Status: Chronic Code(s): Z86.718 - PERSONAL HISTORY OF OTHER VENOUS THROMBOSIS AND EMBOLISM (8) Hypothyroid Current Visit: No Status: Chronic Code(s): E03.9 - HYPOTHYROIDISM, UNSPECIFIED (9) Sleep apnea Current Visit: Yes Status: Acute Code(s): G47.30 - SLEEP APNEA, UNSPECIFIED (10) Iron deficiency anemia Current Visit: Yes Status: Chronic Code(s): D50.9 - IRON DEFICIENCY ANEMIA, UNSPECIFIED (11) Morbidly obese Current Visit: No Status: Chronic Code(s): E66.01 - MORBID (SEVERE) OBESITY DUE TO EXCESS CALORIES (12) Hyperkalemia Current Visit: Yes Status: Acute Code(s): E87.5 - HYPERKALEMIA (13) Elevated troponin level Current Visit: Yes Status: Acute Code(s): R79.89 - OTHER SPECIFIED ABNORMAL FINDINGS OF BLOOD CHEMISTRY (14) Dehydration Current Visit: Yes Status: Acute Assessment & Plan: (1) COVID-19 Current Visit: Yes Status: Acute Assessment & Plan: - supplemental O2 keep o2 > 92% - Steroids, remdesivir, duonebs - + Covid test in ER - RT eval and treat - CBC reviewed 07/17 - Cpap wore all night and this AM - pt more awake and alert today - now on 2lNC 96% - CBC reviewed 07/18 - 2lNC 97% - Pt awake and alert - CBC, CMP reviewed Code(s): U07.1 - COVID-19 (2) Hypoxia Current Visit: Yes Status: Acute Assessment & Plan: - Stat ABG- primary resp acidosis- chronic with secondary metabolic acidosis - On 2LNC 94%, baseline room air. - Tele 07/17 - Cpap wore all night and this AM - pt more awake and alert today - now on 2lNC 96% 07/18 - 2lNC 97% Code(s): R09.02 - HYPOXEMIA (3) Acute on chronic kidney failure Current Visit: No Status: Acute Assessment & Plan: - Creat 2.19- baseline 1.65 - NS @ 50 ml/ hr - Hold meds that affect renal function - CMP reviewed 07/17 - CMP reviewed - Creat 2.12- improving - Cont. IVF 07/18 - Creat 1.89- improved Code(s): N17.9 - ACUTE KIDNEY FAILURE, UNSPECIFIED; N18.9 - CHRONIC KIDNEY DISEASE, UNSPECIFIED (4) Diabetes mellitus Current Visit: No Status: Chronic Assessment & Plan: - A1C 7..6-04/17/24- controlled - accuchecks ac/hs - mod dose s/s - Continue lantus at HS 07/17 - accuchecks changed to Q4 hours as trending higher in the afternoon 07/18 - Humalog added with meals, Lantus Split BID, Continue High dose s/s insulin - Continue accuchecks AC/HS - Elevated readings need reported at night for coverage. - Per nursing pt is not eating much, so hyperglycemia is 2:2 steroids. - Humalog 20 units stat 1 time order gave at 1330 Code(s): E11.9 - TYPE 2 DIABETES MELLITUS WITHOUT COMPLICATIONS (5) HLD (hyperlipidemia) Current Visit: No Status: Chronic Assessment & Plan: - Continue statin Code(s): E78.5 - HYPERLIPIDEMIA, UNSPECIFIED (6) HTN (hypertension) Current Visit: No Status: Chronic Assessment & Plan: - BP stable- continue home meds Code(s): I10 - ESSENTIAL (PRIMARY) HYPERTENSION (7) History of DVT (deep vein thrombosis) Current Visit: No Status: Chronic Assessment & Plan: - continue eliquis Code(s): Z86.718 - PERSONAL HISTORY OF OTHER VENOUS THROMBOSIS AND EMBOLISM (8) Hypothyroid Current Visit: No Status: Chronic Assessment & Plan: - Continue synthroid Code(s): E03.9 - HYPOTHYROIDISM, UNSPECIFIED (9) Sleep apnea Current Visit: Yes Status: Acute Assessment & Plan: - Cpap ordered Code(s): G47.30 - SLEEP APNEA, UNSPECIFIED (10) Iron deficiency anemia Current Visit: Yes Status: Chronic Assessment & Plan: - continue ferrous sulfate - Hgb 10.2 07/17 - Hgb 9.8- stable Code(s): D50.9 - IRON DEFICIENCY ANEMIA, UNSPECIFIED (11) Morbidly obese Current Visit: No Status: Chronic Assessment & Plan: - Advised ADA diet and exercise control Code(s): E66.01 - MORBID (SEVERE) OBESITY DUE TO EXCESS CALORIES (12) Hyperkalemia Current Visit: Yes Status: Acute Assessment & Plan: - K+ 5.2- Veltessa ordered- trend 07/18 - K+ 4.7- WNL Code(s): E87.5 - HYPERKALEMIA (13) Elevated troponin level Current Visit: Yes Status: Acute Assessment & Plan: - Trops 0.033, 0.044, 0.046 - cardiology consult- pending - likely 2:2 COVID and SOB - tele - EKG Code(s): R79.89 - OTHER SPECIFIED ABNORMAL FINDINGS OF BLOOD CHEMISTRY (14) Dehydration Current Visit: Yes Status: Acute Assessment & Plan: - Cont IVF - anion gap 15.8 VTE: Eliquis PPI: Protonix Next of KIN:Brian Adela [phone] D/C plan: tomorrow Code status: SCO/DNR Code(s): E86.0 - DEHYDRATION Code(s): E86.0 - DEHYDRATION
[2024-07-18] MEDS: TYLENOL 325 MG PO PRN (14:08)
[2024-07-18 15:33] LABS: Appearance Cloudy (Clear); Bacteria Few /HPF (None Seen); Bilirubin Negative (Negative); Blood Large (Negative); Budding Yeast Many /HPF (None Seen); Epithelial Cells None Seen /HPF (None Seen); Glucose, Urine >=1000 mg/dL (Negative); Ketones Negative (Negative); Leukocyte Esterase Small (Negative); Nitrite Negative (Negative); Ph 5.5 (4.6-8.0); Protein,Urine Dip 100 (Negative); RBC 21-50 /HPF (0-5); Urobilinogen 0.2 mg/dL (0.2); WBC >100 /HPF (0-5)
[2024-07-18] MEDS: HUMULIN R SQ ONE ×2 (17:03→19:32)
[2024-07-18] MEDS: ROCEPHIN 1 GM / 100 ML NaCl 1 GM/100 ML IVPB IV SCH (17:03)
[2024-07-19 05:37] LABS: Hematocrit 30.2 % (34.1-44.9); Hemoglobin 9.3 g/dL (11.2-15.7); Mean Cell Volume 96.5 fL (79.4-94.8); Mean Corpuscular Hemoglobin 29.7 pg (25.6-32.2); Mean Corpuscular Hgb Concent. 30.8 g/dL (32.2-35.5); Mean Platelet Volume 10.2 fL (9.4-12.3); Platelet Count 197 x10^3/uL (182-369); Red Blood Count 3.13 x10^6/uL (3.93-5.22); Red Cell Distribution Width 15.2 % (11.7-14.4); White Blood Count 8.9 x10^3/uL (3.98-10.04)
[2024-07-19 06:03] LABS: ALBUMIN 3.3 g/dL (3.5-5.0); ANION GAP 10.7 MEQ/L (5-15); BILIRUBIN,TOTAL 0.1 mg/dL (0.2-1.3); Calcium 8.5 mg/dL (8.4-10.2); Creatinine 1 1.95 mg/dL (0.52-1.04); EST GLOMERULAR FILTRATION RATE 25.6 ML/MIN; Potassium 4.6 mmol/L (3.5-5.1); Total Protein 6.1 g/dL (6.3-8.2)
[2024-07-19 08:04] VITALS: O2SAT 95
[2024-07-19 08:30] VITALS: RESP 18
[2024-07-19] MEDS: DELTASONE 20 MG PO SCH (10:46)
[2024-07-19 12:12] VITALS: BP 140/64; PULSE 64; TEMP 97.6
--- NOTE | 2024-07-19 12:22 | PCM.DS ---
Discharge Summary Date of Admission: 07/16/24 12:34 Date of Discharge: 07/19/24 Admitting Physician: KELLI LENZ MD Consults: Consults on Case 07/17/24 13:24 Consult Cardiology ROUTINE Primary Care Provider: LINH MCGILL Allergies Allergies latex Allergy (Intermediate, Verified 07/16/24 10:04) [facility] bee venom protein (honey bee) Allergy (Unknown, Verified 07/16/24 10:04) shellfish derived Allergy (Unknown, Verified 07/16/24 10:04) algae in the ocean fiberglass Allergy (Intermediate, Uncoded 07/16/24 10:04) [facility] Summary - Hospital Course Hospital Course: 07/16/24 is a 79 year old female with PMHX of macular degeneration, iron def. anemia, CAD, DVT, hyperlipidemia, HTN, asthma, COPD, Sleep apnea, type II DM, hypothyroidism, OA, diverticulitis, GERD, IBS, renal disease, breast cancer, gastroparesis, fibromyalgia, cardiac stents and chronic obesity. Patient is here with new oxygen requirement, fever up to 102 at a custodial. Patient is a resident of an extended care facility. They state that she is not usually on oxygen. However was on 87% on room air this morning. Placed on 2 L did come up to 94% she is alert to self and place and time. However she is confused of the situation and what hospital she is at. Temperature is 100.3 here. She has had increased cough, cold, congestion. Patient recently finished cefdinir as an antibiotic for UTI. Will repeat a UA here to check on this. + nonproductive cough. Lips do appear cracked. In ER she was given duoneb and IV steriod. CXR negative. She is + for COVID. She has acute on chronic renal failure. Will start IVF, remdesivir, and steroids. 07/17/24 Pt resting in bed. She slept with cpap on all night. She is more awake and alert today. She is wanting to eat. Trops slightly elevated and likely demand ischemia from SOB 2:2 COVID. Cardiology consulted for further eval. K+ 5.2 and Veltassa ordered to lower. Continue IVF, anion gap 15.8. HANNAH improving. She denies CP, abd. pain N/V/D. She is c/o left eye irritation from CPAP- eye gtts added. She is having pain in the back of her head from the CPAP strap and tylenol provided. Continue IVF, remdesivir, and steroids. 07/18/24 Pt resting in bed. Accuchecks were changed to Q4 hours last night and glucose remained elevated overnight but not treated. S/S insulin with meals added and lantus BID started instead of just at HS. Continue humalog s/s. Discussed with adjunct nursing faculty Bisi the need for nursing to call with elevated glucose readings. Pt could have d/c'd today if glucose was controlled. Will need to keep another night at this point. Potassium WNL today. Continue IVF, remdesivir, and steroids for COVID. Pt is RA 97% today and does not wear home O2. She is feeling much better and denies any further concerns at this time. 07/19/24 Pt resting in bed. She is not requiring oxygen today and O2 is 95%. Lung sounds overall improved. She is feeling much better. UA + for UTI yesterday and ceftriaxone started. Will follow urine OP and continue PO antibiotics IV steroids stopped yesterday as glucose was elevated. Glucose better controlled today. Kidney function near baseline but will need OP lab f/u at [facility]. She denies CP, SOB, abd pain, N/V/D. - Vitals & Intake/Output Vital Signs: Vital Signs Temperature 98.2 F 07/19/24 08:00 Pulse Rate 61 07/19/24 08:00 Respiratory Rate 18 07/19/24 08:00 Blood Pressure 123/87 07/19/24 08:00 O2 Sat by Pulse Oximetry 95 07/19/24 08:03 Intake & Output: Intake & Output 07/17/24 07/18/24 07/19/24 07/20/24 11:59 11:59 11:59 11:59 Intake Total 1331 3770 1937 Output Total 1500 800 Balance 1331 2270 1137 Weight 111.9 kg - Lab Result Diagrams: 07/19/24 05:32 07/19/24 05:32 Lab Results-Last 24 Hrs: Lab Results-Last 24 Hours 07/18/24 07/18/24 07/18/24 Range/Units 12:20 15:10 16:11 WBC (3.98-10.04) x10^3/uL RBC (3.93-5.22) x10^6/uL Hgb (11.2-15.7) g/dL Hct (34.1-44.9) % MCV (79.4-94.8) fL MCH (25.6-32.2) pg MCHC (32.2-35.5) g/dL RDW (11.7-14.4) % Plt Count (182-369) x10^3/uL MPV (9.4-12.3) fL Sodium (135-145) mmol/L Potassium (3.5-5.1) mmol/L Chloride (98-107) mmol/L Carbon Dioxide (22-30) mmol/L Anion Gap (5-15) MEQ/L BUN (7-17) mg/dL Creatinine (0.52-1.04) mg/dL Estimated GFR ML/MIN Glucose (74-106) mg/dL POC Glucometer 381 H 409 H (74 to 106) mg/dL Calcium (8.4-10.2) mg/dL Total Bilirubin (0.2-1.3) mg/dL AST (14-36) U/L ALT (0-35) U/L Alkaline Phosphatase (38-126) U/L Serum Total Protein (6.3-8.2) g/dL Albumin (3.5-5.0) g/dL Urine Color Yellow (Yellow) Urine Appearance Cloudy A (Clear) Urine pH 5.5 (4.6-8.0) Ur Specific [place] 1.020 (1.005-1.030) Urine Protein 100 A (Negative) Urine Glucose (UA) >=1000 A (Negative) mg/dL Urine Ketones Negative (Negative) Urine Blood Large A (Negative) Urine Nitrite Negative (Negative) Urine Bilirubin Negative (Negative) Urine Urobilinogen 0.2 (0.2) mg/dL Ur Leukocyte Esterase Small A (Negative) U Hyaline Cast (Auto) 3-5 A (0-2) /LPF Urine Microscopic RBC 21-50 A (0-5) /HPF Urine Microscopic WBC >100 A (0-5) /HPF Ur Epithelial Cells None Seen (None Seen) /HPF Urine Bacteria Few A (None Seen) /HPF Urine Yeast (Budding) Many A (None Seen) /HPF Urine Culture Reflexed ORDERED SEPARATELY (NO) 07/18/24 07/18/24 07/18/24 Range/Units 18:37 20:26 23:42 WBC (3.98-10.04) x10^3/uL RBC (3.93-5.22) x10^6/uL Hgb (11.2-15.7) g/dL Hct (34.1-44.9) % MCV (79.4-94.8) fL MCH (25.6-32.2) pg MCHC (32.2-35.5) g/dL RDW (11.7-14.4) % Plt Count (182-369) x10^3/uL MPV (9.4-12.3) fL Sodium (135-145) mmol/L Potassium (3.5-5.1) mmol/L Chloride (98-107) mmol/L Carbon Dioxide (22-30) mmol/L Anion Gap (5-15) MEQ/L BUN (7-17) mg/dL Creatinine (0.52-1.04) mg/dL Estimated GFR ML/MIN Glucose (74-106) mg/dL POC Glucometer 343 H 317 H 243 H (74 to 106) mg/dL Calcium (8.4-10.2) mg/dL Total Bilirubin (0.2-1.3) mg/dL AST (14-36) U/L ALT (0-35) U/L Alkaline Phosphatase (38-126) U/L Serum Total Protein (6.3-8.2) g/dL Albumin (3.5-5.0) g/dL Urine Color (Yellow) Urine Appearance (Clear) Urine pH (4.6-8.0) Ur Specific [place] (1.005-1.030) Urine Protein (Negative) Urine Glucose (UA) (Negative) mg/dL Urine Ketones (Negative) Urine Blood (Negative) Urine Nitrite (Negative) Urine Bilirubin (Negative) Urine Urobilinogen (0.2) mg/dL Ur Leukocyte Esterase (Negative) U Hyaline Cast (Auto) (0-2) /LPF Urine Microscopic RBC (0-5) /HPF Urine Microscopic WBC (0-5) /HPF Ur Epithelial Cells (None Seen) /HPF Urine Bacteria (None Seen) /HPF Urine Yeast (Budding) (None Seen) /HPF Urine Culture Reflexed (NO) 07/19/24 07/19/24 07/19/24 Range/Units 04:05 05:32 05:32 WBC 8.9 (3.98-10.04) x10^3/uL RBC 3.13 L (3.93-5.22) x10^6/uL Hgb 9.3 L (11.2-15.7) g/dL Hct 30.2 L (34.1-44.9) % MCV 96.5 H (79.4-94.8) fL MCH 29.7 (25.6-32.2) pg MCHC 30.8 L (32.2-35.5) g/dL RDW 15.2 H (11.7-14.4) % Plt Count 197 (182-369) x10^3/uL MPV 10.2 (9.4-12.3) fL Sodium 139 (135-145) mmol/L Potassium 4.6 (3.5-5.1) mmol/L Chloride 107 (98-107) mmol/L Carbon Dioxide 26 (22-30) mmol/L Anion Gap 10.7 (5-15) MEQ/L BUN 51 H (7-17) mg/dL Creatinine 1.95 H (0.52-1.04) mg/dL Estimated GFR 25.6 ML/MIN Glucose 182 H (74-106) mg/dL POC Glucometer 189 H (74 to 106) mg/dL Calcium 8.5 (8.4-10.2) mg/dL Total Bilirubin 0.10 L (0.2-1.3) mg/dL AST 29 (14-36) U/L ALT 20 (0-35) U/L Alkaline Phosphatase 70 (38-126) U/L Serum Total Protein 6.1 L (6.3-8.2) g/dL Albumin 3.3 L (3.5-5.0) g/dL Urine Color (Yellow) Urine Appearance (Clear) Urine pH (4.6-8.0) Ur Specific [place] (1.005-1.030) Urine Protein (Negative) Urine Glucose (UA) (Negative) mg/dL Urine Ketones (Negative) Urine Blood (Negative) Urine Nitrite (Negative) Urine Bilirubin (Negative) Urine Urobilinogen (0.2) mg/dL Ur Leukocyte Esterase (Negative) U Hyaline Cast (Auto) (0-2) /LPF Urine Microscopic RBC (0-5) /HPF Urine Microscopic WBC (0-5) /HPF Ur Epithelial Cells (None Seen) /HPF Urine Bacteria (None Seen) /HPF Urine Yeast (Budding) (None Seen) /HPF Urine Culture Reflexed (NO) 07/19/24 07/19/24 Range/Units 08:16 11:40 WBC (3.98-10.04) x10^3/uL RBC (3.93-5.22) x10^6/uL Hgb (11.2-15.7) g/dL Hct (34.1-44.9) % MCV (79.4-94.8) fL MCH (25.6-32.2) pg MCHC (32.2-35.5) g/dL RDW (11.7-14.4) % Plt Count (182-369) x10^3/uL MPV (9.4-12.3) fL Sodium (135-145) mmol/L Potassium (3.5-5.1) mmol/L Chloride (98-107) mmol/L Carbon Dioxide (22-30) mmol/L Anion Gap (5-15) MEQ/L BUN (7-17) mg/dL Creatinine (0.52-1.04) mg/dL Estimated GFR ML/MIN Glucose (74-106) mg/dL POC Glucometer 136 H 130 H (74 to 106) mg/dL Calcium (8.4-10.2) mg/dL Total Bilirubin (0.2-1.3) mg/dL AST (14-36) U/L ALT (0-35) U/L Alkaline Phosphatase (38-126) U/L Serum Total Protein (6.3-8.2) g/dL Albumin (3.5-5.0) g/dL Urine Color (Yellow) Urine Appearance (Clear) Urine pH (4.6-8.0) Ur Specific [place] (1.005-1.030) Urine Protein (Negative) Urine Glucose (UA) (Negative) mg/dL Urine Ketones (Negative) Urine Blood (Negative) Urine Nitrite (Negative) Urine Bilirubin (Negative) Urine Urobilinogen (0.2) mg/dL Ur Leukocyte Esterase (Negative) U Hyaline Cast (Auto) (0-2) /LPF Urine Microscopic RBC (0-5) /HPF Urine Microscopic WBC (0-5) /HPF Ur Epithelial Cells (None Seen) /HPF Urine Bacteria (None Seen) /HPF Urine Yeast (Budding) (None Seen) /HPF Urine Culture Reflexed (NO) Micro Results-Entire Visit: Microbiology 07/18/24 15:00 Urine Culture - Preliminary Clean Catch Midstream GRAM NEGATIVE ID AND SENSITIVITY PENDING Accuchecks Date 07/19/24 Date 07/19/24 Date 07/19/24 Date 07/19/24 Date 07/18/24 Date 07/18/24 Time 12:11 Time 08:28 Time 04:00 Time 00:05 Time 16:29 Time 12:32 - Procedures and Test Procedures and Tests throughout Hospitalization: Therapy Orders & Screens 07/16/24 11:53 Respiratory Therapy Consult ONCE Comment: Reason For Exam: 07/16/24 13:14 RT Miscellaneous Order ROUTINE Comment: Physician Instructions: Reason For Exam: eval and treat Diagnosis: Covid 19 07/16/24 13:31 RT Miscellaneous Order ROUTINE Comment: Physician Instructions: Reason For Exam: CPAP for sleep apnea Diagnosis: Covid 19 07/16/24 14:38 Oxygen NASAL CANNULA 2 lpm Comment: Diagnosis: Covid 19 07/16/24 20:09 BiPap/CPAP ROUTINE Comment: Diagnosis: Covid 19 Discharge Exam General Appearance: no apparent distress, alert Neurologic Exam: alert, oriented x 3, cooperative, normal mood/affect, nml cerebellar function, sensation nml, No motor deficits Eye Exam: PERRL, EOMI, eyes nml inspection Ears, Nose, Throat Exam: normal ENT inspection, pharynx normal, moist mucous membranes Neck Exam: normal inspection, non-tender, supple, full range of motion Respiratory Exam: normal breath sounds, lungs clear, No respiratory distress Cardiovascular Exam: regular rate/rhythm, normal heart sounds Gastrointestinal/Abdomen Exam: soft, No tenderness, No mass Pelvic Exam: deferred Rectal Exam: deferred Back Exam: normal inspection, normal range of motion, No CVA tenderness, No vertebral tenderness Extremity Exam: normal inspection, normal range of motion Skin Exam: normal color, warm, dry Final Diagnosis/Problem List - Final Discharge Diagnosis/Problem (1) COVID-19 Current Visit: Yes Status: Acute Code(s): U07.1 - COVID-19 (2) Hypoxia Current Visit: Yes Status: Acute Code(s): R09.02 - HYPOXEMIA (3) Acute on chronic kidney failure Current Visit: No Status: Acute Code(s): N17.9 - ACUTE KIDNEY FAILURE, UNSPECIFIED; N18.9 - CHRONIC KIDNEY DISEASE, UNSPECIFIED (4) Diabetes mellitus Current Visit: No Status: Chronic Code(s): E11.9 - TYPE 2 DIABETES MELLITUS WITHOUT COMPLICATIONS (5) HLD (hyperlipidemia) Current Visit: No Status: Chronic Code(s): E78.5 - HYPERLIPIDEMIA, UNSPECIFIED (6) HTN (hypertension) Current Visit: No Status: Chronic Code(s): I10 - ESSENTIAL (PRIMARY) HYPERTENSION (7) History of DVT (deep vein thrombosis) Current Visit: No Status: Chronic Code(s): Z86.718 - PERSONAL HISTORY OF OTHER VENOUS THROMBOSIS AND EMBOLISM (8) Hypothyroid Current Visit: No Status: Chronic Code(s): E03.9 - HYPOTHYROIDISM, UNSPECIFIED (9) Sleep apnea Current Visit: Yes Status: Acute Code(s): G47.30 - SLEEP APNEA, UNSPECIFIED (10) Iron deficiency anemia Current Visit: Yes Status: Chronic Code(s): D50.9 - IRON DEFICIENCY ANEMIA, UNSPECIFIED (11) Morbidly obese Current Visit: No Status: Chronic Code(s): E66.01 - MORBID (SEVERE) OBESITY DUE TO EXCESS CALORIES (12) Hyperkalemia Current Visit: Yes Status: Acute Code(s): E87.5 - HYPERKALEMIA (13) Elevated troponin level Current Visit: Yes Status: Acute Code(s): R79.89 - OTHER SPECIFIED ABNORMAL FINDINGS OF BLOOD CHEMISTRY (14) Dehydration Current Visit: Yes Status: Acute Assessment & Plan: (1) COVID-19 Current Visit: Yes Status: Acute Assessment & Plan: - supplemental O2 keep o2 > 92% - Steroids, remdesivir, duonebs - + Covid test in ER - RT eval and treat - CBC reviewed 07/17 - Cpap wore all night and this AM - pt more awake and alert today - now on 2lNC 96% - CBC reviewed 07/18 - 2lNC 97% - Pt awake and alert - CBC, CMP reviewed - IV steroids stopped- changed to PO once daily 07/19 - RA 95% - CBC, CMP reviewed Code(s): U07.1 - COVID-19 (2) Hypoxia Current Visit: Yes Status: Acute Assessment & Plan: - Stat ABG- primary resp acidosis- chronic with secondary metabolic acidosis - On 2LNC 94%, baseline room air. - Tele 07/17 - Cpap wore all night and this AM - pt more awake and alert today - now on 2lNC 96% 07/18 - 2lNC 97% 07/19 - resolved Code(s): R09.02 - HYPOXEMIA (3) Acute on chronic kidney failure Current Visit: No Status: Acute Assessment & Plan: - Creat 2.19- baseline 1.65 - NS @ 50 ml/ hr - Hold meds that affect renal function - CMP reviewed 07/17 - CMP reviewed - Creat 2.12- improving - Cont. IVF 07/18 - Creat 1.89- improved 07/19 - Creat 1.95- BL 1.65- will need OP labs for f/u Code(s): N17.9 - ACUTE KIDNEY FAILURE, UNSPECIFIED; N18.9 - CHRONIC KIDNEY DISEASE, UNSPECIFIED (4) Diabetes mellitus Current Visit: No Status: Chronic Assessment & Plan: - A1C 7..6-04/17/24- controlled - accuchecks ac/hs - mod dose s/s - Continue lantus at HS 07/17 - accuchecks changed to Q4 hours as trending higher in the afternoon 07/18 - Humalog added with meals, Lantus Split BID, Continue High dose s/s insulin - Continue accuchecks AC/HS - Elevated readings need reported at night for coverage. - Per nursing pt is not eating much, so hyperglycemia is 2:2 steroids. - Humalog 20 units stat 1 time order gave at 1330 - steroids stopped- causing increased glucose 07/19 - Glucose better controlled with IV steroids stopped Code(s): E11.9 - TYPE 2 DIABETES MELLITUS WITHOUT COMPLICATIONS (5) HLD (hyperlipidemia) Current Visit: No Status: Chronic Assessment & Plan: - Continue statin Code(s): E78.5 - HYPERLIPIDEMIA, UNSPECIFIED (6) HTN (hypertension) Current Visit: No Status: Chronic Assessment & Plan: - BP stable- continue home meds Code(s): I10 - ESSENTIAL (PRIMARY) HYPERTENSION (7) History of DVT (deep vein thrombosis) Current Visit: No Status: Chronic Assessment & Plan: - continue eliquis Code(s): Z86.718 - PERSONAL HISTORY OF OTHER VENOUS THROMBOSIS AND EMBOLISM (8) Hypothyroid Current Visit: No Status: Chronic Assessment & Plan: - Continue synthroid Code(s): E03.9 - HYPOTHYROIDISM, UNSPECIFIED (9) Sleep apnea Current Visit: Yes Status: Acute Assessment & Plan: - Cpap ordered Code(s): G47.30 - SLEEP APNEA, UNSPECIFIED (10) Iron deficiency anemia Current Visit: Yes Status: Chronic Assessment & Plan: - continue ferrous sulfate - Hgb 10.2 07/17 - Hgb 9.8- stable Code(s): D50.9 - IRON DEFICIENCY ANEMIA, UNSPECIFIED (11) Morbidly obese Current Visit: No Status: Chronic Assessment & Plan: - Advised ADA diet and exercise control Code(s): E66.01 - MORBID (SEVERE) OBESITY DUE TO EXCESS CALORIES (12) Hyperkalemia Current Visit: Yes Status: Acute Assessment & Plan: - K+ 5.2- Veltessa ordered- trend 07/18 - K+ 4.7- WNL- resolved Code(s): E87.5 - HYPERKALEMIA (13) Elevated troponin level Current Visit: Yes Status: Acute Assessment & Plan: - Trops 0.033, 0.044, 0.046- demand ischemia from SOB/COVID - cardiology consult- discussed pt case and agree with plan of care - likely 2:2 COVID and SOB - tele - EKG Code(s): R79.89 - OTHER SPECIFIED ABNORMAL FINDINGS OF BLOOD CHEMISTRY (14) Dehydration Current Visit: Yes Status: Acute Assessment & Plan: - Cont IVF - anion gap 15.8 Code(s): E86.0 - DEHYDRATION (15) UTI (urinary tract infection) Current Visit: Yes Status: Acute Assessment & Plan: - UA reviewed - Ceftriaxone started - continue OP antibiotics - Will follow culture OP - UC gram negative- sensitivity pending Code(s): N39.0 - URINARY TRACT INFECTION, SITE NOT SPECIFIED - Discharge Discharge Date: 07/19/24 ([facility]) Disposition: XFER OTHER Condition: Stable Prescriptions: New Prednisone 20 mg [Deltasone 20 mg] 20 mg PO DAILY 4 Days #4 tablet Continue Furosemide [Lasix] 40 mg PO DAILY Metoprolol Succinate 25 mg Xl* [Toprol-Xl 25MG Tablets] 25 mg PO DAILY Levothyroxine Sodium 25 Mcg [Synthroid 25 Mcg] 75 mcg PO DAILY Ergocalciferol (Vitamin D2) [Vitamin D2] 1.25 mg PO DAILY Allopurinol 100 mg [Zyloprim 100 mg] 100 mg PO DAILY Dicyclomine HCl 20 mg [Bentyl 20 mg] 10 mg PO TID Isosorbide Mononitrate [Isosorbide Mononitrate ER] 60 mg PO DAILY Ferrous Sulfate 325 mg [Feosol 325 mg] 325 mg PO DAILY PANTOPRAZOLE 40 mg Tablet [Protonix 40MG Tablet] 40 mg PO BID Nitroglycerin 0.4 mg Tablet [Nitrostat 0.4 MG Tablet] 0.4 mg SL UD Polyethylene Glycol 3350 17 gm [Miralax Powder 17GM PACKET] 17 gm PO HS Hydrocodone/Acetaminophen [Hydrocodone-Acetamin 7.5-325] 1 each PO Q4HPRN PRN PRN Reason: Pain Glucagon 1 mg [GlucaGen 1 MG] 1 mg IM UD PRN PRN Reason: Hypoglycemia Gabapentin [Neurontin ] 100 mg PO TID Apixaban [Eliquis] 5 mg PO BID Bisacodyl 10 mg [Dulcolax 10 MG SUPP] 10 mg RC Q6H PRN PRN PRN Reason: Constipation Clopidogrel Bisulfate [PLAVIX Tablet] 75 mg PO DAILY diphenhydrAMINE HCL [Allergy Relief] 25 mg PO Q8H PRN PRN PRN Reason: Allergies Insulin Glargine,Hum.rec.anlog [Basaglar Kwikpen U-100] 100 unit SQ HS Loperamide HCl 2 mg [Imodium 2 mg] 2 mg PO Q8H PRN PRN PRN Reason: Diarrhea Rosuvastatin Calcium 20 mg PO HS Magnesium Hydroxide 30 ml [Milk of Magnesia 30 ml] 30 ml PO DAILY PRN PRN PRN Reason: Constipation Cyanocobalamin (Vitamin B-12) [B-12] 1,000 mcg PO DAILY Ondansetron ODT 4 MG [Zofran Odt 4 mg] 4 mg PO Q8HPRN PRN PRN Reason: Nausea/Vomiting Diclofenac Sodium [Voltaren Arthritis Pain] 1 dose TOP Q8HPRN PRN PRN Reason: hand pain Acetaminophen [Tylenol Extra Strength] 1,000 mg PO BID Acetaminophen 325 mg [Tylenol 325 mg] 650 mg PO Q4HPRN PRN PRN Reason: Pain Acetaminophen 325 mg [Tylenol 325 mg] 650 mg PO Q4H PRN PRN PRN Reason: temp Non-Formulary Drug [Non-Formulary Item] 1 drop DROPS QID PRN PRN Reason: dry eye Methenamine Hippurate 1 gm PO BID Non-Formulary Drug [Non-Formulary Bulk Item] 1 each PO UD PRN PRN Reason: hypoglycemia Insulin Aspart (Niacinamide) [Fiasp 100 Unit/ml Flextouch] 0 units SQ UD Insulin Aspart (Niacinamide) [Fiasp 100 Unit/ml Flextouch] 15 units SQ BID Insulin Aspart (Niacinamide) [Fiasp 100 Unit/ml Flextouch] 20 units SQ UD Duloxetine HCl [Cymbalta] 20 mg PO DAILY Chlorpheniramine/Dextromethorp [Coricidin Hbp Cough-Cold Tab] 20 mg PO Q6H PRN PRN Reason: cough/congestion Non-Formulary Drug [Non-Formulary Item] 1 each TOP UD Simethicone 80 mg [Mylicon 80MG] 80 mg PO Q6H PRN PRN Reason: Gas Ipratropium/Albuterol Sulfate [Combivent Respimat Common Canister] 1 puff IH Q4H PRN PRN Reason: copd Ipratropium/Albuterol Sulfate [Iprat-Albut 0.5-3(2.5) mg/3 ml] 1 vial IH Q6H PRN PRN Reason: Cough Discontinued Cefdinir 300 mg PO BID #14 cap Additional Instructions: JAIL ORDERS: RESUME PREVIOUS ORDERS ISOLATION PER PROTOCAL FOR COVID-19 SEE ATTACHED MED LIST Recheck CMP Tuesday Follow up with: LINH MCGILL MD [Primary Care Provider] -
[2024-08-07] MEDS ORDERED: VITAMIN D2 PO SCH (10:00)
== END 2024-07-19 16:09 ==
LOC: ED 09:49 → MED SURG 12:34
PROVIDERS: ADMIT Internal Medicine; ATTEND Internal Medicine
DX: U07.1 COVID-19 (principal); R09.02 Hypoxemia; N17.9 Acute kidney failure, unspecified; E78.5 Hyperlipidemia, unspecified; Z86.718 Personal history of other venous thrombosis and embolism; E03.9 Hypothyroidism, unspecified; G47.30 Sleep apnea, unspecified; D50.9 Iron deficiency anemia, unspecified; E66.01 Morbid (severe) obesity due to excess calories; E87.5 Hyperkalemia; R79.89 Other specified abnormal findings of blood chemistry; E86.0 Dehydration; E11.22 Type 2 diabetes mellitus with diabetic chronic kidney disease; I12.9 Hypertensive chronic kidney disease with stage 1 through stage 4 chronic kidney disease, or unspecified chronic kidney disease; N18.9 Chronic kidney disease, unspecified; I25.10 Atherosclerotic heart disease of native coronary artery without angina pectoris; Z79.01 Long term (current) use of anticoagulants; Z79.899 Other long term (current) drug therapy; Z85.3 Personal history of malignant neoplasm of breast
CPT/HCPCS: 0241U; 36415; 36600; 71045; 80048; 80053; 81001; 82375; 82803; 82947; 83880; 84134; 84484; 85025; 85027; 87077; 87086; 87186; 93005; 93041; 93268; 94002; 94003; 94640; 94762; 96374; 99284; G0378; Q3014; 94760; J0248; J0696; J1815; J1817; J2919; A9270-GY

== ENCOUNTER 2024-10-31 10:27 | Emergency (ER) | payer MEDICARE, OTHER ==
[2024-10-31 10:51] VITALS: TEMP 97.2
[2024-10-31] MEDS ORDERED: DUONEB 0.5-3 MG/3 ml Neb IH ONE (10:52)
[2024-10-31] MEDS: DUONEB 0.5-3 MG/3 ml Neb IH ONE (11:06)
[2024-10-31 11:30] LABS: Absolute Neutrophil Ct (ANC) 4.91 x10^3/uL (1.56-6.13); BASOPHIL % 0.5 % (0.1-1.2); Basophil (Absolute #) 0.05 x10^3/uL (0.01-0.08); Eosinophil % 6.4 % (0.7-5.8); Eosinophil (Absolute #) 0.63 x10^3/uL (0.04-0.36); Hematocrit 33.7 % (34.1-44.9); Hemoglobin 10.5 g/dL (11.2-15.7); Lymphocyte (Absolute #) 3.35 x10^3/uL (1.18-3.74); Lymphocytes % 34.1 % (19.3-51.7); Mean Cell Volume 98.3 fL (79.4-94.8); Mean Corpuscular Hemoglobin 30.6 pg (25.6-32.2); Mean Corpuscular Hgb Concent. 31.2 g/dL (32.2-35.5); Monocyte (Absolute #) 0.77 x10^3/uL (0.24-0.86); Monocytes % 7.8 % (4.7-12.5); Neutrophil % 50.2 % (34.0-71.1); Platelet Count 204 x10^3/uL (182-369); Red Blood Count 3.43 x10^6/uL (3.93-5.22); Red Cell Distribution Width 15.3 % (11.7-14.4); White Blood Count 9.8 x10^3/uL (3.98-10.04)
[2024-10-31 11:41] LABS: INFLUENZA A NEGATIVE (NEGATIVE); INFLUENZA B NEGATIVE (NEGATIVE); RESPIRATORY SYNCTIAL VIRUS NEGATIVE (NEGATIVE); SARS-CoV-2 Xpert Express NEGATIVE (NEGATIVE)
[2024-10-31] MEDS ORDERED: Zofran 4 MG/2 ML VIAL ONE (11:43)
[2024-10-31] MEDS ORDERED: SUBLIMAZE 100 MCG/2 ML ONE (11:44)
[2024-10-31] MEDS: Zofran 4 MG/2 ML VIAL IV ONE (11:46)
[2024-10-31] MEDS: SUBLIMAZE 100 MCG/2 ML IV ONE (11:46)
[2024-10-31 11:55] LABS: ALBUMIN 3.5 g/dL (3.5-5.0); ANION GAP 12.7 MEQ/L (5-15); BILIRUBIN,TOTAL 0.4 mg/dL (0.2-1.3); Calcium 8.7 mg/dL (8.4-10.2); Creatinine 1 1.53 mg/dL (0.52-1.04); EST GLOMERULAR FILTRATION RATE 34.2 ML/MIN; MAGNESIUM 1.6 mg/dL (1.6-2.3); Potassium 4.8 mmol/L (3.5-5.1); Total Protein 6.1 g/dL (6.3-8.2)
--- NOTE | 2024-10-31 11:55 | XRAY ---
Indication: Short of breath. Comparison: July 16, 2024 Portable chest better inflated and remains clear. Heart remains enlarged again with coronary stent. Bony thorax intact again with osteopenia and mild degenerative changes. No new/acute findings.
--- NOTE | 2024-10-31 12:31 | ERPHSYRPT ---
- History of Present Illness Time Seen by Provider: 10/31/24 10:37 Source: patient, EMS, [facility] records Exam Limitations: no limitations Patient Subjective Stated Complaint: Pt c/o of casimiro shoulder, arms, and leg pain with swelling Triage Nursing Assessment: Pt was brought to the ER by EMS, hypertensive, rates pain as 8/10, swelling in casimiro lower ext, pain in casimiro arms and shoulders, swelling to the face and back of neck, pt reports being short of breath earlier but is not at this time, denies chest pain, denies N&V, doesn't appear to be in any distress Physician History: 79 years old female with multiple medical problems including COPD, hypertension, coronary artery disease with stenting, congestive heart failure, fibromyalgia presented in the ER with multiple complaints from [facility] via EMS. Patient reports she is having aches and pains all over especially on the both shoulders, legs and also feeling swelling in legs, face and arms. Reports having some shortness of breath earlier, her took few deep breaths and it is improved. Denies any chest pain now or before. No palpitations. No fever or chills reported. Has occasional nonproductive cough. No known sick contact. Allergies/Adverse Reactions: latex Allergy (Intermediate, Verified 10/31/24 10:51) Hives bee venom protein (honey bee) Allergy (Unknown, Verified 10/31/24 10:51) shellfish derived Allergy (Unknown, Verified 10/31/24 10:51) algae in the ocean fiberglass Allergy (Intermediate, Uncoded 10/31/24 10:51) Hives Home Medications: Allopurinol 100 mg [Zyloprim 100 mg] 100 mg PO DAILY 11/09/22 [History] Dicyclomine HCl 20 mg [Bentyl 20 mg] 10 mg PO TID 11/09/22 [History] Ergocalciferol (Vitamin D2) [Vitamin D2] 1.25 mg PO DAILY 11/09/22 [History] Ferrous Sulfate 325 mg [Feosol 325 mg] 325 mg PO BID 11/09/22 [History] Furosemide [Lasix] 40 mg PO DAILY 11/09/22 [History] Isosorbide Mononitrate [Isosorbide Mononitrate ER] 60 mg PO DAILY 11/09/22 [History] Levothyroxine Sodium 25 Mcg [Synthroid 25 Mcg] 75 mcg PO DAILY 11/09/22 [History] Metoprolol Succinate 25 mg Xl* [Toprol-Xl 25MG Tablets] 25 mg PO DAILY 11/09/22 [History] Apixaban [Eliquis] 5 mg PO BID 04/09/24 [History] Bisacodyl 10 mg [Dulcolax 10 MG SUPP] 10 mg RC Q6H PRN PRN 04/09/24 [History] Clopidogrel Bisulfate [PLAVIX Tablet] 75 mg PO DAILY 04/09/24 [History] Glucagon 1 mg [GlucaGen 1 MG] 1 mg IM UD PRN 04/09/24 [History] Hydrocodone/Acetaminophen [Hydrocodone-Acetamin 7.5-325] 1 each PO Q4HPRN PRN 04/09/24 [History] Insulin Glargine,Hum.rec.anlog [Basaglar Jamesikpen U-100] 100 unit SQ HS 04/09/24 [History] Loperamide HCl 2 mg [Imodium 2 mg] 2 mg PO Q8H PRN PRN 04/09/24 [History] Magnesium Hydroxide 30 ml [Milk of Magnesia 30 ml] 30 ml PO DAILY PRN PRN 04/09/24 [History] Nitroglycerin 0.4 mg Tablet [Nitrostat 0.4 MG Tablet] 0.4 mg SL UD 04/09/24 [History] PANTOPRAZOLE 40 mg Tablet [Protonix 40MG Tablet] 40 mg PO DAILY 04/09/24 [History] Polyethylene Glycol 3350 17 gm [Miralax Powder 17GM PACKET] 17 gm PO HS 04/09/24 [History] Rosuvastatin Calcium 10 mg PO HS 04/09/24 [History] Acetaminophen 325 mg [Tylenol 325 mg] 650 mg PO Q4H PRN PRN 04/17/24 [History] Acetaminophen [Tylenol Extra Strength] 1,000 mg PO BID 04/17/24 [History] Diclofenac Sodium [Voltaren Arthritis Pain] 1 dose TOP Q8HPRN PRN 04/17/24 [ History] Ondansetron ODT 4 MG [Zofran Odt 4 mg] 4 mg PO Q8HPRN PRN 04/17/24 [History] Duloxetine HCl [Cymbalta] 20 mg PO DAILY 07/16/24 [History] Insulin Aspart (Niacinamide) [Fiasp 100 Unit/ml Flextouch] 0 units SQ UD 07/16/24 [History] Insulin Aspart (Niacinamide) [Fiasp 100 Unit/ml Flextouch] 15 units SQ BID 07/16/24 [History] Insulin Aspart (Niacinamide) [Fiasp 100 Unit/ml Flextouch] 20 units SQ UD 07/16/24 [History] Ipratropium/Albuterol Sulfate [Combivent Respimat Common Canister] 1 puff IH Q4H PRN 07/16/24 [History] Ipratropium/Albuterol Sulfate [Iprat-Albut 0.5-3(2.5) mg/3 ml] 1 vial IH Q6H PRN 07/16/24 [History] Methenamine Hippurate 1 gm PO BID 07/16/24 [History] Simethicone 80 mg [Mylicon 80MG] 80 mg PO Q6H PRN 07/16/24 [History] Docusate Sodium 250 mg PO HS 10/31/24 [History] Magnesium Oxide 400 mg [Mag-Ox 400] 400 mg PO DAILY 10/31/24 [History] Sodium Phosphate,Kemper-Dibasic [Fleet Enema] 1 unit RC Q72H PRN 10/31/24 [History] Hx Tetanus, Diphtheria Vaccination/Date Given: Yes Hx Influenza Vaccination/Date Given: No Hx Pneumococcal Vaccination/Date Given: Yes Travel Risk - International Travel Have you traveled outside of the country in past 3 weeks: No - Emerging Infectious Disease Are you exhibiting symptoms associated with any current EIDs: No Symptoms: Cough: New Onset, Fever, Shortness of Breath - Review of Systems Constitutional: Fatigue Eyes: No Symptoms Ears, Nose, & Throat: No Symptoms Respiratory: Cough, Dyspnea Cardiac: No Symptoms Abdominal/Gastrointestinal: No Symptoms Genitourinary Symptoms: No Symptoms Musculoskeletal: Arthralgias, Back Pain, Joint Pain Skin: No Symptoms Neurological: No Symptoms Endocrine: No Symptoms Hematologic/Lymphatic: No Symptoms - Past Medical History Pertinent Past Medical History: Yes Neurological History: No Pertinent History, Peripheral Neuropathy ENT History: Macular Degeneration Cardiac History: Coronary Artery Disease, Deep Vein Thrombosis, High Cholesterol, Hypertension Respiratory History: Asthma, COPD, Pneumonia, Sleep Apnea Endocrine Medical History: Diabetes Type II, Hypothyroidism Musculoskeletal History: Arthritis, Fractures, Osteoarthritis GI Medical History: Colitis, Diverticulitis, GERD, GI Bleed, Irritable Bowel, Other History: Renal Disease Psycho-Social History: No Pertinent History Female Reproductive Disorders: Breast Cancer Other Medical History: breast cancer 1986, GASTROPARESIS, fibromyalgia - Past Surgical History Past Surgical History: Yes Neuro Surgical History: No Pertinent History Cardiac: Cardiac Catheterization, Cardiac Stent Respiratory: No Pertinent History Gastrointestinal: Cholecystectomy Genitourinary: No Pertinent History Musculoskeletal: No Pertinent History Female Surgical History: Hysterectomy, Section, Mastectomy Other Surgical History: Uvula remove, 3 CARDIAC STENTS - Social History Smoking Status: Never smoker Exposure to second hand smoke: No Drug Use: none - Social Determinants of Health Will the patient participate in the screening: Yes Do you worry about a steady place to live?: No Do you have any problems with any of the following?: No known problems In the past 12 months,have you had to go without utilities?: No Transportation Issues: No Has anyone in your support network made you feel unsafe?: No Have you or anyone in your house had to go w/o enough food: No - Nursing Vital Signs Nursing Vital Signs: Initial Vital Signs Temperature 97.2 F 10/31/24 10:30 Pulse Rate 65 10/31/24 10:30 Respiratory Rate 17 10/31/24 10:30 Blood Pressure 176/65 10/31/24 10:30 O2 Sat by Pulse Oximetry 93 L 10/31/24 10:30 Pain Scale Pain Intensity [Upper Arm] 8 Pain Intensity 8 - Physical Exam General Appearance: no apparent distress, alert Eye Exam: other (Legal blindness right eye) Ears, Nose, Throat Exam: hearing grossly normal Neck Exam: normal inspection, supple, full range of motion Respiratory Exam: normal breath sounds, lungs clear Cardiovascular/Chest Exam: normal heart sounds, regular rate/rhythm Abdominal/Gastrointestinal Exam: soft, normal bowel sounds, No tenderness Extremity Exam: normal range of motion, No non-tender (Mild generalized joint tenderness) Neurologic Exam: alert, oriented x 3, cooperative, deck hand II-XII nml as tested Skin Exam: normal color SpO2 Interpretation: normal SpO2: 95 O2 Delivery: Room Air - Course EKG Interpreted by Me: RATE (68), Sinus Rhythm, NORMAL AXIS, NORMAL INTERVALS, Q-wave, Non-specific ST Changes, Other (Unspecific T wave changes) Ordered Tests: Active Orders 24 hr Category Date Time Status Publication Distributor STAT Care 10/31/24 10:37 Active EKG-ER Only STAT Care 10/31/24 10:37 Active IV Insertion STAT Care 10/31/24 10:37 Active CHEST 1 VIEW (PORTABLE) Stat Exams 10/31/24 10:37 Completed CBC W DIFF Stat Lab 10/31/24 11:29 Completed CK-Creatinine Phosphokinase Stat Lab 10/31/24 11:29 Completed CMP Stat Lab 10/31/24 11:29 Completed Lactic Acid Stat Lab 10/31/24 10:37 Completed MAGNESIUM Stat Lab 10/31/24 11:29 Completed NT PRO BNPII Stat Lab 10/31/24 11:29 Completed TROPONIN Q4H Lab 10/31/24 11:29 Completed TROPONIN Q4H Lab 10/31/24 14:35 Completed TROPONIN Q4H Lab 10/31/24 18:45 Ordered Respiratory Therapy Assessment DAILY RT 10/31/24 11:07 Active Medication Summary Discontinued Medications Generic Name Dose Route Start Last Admin Trade Name Freq PRN Reason Stop Dose Admin Albuterol/Ipratropium 3 ml 10/31/24 10:37 10/31/24 11:06 Ipratropium/Albuterol Sulfate 3 Ml Ampul.Neb IH 10/31/24 10:38 3 ml STAT ONE Administration Albuterol/Ipratropium Confirm 10/31/24 10:52 Ipratropium/Albuterol Sulfate 3 Ml Ampul.Neb Administered 10/31/24 10:53 Dose 3 ml IH .STK-MED ONE Fentanyl Citrate 50 mcg 10/31/24 10:38 10/31/24 11:46 Fentanyl Citrate 100 Mcg/2 Ml* Vial IV 10/31/24 10:39 50 mcg STAT ONE Administration Fentanyl Citrate Confirm 10/31/24 11:44 Fentanyl Citrate 100 Mcg/2 Ml* Vial Administered 10/31/24 11:45 Dose 100 mcg .ROUTE .STK-MED ONE Ondansetron HCl 4 mg 10/31/24 10:38 10/31/24 11:46 Ondansetron Hcl 4 Mg/2 Ml Vial IV 10/31/24 10:39 4 mg STAT ONE Administration Ondansetron HCl Confirm 10/31/24 11:43 Ondansetron Hcl 4 Mg/2 Ml Vial Administered 10/31/24 11:44 Dose 4 mg .ROUTE .STK-MED ONE Lab/Rad Data: Laboratory Result Diagrams 10/31/24 11:29 10/31/24 11:29 Laboratory Results 10/31/24 10/31/24 10/31/24 Range/Units 14:35 11:29 11:29 WBC (3.98-10.04) x10^3/uL RBC (3.93-5.22) x10^6/uL Hgb (11.2-15.7) g/dL Hct (34.1-44.9) % MCV (79.4-94.8) fL MCH (25.6-32.2) pg MCHC (32.2-35.5) g/dL RDW (11.7-14.4) % Plt Count (182-369) x10^3/uL MPV (9.4-12.3) fL Gran % (34.0-71.1) % Immature Gran % (Auto) (0.001-0.429) % Nucleat RBC Rel Count (0.00-0.2) % Eos # (Auto) (0.04-0.36) x10^3/uL Immature Gran # (Auto) (0.001-0.031) x10^3u/L Absolute Lymphs (auto) (1.18-3.74) x10^3/uL Absolute Monos (auto) (0.24-0.86) x10^3/uL Absolute Nucleated RBC (0.00-0.012) x10^3u/L Lymphocytes % (19.3-51.7) % Monocytes % (4.7-12.5) % Eosinophils % (0.7-5.8) % Basophils % (0.1-1.2) % Absolute Granulocytes (1.56-6.13) x10^3/uL Basophils # (0.01-0.08) x10^3/uL Sodium 138 (135-145) mmol/L Potassium 4.8 (3.5-5.1) mmol/L Chloride 101 (98-107) mmol/L Carbon Dioxide 29 (22-30) mmol/L Anion Gap 12.7 (5-15) MEQ/L BUN 30 H (7-17) mg/dL Creatinine 1.53 H (0.52-1.04) mg/dL Estimated GFR 34.2 ML/MIN Glucose 169 H (74-106) mg/dL Lactic Acid (0.4-2.0) Calcium 8.7 (8.4-10.2) mg/dL Magnesium 1.6 (1.6-2.3) mg/dL Total Bilirubin 0.40 (0.2-1.3) mg/dL AST 22 (14-36) U/L ALT 17 (0-35) U/L Alkaline Phosphatase 112 (38-126) U/L Creatine Kinase 69 (30-135) U/L Troponin I < 0.012 < 0.012 (0.000-0.033) ng/mL NT-Pro-B Natriuret Pep 2400 (<300) pg/mL Serum Total Protein 6.1 L (6.3-8.2) g/dL Albumin 3.5 (3.5-5.0) g/dL Influenza Type A Ag (NEGATIVE) Influenza Type B Ag (NEGATIVE) RSV (PCR) (NEGATIVE) SARS-CoV-2 (PCR) (NEGATIVE) 10/31/24 10/31/24 10/31/24 Range/Units 11:29 11:00 10:37 WBC 9.8 (3.98-10.04) x10^3/uL RBC 3.43 L (3.93-5.22) x10^6/uL Hgb 10.5 L (11.2-15.7) g/dL Hct 33.7 L (34.1-44.9) % MCV 98.3 H (79.4-94.8) fL MCH 30.6 (25.6-32.2) pg MCHC 31.2 L (32.2-35.5) g/dL RDW 15.3 H (11.7-14.4) % Plt Count 204 (182-369) x10^3/uL MPV 10.0 (9.4-12.3) fL Gran % 50.2 (34.0-71.1) % Immature Gran % (Auto) 1.0 H (0.001-0.429) % Nucleat RBC Rel Count 0.0 (0.00-0.2) % Eos # (Auto) 0.63 H (0.04-0.36) x10^3/uL Immature Gran # (Auto) 0.10 H (0.001-0.031) x10^3u/L Absolute Lymphs (auto) 3.35 (1.18-3.74) x10^3/uL Absolute Monos (auto) 0.77 (0.24-0.86) x10^3/uL Absolute Nucleated RBC 0.00 (0.00-0.012) x10^3u/L Lymphocytes % 34.1 (19.3-51.7) % Monocytes % 7.8 (4.7-12.5) % Eosinophils % 6.4 H (0.7-5.8) % Basophils % 0.5 (0.1-1.2) % Absolute Granulocytes 4.91 (1.56-6.13) x10^3/uL Basophils # 0.05 (0.01-0.08) x10^3/uL Sodium (135-145) mmol/L Potassium (3.5-5.1) mmol/L Chloride (98-107) mmol/L Carbon Dioxide (22-30) mmol/L Anion Gap (5-15) MEQ/L BUN (7-17) mg/dL Creatinine (0.52-1.04) mg/dL Estimated GFR ML/MIN Glucose (74-106) mg/dL Lactic Acid 1.3 (0.4-2.0) Calcium (8.4-10.2) mg/dL Magnesium (1.6-2.3) mg/dL Total Bilirubin (0.2-1.3) mg/dL AST (14-36) U/L ALT (0-35) U/L Alkaline Phosphatase (38-126) U/L Creatine Kinase (30-135) U/L Troponin I (0.000-0.033) ng/mL NT-Pro-B Natriuret Pep (<300) pg/mL Serum Total Protein (6.3-8.2) g/dL Albumin (3.5-5.0) g/dL Influenza Type A Ag NEGATIVE (NEGATIVE) Influenza Type B Ag NEGATIVE (NEGATIVE) RSV (PCR) NEGATIVE (NEGATIVE) SARS-CoV-2 (PCR) NEGATIVE (NEGATIVE) - Progress Progress: improved, re-examined Air Movement: good Progress Note: 10/31/24 16:15 79 years old female with multiple medical problems including CAD/CHF/diabetes mellitus/fibromyalgia, anticoagulated on Eliquis is evaluated in the ER for complaints of aches and pains all over her joints including shoulders legs with some concern for swelling/CHF exacerbation. EKG is sinus rhythm with no acute ischemic changes. She is given symptomatic treatment, on reevaluation her pain is resolved. She is feeling much improved on reevaluation. Chest x-ray is negative for any acute intrathoracic findings reviewed by me followed by official read Has normal white count, chemistries fairly unremarkable and negative troponins x 2. Patient is at [facility] and is taking Eliquis regularly. I did not apprec iate any pitting edema. Patient is taking Lasix. I believe patient's pain was secondary to fibromyalgia and recommended continue with Avilla which she has at home and may need some extra doses as needed. Patient never complained about chest pain but had some shortness of breath which improved with taking deep breaths. Do not think her symptoms are cardiac etiology and do not think patient needs to be further worked up in the ER or needs inpatient admission. Recommended outpatient follow-up. Discussed signs symptoms of worsening needing return to ER which she seems understanding. Stable for discharge back to [facility]. 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, [employer] - External Record(s) Reviewed Records reviewed as a part of evaluation & management: Discharge Summary, snf, EMS - Diagnostic Testing Diagnostic test were ordered, analyzed, and reviewed by me: Yes Radiological Interpretation: Interpreted by me, Reviewed by me - Risk of complications The pt has a mod risk of morbidity or mortality based on: Need for prescription drug management - Departure Departure Disposition: Home Clinical Impression: Fibromyalgia muscle pain, Dyspnea Condition: Stable Critical Care Time: No Referrals: VISH CHRISTIE MD [Primary Care Provider] - Follow up with PCP 1 day Instructions: Chronic Pain (DC) Additional Instructions: Follow-up with primary care for reevaluation. Return to ER if having chest pain/difficulty breathing/palpitations. May need to increase dose of Avilla for short-term pain control. Continue with Lasix. Prescriptions: Albuterol Sulfate [Albuterol Sulfate Hfa] 8.5 gm IH Q6H PRN 14 Days #1 inh PRN Reason: Cough
[2024-11-01 01:09] VITALS: BP 165/99; PULSE 88; RESP 21; O2SAT 98
== END 2024-11-01 01:43 | disposition home or self-care (01) ==
LOC: ED 10:27
DX: M79.7 Fibromyalgia (principal); R06.00 Dyspnea, unspecified; E78.5 Hyperlipidemia, unspecified; I10 Essential (primary) hypertension; E11.42 Type 2 diabetes mellitus with diabetic polyneuropathy; Z79.02 Long term (current) use of antithrombotics/antiplatelets; Z79.01 Long term (current) use of anticoagulants; Z79.4 Long term (current) use of insulin; Z79.899 Other long term (current) drug therapy
CPT/HCPCS: 0241U; 36415; 71045; 80053; 82550; 83605; 83735; 83880; 84484; 85025; 93005; 93041; 94640; 96374; 96375; 99285; J2405; J3010; A9270-GY